=== PATIENT | female | born 1945 | race Caucasian/White ===

== ENCOUNTER → 2020-01-21 14:12 | Outpatient (CLI) | payer BC, SELFPAY ==
--- NOTE | ~2020-01-21 | MM_ITS ---
EXAMINATION: MM screening tony BI w ry HISTORY: Screening mammogram TECHNIQUE: Craniocaudal and mediolateral oblique 3-D tomosynthesis images were obtained and synthetic 2-D images were generated. CAD analysis was submitted and interpreted. COMPARISON: Comparison to multiple prior studies sequentially, with oldest reviewed study dated 07/18. BREAST PARENCHYMAL COMPOSITION: The breasts are heterogeneously dense, which may obscure small masses . FINDINGS: There is no evidence of suspicious mass, calcification, or architectural distortion to sugg est malignancy in either breast. There has been no suspicious interval change. IMPRESSION: 1. No mammographic evidence of malignancy. 2. Recommend routine screening mammography in one year. BI-RADS Category 1: Negative Reviewed, dictated and finalized at location A. TAL COMPUTER OPERATOR
== END ==
PROVIDERS: Visit Provider Nurse Practitioner
DX: Z12.31 Encounter for screening mammogram for malignant neoplasm of breast (principal)
CPT/HCPCS: 77063; 77067

== ENCOUNTER 2020-05-21 18:37 | Inpatient (IN) | payer BC, MEDICARE, SELFPAY ==
[2020-05-21] VITALS (12 sets, daily range): BP systolic 92–154; BP diastolic 20–81; PULSE 79–109; RESP 16–26; TEMP 35.9–36.8; O2SAT 97–100; BMI 32.7
--- NOTE | ~2020-05-21 | XR_ITS ---
EXAMINATION: XR chest 1V portable INDICATION: Shortness of breath and weakness TECHNIQUE: Portable AP chest at 1954 hours COMPARISON: 03/01/2009 FINDINGS: The lungs are free of acute opacities. There is no pleural effusion or pneumothorax. The ca rdiomediastinal silhouette is normal. The visualized bones and soft tissues are unremarkable. IMPRESSION: 1. No acute cardiopulmonary abnormality. Reviewed, dictated and finalized at location A.
--- NOTE | 2020-05-21 18:42 | ECG_ITS ---
Measurements Intervals [place] Rate: 85 P: 40 DE: 180 QRS: -47 QRSD: 150 T: 110 QT: 406 QTc: 485 Interpretive Statements SINUS RHYTHM RIGHT BUNDLE BRANCH BLOCK LEFT ANTERIOR FASCICULAR BLOCK LEFT VENTRICULAR HYPERTROPHY AND ST-T CHANGE CANNOT RULE OUT SEPTAL INFARCT, AGE INDETERMINATE PEAKED T WAVES- CONSIDER HYPERKALEMIA OR ISCHEMIA ST-T WAVE ABNORMALITY IN HIGH LATERAL LEADS- CONSIDER ISCHEMIA ABNORMAL ECG Electronically Signed On 05-21-2020 20:15:35 CDT by Abdi Pike D.O.
[2020-05-21 19:24] LABS: Basophils Percent Auto 0.5 % (0.2-1.2); Eosinophils Percent Auto 0.1 % (0-4.4); Hematocrit 23.1 % (37.0-47.0); Hemoglobin 7.3 g/dL (12.0-15.0); Immature Granulocyte Absolute 0.06 K/mm3 (0.00-0.031); Immature Granulocyte Percent A 0.8 % (0-0.5); Lymphocytes Absolute Auto 1.05 K/mm3 (0.9-3.2); Lymphocytes Percent Auto 13.2 % (18.3-44.2); Mean Corpuscular HGB Conc 31.6 g/dl (32-36); Mean Corpuscular Hemoglobin 30.9 pg (26-34); Mean Corpuscular Volume 97.9 fl (80-100); Mean Platelet Volume 11.4 fl (7.4-10.4); Monocytes Absolute Auto 0.5 K/mm3 (0.1-0.6); Monocytes Percent Auto 5.9 % (2.6-8.5); Neutrophils Absolute Auto 6.4 K/mm3 (1.3-6.7); Neutrophils Percent Auto 79.5 % (45.5-73.1); Platelet Count Result 247 k/mm3 (150-375); Red Blood Count 2.36 M/mm3 (4.2-5.4); Red Cell Distribution Width 13.7 % (11.5-14.5)
[2020-05-21 19:28] LABS: Add Urine Microscopic? YES; Appearance Urine Clear (Clear); Bilirubin Urine Negative (Negative); Blood Urine Negative (Negative); Color Urine Yellow (Yellow); Glucose Urine UA Negative (Negative); Ketones Urine Trace mg/dL (Negative); Leukocyte Esterase Ur Negative LEU/UL (Negative); Mucus Urine Rare /lpf; Nitrate Urine Negative (Negative); Protein Urine Negative (Negative); RBC Urine 0-2 /hpf (0-2); Specific Grav Ur 1.017 (1.001-1.035); Urobilinogen Urine Negative mg/dL (<2.0); WBC Urine 0-3 /hpf
[2020-05-21 19:32] LABS: Alveolar/Arterial O2 Gradient 26.7 mmHg; Base Excess ABG -3.6 mEq/l (+/-2.0); Carboxyhemoglobin 0.1 % THb (0-2.0); Device ROOM AIR; Fractional Inspired Oxygen 21 %; HCO3 ABG 19.6 mEq/l (22.0-26.0); Methemoglobin ABG 0.2 %THb (0-1.5); Modified Allen's Test Pass; Oxygen Content ABG 12.2 %vol (16.0-22.0); Oxygen Saturation ABG 97.3 % (95.0-100.0); Oxyhemoglobin 95.6 % THb (90.0-100.0); PCO2 ABG 28.7 mmHg (35.0-45.0); PO2 ABG 88.7 mmHg (80.0-100.0); PO2 FiO2 Ratio Arterial Blood 4.22 %; Reduced Hemoglobin 4.1 %THb (0-5.0); Site Drawn LEFT RADIAL; pH ABG 7.452 (7.350-7.450)
[2020-05-21 19:33] LABS: INR 1.1; Prothrombin Time 14.1 Seconds (11.1-14.7)
[2020-05-21 19:36] LABS: Alanine Aminotransferase 14 U/L (4-35); Albumin Level 2.8 g/dL (3.5-5.1); Alkaline Phosphatase 36 U/L (38-126); Aspartate Amino Transferase 17 U/L (14-36); Bilirubin,Total < 0.1 mg/dL (0.2-1.3); Blood Urea Nitrogen 53 mg/dL (7-17); Calcium 7.9 mg/dL (8.4-10.2); Carbon Dioxide 18 mmol/L (22-30); Chloride 111 mmol/L (98-107); Estimated CRCL calculation 67 ml/min; Estimated Glomerular Filt Rate > 60; Glucose 147 mg/dL (65-105); Potassium 4.2 mmol/L (3.4-5.0); Sodium 136 mmol/L (137-145)
[2020-05-21 19:37] LABS: Lactic Acid Reflex 3.7 mmol/L (0.7-2.1)
--- NOTE | 2020-05-21 19:38 | PC.NURSE ---
Patient placed on bed Max johns RN made aware.
[2020-05-21 19:40] LABS: Reflex Lactic Acid Yes or No Add Lactic
[2020-05-21 19:41] LABS: Amphetamine Screen Urine Negative (Negative); Barbiturate Screen Urine Negative (Negative); Benzodiazepines Screen Urine Positive (Negative); Cannabinoid Screen Urine Negative (Negative); Cocaine Screen Urine Negative (Negative); Methadone Screen Urine Negative (Negative); Opiate Screen Urine Negative (Negative); Phencyclidine Screen Urine Negative (Negative)
[2020-05-21 19:49] LABS: Troponin I 0.362 ng/mL (0.000-0.034)
--- NOTE | 2020-05-21 19:56 | ED.GENADULT ---
HPI - General Adult General Chief complaint: Weakness Stated complaint: WEAKNESS Time Seen by Provider: 05/21/20 18:41 Source: patient and EMS Mode of arrival: EMS Limitations: no limitations History of Present Illness HPI narrative: 75-year-old with a history of JAY on CPAP machine was brought in from home with complaints of sudden onset of marked weakness, was unable to get out of the bed. Patient states that she uses the CPAP machine on a daily basis however the settings were changed yesterday. She mentions they have added some medication yesterday which she is not quite sure. Upon EMS arrival. Patient was very confused, diaphoretic. She denies any chest pain, fever or chills. No history of nausea vomiting. However she complains of black-colored stool which happened 4 months ago none at this time. Onset (ago): minute(s) (30) Severity: severe Exacerbating factors: none Associated symptoms: weakness Treatments prior to arrival: none Related Data Home Medications Medication Instructions Recorded Confirmed cyclosporine 0.05 % eye drops in a 1 drop OPHTHALMIC (EYE) ONCE each 04/12/20 04/12/20 dropperette ergocalciferol (vitamin D2) 1,250 50,000 unit PO WEEKLY cap 04/12/20 04/12/20 mcg (50,000 unit) capsule turmeric root extract 500 mg 500 mg PO DAILY 04/12/20 04/12/20 capsule Allergies Allergy/AdvReac Type Severity Reaction Status Date / Time aspirin AdvReac Mild Other Verified 05/21/20 19:23 Review of Systems Review of Systems: All systems reviewed & are unremarkable except as noted in HPI and below Constitutional: Constitutional: Reports no additional constitutional complaints Eyes: Eyes: Reports no additional eye complaints ENT: Reports system reviewed and no additional complaints, except as documented Cardiovascular: Cardiovascular: Reports no additional cardiovascular complaints Respiratory: Respiratory: Reports no additional respiratory complaints Gastrointestinal: Gastrointestinal: Reports no additional gastrointestinal complaints Musculoskeletal: Musculoskeletal: Reports no additional musculoskeletal complaints Neurologic: Reports system reviewed and no additional complaints, except as documented Endocrine: Endocrine: Reports no additional endocrine complaints PMFSH Past Medical History Medical History Severe obstructive sleep apnea Social History Social History Gender identity (if verbalized by the patient): Female Exam Narrative: Exam Narrative: GENERAL:ill -appearing, well-nourished, Pale ,anxious . HEAD: Normocephalic, atraumatic. EYES: PERRLA and EOMI. ENT: Nares clear, no rhinorrhea or epistaxis. Mucous membranes moist. NECK: Supple. CHEST: Clear to auscultation. No respiratory distress. HEART: Regular rate and rhythm. No murmur heard. Normal peripheral pulses. ABDOMEN: Soft, nontender, nondistended, normal active bowel sounds. Rectal Heme positive stool EXTREMITIES: Normal range of motion. No edema. SKIN: Warm, dry, no rash. NEURO: No focal deficits. Alert and oriented x3. PSYCH: Normal mood and affect. Course Course Emergency Course: After liter of fluid patient's blood pressure has improved and is presently 116/51. Patient states that she is feeling much better. No further episodes of dizziness. Informed her about lab work. Will admit to the hospital. Discussed with Dr. Singh, informed her about the lab work. Vital Signs Vital signs: Vital Signs Temperature 35.9 C L 05/21/20 18:48 Pulse Rate 79 05/21/20 18:48 Respiratory Rate 26 H 05/21/20 18:48 Blood Pressure 92/20 L 05/21/20 18:48 Pulse Oximetry 99 05/21/20 18:48 Temperature 35.9 C L 05/21/20 18:48 Pulse Rate 95 05/21/20 19:15 Respiratory Rate 19 05/21/20 19:15 Blood Pressure 116/51 L 05/21/20 19:15 Pulse Oximetry 99 05/21/20 19:15 Medical Decision Making Vital Signs Vital Signs: Vital Signs Temperat
--- NOTE | 2020-05-21 20:00 | ECG_ITS ---
Measurements Intervals [place] Rate: 82 P: 65 AL: 198 QRS: -51 QRSD: 141 T: 108 QT: 383 QTc: 450 Interpretive Statements SINUS RHYTHM RIGHT BUNDLE BRANCH BLOCK LEFT ANTERIOR FASCICULAR BLOCK LEFT VENTRICULAR HYPERTROPHY AND ST-T CHANGE CANNOT RULE OUT SEPTAL INFARCT, AGE INDETERMINATE ST-T WAVE ABNORMALITY IN HIGH LATERAL LEADS- CONSIDER ISCHEMIA ABNORMAL ECG Electronically Signed On 05-24-2020 7:02:25 CDT by Abdi Pike D.O.
--- NOTE | 2020-05-21 20:24 | PM.IMHP ---
H&P: HPI History of Present Illness Chief complaint: Weakness, low blood pressure Narrative: Date and time of patient contact: 05/21/2020 Renetta Carrasco is a 75 year old female with a past medical history of essential hypertension and coronary artery disease who presented to the ER via EMS with weakness. The patient was found to be hypotensive in the field and received 250 mL of IV fluids in route to the hospital. The patient reportedly received an additional L of IV fluids in the ER however this has not been documented. The patient's blood pressures had improved to with systolics above 100. The patient reports that she has been chronically fatigued for years. She states that she will usually sleep an hour so with her CPAP and then get up and work for couple of hours and then go back to sleep. She had a new CPAP yesterday with an increased pressure. She thought that the increased pressure caused her the then developed dizziness, lightheadedness, and increased weakness. She reports that the dizziness and lightheadedness comes when she sits up. It is been ongoing for the last 24 hours. She denies any headache or visual changes. She has not had any nausea or vomiting. She also had noticed racing heart any time she would try to sit up. She has noticed increased heart rate with even minimal activity over the last couple of months. She has noticed some tightness across the back of her shoulders and neck as well with these episodes. She had not had any diaphoresis until today at which time she felt flushed and was diaphoretic. She denies having any actual chest pain. She had noticed some epigastric discomfort and what she thought was heartburn. She has been having this epigastric discomfort and heartburn on off for at least 4 months. She reports that she usually goes in takes an antacid and the symptoms go away 20 or 30 minutes later. The symptoms do seem to occur more after she has had food. However she does get the symptoms as well when she is up been active. She denies any lower extremity swelling. She has noticed increased weight gain for the last 6 weeks or so. She has noticed left arm pain for the last 6 weeks that is intermittent that she thought was associated with an injection that she received in her bicep. She did notice some melena about 4 months ago. However she has been unable to have a colonoscopy due to COVID-19 epidemic. She has a history of rectal polyps and hemorrhoids. She thinks her hemorrhoids may have returned. She states that she does have a small amount of red blood occasionally in her stools but none in the last couple of weeks. She reportedly had outpatient labs performed about 6 weeks ago but she is unaware of what her hemoglobin may have been. She reports that she had a distant history of anemia but does not think she has had anemia in years. She reports that her last bowel movement was while she was in the ER and was soft. She has not had any cough, congestion, or fevers. The patient was crying and tearful during multiple portions of the interview. She actually started crying because she reported that she felt so cold. The patient was not having any obvious chills or rigors. She has been taking diclofenac due to buzb-aw-sisc osteoarthritis. She reportedly lost her last prescription for diclofenac so she found an old prescription from about 5 years ago and has been taking this for her arthritis pain. She has also been using a topical ointment. She reported that she was so weak today that she could not get up and walk. She denies any history of strokes, memory difficulties, coronary artery disease, diabetes, or kidney disease. She has been on Plavix for years but states that it was given to her by an ear nose and throat doctor due to her tinnitus. She states that she had an outpatient stress test approximately 4 years ago that was reportedly negative. She had the stress test in anticipation of arthroscopic knee dick
[2020-05-21] MEDS: SODIUM CHLORIDE 0.9% IV 1,000 ML 125 ML IV CONT ×2 (20:40→21:38)
[2020-05-21 20:55] LABS: Hematocrit 25.1 % (37.0-47.0); Hemoglobin 8.2 g/dL (12.0-15.0)
--- NOTE | 2020-05-21 21:25 | ADMIMU ---
This patient, Renetta Carrasco, was admitted to IMU status, and placed in IMU Room 202-05/21/20 at 2120. Patient/family oriented to hospital policies and general routines including ID bracelet, bed and alarms, visiting hours, pain management, procedures, bathroom and other care routines, personal items, smoking policy, room service/diet, and visiting hours. Valuables list has been completed. Information on how to activate the Rapid Response Team has been discussed. Patient/Family are encouraged to report perceived risks to care and to ask questions if they do not understand what they are told or what they should do.
[2020-05-21] MEDS: PANTOPRAZOLE SODIUM IV 40 MG VIAL IV PUSH (21:40)
[2020-05-21 23:16] LABS: Transferrin 249 mg/dL (206-381)
[2020-05-21 23:49] LABS: Iron 76 ug/dL (37-170)
[2020-05-21 23:59] LABS: Percent Iron Saturation 22 % (20-50)
[2020-05-22] VITALS (22 sets, daily range): BP systolic 127–154; BP diastolic 56–69; PULSE 87–119; RESP 16–26; TEMP 36.1–37.1; O2SAT 97–100
[2020-05-22 00:15] LABS: Folic Acid 11.7 ng/mL (2.76->20)
[2020-05-22 03:14] LABS: IFOB Positive Control Positive; Immunochemical Fecal Occult Bl Positive (N)
[2020-05-22 03:26] LABS: Troponin I 0.379 ng/mL (0.000-0.034)
[2020-05-22 08:12] LABS: Basophils Percent Auto 0.3 % (0.2-1.2); Hematocrit 25.1 % (37.0-47.0); Hemoglobin 8.3 g/dL (12.0-15.0); Immature Granulocyte Absolute 0.06 K/mm3 (0.00-0.031); Immature Granulocyte Percent A 0.6 % (0-0.5); Lymphocytes Absolute Auto 1.41 K/mm3 (0.9-3.2); Mean Corpuscular HGB Conc 33.1 g/dl (32-36); Mean Corpuscular Hemoglobin 30.7 pg (26-34); Mean Platelet Volume 11.1 fl (7.4-10.4); Monocytes Absolute Auto 1.2 K/mm3 (0.1-0.6); Monocytes Percent Auto 12.9 % (2.6-8.5); Neutrophils Absolute Auto 6.7 K/mm3 (1.3-6.7); Neutrophils Percent Auto 71.2 % (45.5-73.1); Platelet Count Result 237 k/mm3 (150-375); White Blood Count 9.4 K/mm3 (4.5-10.0)
[2020-05-22 08:26] LABS: Blood Urea Nitrogen 43 mg/dL (7-17); Calcium 8.1 mg/dL (8.4-10.2); Carbon Dioxide 23 mmol/L (22-30); Chloride 110 mmol/L (98-107); Estimated CRCL calculation 58 ml/min; Estimated Glomerular Filt Rate > 60; Glucose 98 mg/dL (65-105); Potassium 3.8 mmol/L (3.4-5.0); Sodium 136 mmol/L (137-145)
[2020-05-22] MEDS: SIMVASTATIN 20 MG TABLET 40 MG PO (08:51)
[2020-05-22] MEDS: DULOXETINE 60 MG CAPSULE.DR PO (08:51)
[2020-05-22] MEDS: PANTOPRAZOLE SODIUM IV 40 MG VIAL IV PUSH ×2 (08:51→20:30)
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
--- NOTE | 2020-05-22 10:05 | ECG_ITS ---
Measurements Intervals [place] Rate: 96 P: 73 MT: 218 QRS: -50 QRSD: 149 T: 117 QT: 382 QTc: 483 Interpretive Statements SINUS RHYTHM WITH FIRST DEGREE AV BLOCK RIGHT BUNDLE BRANCH BLOCK LEFT ANTERIOR FASCICULAR BLOCK LEFT VENTRICULAR HYPERTROPHY AND ST-T CHANGE MINIMAL Q WAVES- HIGH LATERAL LEADS ST-T WAVE ABNORMALITY IN HIGH LATERAL LEADS- CONSIDER ISCHEMIA ABNORMAL ECG Electronically Signed On 05-22-2020 13:16:26 CDT by Abdi Pike D.O.
--- NOTE | 2020-05-22 10:06 | ECHO_ITS ---
Patient Info Name: Renetta Carrasco Age: 75 years : 1945 Gender: Female Ht: 62 in Wt: 179 lbs BSA: 1.92 m2 HR: 102 bpm BP: 127 / 57 mmHg Heart Rhythm: Sinus Rhythm Technical Quality: Good Exam Date: 05/22/2020 12:00 PM Exam Location: [facility] Room: 202 Patient Status: Inpatient Admit Date: 05/21/2020 Staff Ordering Physician: Joy Singh MD [employer]: Nasreen Espana RDCS Attending Provider: Bryan Ga MD Referring Physician: Francisco RICH; Exam Type: CA echo doppler color flow Study Info Indications - elevated trop weakness nstemi Complete two-dimensional, color flow and Doppler transthoracic echocardiogram is performed. Summary 1. Normal left ventricular size with mild concentric left ventricular hypertrophy. Hyperdynamic left ventricular systolic function with a visual estimate EF of greater than 70%. No focal wall motion abnormalities noted Calculated EF 68%. Grade 1diastolic dysfunction is present. 2. Left atrial chamber dimension is mildly enlarged. 3. Mild pulmonary hypertension, estimated pulmonary arterial systolic pressure is 42 mmHg. 4. Normal sinus rhythm. Left Ventricle Left ventricular chamber dimension is normal. Left ventricular systolic function is hyperdynamic, estimated at >70%. There is mildly increased left ventricular wall thickness. Left ventricular septal wall motion is normal. The left ventricular diastolic function is grade I diastolic dysfunction. Right Ventricle Right ventricular chamber dimension is normal. Right ventricular systolic function is normal. Left Atria Left atrial chamber dimension is mildly enlarged. Right Atria Right atrial chamber dimension is normal. Aortic Valve The aortic valve is trileaflet. There is mild aortic valve sclerosis. There is no aortic valve stenosis. There is no aortic valve regurgitation. Pulmonic Valve The pulmonic valve is normal. There is no pulmonic valve stenosis. There is no pulmonic regurgitation. Mitral Valve The mitral valve has normal leaflets. There is no mitral valve stenosis. There is no mitral valve regurgitation. Tricuspid Valve The tricuspid valve leaflets are normal. There is no significant tricuspid valve stenosis. There is trace tricuspid valve regurgitation. Mild pulmonary hypertension, estimated pulmonary arterial systolic pressure is 42 mmHg. Pericardium/Pleural The pericardium appears normal. There is no pericardial effusion. Inferior Vena Cava Normal inferior vena cava with >50% collapse upon inspiration consistent with Empty right atrial pressure, 10 mmHg. Aorta The aortic root size at the sinus of Valsalva is normal. The prox ascending aorta size is normal. Left Ventricular Outflow Tract Name Value Normal LVOT 2D LVOT Diameter 2.0 cm LVOT Doppler LVOT Peak Gradient 7 mmHg LVOT Mean Gradient 5 mmHg LVOT VTI 19 cm LVOT VTI/AV VTI Ratio 0.7 LVOT Stroke Volume 58 ml
--- NOTE | 2020-05-22 10:06 | WPDCN ---
Assessment and Plan Assessment and plan (1) Type 2 NV (myocardial infarction): Code(s): I21.A1 - Myocardial infarction type 2 Status: Acute Assessment and Plan: Patient has elevated troponins of 0.36, 0.43 and 0.38 with no anginal-type chest discomfort. EKG does not show any acute ST segment changes but she does have some prominent T-wave inversion in leads 1 and L, perhaps related to right ventricular hypertrophy. I think she had a type 2 NV related to physiologic stress of severe anemia and hypotension. She may have some underlying vascular disease but is asymptomatic and stable. Will obtain an echo to evaluate LV function, and repeat her EKG this morning. Continue general risk factor reduction with hypertension control, lipid management, heart healthy eating etc. (2) Acute GI bleeding: Code(s): K92.2 - Gastrointestinal hemorrhage, unspecified Status: Acute Assessment and Plan: Severe anemia causing hypotension, secondary to GI bleed. I think the patient can undergo endoscopy and colonoscopy on Sunday as planned by Dr. Quintanilla. (3) Hypotension: Code(s): I95.9 - Hypotension, unspecified Status: Acute Assessment and Plan: Initially hypotensive, resolved with IV fluids and 1 unit of pack cells. (4) Hypertension: Code(s): I10 - Essential (primary) hypertension Status: Acute Assessment and Plan: History of hypertension. Have not yet resumed her blood pressure medications. Will wait and see if her BP is stable 1st. (5) Cerebrovascular disease: Code(s): I67.9 - Cerebrovascular disease, unspecified Status: Acute Assessment and Plan: Patient gives a history of having some atherosclerotic plaque for which she takes Plavix. Very faint left carotid bruit noted. Notes that when she takes aspirin she has increased tinnitus. HPI Data of Consult Date/Time: 05/22/20 10:06 Requesting Physician: Rob Ga MD Primary Care Provider: Magdi Gonzalez Jr., MD Consult Narrative Narrative: Date of service: 05/22/2020 Renetta Carrasco is a 75 year old female whom I was asked to see at the request of for our for my advice and opinion regarding her elevated troponins and weakness, in consultation. The patient was admitted through the emergency room with hypotension, weakness, and a troponin 0.36. She was found to be severely anemic. Her primary care doctor is Dr. Gonzalez. Ms. Carrasco has been feeling weak for several months. She described some melena a few months ago and was supposed to get a colonoscopy but then the COVID-19 pandemic has delayed that. She is feeling progressively worse, with increasing fatigue, weakness, and dizziness. She was worn out. She could hardly walk from room to room in the house and her heart would race when she did that. She was very sweaty and slept all the time. She might of had some epigastric indigestion now and then. No further melena. Questionable slight hemorrhoidal bleeding (she is a very imprecise historian at times) but no recent melena or overt GI bleeding. No substernal chest pressure, pain, tightness to suggest any typical angina. She was admitted with the hemoglobin of 7 and was guaiac positive. She received a L of IV fluids in the ER for blood pressure of 92. After 1 unit of pack cells her hemoglobin is 8. She is feeling better this morning. The patient has a history of hypertension hyperlipidemia but no diabetes, smoking or family history of heart trouble. She has never had a heart disease herself or heart testing. She did see ENT physician for tinnitus and she was told she had atherosclerotic plaque in her head and started on Plavix. She has never had a stroke. Review of Systems Constitutional: Constitutiona
[2020-05-22] MEDS: SODIUM CHLORIDE 0.9% IV 1,000 ML 125 ML IV CONT (12:30)
[2020-05-22 14:35] LABS: Hematocrit 23.5 % (37.0-47.0)
--- NOTE | 2020-05-22 17:19 | PM.IMPN ---
Progress Note: A&P Assessment and Plan (1) Type 2 ID (myocardial infarction): Code(s): I21.A1 - Myocardial infarction type 2 Status: Acute Assessment and Plan: Patient denies chest pain or evidence of anginal equivalent. Trop elevated but flat at 0.43. EKG on admission showing inverted T waves in the high lateral leads concerning for ischemia. Repeat EKG today showing no change. Seen by cardiology. [place] the elevated Trop related to the HoTN. Anti-platelet treatment on hold due to GI bleed. Appreciated Cardiology input. Continue Zocor. (2) Acute GI bleeding: Code(s): K92.2 - Gastrointestinal hemorrhage, unspecified Status: Acute Assessment and Plan: Patient had heme-positive stools by exam in the emergency room. No obvious recent GI blood loss. She is on Plavix and diclofenac at home. Hemoglobin 7.3 on admission and she received 1 unit of packed cells. Hemoglobin climbed to the 8 range in his remains stable. Continue Protonix. GI consult has been obtained. Appreciate GI input. (3) Hypotension: Code(s): I95.9 - Hypotension, unspecified Status: Acute Assessment and Plan: Patient was brought in from home with complaints of sudden onset of weakness. On EMS arrival, patient was found to be confused and diaphoretic. Patient had hypotension. She was treated IV fluids with benefit. She had symptomatic improvement. Continue to monitor in the IMU on telemetry. (4) Anemia: Qualifiers: Anemia type: iron deficiency Iron deficiency anemia type: chronic blood loss Qualified Code(s): D50.0 - Iron deficiency anemia secondary to blood loss (chronic) Code(s): D64.9 - Anemia, unspecified Status: Acute Assessment and Plan: Hemoglobin 8 range and stable. Iron studies are normal. B12 and folate level was also normal. Hemoglobin may be diluted with IV fluids. As above. (5) Lactic acidosis: Code(s): E87.2 - Acidosis Status: Acute Assessment and Plan: Lactic acid 3.7 on admission and trend downward. Will repeat. Will decrease IV fluid rate. (6) Severe obstructive sleep apnea: Code(s): G47.33 - Obstructive sleep apnea (adult) (pediatric) Status: Acute Assessment and Plan: Patient with JAY on CPAP who uses this on a daily basis. However the settings were changed the day before admission. Continue CPAP as the patient tolerates. (7) Hypertension: Code(s): I10 - Essential (primary) hypertension Status: Acute Assessment and Plan: BP beginning to climb. Will decrease IV fluid rate. Resume Metoprolol soon. (8) DVT prophylaxis: Code(s): Z29.9 - Encounter for prophylactic measures, unspecified Status: Acute Assessment and Plan: SCDs Subjective Date/time seen: 05/22/20 17:19 Interval history: 75yo female with hx of HTN here for HoTN that was fluid responsive. She has a myriad of complaints that seemed to be long standing. She is feeling better today. No CP or jaw pain. Has left shoulder pain but present for many years. Eating okay today without n/v. States she is packing to move but unable to assist because of CYR. Dark stools occurred 4 months ago but nothing since. Last colo was 5 yrs ago and is trying to get in to schedule repeat colo. She is known t have hemorrhoids. Exam Narrative: Exam Narrative: AF 142/64 95 18 100% ra Gen - NARD Chest - CTA bilaterally, nml RR CV - RRR S1/S2; telemetry showing occasional sinus tachycardia Abd - Soft, NT/ND, Positive BS Ext - No pedal edema Psych -normal mood. Odd affect. Skin -mildly diaphoretic Objective Data Vital Signs Vital Signs: Vital Signs - 24 hr 05/21/20 18:48 05/21/20 18:49 05/21/20 18:51 Temperature 96.7 F L Pulse Rate 79 87 80 Respiratory Rate 26 H 16 Blood Pressure 92/20 L Pulse Oximetry 99 99 05/21/20 19:00 05/21/20 19:15 05/21/20 20:1
[2020-05-22] MEDS: SODIUM CHLORIDE 0.9% IV 1,000 ML 70 ML IV CONT (20:33)
[2020-05-22] MEDS: DIAZEPAM 5 MG TABLET PO (20:37)
[2020-05-23] VITALS (27 sets, daily range): BP systolic 123–171; BP diastolic 60–93; PULSE 70–104; RESP 12–31; TEMP 35.7–37.2; O2SAT 92–100
[2020-05-23 04:15] LABS: Basophils Percent Auto 0.3 % (0.2-1.2); Eosinophils Percent Auto 0.2 % (0-4.4); Immature Granulocyte Absolute 0.04 K/mm3 (0.00-0.031); Immature Granulocyte Percent A 0.7 % (0-0.5); Lymphocytes Absolute Auto 1.46 K/mm3 (0.9-3.2); Lymphocytes Percent Auto 23.8 % (18.3-44.2); Mean Corpuscular HGB Conc 32.8 g/dl (32-36); Mean Corpuscular Hemoglobin 31.1 pg (26-34); Mean Corpuscular Volume 94.7 fl (80-100); Mean Platelet Volume 10.4 fl (7.4-10.4); Monocytes Absolute Auto 0.7 K/mm3 (0.1-0.6); Monocytes Percent Auto 11.6 % (2.6-8.5); Neutrophils Absolute Auto 3.9 K/mm3 (1.3-6.7); Neutrophils Percent Auto 63.4 % (45.5-73.1); Platelet Count Result 198 k/mm3 (150-375); Red Blood Count 2.06 M/mm3 (4.2-5.4); Red Cell Distribution Width 14.6 % (11.5-14.5); White Blood Count 6.1 K/mm3 (4.5-10.0)
[2020-05-23 04:24] LABS: Hematocrit 19.5 % (37.0-47.0); Hemoglobin 6.4 g/dL (12.0-15.0)
[2020-05-23 04:31] LABS: Alanine Aminotransferase 15 U/L (4-35); Albumin Level 2.6 g/dL (3.5-5.1); Alkaline Phosphatase 35 U/L (38-126); Aspartate Amino Transferase 20 U/L (14-36); Bilirubin,Total 0.1 mg/dL (0.2-1.3); Blood Urea Nitrogen 15 mg/dL (7-17); Calcium 7.8 mg/dL (8.4-10.2); Carbon Dioxide 22 mmol/L (22-30); Chloride 113 mmol/L (98-107); Estimated CRCL calculation 67 ml/min; Estimated Glomerular Filt Rate > 60; Glucose 90 mg/dL (65-105); Magnesium 2.2 mg/dL (1.6-2.3); Phosphorus 1.9 mg/dL (2.5-4.5); Potassium 3.5 mmol/L (3.4-5.0); Sodium 137 mmol/L (137-145)
[2020-05-23] MEDS: SODIUM CHLORIDE 0.9% IV 1,000 ML 70 ML IV CONT ×2 (04:44→20:59)
[2020-05-23] MEDS: SODIUM CHLORIDE 0.9% IV 250 ML 30 ML IV CONT (05:25)
[2020-05-23] MEDS: ACETAMINOPHEN 325 MG TABLET 650 MG PO (05:56)
--- NOTE | 2020-05-23 07:49 | WPDGIPROGNO ---
Progress Note: A&P Additional Plan Patient alert this morning. Somewhat anxious. No additional bleeding reported. She did have decline in hemoglobin overnight and is currently receiving 2 additional units of blood. Physical exam reveals her to be alert. Vital signs are stable. She is anicteric. Lungs are clear to auscultation and percussion. Heart is without murmur or extra sounds. Abdominal exam bowel sounds are present soft nontender with no organomegaly. Labs reveal hemoglobin 6.4, hematocrit 19.5 this morning. Impression 1. GI bleeding. No active bleeding noted. But decline in hemoglobin reported. Plan is to monitor hemoglobin. Two she is to be transfused again this morning. GI endoscopy in the morning after preparation today. Differential diagnosis includes diverticular disease but also ulcers etc. 2. Non ST elevated [place]. Patient followed by cardiology service. 3. Sleep apnea. Subjective Date/time seen: 05/23/20 07:49 Objective Data Vital Signs Vital Signs: Vital Signs - 24 hr 05/22/20 08:00 05/22/20 10:00 05/22/20 11:50 Temperature 36.8 C 36.7 C Pulse Rate 102 H 100 96 Respiratory Rate 18 18 Blood Pressure 127/57 L 138/61 Pulse Oximetry 97 100 05/22/20 12:00 05/22/20 14:00 05/22/20 16:00 Temperature 37.1 C Pulse Rate 100 105 H 95 Respiratory Rate 18 Blood Pressure 142/64 H Pulse Oximetry 100 05/22/20 18:00 05/22/20 19:42 05/22/20 20:00 Temperature 36.8 C Pulse Rate 99 96 100 Respiratory Rate 18 18 Blood Pressure 136/56 L Pulse Oximetry 100 100 05/22/20 21:52 05/22/20 22:05 05/22/20 22:49 Temperature 36.4 C L Pulse Rate 88 88 87 Respiratory Rate 20 Blood Pressure 133/61 Pulse Oximetry 98 98 05/23/20 00:00 05/23/20 01:34 05/23/20 01:42 Temperature Pulse Rate 83 86 88 Respiratory Rate 20 19 Blood Pressure Pulse Oximetry 98 92 05/23/20 03:33 05/23/20 04:00 05/23/20 05:31 Temperature 35.9 C L 36.2 C L Pulse Rate 94 82 81 Respiratory Rate 20 20 16 Blood Pressure 150/61 H 143/60 H Pulse Oximetry 100 100 99 06/28/20 05:40 05/23/20 05:43 05/23/20 05:55 Temperature 36.2 C L 36.3 C L Pulse Rate 76 75 77 Respiratory Rate 16 24 H Blood Pressure 155/64 H 148/61 H Pulse Oximetry 100 99 05/23/20 06:55 Temperature 36.2 C L Pulse Rate 74 Respiratory Rate 18 Blood Pressure 147/64 H Pulse Oximetry 98 Intake/Output Intake/Output: Intake & Output 05/20/20 05/21/20 05/22/20 05/23/20 23:59 23:59 23:59 23:59 Intake Total 200 3190 1343 Output Total 500 2270 600 Balance -300 920 743 Meds/Results Medications: Active Medications Generic Name Dose Route Start Last Admin Trade Name Freq PRN Reason Stop Dose Admin Acetaminophen 650 mg 05/22/20 22:25 05/23/20 05:56 Tylenol Tablet PO 650 mg Q6H PRN Administration Mild Pain (1-3) or Fever Diazepam 5 mg 05/21/20 22:34 05/22/20 20:37 Valium Po PO 5 mg DAILY PRN Administration Anxiety Duloxetine HCl 60 mg 05/22/20 09:00 05/22/20 08:51 Cymbalta PO 60 mg DAILY IVON Administration Sodium Chloride 1,000 mls @ 70 mls/hr 05/21/20 20:25 05/23/20 05:24 Normal Saline Iv IV CONT 0 mls/hr .[id number] IVON Infusion Sodium Chloride 250 mls @ 30 mls/hr 05/23/20 04:52 05/23/20 05:25 Normal Saline Iv IV CONT 05/23/20 13:11 30 mls/hr .[id number] STA Administration Ondansetron HCl 4 mg 05/21/20 20:23 Zofran Inj IV PUSH Q4H PRN Nausea Pantoprazole Sodium 40 mg 05/21/20 21:00 05/22/20 20:30 Protonix Iv IV PUSH 40 mg Q12HR IVON Administration Simvastatin 40 mg 05/22/20 09:00 05/22/20 08:51 Zocor PO 40 mg DAILY IVON Administration Radiology Results: ITS Impressions Chest X-Ray 05/21/20 19:55 IMPRESSION: 1. No acute cardiopulmonary abnormality. Labs Labs: Laboratory Results - last 24 hr 05/21/20 05/22/20 05/22/20 20:47 07:58 08:00 WBC 9.4 RBC 2.70 L Hg
[2020-05-23] MEDS: DULOXETINE 60 MG CAPSULE.DR PO (08:25)
[2020-05-23] MEDS: SIMVASTATIN 20 MG TABLET 40 MG PO (08:25)
[2020-05-23] MEDS: PANTOPRAZOLE SODIUM IV 40 MG VIAL IV PUSH ×2 (08:25→21:00)
[2020-05-23] MEDS: DIAZEPAM 5 MG TABLET PO (08:34)
--- NOTE | 2020-05-23 10:05 | PM.PNCARD ---
Progress Note: A&P Assessment and Plan (1) Type 2 MN (myocardial infarction): Code(s): I21.A1 - Myocardial infarction type 2 Status: Acute Assessment and Plan: Patient has elevated troponins of 0.36, 0.43 and 0.38 with no anginal-type chest discomfort. EKG does not show any ischemic changes. Echo showed good left ventricular function. I think she had a type 2 MN related to physiologic stress of severe anemia and hypotension. She may have some underlying vascular disease but is asymptomatic and stable. Continue general risk factor reduction with hypertension control, lipid management with simvastatin, heart healthy eating etc. Eventual ischemia evaluation with Lexiscan as outpatient. (2) Acute GI bleeding: Code(s): K92.2 - Gastrointestinal hemorrhage, unspecified Status: Acute Assessment and Plan: Severe anemia causing hypotension, secondary to GI bleed. Getting her 2nd and 3rd units of pack cells today Clopidogrel (given for cerebrovascular disease) has been discontinued. On IV pantoprazole. I think the patient can undergo endoscopy and colonoscopy on Sunday as planned by Dr. Quintanilla. (3) Hypotension: Code(s): I95.9 - Hypotension, unspecified Status: Acute Assessment and Plan: Hypotensive on admission, resolved after IV fluids and her 1st unit of pack cells. (4) Hypertension: Code(s): I10 - Essential (primary) hypertension Status: Acute Assessment and Plan: History of hypertension. Have not yet resumed her blood pressure medications. Will wait and see if her BP is stable 1st. (5) Cerebrovascular disease: Code(s): I67.9 - Cerebrovascular disease, unspecified Status: Acute Assessment and Plan: Patient gives a history of having some atherosclerotic plaque for which she takes Plavix. Very faint left carotid bruit noted. Subjective Date/time seen: 05/23/20 10:05 FU for elevated trop. Admitted with hypotension, GI bleed, and elevated troponin up to 0.43. She was found to be severely anemic. I felt she had a type 2 MN related to physiologic stress of severe anemia and hypotension. She may have some underlying vascular disease but is asymptomatic and stable. Rec'd 1 unit PRBCs on admission. Date of service 05/23/2020: Hematocrit dropped to 19 and she will be getting 2 more units of packed cells today. She had melanotic stool. Receiving supplementation for low phosphate. Follow-up EKG on my personal review shows sinus rhythm rate 96, first-degree AV block, RBBB, LAFB, and again now RVH with T-wave inversion in 1 and L. No acute ischemic changes. Echo showed hyperdynamic LV function, EF greater than 70% with no focal wall motion abnormalities, diastolic dysfunction. Review of Systems Constitutional: Constitutional: Reports no additional constitutional complaints ENT: Denies nasal congestion Cardiovascular: Cardiovascular: Denies chest pain, Reports pedal edema, Denies lightheadedness and Denies palpitations Respiratory: Respiratory: Denies cough, Denies dyspnea and Denies dyspnea on exertion Gastrointestinal: Gastrointestinal: Denies abdominal pain, Reports melena, Denies hematochezia and Denies nausea Genitourinary: Genitourinary: Denies hematuria Musculoskeletal: Musculoskeletal: Denies back pain Neurologic: Reports system reviewed and no additional complaints, except as documented Psychiatric: Psychiatric: Reports anxiety Exam Narrative: Exam Narrative: Sitting up in a chair, anxious but not in distress. Receiving a unit of pack cells. Const: General: comfortable and no acute distress HENMT: Mouth: Yes moist mucous membranes Eyes: EOM: EOMs intact bilaterally Neck: Neck: supple and no JVD Thyroid: thyroid normal Resp: Effort & Insp
[2020-05-23] MEDS: PEG (High)/E-LYTE SOLN 4,000 ML BTL 4000 ML PO (11:38)
[2020-05-23] MEDS: POTASSIUM PHOS,M-BASIC-D-BASIC 20 MMOL in SODIUM CHLORIDE 0.9% IV 250 ML 62.5 MMOL IVPB (12:43)
[2020-05-23] MEDS: TUBING, BLOOD PLUM PUMP TUBING 1 EACH XX (12:43)
--- NOTE | 2020-05-23 13:01 | PM.IMPN ---
Progress Note: A&P Assessment and Plan (1) Type 2 WV (myocardial infarction): Code(s): I21.A1 - Myocardial infarction type 2 Status: Acute Assessment and Plan: Patient denies chest pain or evidence of anginal equivalent. Trop elevated but flat at 0.43. EKG on admission showing inverted T waves in the high lateral leads concerning for ischemia. Repeat EKG today showing no change. Seen by cardiology. [place] the elevated Trop related to the HoTN. Anti-platelet treatment on hold due to GI bleed. Appreciated Cardiology input. Continue Zocor. Add back low dose metoprolol. (2) Acute GI bleeding: Code(s): K92.2 - Gastrointestinal hemorrhage, unspecified Status: Acute Assessment and Plan: Patient had heme-positive stools by exam in the emergency room. No gross GI blood loss. She is on Plavix and diclofenac at home. Hemoglobin 7.3 on admission and she received 1 unit of packed cells. Hemoglobin climbed to the 8 range but dropped again to 6.4 requiring another transfusion. Continue Protonix. GI consulted and appreciate their input. Endoscopy planned for tomorrow. (3) Hypotension: Code(s): I95.9 - Hypotension, unspecified Status: Acute Assessment and Plan: Patient was brought in from home with complaints of sudden onset of weakness. On EMS arrival, patient was found to be confused, diaphoretic and hypotensive. She was treated with IV fluids with benefit. She had symptomatic improvement. Continue to monitor. BP better so will add back metoprolol. (4) Anemia: Qualifiers: Anemia type: iron deficiency Iron deficiency anemia type: chronic blood loss Qualified Code(s): D50.0 - Iron deficiency anemia secondary to blood loss (chronic) Code(s): D64.9 - Anemia, unspecified Status: Acute Assessment and Plan: Hemoglobin dropped to 6.4 this morning and transfusion ordered. Iron studies are normal. B12 and folate also normal. Repeat Hgb 10.1 post transfusion. (5) Lactic acidosis: Code(s): E87.2 - Acidosis Status: Acute Assessment and Plan: Lactic acid 3.7 on admission and trend downward to normal. (6) Severe obstructive sleep apnea: Code(s): G47.33 - Obstructive sleep apnea (adult) (pediatric) Status: Acute Assessment and Plan: Patient with JAY on CPAP and is compliant with treatment. CPAP settings were changed the day before admission. Continue CPAP as the patient tolerates. (7) Hypertension: Code(s): I10 - Essential (primary) hypertension Status: Acute Assessment and Plan: BP reviewed on 05/23. BP elevated at times. Resume Metoprolol. 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 THis could contribute to her weakness. Replace. Repeat in am. Subjective Date/time seen: 05/23/20 13:01 Interval history: 75yo female with hx of HTN here for HoTN that was fluid responsive. She has a myriad of complaints that seemed to be long standing. No blood in stool that she is aware. She does have GERD symptoms with burning in the chest. Slept well last night. Toelrated the mask last night. No CP or SOB. Exam Narrative: Exam Narrative: AF 144/93 70 Gen - NARD Chest - CTA bilaterally, nml RR CV - RRR S1/S2; telemetry showing sinus arrhythmia, PVCs Abd - Soft, NT/ND, Positive BS Ext - No pedal edema Psych -normal mood. Odd affect with tangential thought process Skin -warm and dry Objective Data Vital Signs Vital Signs: Vital Signs - 24 hr 05/22/20 14:00 05/22/20 16:00 05/22/20 18:00 Temperature 98.8 F Pulse Rate 105 H 95 99 Respiratory Rate 18 Blood Pressure 142/64
[2020-05-23 14:08] LABS: Hematocrit 30.8 % (37.0-47.0); Hemoglobin 10.1 g/dL (12.0-15.0)
--- NOTE | 2020-05-23 15:44 | PC.NURSE ---
This patient, Renetta Carrasco, was transferred to [facility] on 05/23/20 at 1530. Personal belongings sent with patient. Report given to Telma. Appropriate documentation sent with patient.
--- NOTE | 2020-05-23 16:12 | PCDIET ---
This patient, Renetta Carrasco, was received from IMU on 05/23/20 at 1538. Report received from BRAVO [place]. Personal belongings list checked and signed. Patient/family oriented to unit policies and routines
[2020-05-23 18:42] LABS: Hematocrit 29.7 % (37.0-47.0); Hemoglobin 9.8 g/dL (12.0-15.0)
[2020-05-23] MEDS: METOPROLOL TARTRATE 12.5 MG TABLET PO (21:00)
[2020-05-24] VITALS (16 sets, daily range): BP systolic 123–179; BP diastolic 53–71; PULSE 56–80; RESP 18–23; TEMP 36.6–36.9; O2SAT 92–100
[2020-05-24 01:09] LABS: Hematocrit 25.8 % (37.0-47.0); Hemoglobin 8.8 g/dL (12.0-15.0)
[2020-05-24 06:11] LABS: Hematocrit 27.1 % (37.0-47.0); Mean Corpuscular HGB Conc 33.2 g/dl (32-36); Mean Corpuscular Hemoglobin 30.1 pg (26-34); Mean Corpuscular Volume 90.6 fl (80-100); Mean Platelet Volume 10.7 fl (7.4-10.4); Platelet Count Result 216 k/mm3 (150-375); Red Blood Count 2.99 M/mm3 (4.2-5.4); Red Cell Distribution Width 15.4 % (11.5-14.5); White Blood Count 5.2 K/mm3 (4.5-10.0)
[2020-05-24 06:34] LABS: Blood Urea Nitrogen 8 mg/dL (7-17); Calcium 7.8 mg/dL (8.4-10.2); Carbon Dioxide 28 mmol/L (22-30); Chloride 109 mmol/L (98-107); Estimated CRCL calculation 79 ml/min; Estimated Glomerular Filt Rate > 60; Glucose 92 mg/dL (65-105); Phosphorus 2.4 mg/dL (2.5-4.5); Potassium 3.3 mmol/L (3.4-5.0); Sodium 140 mmol/L (137-145)
[2020-05-24] MEDS: DULOXETINE 60 MG CAPSULE.DR PO (08:09)
[2020-05-24] MEDS: DIAZEPAM 5 MG TABLET PO (08:09)
--- NOTE | 2020-05-24 08:38 | WPDANESEPPF ---
Anes - Initial Pre Proc Eval Procedure: Operation Date: 05/24/20 10:30 Proposed Procedures p Esophagogastroduodenoscopy & Colonoscopy - Everette Quintanilla MD Date/Time: 05/24/20 08:38 Pre Op Diagnosis: Weakness, low blood pressure Patient Data Age: 75 Gender: F Height: 1.57 m Weight: 81 kg Last Vital Signs Temp 36.9 C 05/24/20 08:09 Pulse 68 05/24/20 08:09 Resp 18 05/24/20 08:09 BP 153/58 H 05/24/20 08:09 Pulse Ox 99 05/24/20 08:09 Allergies Allergy/AdvReac Type Severity Reaction Status Date / Time lisinopril Allergy Severe Angioedema Verified 05/21/20 20:35 aspirin AdvReac Mild Other Verified 05/21/20 19:23 Home Medications Medication Instructions Recorded Confirmed Type metoprolol succinate 100 mg 100 mg PO DAILY #14 tablet 10/15/19 05/21/20 Rx tablet,extended release 24 hr clopidogrel 75 mg tablet 75 mg PO DAILY #90 tablet 12/31/19 05/21/20 Rx duloxetine 60 mg capsule,delayed 60 mg PO DAILY #90 cap 03/31/20 05/21/20 Rx release simvastatin 40 mg tablet 40 mg PO DAILY #90 tablet 03/31/20 05/21/20 Rx cyclosporine 0.05 % eye drops in a 1 drop OPHTHALMIC (EYE) ONCE each 04/12/20 05/21/20 History dropperette ergocalciferol (vitamin D2) 1,250 50,000 unit PO WEEKLY cap 04/12/20 05/21/20 History mcg (50,000 unit) capsule turmeric root extract 500 mg 500 mg PO DAILY 04/12/20 05/21/20 History capsule diazepam 5 mg PO DAILY PRN 05/21/20 05/21/20 History diclofenac sodium 75 mg PO BID PRN 05/21/20 05/21/20 History evening primrose oil 500 mg PO DAILY 05/21/20 05/21/20 History Laboratory Tests 05/21/20 05/23/20 05/23/20 20:47 13:48 18:36 WBC RBC Hgb 10.1 g/dL L D g/dL 9.8 g/dL L g/dL (12.0-15.0) (12.0-15.0) Hct 30.8 % L % 29.7 % L % (37.0-47.0) (37.0-47.0) MCV MCH MCHC RDW Plt Count MPV Sodium Potassium Chloride Carbon Dioxide BUN Creatinine Estim Creat Clear Calc Estimated GFR Glucose Calcium Phosphorus Magnesium Albumin Blood Type O Positive Antibody Screen Negative Crossmatch See Detail 05/24/20 05/24/20 05/24/20 00:51 05:45 05:45 WBC 5.2 K/mm3 K/mm3 (4.5-10.0) RBC 2.99 M/mm3 L M/mm3 (4.2-5.4) Hgb 8.8 g/dL L g/dL 9.0 g/dL L g/dL (12.0-15.0) (12.0-15.0) Hct 25.8 % L % 27.1 % L % (37.0-47.0) (37.0-47.0) MCV 90.6 fl fl (80-100) MCH 30.1 pg pg (26-34) MCHC 33.2 g/dl g/dl (32-36) RDW 15.4 % H % (11.5-14.5) Plt Count 216 k/mm3 k/mm3 (150-375) MPV 10.7 fl H fl (7.4-10.4) Sodium 140 mmol/L mmol/L (137-145) Potassium 3.3 mmol/L L mmol/L (3.4-5.0) Chloride 109 mmol/L H mmol/L (98-107) Carbon Dioxide 28 mmol/L mmol/L (22-30) BUN 8 mg/dL D mg/dL (7-17) Creatinine 0.50 mg/dL L mg/dL (0.7-1.0) Estim Creat Clear Calc 79 ml/min ml/min Estimated GFR > 60 (59 - ) Glucose 92 mg/dL mg/dL (65-105) Calcium 7.8 mg/dL L mg/dL (8.4-10.2) Phosphorus 2.4 mg/dL L mg/dL (2.5-4.5) Magnesium 2.0 mg/dL mg/dL (1.6-2.3) Albumin 3.0 g/dL L g/dL (3.5-5.1) Blood Type Antibody Screen Crossmatch Patient hx anesthesia problems: none Family hx anesthesia problems: none PMFSH Past Medical History Medical History Anxiety Cerebrovascular disease Reports she saw ENT for tinnitus who told her she had atherosclerotic plaque in her head and prescribed Plavix Generalized anxiety disorder with panic attacks Hyperlipidemia Hyperte
[2020-05-24] MEDS: METOPROLOL TARTRATE 12.5 MG TABLET PO (08:46)
[2020-05-24] MEDS: LACTATED RINGERS 1,000 ML 150 ML IV CONT (09:35)
--- NOTE | 2020-05-24 09:41 | SUR.PREOP ---
pt transported to endo pre-op room 3. very anxious but able to talk pt through her questions and fears. pt is feeling less anxious now.
[2020-05-24] MEDS: SIMVASTATIN 20 MG TABLET 40 MG PO (11:45)
[2020-05-24] MEDS: PANTOPRAZOLE SODIUM IV 40 MG VIAL IV PUSH (11:46)
--- NOTE | 2020-05-24 11:54 | PCDIET ---
Nutrition Consult for tube feeding recommendations. Patient had EGD today diet order has been advanced to a heart healthy diet. Please consult if tube feedings needed. No further nutritional interventions at this time.
[2020-05-24] MEDS: SODIUM CHLORIDE 0.9% IV 1,000 ML 70 ML IV CONT (13:03)
--- NOTE | 2020-05-24 13:21 | PM.PNCARD ---
Progress Note: A&P Assessment and Plan (1) Type 2 [place] (myocardial infarction): Code(s): I21.A1 - Myocardial infarction type 2 Status: Acute Assessment and Plan: Elevated troponins of 0.36, 0.43 and 0.38 with no anginal-type chest discomfort. EKG does not show any ischemic changes. Echo showed good left ventricular function. No wall motion abnormalities Not plaque rupture. Likely type 2 [place] related to physiologic stress of severe anemia and hypotension. May have some underlying vascular disease but she is asymptomatic and stable. Continue general risk factor reduction with hypertension control, lipid management with simvastatin, heart healthy eating etc. Will restart Metoprolol succinate at 50 mg daily. First dose now. She may proceed with any necessary surgery with low to moderate risk. This was discussed with Dr Singh by phone. (2) Acute GI bleeding: Code(s): K92.2 - Gastrointestinal hemorrhage, unspecified Status: Acute Assessment and Plan: Severe anemia causing hypotension, secondary to GI bleed. Received 3 units of packed cells. Clopidogrel (given for cerebrovascular disease) has been discontinued. On IV pantoprazole. See colonoscopy report. (3) Hypotension: Qualifiers: Hypotension type: unspecified hypotension type Qualified Code(s): I95.9 - Hypotension, unspecified Code(s): I95.9 - Hypotension, unspecified Status: Acute Assessment and Plan: Hypotensive on admission, resolved after IV fluids and her 1st unit of pack cells. Now hypertensive. Metoprolol succinate as above. (4) Hypertension: Qualifiers: Hypertension type: essential hypertension Qualified Code(s): I10 - Essential (primary) hypertension Code(s): I10 - Essential (primary) hypertension Status: Acute Assessment and Plan: History of hypertension. Blood pressure as above. (5) Cerebrovascular disease: Code(s): I67.9 - Cerebrovascular disease, unspecified Status: Acute Assessment and Plan: She gives a history of having some atherosclerotic plaque for which she takes Plavix. Very faint left carotid bruit noted. Additional Plan Plan discussed with Dr Singh [id number] 05/24/2020 Time Spent With Patient Time with patient: less than 15 minutes Subjective Date/time seen: 05/24/20 13:21 Interval history: Follow up for: Elevated troponin due to Type 2 [place] related to physiologic stress of severe anemia and hypotension, hypertension, GI bleed, history of CVA Date of service: 05/24/2020 Subjective: Denied chest pain, pressure, tightness or squeezing. No exertional shortness of breath or lightheadedness. Review of Systems Constitutional: Constitutional: Reports fatigue, Denies headache(s), Reports lethargy, Reports night sweats and Reports weakness Eyes: Eyes: Denies blurry vision ENT: Reports Normal hearing present, Denies headache(s), Denies nasal congestion and Reports tinnitus Cardiovascular: Cardiovascular: Denies chest pain, Reports pedal edema, Denies leg edema, Denies lightheadedness, Denies palpitations, Denies dyspnea and Denies dyspnea on exertion Respiratory: Respiratory: Denies chest congestion, Denies cough, Denies hemoptysis, Denies dyspnea and Denies dyspnea on exertion Gastrointestinal: Gastrointestinal: Denies abdominal pain, Reports melena, Denies hematochezia, Denies nausea and Denies hematemesis Genitourinary: Genitourinary: Denies hematuria and Denies dysuria Musculoskeletal: Musculoskeletal: Denies back pain and Reports arthralgias Integumentary/Breasts: Skin/Breast: Denies rash Neurologic: Reports Normal hearing present, Denies headache(s) and Reports weakness Psychiatric: Psychiatric: Reports anxiety Endocrine: Endocrine: Reports f
--- NOTE | 2020-05-24 14:19 | PM.IMPN ---
Progress Note: A&P Assessment and Plan (1) Type 2 [place] (myocardial infarction): Code(s): I21.A1 - Myocardial infarction type 2 Status: Acute Assessment and Plan: Patient denies chest pain or evidence of anginal equivalent. Trop elevated but flat at 0.43. EKG on admission showing inverted T waves in the high lateral leads concerning for ischemia. Repeat EKG today showing no change. [place] the elevated Trop related to the HoTN. Anti-platelet treatment on hold due to GI bleed. Appreciated Cardiology input. Continue Zocor and metoprolol. (2) Acute GI bleeding: Code(s): K92.2 - Gastrointestinal hemorrhage, unspecified Status: Acute Assessment and Plan: Patient had heme-positive stools by exam in the emergency room. No gross GI blood loss. She is on Plavix and diclofenac at home. Hemoglobin 7.3 on admission and she received 1 unit of packed cells. Hemoglobin climbed to the 8 range but dropped again to 6.4 yesterday requiring another transfusion. EGD was normal. Colonoscopy showing IH and large sessile rectal polyp without evidence of bleeding - General Surgery consulted. Continue Protonix. Appreciate GI and GenSurg input. (3) Hypotension: Qualifiers: Hypotension type: unspecified hypotension type Qualified Code(s): I95.9 - Hypotension, unspecified Code(s): I95.9 - Hypotension, unspecified Status: Acute Assessment and Plan: Patient was brought in from home with complaints of sudden onset of weakness. On EMS arrival, patient was found to be confused, diaphoretic and hypotensive. She was treated with IV fluids with benefit. She had symptomatic improvement. No recurrence. BP better and she is tolerating some of her home anti-HTN meds now. Continue to monitor. (4) Anemia: Qualifiers: Anemia type: iron deficiency Iron deficiency anemia type: chronic blood loss Qualified Code(s): D50.0 - Iron deficiency anemia secondary to blood loss (chronic) Code(s): D64.9 - Anemia, unspecified Status: Acute Assessment and Plan: Hemoglobin dropped to 6.4 yesterday morning and transfusion ordered. Iron studies are normal. B12 and folate also normal. Hgb climbed to 10.1 but has drifted back down to the 8-9 range and stable. Related to above but with chronic component as well. Continue to monitor. (5) Lactic acidosis: Code(s): E87.2 - Acidosis Status: Acute Assessment and Plan: Lactic acid 3.7 on admission and trend downward to normal. Related to above (6) Severe obstructive sleep apnea: Code(s): G47.33 - Obstructive sleep apnea (adult) (pediatric) Status: Acute Assessment and Plan: Patient with JAY on CPAP and is compliant with treatment. CPAP settings were changed the day before admission. Continue CPAP as the patient tolerates. (7) Hypertension: Qualifiers: Hypertension type: essential hypertension Qualified Code(s): I10 - Essential (primary) hypertension Code(s): I10 - Essential (primary) hypertension Status: Acute Assessment and Plan: BP reviewed on 05/24. BP elevated at times. Metoprolol resumed yesterday at lower dose and dose advanced today. Continue to advance her back to her home medication regiment as BP requires. . 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 This could contribute to her weakness. This was replaced and repat today 2.4. Will give one oral dose. Repeat in am. Subjective Date/time seen: 05/24/20 14:19 Interval history: 75yo female with hx of HTN here for HoTN that was fluid responsive and anemic. No CP or SOB. No blood with bowel prep t
--- NOTE | 2020-05-24 14:45 | PCOTNOTE ---
Ot evaluation attempted. Per RN, hold until physician is able to see patient. Will attempt OT evaluation at later time.
--- NOTE | 2020-05-24 15:28 | PM.CNGS ---
Assessment and Plan Assessment and plan (1) Rectal polyp: Code(s): K62.1 - Rectal polyp Status: Acute Assessment and Plan: Findings of a large, flat rectal polyp about 1 cm from the anal verge noted on colonoscopy today. Biopsies pending. Due to the size of this polyp, this will likely need to be surgically resected. Will plan to await biopsy results. Then we would recommend outpatient referral to a colorectal surgeon to be evaluated for possible transanal resection of the rectal polyp. I discussed this with the patient today and Dr. Gibbons will be seeing the patient this afternoon as well to discuss treatment options. Thank you for allowing me to see the patient in consultation. (2) Type 2 [place] (myocardial infarction): Code(s): I21.A1 - Myocardial infarction type 2 Status: Acute Assessment and Plan: Cardiology following and recommendations noted. [place] to be related to physiologic stress of anemia and hypotension. Echo results noted. Planning for outpatient ischemia work-up. (3) Anemia: Qualifiers: Anemia type: iron deficiency Iron deficiency anemia type: chronic blood loss Qualified Code(s): D50.0 - Iron deficiency anemia secondary to blood loss (chronic) Code(s): D64.9 - Anemia, unspecified Status: Acute Assessment and Plan: Heme-positive stool on exam in the ER. Hgb dropped to 6.4 yesterday and improved after transfusion. Stable at 9.0 today. Hemodynamically stable. GI following. No evidence of bleeding from EGD or findings on colonoscopy today. Continue to monitor H/H. No signs of active bleeding. (4) Antiplatelet or antithrombotic long-term use: Code(s): Z79.02 - alf (current) use of antithrombotics/antiplatelets Status: Acute Assessment and Plan: Plavix currently on hold. (5) Cerebrovascular disease: Code(s): I67.9 - Cerebrovascular disease, unspecified Status: Acute (6) Hypertension: Qualifiers: Hypertension type: essential hypertension Qualified Code(s): I10 - Essential (primary) hypertension Code(s): I10 - Essential (primary) hypertension Status: Acute Assessment and Plan: Initially during her hospitalization was hypotensive, which resolved with IV fluids and blood transfusion. Now more hypertensive, Cardiology following and restarted metoprolol. (7) Anxiety: Code(s): F41.9 - Anxiety disorder, unspecified Status: Acute Assessment and Plan: Continue medications to help control her anxiety, which seems to be exacerbated some by the new findings mentioned above. Management per primary service. (8) Hyperlipidemia: Code(s): E78.5 - Hyperlipidemia, unspecified Status: Acute (9) Severe obstructive sleep apnea: Code(s): G47.33 - Obstructive sleep apnea (adult) (pediatric) Status: Acute Assessment and Plan: CPAP use at night. Additional Plan Discussed the patient's case and formulated the plan of care with Dr. Gibbons. History of Present Illness Consult details Consult date: 05/24/20 Reason for consult: other (Surgical evaluation for a large, flat rectal polyp noted on colonoscopy today. Biopsies pending.) Requesting physician: Everette Quintanilla MD Narrative: This is a 75-year-old female with a history of obstructive sleep apnea, hypertension, hyperlipidemia, and anxiety. She presented to the emergency department for evaluation of generalized weakness and fatigue on 05/21/20. She reports noticing increased fatigue over the past 3-4 years with about a 25 pound weight gain over the past year. She states she is frequently sleeping during the day, taking 3-4 naps daily. She reports that along with the fatigue, she developed a significant increase in generalized weakness over about 2 days. She woke up the day she presented to the hospital feeling clammy, dizzy, and weak, therefore she presented to the ED. Work-up revealed the patient to be anemic with
[2020-05-24] MEDS: METOPROLOL SUCCINATE EXT REL 50 MG TABCR PO (15:51)
[2020-05-24] MEDS: POTASSIUM CHLORIDE 20 MEQ TABLET PO (17:46)
[2020-05-24] MEDS: POTASSIUM/PHOSPHORUS/SODIUM 1.5 GM PACKET 1 PACKET PO (17:47)
--- NOTE | 2020-05-24 19:13 | PM.DS ---
DS: Admitting Diagnosis Admitting Diagnosis Admitting Diagnosis: Non-ST elevation (NSTEMI) myocardial infarction DS: Discharge Diagnosis Discharge Diagnosis (1) Type 2 [place] (myocardial infarction): Code(s): I21.A1 - Myocardial infarction type 2 Status: Acute Assessment and Plan: Patient denies chest pain or evidence of anginal equivalent. Trop elevated but flat at 0.43. EKG on admission showing inverted T waves in the high lateral leads concerning for ischemia. Repeat EKG today showing no change. [place] the elevated Trop related to the HoTN. Anti-platelet treatment on hold due to GI bleed. Appreciated Cardiology input. Continued Zocor and ultimately metoprolol. (2) Acute GI bleeding: Code(s): K92.2 - Gastrointestinal hemorrhage, unspecified Status: Acute Assessment and Plan: Patient had heme-positive stools by exam in the emergency room. No gross GI blood loss. She is on Plavix and diclofenac at home. Protonix started. Hemoglobin 7.3 on admission and she received 1 unit of packed cells. Hemoglobin climbed to the 8 range but dropped again to 6.4 requiring another transfusion. EGD was normal. Colonoscopy showing IH and large sessile rectal polyp without evidence of bleeding - General Surgery consulted. GenSurg felt patient could have this further evaluated as outpatient. Will hold Plavix. Repeat CBC to ensure HH remains stable. (3) Hypotension: Qualifiers: Hypotension type: unspecified hypotension type Qualified Code(s): I95.9 - Hypotension, unspecified Code(s): I95.9 - Hypotension, unspecified Status: Acute Assessment and Plan: Patient was brought in from home with complaints of sudden onset of weakness. On EMS arrival, patient was found to be confused, diaphoretic and hypotensive. She was treated with IV fluids with benefit. She had symptomatic improvement. No recurrence. BP better and she is tolerating some of her home anti-HTN meds now. (4) Anemia: Qualifiers: Anemia type: iron deficiency Iron deficiency anemia type: chronic blood loss Qualified Code(s): D50.0 - Iron deficiency anemia secondary to blood loss (chronic) Code(s): D64.9 - Anemia, unspecified Status: Acute Assessment and Plan: Hemoglobin dropped to 6.4 and transfusion ordered. Iron studies are normal. B12 and folate also normal. Hgb climbed to 10.1 but has drifted back down to the 8-9 range and stable. Related to above but with chronic component as well. (5) Lactic acidosis: Code(s): E87.2 - Acidosis Status: Acute Assessment and Plan: Lactic acid 3.7 on admission and trend downward to normal. Related to above (6) Severe obstructive sleep apnea: Code(s): G47.33 - Obstructive sleep apnea (adult) (pediatric) Status: Acute Assessment and Plan: Patient with JAY on CPAP and is compliant with treatment. CPAP settings were changed the day before admission. We continued CPAP as the patient tolerates. (7) Hypertension: Qualifiers: Hypertension type: essential hypertension Qualified Code(s): I10 - Essential (primary) hypertension Code(s): I10 - Essential (primary) hypertension Status: Acute Assessment and Plan: BP monitored closely. BP elevated at times. Metoprolol resumed at lower dose and dose advanced as she tolerated. (8) DVT prophylaxis: Code(s): Z29.9 - Encounter for prophylactic measures, unspecified Status: Acute Assessment and Plan: SCDs DS: Summary Hospital Course Reason for hospitalization: 75yo female with hx of HTN here for HoTN that was fluid responsive and anemic from a GI bleed. Please see H7P for details Hospital Course: As above Time Spent with Patient Time attestation: Total time spent providing and/or coordinating discharge services:34 minutes Time spent: Greater than 30 minutes Exam Narrative: Exam Na
--- NOTE | 2020-05-24 21:25 | PC.NURSE ---
05/24/202049 d/c instructions given w/ instruction to call for f/u appointments and lab work. pt and spouse voice understanding. pt leaves w all belongings including home meds, d/c instructions via w/c and hospital staff.
== END 2020-05-24 20:50 | disposition home or self-care (01) | DRG 377 ==
LOC: ANHED 20:36 → ANHIMU 20:44 → ANH3MEDSUR 05-23 15:18
PROVIDERS: Internal Medicine Gastroenterology; Admitting Provider Internal Medicine; Emergency Provider Family Medicine; PCP Internal Medicine; Visit Provider Internal Medicine
PROC: 0DJ08ZZ Inspection of Upper Intestinal Tract, Via Natural or Artificial Opening Endoscopic (ICD-10-PCS; CPT 43235; principal; 2020-05-24 10:30)
DX: K92.2 Gastrointestinal hemorrhage, unspecified (principal); I21.A1 Myocardial infarction type 2; E87.2 Acidosis; D62 Acute posthemorrhagic anemia; I95.9 Hypotension, unspecified; K64.8 Other hemorrhoids; D12.8 Benign neoplasm of rectum; I25.10 Atherosclerotic heart disease of native coronary artery without angina pectoris; G47.33 Obstructive sleep apnea (adult) (pediatric); I10 Essential (primary) hypertension; F41.1 Generalized anxiety disorder; E78.5 Hyperlipidemia, unspecified; M19.90 Unspecified osteoarthritis, unspecified site; E55.9 Vitamin D deficiency, unspecified; E83.39 Other disorders of phosphorus metabolism; Z96.642 Presence of left artificial hip joint; E66.9 Obesity, unspecified; Z79.02 Long term (current) use of antithrombotics/antiplatelets; Z90.710 Acquired absence of both cervix and uterus; Z68.32 Body mass index [BMI] 32.0-32.9, adult
CPT/HCPCS: 36415; 36430; 36600; 51701; 71045; 80048; 80053; 80069; 80307; 81001; 82274; 82375; 82607; 82728; 82746; 82805; 83050; 83540; 83550; 83605; 83735; 84100; 84443; 84466; 84484; 85014; 85018; 85025; 85027; 85610; 86850; 86900; 86901; 86923; 87040; 88305; 93005; 93306; 99291; A9270; C9113; J2001; J2704; J7030; J7050; J7120; P9016

== ENCOUNTER 2020-12-23 15:51 | Outpatient (CLI) | payer BC, SELFPAY ==
[2020-12-23 16:12] LABS: Basophils Percent Auto 0.4 % (0.2-1.2); Hematocrit 42.1 % (37.0-47.0); Hemoglobin 14.2 g/dL (12.0-15.0); Immature Granulocyte Absolute 0.01 K/mm3 (0.00-0.031); Immature Granulocyte Percent A 0.2 % (0-0.5); Lymphocytes Absolute Auto 1.38 K/mm3 (0.9-3.2); Lymphocytes Percent Auto 25.5 % (18.3-44.2); Mean Corpuscular HGB Conc 33.7 g/dl (32-36); Mean Corpuscular Volume 94.8 fl (80-100); Mean Platelet Volume 10.1 fl (7.4-10.4); Monocytes Absolute Auto 0.6 K/mm3 (0.1-0.6); Monocytes Percent Auto 10.9 % (2.6-8.5); Neutrophils Absolute Auto 3.4 K/mm3 (1.3-6.7); Platelet Count Result 281 k/mm3 (150-375); Red Blood Count 4.44 M/mm3 (4.2-5.4); Red Cell Distribution Width 12.7 % (11.5-14.5); White Blood Count 5.4 K/mm3 (4.5-10.0)
[2020-12-23 16:23] LABS: Alanine Aminotransferase 23 U/L (4-35); Albumin Level 4.4 g/dL (3.5-5.1); Alkaline Phosphatase 55 U/L (38-126); Anion Gap 4 mmol/L (8-16); Aspartate Amino Transferase 28 U/L (14-36); Bilirubin,Total 0.4 mg/dL (0.2-1.3); Blood Urea Nitrogen 26 mg/dL (7-17); Calcium 9.7 mg/dL (8.4-10.2); Carbon Dioxide 30 mmol/L (22-30); Chloride 102 mmol/L (98-107); Estimated Glomerular Filt Rate > 60; Glucose 69 mg/dL (65-105); Potassium 4.5 mmol/L (3.4-5.0); Sodium 136 mmol/L (137-145)
== END 2020-12-23 15:52 | disposition home or self-care (01) ==
LOC: ANHLAB 15:52
PROVIDERS: Family Provider Family Medicine; PCP Internal Medicine; Visit Provider Nurse Practitioner Adult Health
DX: R63.5 Abnormal weight gain (principal); R53.83 Other fatigue; Z86.2 Personal history of diseases of the blood and blood-forming organs and certain disorders involving the immune mechanism
CPT/HCPCS: 36415; 80053; 84443; 85025

== ENCOUNTER 2021-01-25 10:57 | Outpatient (CLI) | payer BC, SELFPAY | END 2021-01-25 10:58 | disposition home or self-care (01) | LOC: ANHCOVIDVC 10:57 | PROVIDERS: PCP Internal Medicine; Visit Provider Obstetrics & Gynecology Gynecology | DX: Z23 Encounter for immunization (principal) | CPT/HCPCS: 0001A; 91300 ==

== ENCOUNTER 2021-02-15 11:02 | Outpatient (CLI) | payer BC, SELFPAY | END 2021-02-15 11:03 | disposition home or self-care (01) | LOC: ANHCOVIDVC 11:02 | PROVIDERS: PCP Internal Medicine | DX: Z23 Encounter for immunization (principal) | CPT/HCPCS: 0002A; 91300 ==

== ENCOUNTER 2021-03-16 12:22 | Outpatient (CLI) | payer BC, SELFPAY ==
--- NOTE | ~2021-03-16 | XR_ITS ---
EXAMINATION: XR chest 2V DATE: 03/16/2021 12:49 INDICATION: Cough. TECHNIQUE: Frontal and lateral views of the chest were obtained. COMPARISON: Chest single view 05/21/2020 FINDINGS: The chest demonstrates clear lungs without pneumonia, pleural effusion, or pneumothorax. Th e heart size is normal. IMPRESSION: 1. No acute cardiopulmonary disease. Reviewed, dictated and finalized at location B.
[2021-03-16 13:40] LABS: Anion Gap 7 mmol/L (8-16); Blood Urea Nitrogen 29 mg/dL (7-17); Calcium 9.9 mg/dL (8.4-10.2); Carbon Dioxide 32 mmol/L (22-30); Chloride 98 mmol/L (98-107); Estimated Glomerular Filt Rate > 60; Glucose 87 mg/dL (65-105); Potassium 4.4 mmol/L (3.4-5.0); Sodium 137 mmol/L (137-145)
== END 2021-03-16 12:23 | disposition home or self-care (01) ==
LOC: ANHLAB 12:26
PROVIDERS: PCP Family Medicine; Visit Provider Nurse Practitioner Family
DX: R06.02 Shortness of breath (principal); R05 Cough
CPT/HCPCS: 36415; 71046; 80048

== ENCOUNTER → 2021-04-07 10:32 | Outpatient (CLI) | payer BC, SELFPAY ==
--- NOTE | ~2021-04-07 | MM_ITS ---
EXAMINATION: MM screening [facility] BI w ry HISTORY: Screening mammogram TECHNIQUE: Craniocaudal and mediolateral oblique 3-D tomosynthesis images were obtained and synthetic 2-D images were generated. CAD analysis was submitted and interpreted. COMPARISON: 01/21/2020, 01/13/2019, 03/27/2017 BREAST PARENCHYMAL COMPOSITION: The breasts are heterogeneously dense, which may obscure small masses . FINDINGS: There is no evidence of suspicious mass, calcification, or architectural distortion to sugg est malignancy in either breast. There has been no suspicious interval change. IMPRESSION: 1. No mammographic evidence of malignancy. 2. Recommend routine screening mammography in one year. BI-RADS Category 1: Negative Reviewed, dictated and finalized at location A.
== END ==
PROVIDERS: Visit Provider Obstetrics & Gynecology Gynecology
DX: Z12.31 Encounter for screening mammogram for malignant neoplasm of breast (principal)
CPT/HCPCS: 77063; 77067

== ENCOUNTER 2021-06-06 00:26 | Day surgery (SDC) | payer BC, SELFPAY ==
[2021-05-16 11:57] VITALS: BMI 34.7
[2021-06-06 06:19] VITALS: BP 174/62; PULSE 61; RESP 18; TEMP 36.3; O2SAT 95; BMI 34.7
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
[2021-06-06] MEDS: LACTATED RINGERS 1,000 ML 150 ML IV CONT (06:32)
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
[2021-06-06 07:56] VITALS: BP 130/85; PULSE 56; RESP 16; O2SAT 96
[2021-06-06 08:06] VITALS: BP 153/83; PULSE 52; RESP 18; O2SAT 99
[2021-06-06 08:16] VITALS: BP 166/74; PULSE 54; RESP 20; O2SAT 99
== END 2021-06-06 08:25 | disposition home or self-care (01) ==
PROVIDERS: PCP Family Medicine; Visit Provider Internal Medicine Gastroenterology
PROC: 0DJD8ZZ Inspection of Lower Intestinal Tract, Via Natural or Artificial Opening Endoscopic (ICD-10-PCS; CPT 45378; principal; 2021-06-06 07:30)
DX: Z12.11 Encounter for screening for malignant neoplasm of colon (principal); K62.1 Rectal polyp; K64.8 Other hemorrhoids; K57.30 Diverticulosis of large intestine without perforation or abscess without bleeding; Z87.19 Personal history of other diseases of the digestive system; E78.5 Hyperlipidemia, unspecified; I10 Essential (primary) hypertension; E55.9 Vitamin D deficiency, unspecified; F41.1 Generalized anxiety disorder; E66.9 Obesity, unspecified; Z68.34 Body mass index [BMI] 34.0-34.9, adult
CPT/HCPCS: 45385; 88305; J2704; J7120

== ENCOUNTER 2021-07-05 16:11 | Outpatient (CLI) | payer BC, SELFPAY ==
[2021-07-05 16:40] LABS: Basophils Percent Auto 0.8 % (0.2-1.2); Eosinophils Percent Auto 0.2 % (0-4.4); Hematocrit 40.8 % (37.0-47.0); Hemoglobin 13.1 g/dL (12.0-15.0); Immature Granulocyte Absolute 0.01 K/mm3 (0.00-0.031); Immature Granulocyte Percent A 0.2 % (0-0.5); Lymphocytes Absolute Auto 1.16 K/mm3 (0.9-3.2); Lymphocytes Percent Auto 23.7 % (18.3-44.2); Mean Corpuscular HGB Conc 32.1 g/dl (32-36); Mean Corpuscular Hemoglobin 32.3 pg (26-34); Mean Corpuscular Volume 100.7 fl (80-100); Mean Platelet Volume 9.7 fl (7.4-10.4); Monocytes Absolute Auto 0.6 K/mm3 (0.1-0.6); Monocytes Percent Auto 11.9 % (2.6-8.5); Neutrophils Absolute Auto 3.1 K/mm3 (1.3-6.7); Neutrophils Percent Auto 63.2 % (45.5-73.1); Platelet Count Result 274 k/mm3 (150-375); Red Blood Count 4.05 M/mm3 (4.2-5.4); Red Cell Distribution Width 12.4 % (11.5-14.5); White Blood Count 4.9 K/mm3 (4.5-10.0)
[2021-07-05 17:24] LABS: Vitamin D 25 Hydroxy 71.1 ng/mL
== END 2021-07-05 16:12 | disposition home or self-care (01) ==
PROVIDERS: PCP Family Medicine; Visit Provider Nurse Practitioner Family
DX: R53.83 Other fatigue (principal)
CPT/HCPCS: 36415; 82306; 84443; 85025

== ENCOUNTER → 2022-05-08 09:20 | Outpatient (CLI) | payer BC, SELFPAY ==
[2022-05-08 11:12] LABS: SARS-CoV-2 RNA PCR Positive
== END ==
PROVIDERS: PCP Family Medicine; Visit Provider Family Medicine
DX: U07.1 COVID-19 (principal)
CPT/HCPCS: C9803; U0003; U0005

== ENCOUNTER 2022-07-28 14:34 | Emergency (ER) | payer BC, SELFPAY ==
--- NOTE | ~2022-07-28 | XR_ITS ---
EXAMINATION: XR finger 4th RT min 2V DATE: 07/28/2022 14:51 INDICATION: Injury to the proximal interphalangeal joint of the right fourth digit TECHNIQUE: Dorsal palmar, lateral and 2 oblique views of the right fourth digit were obtained COMPARISON: None FINDINGS: Severe osteoarthritis with slight palmar subluxation at the third metacarpophalangeal joint. Alignmen t is otherwise normal. Additional moderate to severe osteoarthritis at the fourth proximal interphala ngeal joint, moderate osteoarthritis at the third-fifth distal interphalangeal joints and mild osteoa rthritis at the remaining visualized metacarpophalangeal and proximal interphalangeal joints. A few t iny calcific densities palmar to the head of the fourth proximal phalanx without a definitive donor s ite to suggest fracture which remains equivocal for fracture of indeterminate origin or degenerative loose bodies related to the severe osteoarthritis. IMPRESSION: 1. A few tiny calcific densities in the soft tissues palmar to the head of the right fourth proximal phalanx without evident donor site to confirm fracture and this remains equivocal for either small fr acture fragments of indeterminate origin or more likely degenerative loose bodies related to the nataliia re osteoarthritis at the fourth proximal interphalangeal joint. Reviewed, dictated and finalized at location A. IMPRESSION: 1. A few tiny calcific densities in the soft tissues palmar to the head of the right fourth proximal phalanx without evident donor site to confirm fracture an d this remains equivocal for either small fracture fragments of indeterminate o rigin or more likely degenerative loose bodies related to the severe osteoarthr itis at the fourth proximal interphalangeal joint.
[2022-07-28 14:50] VITALS: BP 131/63; PULSE 66; RESP 16; TEMP 36.1; O2SAT 98
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
== END 2022-07-28 15:24 | disposition home or self-care (01) ==
PROVIDERS: Emergency Provider Nurse Practitioner Family; PCP Family Medicine
DX: M79.89 Other specified soft tissue disorders (principal); M79.644 Pain in right finger(s); W19.XXXA Unspecified fall, initial encounter; Z86.16 Personal history of COVID-19; E78.5 Hyperlipidemia, unspecified; I10 Essential (primary) hypertension; G47.33 Obstructive sleep apnea (adult) (pediatric); E55.9 Vitamin D deficiency, unspecified
CPT/HCPCS: 29130; 73140; 99213; G0463

== ENCOUNTER 2022-08-17 00:38 | Day surgery (SDC) | payer BC, SELFPAY ==
[2022-08-02 13:34] VITALS: BMI 33.0
[2022-08-17 06:57] VITALS: BP 168/70; PULSE 59; RESP 20; TEMP 36.2; O2SAT 100; BMI 32.5
[2022-08-17] MEDS: LACTATED RINGERS 1,000 ML 150 ML IV CONT (07:09)
--- NOTE | 2022-08-17 07:10 | SUR.PREOP ---
pt has swelling and bruising noted to right hand, 4th digit. RECONCILIATION MANAGER and RN notified to be cautious with that hand during procedure.
[2022-08-17] MEDS: AMPICILLIN 2 GM/NS 100 ML 2 GM/100 ML BAG IVPB (07:22)
--- NOTE | 2022-08-17 07:36 | WPDANESEPPF ---
Anes - Initial Pre Proc Eval Procedure: Operation Date: 08/17/22 08:00 Proposed Procedures p Screening Colonoscopy - Everette Quintanilla MD Date/Time: 08/17/22 07:36 Surgeon: Everette Quintanilla MD Pre Op Diagnosis: hx of rectal polyp Patient Data Age: 77 Gender: F Height: 1.57 m Weight: 80.8 kg Last Vital Signs Temp 97.2 F L 08/17/22 06:57 Pulse 59 L 08/17/22 06:57 Resp 20 08/17/22 06:57 BP 168/70 H 08/17/22 06:57 Pulse Ox 100 08/17/22 06:57 O2 Del Method Room Air 08/17/22 06:57 Allergies Allergy/AdvReac Type Severity Reaction Status Date / Time lisinopril Allergy Severe Angioedema Verified 08/17/22 06:54 pregabalin AdvReac dizziness, Verified 08/17/22 06:54 dry mouth Home Medications Medication Instructions Recorded Confirmed Type evening primrose oil 500 mg capsule 500 mg PO DAILY 05/21/20 08/08/22 History esterified 1 tablet PO DAILY 06/09/20 08/08/22 History estrogens-methyltestosterone 1.25 mg-2.5 mg tablet ergocalciferol (vitamin D2) 1,250 50,000 unit PO WEEKLY #13 caps 11/22/20 08/08/22 Rx mcg (50,000 unit) capsule omeprazole 20 mg capsule,delayed 20 mg PO DAILY #90 caps 03/02/22 08/08/22 Rx release duloxetine 60 mg capsule,delayed 60 mg PO QHS 90 days #90 caps 03/14/22 08/08/22 Rx release (Cymbalta) ferrous sulfate 325 mg (65 mg 325 mg PO DAILY #90 tabs 03/27/22 08/08/22 Rx iron) tablet losartan 50 mg tablet 50 mg PO DAILY #90 tabs 04/12/22 08/08/22 Rx simvastatin 40 mg tablet 40 mg PO DAILY #90 tabs 05/15/22 08/08/22 Rx modafinil 200 mg tablet 200 mg PO QAM #90 tabs 05/24/22 08/08/22 Rx metoprolol succinate 25 mg See Rx Instructions .Route 06/06/22 08/08/22 Rx tablet,extended release 24 hr .COMPLEX #90 tabs sodium,potassium,mag sulfates 17.5 See Rx Instructions PO .COMPLEX 07/06/22 08/08/22 Rx gram-3.13 gram-1.6 gram oral soln #354 mL (Suprep Bowel Prep Kit) acetaminophen 650 mg 650 mg PO Q4H PRN Pain 08/02/22 08/08/22 History tablet,extended release (Arthritis Pain Reliever) cyclosporine 0.05 % eye drops in a 1 drp ophthalmic (eye) BID 08/02/22 08/08/22 History dropperette (Restasis) alprazolam 0.25 mg tablet 0.25 mg PO BID PRN anxiety #30 tabs 08/08/22 08/17/22 Rx meclizine 25 mg tablet 25 mg PO TID PRN dizziness #30 tabs 08/08/22 08/17/22 Rx Patient hx anesthesia problems: none Family hx anesthesia problems: none Results Review: All pre-operative results and documents have been reviewed as part of the pre-operative evaluation. [facility] Past Medical History Medical History Adenomatous colon polyp Adult BMI 32.0-32.9 kg/sq m Anemia, unspecified Anxiety BMI 33.0-33.9,adult BMI 34.0-34.9,adult BMI 35.0-35.9,adult BMI greater than 30 Cerebrovascular disease Reports she saw ENT for tinnitus who told her she had atherosclerotic plaque in her head and prescribed Plavix 5 years ago. Has not followed up with that provider. Colonic mass Colonoscopy planned COVID-19 Generalized anxiety disorder with panic attacks Hx of hemorrhoids Had what sounds like hemorrhoidal banding about 5-7 years ago in [place]. Hyperlipidemia Hypertension Migraines Neuropathy Severe obstructive sleep apnea Vitamin D deficiency Surgical History Surgical History History of arthroscopy of both knees History of bladder suspension procedure History of cataract surgery The patient denies history cataract surgery but it appears patient has artificial lenses on exam History of colonoscopy with polypectomy Colonoscopy by Dr. Lozano in June 2004. Patient reports having a more recent Colonoscopy in an Ambulatory surgery center in [place] about 5-6 years ago. History of benign polypectomy. History of hysterectomy for benign disease Vaginal hysterectomy in her 30's. History of left hip replacement Around 2016 Status post LASIK surgery
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
[2022-08-17 08:19] VITALS: BP 122/60; PULSE 49; RESP 18; O2SAT 100
[2022-08-17 08:29] VITALS: BP 144/76; PULSE 53; RESP 22; O2SAT 99
[2022-08-17 08:39] VITALS: BP 160/77; PULSE 52; RESP 19; O2SAT 99
== END 2022-08-17 08:46 | disposition home or self-care (01) ==
PROVIDERS: PCP Family Medicine; Visit Provider Internal Medicine Gastroenterology
PROC: 0DJD8ZZ Inspection of Lower Intestinal Tract, Via Natural or Artificial Opening Endoscopic (ICD-10-PCS; CPT 45378; principal; 2022-08-17 08:00)
DX: Z12.11 Encounter for screening for malignant neoplasm of colon (principal); Z86.010 Personal history of colon polyps; K64.8 Other hemorrhoids; D64.9 Anemia, unspecified; F41.9 Anxiety disorder, unspecified; Z86.16 Personal history of COVID-19; I25.10 Atherosclerotic heart disease of native coronary artery without angina pectoris; F41.1 Generalized anxiety disorder; E78.5 Hyperlipidemia, unspecified; G62.9 Polyneuropathy, unspecified; G47.33 Obstructive sleep apnea (adult) (pediatric); E55.9 Vitamin D deficiency, unspecified
CPT/HCPCS: 45378; J0290; J2704; J7120

== ENCOUNTER 2022-12-01 12:29 | Outpatient (RCR) | payer BC, SELFPAY ==
--- NOTE | 2022-12-01 14:07 | PTOPEVDC ---
Assessment and note entered by Sapna Moran, PT, DPT Thank you for referring Renetta Carrasco to [facility].? An evaluation has been completed. No further treatment is needed. Evaluation Information Assessment Status Evaluation Diagnosis amelia TKA Subjective Information Pt states in the last 6 months she has had both of her knees replaced. Her R was done on 10/17/22, and her L knee 06/01/22. She states she had completed home health therapy as well as outpatient therapy. Pt states she has moved recently and this is why she is starting therapy again. Reported Pain Level Pain Score 2,2: Self Report Assessment PT Clinical Summary Renetta presents to therapy today for her evaluation following a L TKA in 05/2022, and a R TKA in 09/2022. Today she demonstrates active motion from 0-120 deg on the L and 0-115 deg of the R. She demonstrates good functional strength during a functional squat and stair ambulation, as well as good strength through manual muscle testing. She ambulates at a good gait speed with very mild gait deviations. She reports no functional limitations at this time and would not like to continue participation in skilled therapy. Therapist is agreeable to this. Her current HEP was reviewed and progressed. She will be discharged at this time. Plan of Care PT Services Indicated No Treatment Frequency and to be discharged Duration
== END 2022-12-01 15:21 | disposition home or self-care (01) ==
LOC: ANHGOSHPT 12:29
PROVIDERS: PCP Family Medicine; Visit Provider Orthopaedic Surgery Adult Reconstructive Orthopaedic Surgery
DX: Z47.1 Aftercare following joint replacement surgery (principal); M25.562 Pain in left knee; Z96.651 Presence of right artificial knee joint
CPT/HCPCS: 97161; 97530

== ENCOUNTER 2023-01-18 11:06 | Outpatient (CLI) | payer BC, SELFPAY ==
[2023-01-18 20:29] LABS: Basophils Absolute Auto 0.1 K/mm3 (0.0-0.1); Basophils Percent Auto 0.8 % (0.2-1.2); Eosinophils Absolute Auto 0.2 K/mm3 (0-0.3); Eosinophils Percent Auto 3.1 % (0-4.4); Hematocrit 40.3 % (37.0-47.0); Hemoglobin 12.9 g/dL (12.0-15.0); Immature Granulocyte Absolute 0.03 K/mm3 (0.00-0.031); Immature Granulocyte Percent A 0.5 % (0-0.5); Lymphocytes Absolute Auto 1.13 K/mm3 (0.9-3.2); Lymphocytes Percent Auto 18.6 % (18.3-44.2); Mean Corpuscular Hemoglobin 31.1 pg (26-34); Mean Corpuscular Volume 97.1 fl (80-100); Mean Platelet Volume 11.4 fl (7.4-10.4); Monocytes Absolute Auto 0.6 K/mm3 (0.1-0.6); Monocytes Percent Auto 10.5 % (2.6-8.5); Neutrophils Percent Auto 66.5 % (45.5-73.1); Platelet Count Result 288 k/mm3 (150-375); Red Blood Count 4.15 M/mm3 (4.2-5.4); Red Cell Distribution Width 14.3 % (11.5-14.5); White Blood Count 6.1 K/mm3 (4.5-10.0)
[2023-01-18 21:21] LABS: Alanine Aminotransferase 23 U/L (6-35); Albumin Level 4.4 g/dL (3.5-5.1); Alkaline Phosphatase 76 U/L (38-126); Anion Gap 5 mmol/L (8-16); Aspartate Amino Transferase 44 U/L (14-36); Bilirubin,Total 0.4 mg/dL (0.2-1.3); Blood Urea Nitrogen 23 mg/dL (7-17); Calcium 9.3 mg/dL (8.4-10.2); Carbon Dioxide 33 mmol/L (22-30); Chloride 100 mmol/L (98-107); Cholesterol 141 mg/dL (0-200); Estimated Glomerular Filt Rate > 60; Glucose 81 mg/dL (65-110); HDL Direct 29 mg/dL; Potassium 4.3 mmol/L (3.4-5.0); Sodium 138 mmol/L (137-145); Triglycerides 118 mg/dL (<150)
[2023-01-18 21:33] LABS: LDL Cholesterol Direct 73 mg/dL
[2023-01-19 03:21] LABS: Iron 62 ug/dL (37-170)
[2023-01-19 03:30] LABS: Percent Iron Saturation 18 % (20-50)
== END 2023-01-18 11:07 | disposition home or self-care (01) ==
LOC: ANHGOSHLAB 11:07
PROVIDERS: PCP Family Medicine; Visit Provider Family Medicine
DX: E55.9 Vitamin D deficiency, unspecified (principal); D50.0 Iron deficiency anemia secondary to blood loss (chronic); E78.5 Hyperlipidemia, unspecified; I10 Essential (primary) hypertension; Z13.220 Encounter for screening for lipoid disorders
CPT/HCPCS: 36415; 80048; 80061; 80076; 83540; 83550; 84443; 85025

== ENCOUNTER 2023-03-06 08:09 | Outpatient (CLI) | payer BC, SELFPAY ==
--- NOTE | 2023-04-03 20:42 | WPDSLEEPSTUD ---
Sleep Study Date of Study: 03/06/23 Ordering Provider: Lokesh Albright MD Interpreting Physician: Myah Barber DO Sleep Study Type: CPAP Titration Height: 1.55 m Weight: 80.739 kg Body Mass Index: 33.6 Neck Circumference (inches): 14 [place]: 0 Reason for Sleep Study Daytime hypersomnia despite being on CPAP Sleep History The patient is a 78-year-old female that had a Pap titration study ordered by her primary care due to persistent hypersomnia despite using CPAP regularly. The patient's machine is 12 years old. She denies awakening from sleep short of breath. She denies awakening at night with heartburn, belching or cough. She rarely snores and is never loud enough that others complain. She denies having trouble sleeping when she has a cold. She denies waking up gasping for air throughout the night. She denies having breathing problems at night observed by herself or others. She denies sweating excessively at night. She denies having heart palpitations or irregular heartbeats throughout the night. She denies unintentionally falling asleep during the day and while driving. She denies sleep paralysis, cataplexy and hypnagogic / hypnopompic hallucinations. She constantly has trouble at school or work due to sleepiness. She denies feeling afraid of going to sleep. She denies having nightmares. She rarely remembers her dreams. She rarely feels sad or depressed. She constantly has anxiety. She rarely has muscular tension. She denies noticing parts of her body jerk. She denies kicking during the night. She rarely has crawling and aching feelings in her legs but denies having leg pain during the night. She denies grinding her teeth during sleep and denies awakening with morning jaw pain. She is bothered by pain during the day but denies being awakened by pain during the night. She rarely wakes up feeling stiff in the morning. She rarely wakes up with sore or achy muscles. She rarely wakes up with pain in her neck, spine or other joints. The patient goes to bed at 10:30 p.m. on both weekdays and weekends. It takes her 10 minutes to fall asleep. She wakes up twice throughout the night to urinate and is able fall back asleep immediately. She wakes up at 9:00 a.m. on weekdays and at 9:30 a.m. a.m. on the weekends. She typically gets 9-10 hours of sleep per night. She will stay in bed for 20 minutes after waking up in the morning. She currently lives with her . She denies consuming any caffeinated beverages within 2 hours of bedtime. She denies engaging in physical exercise before bedtime. She will watch television before falling asleep. She will take naps in the afternoon or the evening but they are not refreshing. She consumes 3-4 cups of coffee per day. She denies tobacco, alcohol and recreational drug use. [facility] Past Medical History Medical History Adenomatous colon polyp Adult BMI 32.0-32.9 kg/sq m Anemia, unspecified Anxiety BMI 33.0-33.9,adult BMI 34.0-34.9,adult BMI 35.0-35.9,adult BMI greater than 30 Cerebrovascular disease Reports she saw ENT for tinnitus who told her she had atherosclerotic plaque in her head and prescribed Plavix 5 years ago. Has not followed up with that provider. Colonic mass Colonoscopy planned COVID-19 Excessive daytime sleepiness Generalized anxiety disorder with panic attacks Hx of hemorrhoids Had what sounds like hemorrhoidal banding about 5-7 years ago in [place]. Hyperlipidemia Hypertension Migraines Neuropathy JAY on CPAP Severe obstructive sleep apnea Vitamin D deficiency Surgical History Surgical History History of arthroscopy of both knees History of bladder suspension procedure History of cataract surgery The patient denies history cataract surgery but it appears patient has artificial lenses on exam History of colonoscopy with polypectomy
[2023-04-03 20:46] VITALS: BMI 33.6
== END 2023-03-07 07:31 | disposition home or self-care (01) ==
LOC: ANHCSM 08:14
PROVIDERS: PCP Family Medicine; Visit Provider Family Medicine
DX: G47.33 Obstructive sleep apnea (adult) (pediatric) (principal); G47.61 Periodic limb movement disorder
CPT/HCPCS: 95811

== ENCOUNTER → 2023-12-03 11:27 | Outpatient (CLI) | payer BC, SELFPAY ==
--- NOTE | ~2023-12-03 | MM_ITS ---
EXAMINATION: MM screening [facility] BI w ry HISTORY: Screening mammogram TECHNIQUE: Craniocaudal and mediolateral oblique 3-D tomosynthesis images were obtained and synthetic 2-D images were generated. CAD analysis was submitted and interpreted. COMPARISON: 04/07/2021, 01/21/2020, 01/14/2019 BREAST PARENCHYMAL COMPOSITION: The breasts are heterogeneously dense, which may obscure small masses . FINDINGS: No suspicious mass, calcification, or architectural distortion are identified in either oralia ast to suggest malignancy. There has been no suspicious interval change. IMPRESSION: 1. No mammographic evidence of malignancy. 2. Recommend routine screening mammography in one year. BI-RADS Category 1: Negative Reviewed, dictated and finalized at location A. DOCUMENTATION
--- NOTE | ~2023-12-03 | DEXA_ITS ---
Bone Density Report Name: RUTHANN ROLAND Age: 78 Sex: Female Ethnicity: White Date of : 1945 Indication: postmenopausal; screening for osteoporosis; height loss; hysterectomy; Referring Provider: BINU MARCOS Study: Bone densitometry was performed. Exam Date: December 03, 2023 Accession number: [id number] Bone Density: Region BMD T-score Z-score Classification AP Spine (L1, L2) 1.248 2.4 4.9 Normal Femoral Neck (Right) 0.960 1.0 3.3 Normal Total Hip (Right) 1.099 1.3 3.3 Normal World Health Organization criteria for BMD impression classify patients as: Normal (T-score at or above -1.0), Osteopenia (T-score between -1.0 and -2.5), or Osteoporosis (T-score at or below -2.5). 10-year Fracture Risk: FRAX not reported because: All T-scores for Spine Total, Hip Total, Femoral Neck at or above -1.0 Previous Exams: Region Exam Age BMD T-score BMD Change BMD Change Date g/cm2 vs Baseline vs Previous AP Spine(L1, L2) 12/03/2023 78 1.248 2.4 0.142* 0.109* 01/10/2012 66 1.139 1.5 0.033* 0.033* 04/21/2009 64 1.106 1.2 Total Hip(Right) 12/03/2023 78 1.099 1.3 -0.027* -0.033* 01/10/2012 66 1.132 1.6 0.006 0.006 04/21/2009 64 1.127 1.5 *Denotes significance at 95% confidence level, LSC for AP Spine = 0.022 g/cm2, LSC for Total Hip = 0.027 g/cm2 Clinical Information Provided by Patient: Has used the following medications: HRT (i.e. estrogen/hormone therapy), Vitamin D Has the following medical conditions: Hysterectomy, arthritis, type unknown Patient maximum height was 63 Menopause Age: 49 No regular weight bearing exercise Drinks caffeinated beverages Onset of menses at age 12 Number of children 2 Impression: The patient has normal bone mass. The BMD for the Total Hip(Right) decreased, changing by -0.033 since the last DXA exam. Discussion: LOW RISK OF FRACTURE; BONE DENSITY IS WELL ABOVE THE MINIMUM DESIRABLE LEVEL AND ABOVE AVERAGE FOR AGE AND SEX AT ALL SKELETAL SITES TESTED. This person's bone density is above expected limits for age and sex. This is rarely clinically significant, but should be pursued if there are significant musculoskeletal complaints. The patient should follow a healthful lifestyle (good nutrition with adequate calcium and vitamin D, and appropriate weight-bearing exercise). Follow-Up: Consider repeating this study in 3 to 4 years to reassess this patient's status, or sooner if there is some new cl
== END ==
PROVIDERS: PCP Advanced Practice Midwife; Visit Provider Advanced Practice Midwife
DX: Z12.31 Encounter for screening mammogram for malignant neoplasm of breast (principal); Z78.0 Asymptomatic menopausal state
CPT/HCPCS: 77063; 77067; 77080

== ENCOUNTER 2024-01-31 12:54 | Outpatient (CLI) | payer BC, SELFPAY ==
[2024-01-31 13:34] LABS: Basophils Absolute Auto 0.1 K/mm3 (0.0-0.1); Basophils Percent Auto 0.9 % (0.2-1.2); Eosinophils Percent Auto 0.2 % (0-4.4); Hematocrit 41.7 % (37.0-47.0); Hemoglobin 13.5 g/dL (12.0-15.0); Immature Granulocyte Absolute 0.01 K/mm3 (0.00-0.031); Immature Granulocyte Percent A 0.2 % (0-0.5); Lymphocytes Absolute Auto 1.26 K/mm3 (0.9-3.2); Lymphocytes Percent Auto 21.5 % (18.3-44.2); Mean Corpuscular HGB Conc 32.4 g/dl (32-36); Mean Corpuscular Hemoglobin 31.8 pg (26-34); Mean Corpuscular Volume 98.3 fl (80-100); Mean Platelet Volume 10.6 fl (7.4-10.4); Monocytes Absolute Auto 0.6 K/mm3 (0.1-0.6); Monocytes Percent Auto 9.5 % (2.6-8.5); Neutrophils Percent Auto 67.7 % (45.5-73.1); Platelet Count Result 298 k/mm3 (150-375); Red Blood Count 4.24 M/mm3 (4.2-5.4); Red Cell Distribution Width 12.4 % (11.5-14.5); White Blood Count 5.9 K/mm3 (4.5-10.0)
[2024-01-31 13:46] LABS: Anion Gap 8 mmol/L (8-16); Blood Urea Nitrogen 25 mg/dL (7-17); Calcium 9.7 mg/dL (8.4-10.2); Carbon Dioxide 27 mmol/L (22-30); Chloride 100 mmol/L (98-107); Estimated Glomerular Filt Rate > 60; Glucose 150 mg/dL (65-110); Potassium 4.2 mmol/L (3.4-5.0); Sodium 135 mmol/L (137-145)
[2024-01-31 19:01] LABS: Iron 96 ug/dL (37-170)
[2024-01-31 19:08] LABS: Percent Iron Saturation 33 % (20-50)
[2024-01-31 19:12] LABS: Vitamin D 25 Hydroxy 74.4 ng/mL
[2024-02-02 09:52] LABS: CMV DNA Quant PCR IU/mL Not Detected; Cytomegalovirus DNA Quant PCR Not Detected log IU/mL; Cytomegalovirus DNA Source Whole Blood
[2024-02-03 13:50] LABS: EBV Nuclear Ab Antibody >600.00 U/mL (<18.00); EBV Nuclear Ab Interpretation Past; EBV Virus Capsid Ag IgG Ab >750.00 U/mL (<18.00); EBV Virus Capsid Ag IgM Ab <36.00 U/mL (<36.00)
[2024-02-05 18:05] LABS: CMV IgM Antibody <30.00 AU/mL (<30.00)
== END 2024-01-31 12:55 | disposition home or self-care (01) ==
LOC: ANHLAB 12:57
PROVIDERS: PCP Family Medicine; Visit Provider Family Medicine
DX: E55.9 Vitamin D deficiency, unspecified (principal); I10 Essential (primary) hypertension; J03.90 Acute tonsillitis, unspecified; D50.0 Iron deficiency anemia secondary to blood loss (chronic)
CPT/HCPCS: 36415; 80048; 82306; 82607; 82728; 83540; 83550; 84443; 85025; 86644; 86645; 86664; 86665; 87497

== ENCOUNTER 2024-03-27 13:01 | Outpatient (CLI) | payer BC, SELFPAY ==
--- NOTE | ~2024-03-27 | XR_ITS ---
EXAMINATION: XR scanogram DATE: 03/27/2024 13:36 INDICATION: Unequal limb length (acquired), unspecified. TECHNIQUE: An anteroposterior view of the pelvis and bilateral lower limbs standing was obtained. COMPARISON: None. FINDINGS: Right talus stands 6 mm higher than the left. There are bilateral total knee arthroplasties . Right tibial tray stands 2.2 cm higher than the left. There is a total left hip arthroplasty. Right iliac crest stands 1.6 cm higher than the left. There is moderate right hip osteoarthritis. There is lumbar levoscoliosis and severe spondylosis. IMPRESSION: 1. Bilateral total knee arthroplasties in near-anatomic alignment. 2. Total left hip arthroplasty in near-anatomic alignment. 3. Right tibial tray stands 2.2 cm higher than the left. Reviewed, dictated and finalized at location E.
== END 2024-03-27 13:02 | disposition home or self-care (01) ==
PROVIDERS: PCP Family Medicine; Visit Provider Family Medicine
DX: G47.419 Narcolepsy without cataplexy (principal); M21.70 Unequal limb length (acquired), unspecified site; Z96.642 Presence of left artificial hip joint; Z96.653 Presence of artificial knee joint, bilateral
CPT/HCPCS: 77073

== ENCOUNTER 2024-08-01 11:00 | Outpatient (RCR) | payer BC, SELFPAY ==
--- NOTE | 2024-06-27 15:56 | OPREHPOC ---
Outpatient Therapy Plan of Care This is a Multidisciplinary Plan of Care that may contain components documented by all disciplines (PT, OT, and ST.) PT Problem 1 PT Problem #1 Knowledge Deficit PT Goal 1 Goal [place]atte with HEP Target Visit 4 PT Problem 2 PT Problem #2 Impaired Range of Motion PT Goal 1 Goal Demonstrate 40 degrees amelia hip abduction to improve hip disassociated motion for ambulation and ADL performance Target Visit 8 PT Problem 3 PT Problem #3 Impaired Strength PT Goal 1 Goal Patient will improve amelia hip abduction to 4/5 to improve lateral stability with Gait and transfers Target Visit 8 PT Goal 2 Goal Improve amelia hip flexion to 4+/5 to improve foot clearrnce Target Visit 8 PT Problem 4 PT Problem #4 Pain PT Goal 1 Goal Report no pain greater than 2/10 with ambulation of greater than 300 feet Target Visit 8 PT Problem 5 PT Problem #5 Impaired Functional Mobil PT Goal 1 Goal Patient will demonstrate ability to perform squat lift of 20# with proper mechanics to improve core activation and functional lifting ability. Target Visit 8
--- NOTE | 2024-06-27 15:56 | PTOPEVAL1 ---
Assessment and note entered by Chris Haley, PT Evaluation Information Assessment Status Evaluation Diagnosis M54.9 Dorsalgia ICD-10 Condition Codes (PT) M25.561,Pain in left knee M25.562 Subjective Information Reports that she has been having pain in the back and bilateral knees. She has history of L KAITY and Logan TKA. She has been packing and is in the process of selling 3 houses so she is moving things and lifting. She had custom inserts that she does not feel have helped her at all. She wants to be able to bend down and pick stuff up off the floor. She has been applying Biofreeze for pain. Assessment PT Clinical Summary Patient presents with weakness of core an bilateral hips. Demonstrates gait deviations and alterations and will benefit from skilled therapy to address objective deficits, pain relief, and overall functional improvement. Plan of Care Interventions Gait Training,Manual Therapy,Neuro Re-education, Therapeutic Activities,Therapeutic Exercise PT Services Indicated Yes Treatment Frequency and 1-2x/week for 8 visits Duration These treatments will address the objective and functional deficits as defined above. The patient will be advanced safely and appropriately in order for the patient to progress towards his/her prior level of function. Additional exercises will be introduced and as well as a comprehensive home exercise program upon discharge, if needed, ?to ensure carryover of functional gains achieved in the clinic. This treatment plan has been reviewed and agreement upon by the patient.
--- NOTE | 2024-07-14 16:01 | PCPTNOTE ---
Patient did not show up for scheduled appointment this date. LVM reminding her of next appointment.
--- NOTE | 2024-07-16 09:52 | PCPTNOTE ---
Patient was canceled 07/09/24 due to therapist out with illness.
--- NOTE | 2024-07-16 14:31 | PCPTNOTE ---
Patient called to cancel per her request.
--- NOTE | 2024-08-01 13:39 | PTOPDC ---
Assessment and note entered by Chris Haley, PT Evaluation Information Assessment Status Evaluation Diagnosis M54.9 Dorsalgia ICD-10 Condition Codes (PT) M25.561,Pain in left knee M25.562 Subjective Information Reports that overall she feels a bit better but she is still struggling with back pain off and on. She feels comfortable with her HEP but would like to review it and have a print out to continue to work on it. Reported Pain Level Pain Score 5,5,7: Self Report Assessment PT Clinical Summary Patient has made progress towards the majority of her goals. Continues to have weakness but has extensive HEP to address. She requested performance at home and discharge from therapy and she is suitable for this at this time. Plan of Care PT Services Indicated D/C to HEP
== END 2024-08-01 13:54 | disposition home or self-care (01) ==
LOC: ANHGOSHPT 11:00
PROVIDERS: PCP Family Medicine
DX: M54.9 Dorsalgia, unspecified (principal)
CPT/HCPCS: 97110; 97140; 97161; 97530

== ENCOUNTER 2024-12-10 16:13 | Emergency (ER) | payer BC, SELFPAY ==
--- NOTE | ~2024-12-10 | CT_ITS ---
CT brain wo con Ordering provider: Concetta Morrow History: 79 years Female with . headache, elevated BP . Comparison: November 29, 2018 Technique: CT of the head without contrast. Radiation reduction technique utilized.The dose-length product was 605.33 mGy-cm. FINDINGS: BRAIN PARENCHYMA AND CSF SPACES: Mild leukoaraiosis and diffuse cortical atrophy. Mild atheromatous d isease. No midline shift, mass effect or hemorrhage. The brain parenchyma and CSF spaces are otherwi se normal. VISUALIZED PARANASAL SINUSES: Well aerated. MASTOIDS: Well aerated. BONES: The bones appear intact. SOFT TISSUES: Visualized nasopharynx is normal. Superficial soft tissues are normal. IMPRESSION: No acute intracranial findings. Reviewed, dictated and finalized at location A. R DRAGLINE OPERATOR
--- NOTE | ~2024-12-10 | XR_ITS ---
EXAMINATION: XR chest 1V 12/10/2024 17:13 INDICATION: Hypertension PROCEDURE: AP view of the chest COMPARISON: 03/16/2021 FINDINGS: The lungs are clear. The cardiomediastinal silhouette is within normal limits. There are no pleural effusions. There is no pneumothorax suspected. IMPRESSION: 1: NO ACUTE CARDIOPULMONARY DISEASE. Reviewed, dictated and finalized at location A. AD CLERK
[2024-12-10 16:18] VITALS: BP 214/88; PULSE 66; RESP 16; TEMP 36.5; O2SAT 100
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
[2024-12-10 17:10] LABS: Basophils Percent Auto 0.5 % (0.2-1.2); Eosinophils Percent Auto 0.7 % (0-4.4); Hematocrit 41.7 % (37.0-47.0); Immature Granulocyte Absolute 0.01 K/mm3 (0.00-0.031); Immature Granulocyte Percent A 0.2 % (0-0.5); Lymphocytes Absolute Auto 1.24 K/mm3 (0.9-3.2); Lymphocytes Percent Auto 21.5 % (18.3-44.2); Mean Corpuscular HGB Conc 33.6 g/dl (32-36); Mean Corpuscular Hemoglobin 32.3 pg (26-34); Mean Corpuscular Volume 96.3 fl (80-100); Mean Platelet Volume 10.5 fl (7.4-10.4); Monocytes Absolute Auto 0.5 K/mm3 (0.1-0.6); Monocytes Percent Auto 9.4 % (2.6-8.5); Neutrophils Absolute Auto 3.9 K/mm3 (1.3-6.7); Neutrophils Percent Auto 67.7 % (45.5-73.1); Platelet Count Result 258 k/mm3 (150-375); Red Blood Count 4.33 M/mm3 (4.2-5.4); Red Cell Distribution Width 12.3 % (11.5-14.5); White Blood Count 5.8 K/mm3 (4.5-10.0)
[2024-12-10 17:21] LABS: Alanine Aminotransferase 25 U/L (6-35); Albumin Level 4.7 g/dL (3.5-5.1); Alkaline Phosphatase 84 U/L (38-126); Anion Gap 6 mmol/L (4-12); Aspartate Amino Transferase 29 U/L (14-36); Bilirubin,Total 0.7 mg/dL (0.2-1.3); Blood Urea Nitrogen 22 mg/dL (7-17); Calcium 9.7 mg/dL (8.4-10.2); Carbon Dioxide 30 mmol/L (22-30); Chloride 100 mmol/L (98-107); Estimated CRCL calculation 61 ml/min; Estimated Glomerular Filt Rate > 60; Glucose 87 mg/dL (65-110); Sodium 136 mmol/L (137-145)
[2024-12-10 18:24] VITALS: BP 185/66; PULSE 76; RESP 16; TEMP 36.6; O2SAT 100
[2024-12-10] MEDS: KETOROLAC 15 MG/ML VIAL (*BKC) IV PUSH (18:32)
[2024-12-10 18:33] VITALS: BP 188/75; PULSE 60; RESP 16; O2SAT 100
[2024-12-10] MEDS: LORazepam INJ (*CRX) 2 MG/ML VIAL 0.5 MG IV PUSH (18:33)
[2024-12-10 18:48] VITALS: BP 167/82; PULSE 57; RESP 16; TEMP 36.6; O2SAT 99
== END 2024-12-10 20:00 | disposition home or self-care (01) ==
PROVIDERS: Physician Assistant; Emergency Provider Family Medicine; PCP Family Medicine
DX: I10 Essential (primary) hypertension (principal); F41.1 Generalized anxiety disorder; E78.5 Hyperlipidemia, unspecified; G47.33 Obstructive sleep apnea (adult) (pediatric); G62.9 Polyneuropathy, unspecified; Z86.0101 Personal history of adenomatous and serrated colon polyps; Z86.16 Personal history of COVID-19; Z96.642 Presence of left artificial hip joint; Z90.710 Acquired absence of both cervix and uterus; Z77.22 Contact with and (suspected) exposure to environmental tobacco smoke (acute) (chronic); Z79.899 Other long term (current) drug therapy
CPT/HCPCS: 36415; 70450; 71045; 80053; 85025; 96374; 96375; 99284; J1885; J2060

== ENCOUNTER 2025-02-27 20:22 | Emergency (ER) | payer BC, SELFPAY ==
--- NOTE | ~2025-02-27 | CT_ITS ---
CTA brain carotid Ordering provider: Debora Banerjee MD History: . KRUEGER, dizziness, HTN; thumping in ear . Comparison: 12/10/2024 and dating back to 11/21/2014 Technique: CT angiogram head and neck was performed following timed intravenous injection of contrast . Thin slice axial images and reformatted coronal images were obtained. Three dimensional reformatted images of the brain were also obtained using a [employer] workstation. DLP: 1700 and mGy-cm FINDINGS: HEAD: --ANTERIOR AND MIDDLE CEREBRAL ARTERIES AND BRANCHES: Normal caliber and contour. --INTERNAL CAROTID ARTERIES: Mild atheromatous disease but no significant stenosis. No occlusion. --BASILAR ARTERY AND BRANCHES: Normal caliber and contour. No atheromatous disease. --POSTERIOR CEREBRAL ARTERIES: Normal caliber and contour --POSTERIOR COMMUNICATING ARTERIES: Not well visualized likely related to congenital absence or small size. --ANEURYSM: None visualized. --BRAIN: The ventricles are enlarged. The dilatation of the ventricles is proportional to the degree of sulcal prominence, not uncommon in the senescent brain. Decreased attenuation is identified within the periventricular white matter, likely secondary to micr ovascular ischemic disease, in a patient of this age. There is no mass, mass effect or midline shift. There is no abnormal extra-axial fluid collection or intracranial hemorrhage. Visualized paranasal sinuses are clear. The mastoid air cells are well aerated. No acute displaced fractures within the overlying cranium. NECK: --RIGHT CERVICAL CAROTID SYSTEM: Normal caliber and contour. Percent stenosis per NASCET criteria is 0% No carotid dissection. --LEFT CERVICAL CAROTID SYSTEM: Normal caliber and contour. Percent stenosis per NASCET criteria is 0% No carotid dissection. --VERTEBRAL ARTERIES: Normal caliber and contour. --VISUALIZED AORTIC ARCH AND BRANCHING VESSELS: Normal caliber and contour. No significant atheromato us disease. --SOFT TISSUES: Unremarkable --CERVICAL SPINE: Age appropriate degenerative changes. IMPRESSION: 1. Normal CTA head and neck. Percent stenosis per NASCET criteria is 0%. 2. No acute intracranial hemorrhage or suspicious mass effect. Reviewed, dictated and finalized at location A.
--- OUTSIDE RECORDS SUMMARY | 2025-02-27 20:25 | XMS_ITS | Referral Summary ---
Author Organization [facility] Address [address] [place] [address] Care Team Providers Care Fundraiser Name Role Phone Lokesh Albright MD Primary Care Provider [phone] Allergies Active Allergy Reactions Criticality Noted Date Comments Aspirin Other (See comments) Low 03/17/2013 Ringing in ears Lisinopril Other (See comments) Low 09/04/2019 Mouth swelling, mouth sores Medications simvastatin (ZOCOR) 40 mg tabletIndications :hyperlipidemia Take 1 tablet (40 mg total) by mouth nightly [address] (CYMBALTA) 60 mg capsuleIndication s:Anxiety with Depression Take 1 capsule (60 mg total) by mouth nightly 9 Active RESTASIS 0.05 % ophthalmic emulsionIndicatio ns:Keratoconjunct ivitis Sicca Administer 1 drop into both eyes every 12 (twelve) hours 9 Active ergocalciferol (VITAMIN D) 50,000 unit capsuleIndication s:Vitamin D Deficiency Take 1 capsule (50,000 Units total) by mouth once a week Sunday Active omeprazole (PriLOSEC) 20 mg capsule Take 1 capsule (20 mg total) by mouth every morning 1 Active metoprolol XL (TOPROL-XL) 50 mg extended release tabletIndications :hypertension Take 1 tablet (50 mg total) by mouth nightly 1 Active modafiniL (PROVIGIL) 100 mg tabletIndications :sleepiness Take 2 tablets (200 mg total) by mouth every morning 1 Active tolterodine LA (DETROL LA) 4 mg 24 hr capsuleIndication s:Bladder Hyperactivity Take 1 capsule (4 mg total) by mouth nightly 1 Active losartan (COZAAR) 50 mg tabletIndications :hypertension Take 1 tablet (50 mg total) by mouth every morning 2 Active solifenacin (VESIcare) 10 mg tablet as needed 2 Active estradioL (ESTRACE) 0.01 % (0.1 mg/gram) vaginal cream 42.5 g 2 Active estrogens-methylT ESTOSTERone (EEMT,COVARYX) 1.25-2.5 mg per tablet Take 1 tablet by mouth every morning PLEASE HOLD X 6 WEEKS AFTER SURGERY. 2 Active acetaminophen 500 mg capsuleIndication s:Pain Take 2 capsules (1,000 mg total) by mouth every 8 (eight) hours 90 tablet 2 Active senna-docusate (PERICOLACE) 8.6-50 mgIndications:con stipation Take 2 tablets by mouth 2 (two) times a day May increase to 4 tablets twice daily if needed. HOLD medication for diarrhea. 80 tablet 1 2 Active aspirin 81 mg enteric coated tabletIndications :Deep Vein Thrombosis Prevention Take 1 tablet (81 mg total) by mouth daily 30 tablet 2 Active traMADoL (ULTRAM) 50 mg tabletIndications :Postoperative pain Take 1 tablet (50 mg total) by mouth every 6 (six) hours as needed for pain for up to 7 days 28 tablet 2 Active hydrOXYzine (VISTARIL) 25 mg capsuleIndication s:Postoperative pain Take 1 capsule (25 mg total) by mouth 3 (three) times a day as needed for anxiety 40 capsule 2 Active HYDROmorphone (DILAUDID) 2 mg tabletIndications :Pain Take 1-2 tablets (2-4 mg total) by mouth every 4 (four) hours as needed for pain 42 tablet 2 Active cyclobenzaprine (FLEXERIL) 5 mg tablet Take 1 tablet (5 mg total) by mouth 3 (three) times a day as needed for muscle spasms 30 tablet 12/06/202 2 Active gabapentin (NEURONTIN) 300 mg capsule Take 1 capsule (300 mg total) by mouth 3 (three) times a day 90 capsule 2 Active armodafiniL (NUVIGIL) 200 mg tablet Take 1 tablet (200 mg total) by mouth daily 3 Active FeroSuL 325 mg (65 mg iron) tablet 3 Active Myrbetriq 25 mg tablet extended release 24 hr Take 1 tablet (25 mg total) by mouth daily 4 Active meclizine (ANTIVERT) 25 mg tablet TAKE 1 TABLET BY MOUTH THREE TIMES DAILY NEEDED FOR DIZZINESS 4 Active Sunosi 150 mg tablet Take 1 tablet (150 mg total) by mouth daily 4 Active meloxicam (MOBIC) 15 mg tablet Take 1 tablet by mouth once daily 30 tablet 4 Active Active Problems Problem Noted Date Diagnosed Date Primary osteoarthritis of right knee 10/17/2022 Osteoarthritis of left knee, unspecified osteoarthritis type 06/01/2022 CAD (coronary artery disease) 05/30/2022 JAY on CPAP 05/30/2022 Rectal polyp 06/08/2020 Aftercare following left hip joint replacement s urgery 03/23/2017 Osteoarthritis of knee 01/11/2016 Rheumatoid arthritis(714.0) 03/17/2013 Systemic lupus erythematosus 03/17/2013 HTN (hypertension) HTN (hypertension) Immunizations Immunization Administration Dates Next Due Influenza, Quadrivalent, Rec ombinant, Egg Free, Preservative Free, Intramuscular 09/02/2020 Influenza, Trivalent, High D ose, Split, Preservative Free, Intramuscular 11/03/2019,12/03/2018,08/17/2015 Influenza, Trivalent, Preser vative Free, Intramuscular 12/04/2017,12/30/2013,12/10/2012 Influenza, Unspecified 09/26/2022 [email or web address] SARS-CoV-2 Monovalent Vaccination (12+ Yrs) PURPLE 02/15/2022,01/25/2022 Pneumococcal Conjugate PCV 13 12/03/2018 Pneumococcal Polysaccharide PPV23 09/02/2020 ZOSTER LIVE 08/17/2015 ZOSTER Recombinant 09/02/2020 Social History Tobacco Use Types Packs/Day Years Used Date Smoking Tobacco: Never Smokeless Tobacco: Never Alcohol Use Standard Drinks/Week Comments Never 0 (1 standard drink = 0.6 oz pur e alcohol) AUDIT-C Answer Date Recorded Q1: How often do you have a drink containing alc ohol? Never 10/17/2022 Average Number of Drinks Not on file 022 Frequency of Binge Drinking Not on file 09/27 Comments No Sex and Gender Information Value Date Recorded Sex Assigned at Not on file Legal Sex Female 9:58 AM CODE AND TEST CLERK Gender Identity Not on file Sexual Orientation Not on file Last Filed Vital Signs Vital Sign Reading Time Taken Comments Blood Pressure 164/66 10/18/2022 7:45 AM CODE AND TEST CLERK Pulse 65 10/18/2022 7:45 AM CODE AND TEST CLERK Temperature 36.8 C (98.2 F) 10/18/2022 7:40 AM CODE AND TEST CLERK Respiratory Rate 18 10/18/2022 7:40 AM CODE AND TEST CLERK Oxygen Saturation 94% 10/18/2022 7:45 AM CODE AND TEST CLERK Inhaled Oxygen Concentration - - Weight 83.8 kg (184 lb 12.8 oz) 10/17/2022 8:34 AM CODE AND TEST CLERK Height 158.8 cm (5' 2.5 ) 10/17/2022 8:34 AM CODE AND TEST CLERK Body Mass Index 33.26 10/17/2022 8:34 AM CODE AND TEST CLERK Plan of Treatment Not on file Medical Devices Implanted Type Area Stacker And Sorter Operator Device Identifier Shelf Expiration Date Model / Serial / Lot Thr Left: Hip [employer] Attune Cruciate Retain Cementless Knee Left 6 Narrow Component [id number] - [id number] Implanted:Qty: 1 on 06/01/2022 by Aroldo Odom MD at [facility] [employer] [id number] 06/25/2031 [id number] / / [id number] [employer] Insert Attune Left Medial Stabilized Size 6 5mm [id number] - [id number] Implanted:Qty: 1 on 06/01/2022 by Aroldo Odom MD at [facility] Left: Knee [employer] 02/23/2023 [id number] / [id number] / [employer] Attune Fb Tib Base Sz 6 Por [id number] - [id number] Implanted:Qty: 1 on 06/01/2022 by Aroldo Odom MD at [facility] Left: Knee [employer] 01/24/2032 [id number] / / [employer] Attune Cruciate Retain Cementless Knee Right 5 Component Femoral [id number] - [id number] Implanted:Qty: 1 on 10/17/2022 by Aroldo Odom MD at [facility] Right: Knee [employer] [id number] 12/26/2031 [id number] / / [id number] [employer] Attune Fb Tib Base Sz 6 Por [id number] - [id number] Implanted:Qty: 1 on 10/17/2022 by Aroldo Odom MD at [facility] Right: Knee [employer] [id number] 06/25/2032 [id number] / / [id number] [employer] Insert Attune Right Medial Stabilized Size 5 5mm [id number] - [id number] Implanted:Qty: 1 on 10/17/2022 by Aroldo Odom MD at [facility] Right: Knee [employer] [id number] 06/25/2030 [id number] / / [id number] Insurance MEDICARE BLUE [facility] CHOICE OOS [facility] MEDICARE BLUE ACCESS OOS Advance Directives For more information, please contact: [phone] * Full Code (Latest Code Status on File) Date Activated Date Inactivated Comments 10/17/2022 12:53 PM 10/18/2022 7:37 PM * Full Code Date Activated Date Inactivated Comments 06/01/2022 9:57 AM 06/02/2022 4:46 PM * Full Code Date Activated Date Inactivated Comments 07/15/2020 11:11 AM 07/16/2020 7:20 PM Care Teams Fundraiser Relationship Specialty Start Date End Date Lokesh Albright MD PCP - General Family Medicine 10/10/21
--- OUTSIDE RECORDS SUMMARY | 2025-02-27 20:25 | XMS_ITS | Continuity of Care Document ---
Author Organization [facility] Address [address] [place] [address] [facility] [address] [place] [address] Phone Care Team Providers Care Medical Professionals Name Role Phone Clyde Kyle Unavailable Unavailable Procedures Procedure Date Office/outpatient Visit, [facility] Advance Directives Directive Yes / No Effective Date File Name No Information Encounters Encounter Description Practice Location Reason(s) For Visit Diagnoses Date Provider Providers Copied on Encounter Office/outpat ient Visit, [facility] [place], [id number] [place] [address] [address], [place], [place], [id number], tel:[phone] [facility] No Information 5[address] Sar[address] Tang. [address] [facility] [address], [place], [address], [place]. tel:[phone] Family History Family Member Type Diagnosis Age At Onset No Information Payers Payer name Insurance type Covered democrat ID Authoriza tion(s) No Information Social History [...]
--- OUTSIDE RECORDS SUMMARY | 2025-02-27 20:25 | XMS_ITS | Clinical Summary ---
Author Organization [facility] Address [address] [place] [address] Care Team Providers Care Molded Goods Operator Name Role Phone Unavailable Primary Care Provider Unavailabl e Immunizations Immunization Administration Dates Next Due Covid-19, Mrna, Lnp-s, Pf, 30 Mcg/0.3 Ml Dose (P paulinazer) 09/30/2021 Social History Tobacco Use Types Packs/Day Years Used Date Smoking Tobacco: Never Assessed Comments Unknown Sex and Gender Information Value Date Recorded Sex Assigned at Not on file Legal Sex Female 10:04 AM CDT Gender Identity Not on file Sexual Orientation Not on file Plan of Treatment Health Maintenance Due Date Last Done Comments Hepatitis C Virus (HCV) Screening 1945 TdaP Immunization 1945 Respiratory Syncytial Virus (RSV) Immunization (Adult) (1 - 1-dose 75+ series) 02/19/2019 Zoster Immunization (3 of 3) 10/28/2020 09/02/2020, 08/17/2015 Influenza Immunization (#1) 07/27/202406/2020, 11/03/2019, 12/03/2018, Additional history exists SARS-COV-2 Immunization ( season) 2024 09/30/2021 Pneumococcal Immunization (50+ years) Completed 09/02/2020, 12/03/2018 Hepatitis B Immunization Aged Out No longer eligible based on patient's age to complete this topic Meningococcal Immunization (ACWY) Aged Out No longer eligible based on patient's age to complete this topic Rotavirus Immunization Aged Out No lo nger eligible based on patient's age to complete this topic
--- OUTSIDE RECORDS SUMMARY | 2025-02-27 20:25 | XMS_ITS | Clinical Summary ---
Author Organization [facility] Address [address] [address] Care Team Providers Care Mutual Fund Manager Name Role Phone Lokesh Albright MD Primary Care Provider [phone] Allergies Active Allergy Reactions Criticality Noted Date [...] vative Free, Intramuscular 12/04/2017,12/30/2013,12/10/2012 Influenza, Unspecified 09/26/2022 [email or web address] SARS-CoV-2 Monovalent Vaccination (12+ Yrs) PURPLE 02/15/2022,01/25/2022 Pneumococcal Conjugate PCV 13 12/03/2018 Pneumococcal Polysaccharide PPV23 09/02/2020 ZOSTER LIVE 08/17/2015 ZOSTER Recombinant 09/02/2020 Surgical History Surgery Date Site/Laterality Comments HYSTERECTOMY TOTAL HIP ARTHROPLASTY Left TUMOR REMOVAL 07/15/2020 Transanal Endoscopic Resection of Rectal Tumor TOTAL KNEE ARTHROPLASTY 06/26/2022 - 07/26/2022 Left Medical History Medical History Date Comments HTN (hypertension) HLD (hyperlipidemia) Sleep apnea Family History Medical History Relation Name Comments Alcohol abuse Father Family history of alcoholism - (Added by TW Conv) Arthritis Father Family history of arthritis - (Added by TW Conv) Alcohol abuse Mother Family history of alcoholism - (Added by TW Conv) Heart disease Mother Family history of cardiac disorder - (Added by TW Conv) Anesthesia problems Neg Hx Relation Name Status Comments Father Mother Social History Tobacco Use Types Packs/Day Years [...] on file Legal Sex Female 9:58 AM PAINTER INTERIOR FINISH Gender Identity Not on file Sexual Orientation Not on file Obstetrics History Last Filed Vital Signs Vital Sign Reading Time Taken Comments Blood Pressure 164/66 10/18/2022 7:45 AM PAINTER INTERIOR FINISH Pulse 65 10/18/2022 7:45 AM PAINTER INTERIOR FINISH Temperature 36.8 C (98.2 F) 10/18/2022 7:40 AM PAINTER INTERIOR FINISH Respiratory Rate 18 10/18/2022 7:40 AM PAINTER INTERIOR FINISH Oxygen Saturation 94% 10/18/2022 7:45 AM PAINTER INTERIOR FINISH Inhaled Oxygen Concentration - - Weight 83.8 kg (184 lb 12.8 oz) 10/17/2022 8:34 AM PAINTER INTERIOR FINISH Height 158.8 cm (5' 2.5 ) 10/17/2022 8:34 AM PAINTER INTERIOR FINISH Body Mass Index 33.26 10/17/2022 8:34 AM PAINTER INTERIOR FINISH Plan of Treatment Health Maintenance Due Date Last Done Comments Depression Screening 1945 Osteoporosis Screening-Bone Density Scan 1945 DTaP/Tdap/Td Vaccine (1 - Tdap) 02/19/1955 Hepatitis B Screening 02/19/1962 Well Visit 65+ 02/19/2009 Zoster Vaccine (3 of 3) 10/28/2020 09/02/2020, 08/17 Fall Risk Assessment 10/18/2023 10/18/2022 Covid-19 Vaccine (2023-2 5 season) 2024 02/15/2022, 01/25/2022, 09/30/2021 Influenza Vaccine (#1) 2024 , 09/02/2020, 11/03/2019, Additional history exists Pneumococcal vaccine 65+ Completed 09/02/2020, 06/2019 Medical Devices Implanted Type Area Supervisor Agricultural Education Device Identifier Shelf Expiration Date Model / Serial / Lot Thr Left: Hip [employer] Attune Cruciate Retain Cementless Knee Left 6 Narrow Component [id number] - [id number] Implanted:Qty: 1 on 06/01/2022 by Aroldo Odom MD at [facility] [employer] [id number] 06/25/2031 [id number] / / [id number] [employer] Insert Attune Left Medial Stabilized Size 6 5mm [id number] - [id number] - [id number] Implanted:Qty: 1 on 06/01/2022 by Aroldo Odom MD at [facility] Left: Knee [employer] 02/23/2023 [id number] / [id number] / [employer] Attune Fb Tib Base Sz 6 Por [id number] - [id number] Implanted:Qty: 1 on 06/01/2022 by Aroldo Odom MD at [facility] Left: Knee [employer] 01/24/2032 [id number] / / [employer] Attune Cruciate Retain Cementless Knee Right 5 Component Femoral [id number] - [id number] Implanted:Qty: 1 on 10/17/2022 by Aroldo Odom MD at [facility] Right: Knee [employer] [id number] 12/26/2031 [id number] / / [id number] [employer] Attune Fb Tib Base Sz 6 Por [id number] - [id number] Implanted:Qty: 1 on 10/17/2022 by Aroldo Odom MD at [facility] Right: Knee [employer] [id number] 06/25/2032 [id number] / / [id number] [employer] Insert Attune Right Medial Stabilized Size 5 5mm [id number] - [id number] Implanted:Qty: 1 on 10/17/2022 by Aroldo Odom MD at [facility] Right: Knee [employer] [id number] 06/25/2030 [id number] / / [id number] Insurance MEDICARE [facility] CHOICE OOS [place] CHOICE [place]ICARE BLUE ACCESS O Member Subscriber Plan / Payer (Ef fective 2003-Present) Name:Renetta Carrasco Relation to Subscriber:Spouse Name:GABRIELLA CARRASCO Date of :1943 (Home) Address: [address] [place] [address] Payer ID:[id number] (NAIC) Type: ALLIANCE Address: [address] [place] [id number] Advance Directives For more information, please contact: [phone] * Full Code (Latest Code Status on File) Date Activated Date Inactivated Comments 10/17/2022 12:53 PM 10/18/2022 7:37 PM * Full Code Date Activated Date Inactivated Comments 06/01/2022 9:57 AM 06/02/2022 4:46 PM * Full Code Date Activated Date Inactivated Comments 07/15/2020 11:11 AM 07/16/2020 7:20 PM Care Teams Mutual Fund Manager Relationship Specialty Start Date End Date Lokesh Albright MD PCP - General Family Medicine 10/10/21
[2025-02-27 20:28] VITALS: BP 178/81; PULSE 54; RESP 16; TEMP 36.6; O2SAT 100
[2025-02-27 20:43] VITALS: BP 178/76; PULSE 54; RESP 13; RESP 15; O2SAT 99
--- OUTSIDE RECORDS SUMMARY | 2025-02-27 20:58 | XMS_ITS | Continuity of Care Document ---
Author Organization [facility] Address [address] [place] [address] [facility] [address] [place] [address] Phone Care Team Providers Care Book Trimmer Name Role Phone Clyde Kyle Unavailable Unavailable Procedures Procedure Date Office/outpatient Visit, [facility] Advance Directives Directive Yes / No Effective Date File Name No Information Encounters Encounter Description Practice Location Reason(s) For Visit Diagnoses Date Provider Providers Copied on Encounter Office/outpat ient Visit, [facility] [place] [address] [place] [address] [address], [place], [place], [id number], tel:[phone] [facility] No Information 5-[address] Saroj [address] [facility] [address], [place], [address], [place]. tel:[phone] Family History Family Member Type Diagnosis Age [...]
--- OUTSIDE RECORDS SUMMARY | 2025-02-27 20:58 | XMS_ITS | Referral Summary ---
Author Organization [facility] Address [address] [place] [address] Care Team Providers Care Superintendent System Operation Name Role Phone Lokesh Albright MD Primary Care Provider [phone] Allergies Active Allergy Reactions Criticality Noted Date [...] vative Free, Intramuscular 12/04/2017,12/30/2013,12/10/2012 Influenza, Unspecified 09/26/2022 [employer] SARS-CoV-2 Monovalent Vaccination (12+ Yrs) PURPLE 02/15/2022,01/25/2022 [...] on file Legal Sex Female 9:58 AM SAP FUNCTIONAL ANALYST Gender Identity Not on file Sexual Orientation Not on file Last Filed Vital Signs Vital Sign Reading Time Taken Comments Blood Pressure 164/66 10/18/2022 7:45 AM SAP FUNCTIONAL ANALYST Pulse 65 10/18/2022 7:45 AM SAP FUNCTIONAL ANALYST Temperature 36.8 C (98.2 F) 10/18/2022 7:40 AM SAP FUNCTIONAL ANALYST Respiratory Rate 18 10/18/2022 7:40 AM SAP FUNCTIONAL ANALYST Oxygen Saturation 94% 10/18/2022 7:45 AM SAP FUNCTIONAL ANALYST Inhaled Oxygen Concentration - - Weight 83.8 kg (184 lb 12.8 oz) 10/17/2022 8:34 AM SAP FUNCTIONAL ANALYST Height 158.8 cm (5' 2.5 ) 10/17/2022 8:34 AM SAP FUNCTIONAL ANALYST Body Mass Index 33.26 10/17/2022 8:34 AM SAP FUNCTIONAL ANALYST Plan of Treatment Not on file Medical Devices Implanted Type Area Chief Jailer Device Identifier Shelf Expiration Date Model / Serial / Lot Thr Left: Hip [employer] Attune Cruciate Retain Cementless Knee Left 6 Narrow Component [id number] - [id number] Implanted:Qty: 1 on 06/01/2022 by Aroldo Odom MD at [facility] [employer] [id number] 06/25/2031 [id number] / / [id number] [employer] Insert Attune Left Medial Stabilized Size 6 5mm [id number] - [id number] - [id number] Implanted:Qty: 1 on 06/01/2022 by Aroldo Odom MD at [facility] Left: Knee [employer] 02/23/2023 [id number] / [id number] / [employer] Attune Fb Tib Base Sz 6 Por [id number] - [id number] Implanted:Qty: 1 on 06/01/2022 by Aroldo Odom MD at [facility] Left: Knee [employer] 01/24/2032 [id number] / / [employer] Attune Cruciate Retain Cementless Knee Right 5 Component Femoral [id number] - [id number] Implanted:Qty: 1 on 10/17/2022 by Aroldo Odom MD at [facility] Right: Knee [employer] [id number] 12/26/2031 [id number] / / [id number] [employer] Attune Fb Tib Base Sz 6 Por [id number] - [id number] Implanted:Qty: 1 on 10/17/2022 by Aroldo Odom MD at [facility] Right: Knee [employer] [id number] 06/25/2032 [id number] / / [id number] [employer] Insert Attune Right Medial Stabilized Size 5 5mm [id number] - [id number] Implanted:Qty: 1 on 10/17/2022 by Aroldo Odom MD at [facility] Right: Knee [employer] [id number] 06/25/2030 [id number] / / [id number] Insurance MEDICARE BLUE [facility] CHOICE OOS [facility] MEDICARE BLUE ACCESS OOS Advance Directives For more information, please contact: [phone] * Full Code (Latest Code Status on File) Date Activated Date Inactivated Comments 10/17/2022 12:53 PM 10/18/2022 7:37 PM * Full Code Date Activated Date Inactivated Comments 06/01/2022 9:57 AM 06/02/2022 4:46 PM * Full Code Date Activated Date Inactivated Comments 07/15/2020 11:11 AM 07/16/2020 7:20 PM Care Teams Superintendent System Operation Relationship Specialty Start Date End Date Lokesh Albright MD PCP - General Family Medicine 10/10/21
--- OUTSIDE RECORDS SUMMARY | 2025-02-27 20:58 | XMS_ITS | Clinical Summary ---
Author Organization [facility] Address [address] [place] [address] Care Team Providers Care Outside Industrial Sales Representative Name Role Phone Lokesh Albright MD Primary Care Provider [phone] Allergies Active Allergy Reactions Criticality Noted Date [...] type 06/01/2022 CAD (coronary artery disease) 05/30/2022 AJY on CPAP 05/30/2022 Rectal polyp 06/08/2020 Aftercare [...] vative Free, Intramuscular 12/04/2017,12/30/2013,12/10/2012 Influenza, Unspecified 09/26/2022 Sypherlink SARS-CoV-2 Monovalent Vaccination (12+ Yrs) PURPLE 02/15/2022,01/25/2022 [...] on file Legal Sex Female 9:58 AM VACUUM CLEANER OPERATOR Gender Identity Not on file Sexual Orientation Not on file Obstetrics History Last Filed Vital Signs Vital Sign Reading Time Taken Comments Blood Pressure 164/66 10/18/2022 7:45 AM VACUUM CLEANER OPERATOR Pulse 65 10/18/2022 7:45 AM VACUUM CLEANER OPERATOR Temperature 36.8 C (98.2 F) 10/18/2022 7:40 AM VACUUM CLEANER OPERATOR Respiratory Rate 18 10/18/2022 7:40 AM VACUUM CLEANER OPERATOR Oxygen Saturation 94% 10/18/2022 7:45 AM VACUUM CLEANER OPERATOR Inhaled Oxygen Concentration - - Weight 83.8 kg (184 lb 12.8 oz) 10/17/2022 8:34 AM VACUUM CLEANER OPERATOR Height 158.8 cm (5' 2.5 ) 10/17/2022 8:34 AM VACUUM CLEANER OPERATOR Body Mass Index 33.26 10/17/2022 8:34 AM VACUUM CLEANER OPERATOR Plan of Treatment Health Maintenance Due Date [...] 09/02/2020, 06/2019 Medical Devices Implanted Type Area Medication Nurse Device Identifier Shelf Expiration Date Model / Serial / Lot Thr Left: Hip [employer] Attune Cruciate Retain Cementless Knee Left 6 Narrow Component [id number] - [id number] Implanted:Qty: 1 on 06/01/2022 by Aroldo Odom MD at [facility] [employer] [id number] 06/25/2031 [id number] / / [id number] [employer] Insert Attune Left Medial Stabilized Size 6 5mm [id number] - [id number] - [id number] Implanted:Qty: 1 on 06/01/2022 by Aroldo Odom MD at [facility] Left: Knee [employer] 02/23/2023 [id number] / [id number] / [employer] Attune Fb Tib Base Sz 6 Por [id number] - [id number] Implanted:Qty: 1 on 06/01/2022 by Aroldo Odom MD at [facility] Left: Knee [employer] 01/24/2032 [id number] / / [employer] Attune Cruciate Retain Cementless Knee Right 5 Component Femoral [id number] - [id number] Implanted:Qty: 1 on 10/17/2022 by Aroldo Odom MD at [facility] Right: Knee [employer] [id number] 12/26/2031 [id number] / / [id number] [employer] Attune Fb Tib Base Sz 6 Por [id number] - [id number] Implanted:Qty: 1 on 10/17/2022 by Aroldo Odom MD at [facility] Right: Knee [employer] [id number] 06/25/2032 [id number] / / [id number] [employer] Insert Attune Right Medial Stabilized Size 5 5mm [id number] - [id number] Implanted:Qty: 1 on 10/17/2022 by Aroldo Odom MD at [facility] Right: Knee [employer] [id number] 06/25/2030 [id number] / / [id number] Insurance MEDICARE [facility] CHOICE [place] CHO[place] O Member Subscriber Plan / Payer (Ef fective 2003-Present) Name:Renetta Carrasco Relation to Subscriber:Spouse Name:GABRIELLA CARRASCO Date of :1943 (Home) Address: [address] [place] [address] Payer ID:[id number] (NAIC) Type: ALLIANCE Address: [address] [place] [id number] Advance Directives For more information, please contact: [phone] * Full Code (Latest Code Status on File) Date Activated Date Inactivated Comments 10/17/2022 12:53 PM 10/18/2022 7:37 PM * Full Code Date Activated Date Inactivated Comments 06/01/2022 9:57 AM 06/02/2022 4:46 PM * Full Code Date Activated Date Inactivated Comments 07/15/2020 11:11 AM 07/16/2020 7:20 PM Care Teams Outside Industrial Sales Representative Relationship Specialty Start Date End Date Lokesh Albright MD PCP - General Family Medicine 10/10/21
--- OUTSIDE RECORDS SUMMARY | 2025-02-27 20:58 | XMS_ITS | Clinical Summary ---
Author Organization [facility] Address [address] [place] [address] Care Team Providers Care Gullet Slitter Name Role Phone Unavailable Primary Care Provider [...]
--- NOTE | 2025-02-27 21:12 | ECG_ITS ---
Test Date: 2025-02-27 22:52:18 Measurements Intervals [place] Rate: 54 P: 75 ME: 268 QRS: 97 QRSD: 145 T: -9 QT: 436 QTc: 416 Interpretive Statements SINUS BRADYCARDIA WITH FIRST DEGREE AV BLOCK POSSIBLE LEFT ATRIAL ENLARGEMENT RIGHT BUNDLE BRANCH BLOCK INFERIOR INFARCT, AGE INDETERMINATE BASELINE ARTIFACT- I, II, III, AVR, AVL, AVF ABNORMAL ECG No previous ECG available for comparison Electronically Signed On 02-28-2025 07:11:47 CDT by Abdi Pike D.O.
--- NOTE | 2025-02-27 21:13 | ED.RECABL ---
HPI - Recheck/Abnormal Lab/Rx General Chief Complaint: Recheck/Abnormal Lab/Rx Stated Complaint: High BP x 5 days, headache-no CP Time Seen by Provider: 02/27/25 20:53 Source: patient and family Mode of arrival: ambulatory Limitations: no limitations History of Present Illness HPI narrative: Patient presents with concern for high blood pressure for the past 5 days. She started to have headache and dizziness and this is when she started to check her blood pressure. She has a history hypertension advised metoprolol losartan daily which she had been taking but had not previously been checking blood pressure routinely. When she checked it it was 200s over 100s. She states that sometimes after walking for a bit she will sit down and immediately take her blood pressure and does note that this value is often higher than if she waits and rests a bit before taking it. She has been having increased urine output.. She does not know if she has been having vision changes as she states ever since she had Lasix she does note that it is hard to sees fine print. Denies any photophobia or phonophobia. No fevers. She describes her dizziness as a lightheadedness. Denies any spinning sensation. Lives with her who has not been having similar symptoms/headaches. She notes that she had an issue with dizziness and gait instability 2 years ago and during that episode she was unsteady on her feet and ended up falling and injuring her right 4th digit in her hand. Denies gait instability with this episode. She has chronic tinnitus. She states her headache is on the left side and along with the chronic tinnitus she feels a thumping in her left ear. She finds herself rubbing the left side of her head as a result. No slurred speech. No chest pain or shortness of breath. She did recently start taking Sunosi, a medication for excessive daytime sleepiness. Before this she had been quite tired and drowsy and for this reason had been relying on drinking energy drinks as well as coffee. She notes that the energy drinks or labeled as being equivalent to 3 cups of coffee. For this reason she stopped drinking additional coffee but symptoms persisted. She stopped a hormone 3 weeks ago (unknown) because she was getting hot flashes. Her PCP is Yunier and she also sees Dr Cassidy. She tried to reach out to doctors but was unable to reach them for this issue/these issues. Dr Faye is currently on vacation but she can see Marie on Sunday. Related Data Home Medications ?Medication ?Instructions ?Recorded ?Confirmed ?Last Taken ?Type evening primrose oil 500 mg capsule 500 mg PO DAILY 05/21/20 12/08/24 08/16/22 History acetaminophen 650 mg 650 mg PO Q4H PRN Pain 08/02/22 12/08/24 08/16/22 History tablet,extended release (Arthritis Pain Reliever) cyclosporine 0.05 % eye drops in a 1 drp ophthalmic (eye) BID 08/02/22 12/08/24 08/16/22 History dropperette (Restasis) Allergies Allergy/AdvReac Type Severity Reaction Status Date / Time lisinopril Allergy Severe Angioedema Verified 02/27/25 20:24 SIOBHAN Inhibitors Allergy Unknown Angioedema Verified 02/27/25 20:24 pregabalin AdvReac dizziness, Verified 02/27/25 20:24 dry mouth PMFSH Past Medical History Medical History Tinnitus chronic Sleep attack Raciel Robbins infection Leg length discrepancy Exudative tonsillitis Excessive daytime sleepiness JAY on CPAP COVID-19 BMI greater than 30 Neuropathy Colonoscopy planned Adenomatous colon polyp Anemia, unspecified Colonic mass Hx of hemorrhoids Had what sounds like hemorrhoidal banding about 5-7 years ago in [place]. Anxiety Hypertension Cerebrovascular disease Reports she saw ENT for tinnitus who told her she had atherosclerotic plaque in her head and prescribed Plavix 5 years ago. Has not followed up with that provider. Vitamin D deficiency Generalized anxiety disorder with panic attacks Hyperlipidemia Migraines Severe obstructive sleep apnea Surgical History Surgical History History of left hip replacement Around 2015 History of arthroscopy of both knees History of hysterectomy for benign disease Vaginal hysterectomy in her 30's. Status post LASIK surgery History of bladder suspension procedure History of cataract surgery The patient denies history cataract surgery but it appears patient has artificial lenses on exam History of colonoscopy with polypectomy Colonoscopy by Dr. Lozano in June 2004. Patient reports having a more recent Colonoscopy in an Ambulatory surgery center in [place] about 5-6 years ago. History of benign polypectomy. Family History Family History Mother Alcoholism Esophageal varices Stomach rupture Sibling Hypertension Psychiatric diagnosis The patient's sister tried to kill the patient at one time. Father , The patient reports her father froze to when his furnace when out when he was 88 years old. Over 80 years old Sibling TBI (traumatic brain injury) Seizures Other Family history of arthritis Family history of mental disorder Social History Social History Social History: Primary care physician: Dr. Albright Code status: Full code Patient is with adult children. She lives at home with her . She is retired and was previously worked at a pre-school. 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 Gender identity (if verbalized by the patient): Female Spiritual care concerns: No Exam Narrative: GENERAL: Well-appearing, well-nourished, and in no acute distress. HEAD: Normocephalic, atraumatic. No apprciable mastoiditis/protrusion. EYES: Non injected, non icteric. Extraocular movements intact without entrapment or limitation. Horizontal and extraocular movements without nystagmus. PERRL. No palsies. ENT: Nares clear, no rhinorrhea or epistaxis. Bilateral tympanic membranes easily visualized without bulging, effusion, erythema. Mild but No significant cerumen. Pinnae appropriate. NECK: Supple. No meningismus CHEST: Speaking in full sentences. No respiratory distress. HEART: Bradycardic rate and rhythm. . ABDOMEN: Soft, nondistended. EXTREMITIES: Normal range of motion. No lower extremity edema. SKIN: Warm, dry, no rash. NEURO: No focal deficits. Alert and oriented x3. Speaks clearly without aphasia or dysarthria. Follows commands. Moves arms and legs. No abnormal movements appreciated. Symmetric facies. PSYCH: Normal mood and affect. Course Vital Signs Vital signs: Vital Signs Temperature 97.8 F 02/27/25 20:28 Pulse Rate 54 L 02/27/25 20:28 Respiratory Rate 16 02/27/25 20:28 Blood Pressure 178/81 H 02/27/25 20:28 Pulse Oximetry 100 02/27/25 20:28 Oxygen Delivery Room Air 02/27/25 20:28 Temperature 97.8 F 02/27/25 20:28 Pulse Rate 48 L 02/28/25 02:51 Respiratory Rate 16 02/28/25 02:51 Blood Pressure 144/62 H 02/28/25 02:51 Pulse Oximetry 97 02/28/25 02:51 Oxygen Delivery Room Air 02/27/25 20:28 MDM - Recheck/Abnormal Lab/Rx MDM Narrative Medical decision making narrative: Patient presents with report of headache and dizziness as well as concern for elevated blood pressure of 5 days duration. She started checking her BP based on her symptoms and it has been elevated at home; already has a diagnosis of hypertension and on medications but In the emergency department she afebrile with vital signs notable for bradycardia and hypertension. Azotemia and mild hyponatremia have previously been identifies, no acute changes. She has a mild leukopenia although just slightly below normal and per review of the EMR, has always/traditionally been on the low side in the 5s or high 4s. Orthostatic vital signs: No change in heart rate, she remains bradycardic. Patient does remain hypertensive in fact systolic blood pressure greater than what it had initially been. After obtaining the patient's history and performing a physical exam, the headache is most likely due to benign etiology. The neurological examination is non-focal, and the patient is non-toxic appearing. The Ddx for the patient's headache is tension headache, migraine, or other headache of non-emergent etiology. Also considered hypertension contributing/exacerbating/driving headache. Considered medication and food/beverage side effect and/or withdrawal as well as patient had been drinking energy drinks to deal with daytime somnolence but then has been cutting back on this while also starting new medication for this issue, Sunosi. Simultaneously, recently discontinued a hormone due to side effect of hot flashes. Unlikely SAH: headache is non-thunderclap. Unlikely subdural/epidural hematoma: no history of trauma, no anticoagulation Unlikely meningitis: afebrile, no meningismus, no photophobia Unlikely temporal arteritis: Patient describes pain as left sided behind ear, not at nondenominational. No acute vision changes. Unlikely acute angle glaucoma: PERRL, no eye pain Unlikely carbon monoxide poisoning: no other house members with similar symptoms Given normal appearance of head CT, will now administer headache cocktail in the form of ketorolac, Compazine, and diphenhydramine. Patient reassessed and she states the headache is still present, dizziness improved. Magnesium ordered. This will be followed by one time dose of steroid. Patient had vital signs that were notable for systolic blood pressure greater than 200 during orthostatic assessment. Because of this, the plan was to administer hydralazine to reduce this slightly and see if patient had any improvement her symptoms. However, she states that on reassessment her headache and dizziness are resolved and at this point her blood pressure is now 169/70. She is resting comfortably. Discharged with strict return precautions and instructions to follow up with their PCP in the next 1-2 days. Prescribed OTC APAP and NSAID. Differential Diagnosis Differential diagnosis: Likely other (Hypertensive emergency/urgency/crisis, PRES, vertigo, Meniere's, labyrinthitis) Lab Data Attestation: I reviewed the patient's lab results. 02/27/25 21:47 02/27/25 21:47 Labs: Lab Results 02/27/25 02/27/25 Range/Units 21:47 22:17 WBC 4.4 L (4.5-10.0) K/mm3 RBC 4.50 (4.2-5.4) M/mm3 Hgb 14.2 (12.0-15.0) g/dL Hct 43.2 (37.0-47.0) % MCV 96.0 (80-100) fl MCH 31.6 (26-34) pg MCHC 32.9 (32-36) g/dl RDW 13.2 (11.5-14.5) % Plt Count 251 (150-375) k/mm3 MPV 11.0 H (7.4-10.4) fl Immature Gran % (Auto) 0.2 (0-0.5) % Neut % (Auto) 59.6 (45.5-73.1) % Lymph % (Auto) 24.2 (18.3-44.2) % Swisher % (Auto) 13.1 H (2.6-8.5) % Eos % (Auto) 2.0 (0-4.4) % Baso % (Auto) 0.9 (0.2-1.2) % Lymph # (Auto) 1.07 (0.9-3.2) K/mm3 Swisher # (Auto) 0.6 (0.1-0.6) K/mm3 Eos # (Auto) 0.1 (0-0.3) K/mm3 Baso # (Auto) 0.0 (0.0-0.1) K/mm3 Abs Immat Gran (auto) 0.01 (0.00-0.031) K/mm3 Absolute Neuts (auto) 2.6 (1.3-6.7) K/mm3 Absolute Nucleated RBC 0.000 (0.0-0.012) K/mm3 Nucleated RBC % 0.0 (0.0-0.2) % Sodium 136 L (137-145) mmol/L Potassium 3.9 (3.4-5.0) mmol/L Chloride 100 (98-107) mmol/L Carbon Dioxide 28 (22-30) mmol/L Anion Gap 8 (4-12) mmol/L BUN 32 H D (7-17) mg/dL Creatinine 0.85 (0.7-1.0) mg/dL Estim Creat Clear Calc 45 ml/min Estimated GFR > 60 (59 - ) Glucose 92 (65-110) mg/dL Calcium 9.8 (8.4-10.2) mg/dL Magnesium 2.2 (1.6-2.3) mg/dL Total Bilirubin 0.4 (0.2-1.3) mg/dL AST 28 (14-36) U/L ALT 35 (6-35) U/L Alkaline Phosphatase 69 (38-126) U/L Total Protein 8.0 (6.3-8.2) g/dL Albumin 4.5 (3.5-5.1) g/dL Urine Color Yellow (Yellow) Urine Appearance Clear (Clear) Urine pH 5.5 (5.0-9.0) Ur Specific [place] 1.011 (1.001-1.035) Urine Protein Negative (Negative) mg/dL Urine Glucose (UA) Negative (Negative) mg/dL Urine Ketones Negative (Negative) mg/dL Ur Blood (Man) Negative (Negative) Urine Nitrate Negative (Negative) Urine Bilirubin Negative (Negative) Urine Urobilinogen 0.2 (<2.0) mg/dL Leukocyte Esterase Rfl Trace H (Negative) VINNY/UL Urine RBC 0-2 (0-2) /hpf Urine WBC 0-5 (0-3) /hpf Ur Squamous Epith Cells Occasional (Few) /hpf Urine Bacteria None seen /hpf Urine Casts 0-2 Imaging Data Radiologist's impression: Impressions Head/Neck CTA 02/27/25 22:58 IMPRESSION: 1. Normal CTA head and neck. Percent stenosis per NASCET criteria is 0%. 2. No acute intracranial hemorrhage or suspicious mass effect. ECG Data EKG #1: Attestation: I personally reviewed and interpreted this ECG as follows: ECG completion date: 02/27/25 ECG completion time: 22:52 Prior ECG tracings: available for review (05/21/2020: Sinus rhythm with borderline NH interval (198ms). RBBB present. ) Interpretation: Sinus bradycardia at a rate of 54 beats per minute. NH interval is prolonged at 268 milliseconds consistent with a first-degree AV block. QRS 145 milliseconds. RBBB given QRS greater [id number]; RSR' M-shaped pattern in V1-V3; wide, slurred S wave in lateral leads (I, aVL, V5-6). Good R-wave progression across the precordial leads. T-wave inversion in lead 3 but upright in normal in contiguous inferior leads 2 and AVF. No other T-wave inversions in the precordial leads. Discharge Plan Discharge Clinical Impression: Leukopenia, First degree atrioventricular block by electrocardiogram, Right bundle branch block (RBBB) on electrocardiogram (ECG), Headache, Dizziness, Hypertension Patient Disposition: Home, Self-Care Condition: Stable Instructions: Antibiotic Form, Chronic Hypertension (DC), Dizziness (ED), General Headache (ED) Additional Instructions: Recommend following up with your primary care physician for longer-term monitoring and management of your blood pressure. Continue keeping a log daily indicating what your blood pressure is as well as if you have taken your medications yet and if you are having any symptoms. Take this log to Dr Faye to determine if changes need to be made. Return to the ED with any new/worsening symptoms. In the interim, continue taking your medications as prescribed. Acetaminophen/Tylenol (maximum 4000 mg per day) is safe to take with NSAIDs (ibuprofen/Motrin) for pain relief. Patient Language: Ghanaian Prescriptions: New ibuprofen 600 mg tablet 600 mg PO TID PRN (Reason: pain) Qty: 30 0RF acetaminophen 500 mg capsule 1,000 mg PO Q6H PRN (Reason: pain) Qty: 30 0RF No Action cholecalciferol (vitamin D3) 125 mcg (5,000 unit) capsule 125 mcg PO DAILY Qty: 90 1RF buspirone 10 mg tablet 10 mg PO BID Qty: 180 3RF meclizine 25 mg tablet 25 mg PO TID PRN (Reason: dizziness) Qty: 120 2RF losartan 50 mg tablet See Rx Instructions .ROUTE .COMPLEX Qty: 90 3RF Dose Instruction: TAKE 1 TABLET DAILY Rx Instructions: TAKE 1 TABLET DAILY evening primrose oil 500 mg Capsule 500 mg PO DAILY acetaminophen [Arthritis Pain Reliever] 650 mg Tablet Extended Release 650 mg PO Q4H PRN (Reason: Pain) cyclosporine [Restasis] 0.05 % dropperette 1 drp ophthalmic (eye) BID Rx Instructions: both eyes lorazepam [Ativan] 0.5 mg tablet 0.5 mg PO TID PRN (Reason: anxiety) Qty: 10 0RF lorazepam [Ativan] 0.5 mg tablet 0.5 mg PO TID PRN (Reason: anxiety) Qty: 10 0RF duloxetine 60 mg capsule,delayed release(DR/EC) See Rx Instructions .ROUTE .COMPLEX Qty: 90 3RF Dose Instruction: TAKE 1 CAPSULE DAILY AT BEDTIME Rx Instructions: TAKE 1 CAPSULE DAILY AT BEDTIME metoprolol succinate 25 mg tablet extended release 24 hr See Rx Instructions .ROUTE .COMPLEX Qty: 90 3RF Dose Instruction: TAKE 1 TABLET DAILY Rx Instructions: TAKE 1 TABLET DAILY ferrous sulfate 325 mg (65 mg iron) tablet 325 mg PO DAILY Qty: 90 1RF simvastatin 40 mg tablet 40 mg PO DAILY Qty: 90 1RF Sunosi 150 mg tablet 150 mg PO DAILY Qty: 30 5RF omeprazole 20 mg capsule,delayed release(DR/EC) 20 mg PO DAILY Qty: 90 2RF Follow-up/Referrals: Lokesh Albright MD [Primary Care Provider] - Time of Disposition: 01:32
[2025-02-27 21:54] LABS: Basophils Percent Auto 0.9 % (0.2-1.2); Eosinophils Absolute Auto 0.1 K/mm3 (0-0.3); Hematocrit 43.2 % (37.0-47.0); Hemoglobin 14.2 g/dL (12.0-15.0); Immature Granulocyte Absolute 0.01 K/mm3 (0.00-0.031); Immature Granulocyte Percent A 0.2 % (0-0.5); Lymphocytes Absolute Auto 1.07 K/mm3 (0.9-3.2); Lymphocytes Percent Auto 24.2 % (18.3-44.2); Mean Corpuscular HGB Conc 32.9 g/dl (32-36); Mean Corpuscular Hemoglobin 31.6 pg (26-34); Monocytes Absolute Auto 0.6 K/mm3 (0.1-0.6); Monocytes Percent Auto 13.1 % (2.6-8.5); Neutrophils Absolute Auto 2.6 K/mm3 (1.3-6.7); Neutrophils Percent Auto 59.6 % (45.5-73.1); Platelet Count Result 251 k/mm3 (150-375); Red Cell Distribution Width 13.2 % (11.5-14.5); White Blood Count 4.4 K/mm3 (4.5-10.0)
[2025-02-27 22:04] LABS: Alanine Aminotransferase 35 U/L (6-35); Albumin Level 4.5 g/dL (3.5-5.1); Alkaline Phosphatase 69 U/L (38-126); Anion Gap 8 mmol/L (4-12); Aspartate Amino Transferase 28 U/L (14-36); Bilirubin,Total 0.4 mg/dL (0.2-1.3); Blood Urea Nitrogen 32 mg/dL (7-17); Calcium 9.8 mg/dL (8.4-10.2); Carbon Dioxide 28 mmol/L (22-30); Chloride 100 mmol/L (98-107); Estimated CRCL calculation 45 ml/min; Estimated Glomerular Filt Rate > 60; Glucose 92 mg/dL (65-110); Potassium 3.9 mmol/L (3.4-5.0); Sodium 136 mmol/L (137-145)
[2025-02-27] MEDS: MECLIZINE HCL 25 MG TABLET PO (22:13)
[2025-02-27 22:29] LABS: Add Urine Microscopic? YES; Appearance Urine Clear (Clear); Bacteria Urine None Seen /hpf; Bilirubin Urine Negative (Negative); Blood Urine Negative (Negative); Color Urine Yellow (Yellow); Glucose Urine UA Negative (Negative); Ketones Urine Negative (Negative); Leukocyte Esterase Ur Trace LEU/UL (Negative); Nitrate Urine Negative (Negative); Non Pathogenic Casts 0-2; Protein Urine Negative (Negative); RBC Urine 0-2 /hpf (0-2); Specific Grav Ur 1.011 (1.001-1.035); Squamous Epithelial Cell Urine Occasional /hpf (Few); Urobilinogen Urine 0.2 mg/dL (<2.0); WBC Urine 0-5 /hpf (0-3); pH Urine 5.5 (5.0-9.0)
[2025-02-27] MEDS: ACETAMINOPHEN 500 MG TABLET 1000 MG PO (23:18)
[2025-02-27 23:36] VITALS: BP 225/87; BP 226/75; PULSE 48; PULSE 49
[2025-02-27 23:37] VITALS: BP 227/103; PULSE 48; RESP 18; O2SAT 100
[2025-02-27] MEDS: diphenhydrAMINE HCl INJ 50 MG/ML VIAL 25 MG IV PUSH (23:57)
[2025-02-28] MEDS: PROCHLORPERAZINE EDISYLATE 10 MG/2 ML VIAL IV PUSH
[2025-02-28] MEDS: KETOROLAC 15 MG/ML VIAL (*BKC) IV PUSH (00:01)
[2025-02-28 00:45] LABS: Magnesium 2.2 mg/dL (1.6-2.3)
[2025-02-28] MEDS: MAGNESIUM SULF 1 GM/D5W 100 ML 1 GM/100 ML BAG IVPB (01:19)
[2025-02-28 01:20] VITALS: BP 169/70; PULSE 48; RESP 13; O2SAT 93
[2025-02-28] MEDS: hydrALAZINE HCL 20 MG/ML VIAL 10 MG IV PUSH (01:20)
[2025-02-28] MEDS: dexAMETHasone 2 MG TABLET 10 MG PO (02:35)
[2025-02-28 02:42] VITALS: BP 144/62; PULSE 48; RESP 16; O2SAT 97
[2025-02-28 02:51] VITALS: BP 144/62; PULSE 48; RESP 16; O2SAT 97
== END 2025-02-28 02:53 | disposition home or self-care (01) ==
PROVIDERS: Emergency Provider Student in an Organized Health Care Education/Training Program; PCP Family Medicine
DX: I10 Essential (primary) hypertension (principal); R51.9 Headache, unspecified; R42 Dizziness and giddiness; I45.10 Unspecified right bundle-branch block; I44.0 Atrioventricular block, first degree; D72.819 Decreased white blood cell count, unspecified; I67.9 Cerebrovascular disease, unspecified; E55.9 Vitamin D deficiency, unspecified; E78.5 Hyperlipidemia, unspecified; G47.33 Obstructive sleep apnea (adult) (pediatric); F41.9 Anxiety disorder, unspecified; Z86.0101 Personal history of adenomatous and serrated colon polyps; Z86.16 Personal history of COVID-19; Z96.642 Presence of left artificial hip joint; Z90.710 Acquired absence of both cervix and uterus; Z77.22 Contact with and (suspected) exposure to environmental tobacco smoke (acute) (chronic); Z79.899 Other long term (current) drug therapy
CPT/HCPCS: 36415; 70496; 70498; 80053; 81001; 83735; 85025; 93005; 96365; 96375; 99284; A9270; J0360; J0780; J1200; J1885; J3475; J8540; Q9967

== ENCOUNTER 2025-05-25 12:15 | Observation (INO) | payer BC, SELFPAY ==
[2025-05-25] VITALS (17 sets, daily range): BP systolic 161–197; BP diastolic 61–93; PULSE 50–96; RESP 11–20; TEMP 36.3–36.6; O2SAT 93–100; BMI 34.2
--- NOTE | ~2025-05-25 | XR_ITS ---
CHEST RADIOGRAPH, PA AND LATERAL CLINICAL HISTORY: syncope . COMPARISON: 12/10/2024 TECHNIQUE: PA and lateral views of the chest. FINDINGS Prominence of the right hilum, likely vascular in origin and unchanged from prior. The remainder of the cardiomediastinal silhouette is otherwise unremarkable. The lungs are clear. IMPRESSION: No focal infiltrate or effusion. Reviewed, dictated and finalized at location A.
--- OUTSIDE RECORDS SUMMARY | 2025-05-25 12:18 | XMS_ITS | Referral Summary ---
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 Gender Identity Not on file Sexual Orientation Not on file Last Filed Vital Signs Vital Sign Reading Time Taken Comments Blood Pressure 164/66 10/18/2022 7:45 AM SALES ACCOUNT MANAGER Pulse 65 10/18/2022 7:45 AM SALES ACCOUNT MANAGER Temperature 36.8 C (98.2 F) 10/18/2022 7:40 AM SALES ACCOUNT MANAGER Respiratory Rate 18 10/18/2022 7:40 AM SALES ACCOUNT MANAGER Oxygen Saturation 94% 10/18/2022 7:45 AM SALES ACCOUNT MANAGER Inhaled Oxygen Concentration - - Weight 83.8 kg (184 lb 12.8 oz) 10/17/2022 8:34 AM SALES ACCOUNT MANAGER Height 158.8 cm (5' 2.5) 10/17/2022 8:34 AM SALES ACCOUNT MANAGER Body Mass Index 33.26 10/17/2022 8:34 AM SALES ACCOUNT MANAGER Plan of Treatment Not on file Medical Devices Implanted Type Area Media Production Manager Device Identifier Shelf Expiration Date Model / Serial / Lot Thr Left: Hip [employer] Attune Cruciate Retain Cementless Knee Left 6 Narrow Component [id number] - [id number] Implanted:Qty: 1 on 06/01/2022 by Aroldo Odom MD at [facility] [employer] [id number] 06/25/2031 [id number] / / [id number] [employer] Insert Attune Left Medial Stabilized Size 6 5mm [id number] - [id number] - [id number] Implanted:Qty: 1 on 06/01/2022 by Aroldo Odom MD at [facility] Left: Knee [employer] 02/23/2023 [id number] / [id number] / [employer] Attune Fb Tib Base Sz 6 Por [id number] - [id number] Implanted:Qty: 1 on 06/01/2022 by Aroldo Odom MD at [facility] Left: Knee [employer] 01/24/2032 [id number] / / [employer] Attune Cruciate Retain Cementless Knee Right 5 Component Femoral [id number] - [id number] Implanted:Qty: 1 on 10/17/2022 by Aroldo Odom MD at [facility] Right: Knee [employer] [id number] 12/26/2031 [id number] / / [id number] [employer] Attune Fb Tib Base Sz 6 Por [id number] - [id number] Implanted:Qty: 1 on 10/17/2022 by Aroldo Odom MD at [facility] Right: Knee [employer] [id number] 06/25/2032 [id number] / / [id number] [employer] Insert Attune Right Medial Stabilized Size 5 5mm [id number] - [id number] Implanted:Qty: 1 on 10/17/2022 by Aroldo Odom MD at [facility] Right: Knee [employer] [id number] 06/25/2030 [id number] / / [id number] Insurance MEDICARE [facility] CHOICE O CHOICE [place]F PPO [place] MEDICARE [place] ACCESS OOS Advance Directives For more information, please contact: [phone] * Full Code (Latest Code Status on File) Date Activated Date Inactivated Comments 10/17/2022 12:53 PM 10/18/2022 7:37 PM * Full Code Date Activated Date Inactivated Comments 06/01/2022 9:57 AM 06/02/2022 4:46 PM * Full Code Date Activated Date Inactivated Comments 07/15/2020 11:11 AM 07/16/2020 7:20 PM Care Teams Open Hearth Melter Relationship Specialty Start Date End Date Lokesh Albright MD PCP - General Family Medicine 10/10/21
--- OUTSIDE RECORDS SUMMARY | 2025-05-25 12:18 | XMS_ITS | Continuity of Care Document ---
Author Organization [facility] Address [address] [place] [address] [facility] [address] [place] [address] Phone Care Team Providers Care Mold Sprayer Name Role Phone Clyde Kyle Unavailable Unavailable Procedures Procedure Date Office/outpatient Visit, [facility] Advance Directives Directive Yes / No Effective Date File Name No Information Encounters Encounter Description Practice Location Reason(s) For Visit Diagnoses Date Provider Providers Copied on Encounter Office/outpat ient Visit, [facility] [place], [address] [place] [address] [address], [place], [place], [id number], tel:[phone] [facility] No Information 5-200 [address] Saroj Tang. [address] [facility] [address], [place], [address], [place]. tel:[phone] Family History Family Member Type Diagnosis Age [...]
--- OUTSIDE RECORDS SUMMARY | 2025-05-25 12:18 | XMS_ITS | Clinical Summary ---
Author Organization [facility] Address [address] [address] Care Team Providers Care Manager Mental Health Name Role Phone Lokesh Albright MD Primary Care Provider [phone] Allergies Active Allergy Reactions Criticality Noted Date [...] Aftercare following left hip joint replacement s urglouisa 03/23/2017 Osteoarthritis of knee 01/11/2016 Rheumatoid arthritis(714.0) [...] on file Legal Sex Female 9:58 AM CARE CENTER MANAGER Gender Identity Not on file Sexual Orientation Not on file Obstetrics History Last Filed Vital Signs Vital Sign Reading Time Taken Comments Blood Pressure 164/66 10/18/2022 7:45 AM CARE CENTER MANAGER Pulse 65 10/18/2022 7:45 AM CARE CENTER MANAGER Temperature 36.8 C (98.2 F) 10/18/2022 7:40 AM CARE CENTER MANAGER Respiratory Rate 18 10/18/2022 7:40 AM CARE CENTER MANAGER Oxygen Saturation 94% 10/18/2022 7:45 AM CARE CENTER MANAGER Inhaled Oxygen Concentration - - Weight 83.8 kg (184 lb 12.8 oz) 10/17/2022 8:34 AM CARE CENTER MANAGER Height 158.8 cm (5' 2.5) 10/17/2022 8:34 AM CARE CENTER MANAGER Body Mass Index 33.26 10/17/2022 8:34 AM CARE CENTER MANAGER Plan of Treatment Health Maintenance Due Date Last Done Comments Depression Screening 1945 Osteoporosis Screening-Bone Density Scan 1945 DTaP/Tdap/Td Vaccine (1 - Tdap) 02/19/1955 Hepatitis B Screening 02/19/1962 Well Visit 65+ 02/19/2009 Zoster Vaccine (3 of 3) 10/28/2020 09/02/2020, 08/17 Fall Risk Assessment 10/18/2023 10/18/2022 Covid-19 Vaccine (4 - 2023-2 5 season) 2024 02/15/2022, 01/25/2022, 09/30/2021 Influenza Vaccine (Season Ended) 2025 09/26/2022, 09/02/2020, 11/03/2019, Additional history exists Pneumococcal vaccine 65+ Completed 09/02/2020, 06/2019 Medical Devices Implanted Type Area Clinical Informatics Manager Device Identifier Shelf Expiration Date Model / Serial / Lot Thr Left: Hip [employer] Attune Cruciate Retain Cementless Knee Left 6 Narrow Component [id number] - [id number] Implanted:Qty: 1 on 06/01/2022 by Aroldo Odom MD at [facility] [employer] [id number] 06/25/2031 [id number] / / [id number] [employer] Insert Attune Left Medial Stabilized Size 6 5mm [id number] - [id number] - [id number] Implanted:Qty: 1 on 06/01/2022 by Aroldo Odom MD at [facility] Left: Knee [employer] 02/23/2023 [id number] / [id number] / [employer] Attune Fb Tib Base Sz 6 Por [id number] - [id number] Implanted:Qty: 1 on 06/01/2022 by Aroldo Odom MD at [facility] Left: Knee [employer] 01/24/2032 [id number] / / [employer] Attune Cruciate Retain Cementless Knee Right 5 Component Femoral [id number] - [id number] Implanted:Qty: 1 on 10/17/2022 by Aroldo Odom MD at [facility] Right: Knee [employer] [id number] 12/26/2031 [id number] / / [id number] [employer] Attune Fb Tib Base Sz 6 Por [id number] - [id number] Implanted:Qty: 1 on 10/17/2022 by Aroldo Odom MD at [facility] Right: Knee [employer] [id number] 06/25/2032 [id number] / / [id number] [employer] Insert Attune Right Medial Stabilized Size 5 5mm [id number] - [id number] Implanted:Qty: 1 on 10/17/2022 by Aroldo Odom MD at [facility] Right: Knee [employer] [id number] 06/25/2030 [id number] / / [id number] Insurance MEDICARE [facility] CHOICE [place] CHOICE [place]F PPO [place] MEDICARE Web[employer] [facility] Member Subscriber Plan / Payer ( fective 2003-Present) Name:Renetta Carrasco Relation to Subscriber:Spouse Name:GABRIELLA CARRASCO Date of :1943 (Home) Address: [address] [place] [address] Payer ID:[id number] (NAIC) Type: ALLIANCE Address: [address] [place] [id number] Advance Directives For more information, please contact: [phone] * Full Code (Latest Code Status on File) Date Activated Date Inactivated Comments 10/17/2022 12:53 PM 10/18/2022 7:37 PM * Full Code Date Activated Date Inactivated Comments 06/01/2022 9:57 AM 06/02/2022 4:46 PM * Full Code Date Activated Date Inactivated Comments 07/15/2020 11:11 AM 07/16/2020 7:20 PM Care Teams Manager Mental Health Relationship Specialty Start Date End Date Lokesh Albright MD PCP - General Family Medicine 10/10/21
--- OUTSIDE RECORDS SUMMARY | 2025-05-25 12:18 | XMS_ITS | Clinical Summary ---
Author Organization [facility] Address [address] [place] [address] Care Team Providers Care Carpenter Ship Name Role Phone Unavailable Primary Care Provider Unavailabl e Immunizations Immunization Administration Dates Next Due Covid-19, Mrna, Lnp-s, Pf, 30 Mcg/0.3 Ml Dose (P fizer) 09/30/2021 Social History Tobacco Use Types Packs/Day [...] Immunization (3 of 3) 10/28/2020 09/02/2020, 08/17/2015 SARS-COV-2 Immunization ( - season) 2024 09/30/2021 Influenza Immunization (Season Ended) 2025 09/02/2020, 11/03/2019, 12/03/2018, Additional history exists Pneumococcal Immunization (50+ years) Completed 09/02/2020, 12/03/2018 Hepatitis B Immunization Aged Out No longer eligible based on patient's age to complete this topic Human Papillomavirus (HPV) Immunization Aged Out No longer eligible based on patient's age to complete this topic Meningococcal Immunization (ACWY) Aged Out No longer eligible based on patient's age to complete this topic Rotavirus Immunization Aged Out No lo nger eligible based on patient's age to complete this topic
--- NOTE | 2025-05-25 12:20 | ECG_ITS ---
Test Date: 2025-05-25 12:44:32 Measurements Intervals [place] Rate: 48 P: 48 TN: 252 QRS: -50 QRSD: 166 T: 115 QT: 482 QTc: 434 Interpretive Statements SINUS BRADYCARDIA WITH FIRST DEGREE AV BLOCK WITH OCCASIONAL SUPRAVENTRICULAR PREMATURE COMPLEXES RIGHT BUNDLE BRANCH BLOCK LEFT ANTERIOR FASCICULAR BLOCK LEFT VENTRICULAR HYPERTROPHY WITH ST-T CHANGE BASELINE ARTIFACT- I, II, AVR, AVL, AVF ABNORMAL ECG Compared to ECG 02/27/2025 22:52:18 HEART RATE HAS DECREASED Electronically Signed On 05-25-2025 12:55:30 CDT by Abdi Pike D.O.
[2025-05-25 12:57] LABS: Hematocrit 41.5 % (37.0-47.0); Hemoglobin 13.6 g/dL (12.0-15.0); Immature Granulocyte Percent A 0.5 % (0-0.5); Lymphocytes Absolute Auto 0.76 K/mm3 (0.9-3.2); Mean Corpuscular HGB Conc 32.8 g/dl (32-36); Mean Corpuscular Hemoglobin 31.3 pg (26-34); Mean Corpuscular Volume 95.6 fl (80-100); Nucleated Red Blood Cells Absolute Auto 0.000 K/mm3 (0.0-0.012); Nucleated Red Blood Cells Perc 0.0 % (0.0-0.2); Platelet Count Result 270 k/mm3 (150-375); Red Blood Count 4.34 M/mm3 (4.2-5.4); White Blood Count 6.3 K/mm3 (4.5-10.0)
[2025-05-25 13:04] LABS: Alanine Aminotransferase 89 U/L (6-35); Albumin Level 4.7 g/dL (3.5-5.1); Alkaline Phosphatase 81 U/L (38-126); Anion Gap 10 mmol/L (4-12); Aspartate Amino Transferase 81 U/L (14-36); Bilirubin,Total 0.4 mg/dL (0.2-1.3); Blood Urea Nitrogen 26 mg/dL (7-17); Calcium 10.3 mg/dL (8.4-10.2); Carbon Dioxide 27 mmol/L (22-30); Chloride 98 mmol/L (98-107); Estimated CRCL calculation 53 ml/min; Estimated Glomerular Filt Rate > 60; Glucose 130 mg/dL (65-110); Potassium 4.9 mmol/L (3.4-5.0); Sodium 135 mmol/L (137-145); Total Protein 8.1 g/dL (6.3-8.2)
[2025-05-25 14:00] LABS: Troponin I < 0.012 ng/mL (0.000-0.034)
--- NOTE | 2025-05-25 15:04 | ED.SYNCOPE ---
HPI - Syncope General Chief Complaint: Syncope Stated Complaint: Passed out, dizzy x several days Time Seen by Provider: 05/25/25 14:56 History of Present Illness HPI narrative: Pt says she has been having intermittent dizziness with position changes for a few days. Pt states that today she bent over to wash hair and passed out. Pt found herself on ground. Pt denies injury from fall. Pt denies palpitations or CP prior to or after event. Pt says PCP has been adjusting BP meds because her BP is up. Pt denies KRUEGER or weakness. Related Data Home Medications ?Medication ?Instructions ?Recorded ?Confirmed ?Last Taken ?Type acetaminophen 650 mg 650 mg PO Q4H PRN Pain 08/02/22 04/22/25 08/16/22 History tablet,extended release (Arthritis Pain Reliever) cyclosporine 0.05 % eye drops in a 1 drp EACH EYE Q12H 03/11/25 04/22/25 Unknown History dropperette (Restasis) d-mannose 500 mg capsule (AZO mg PO DAILY 03/11/25 04/22/25 Unknown History D-Mannose) evening primrose oil 500 mg capsule 1,000 mg PO DAILY 03/11/25 04/22/25 Unknown History fluticasone propionate 93 2 spray intranasal Q12H 03/11/25 04/22/25 Unknown History mcg/actuation breath activated aerosol (Xhance) Allergies Allergy/AdvReac Type Severity Reaction Status Date / Time lisinopril Allergy Severe Angioedema Verified 04/22/25 09:59 SIOBHAN Inhibitors Allergy Unknown Angioedema Verified 04/22/25 09:59 pregabalin AdvReac dizziness, Verified 04/22/25 09:59 dry mouth Review of Systems Review of Systems: All systems reviewed & are unremarkable except as noted in HPI and below PMFSH Past Medical History Medical History Tinnitus chronic Sleep attack Raciel Robbins infection Leg length discrepancy Exudative tonsillitis Excessive daytime sleepiness JAY on CPAP COVID-19 BMI greater than 30 Neuropathy Colonoscopy planned Adenomatous colon polyp Anemia, unspecified Colonic mass Hx of hemorrhoids Had what sounds like hemorrhoidal banding about 5-7 years ago in [place]. Anxiety Hypertension Cerebrovascular disease Reports she saw ENT for tinnitus who told her she had atherosclerotic plaque in her head and prescribed Plavix 5 years ago. Has not followed up with that provider. Vitamin D deficiency Generalized anxiety disorder with panic attacks Hyperlipidemia Migraines Severe obstructive sleep apnea Surgical History Surgical History History of left hip replacement Around 2016 History of arthroscopy of both knees History of hysterectomy for benign disease Vaginal hysterectomy in her 30's. Status post LASIK surgery History of bladder suspension procedure History of cataract surgery The patient denies history cataract surgery but it appears patient has artificial lenses on exam History of colonoscopy with polypectomy Colonoscopy by Dr. Lozano in June 2004. Patient reports having a more recent Colonoscopy in an Ambulatory surgery center in [place] about 5-6 years ago. History of benign polypectomy. Family History Family History Mother Alcoholism Esophageal varices Stomach rupture Sibling Hypertension Psychiatric diagnosis The patient's sister tried to kill the patient at one time. Father , The patient reports her father froze to when his furnace when out when he was 88 years old. Over 80 years old Sibling TBI (traumatic brain injury) Seizures Other Family history of arthritis Family history of mental disorder Social History Social History Social History: Primary care physician: Dr. Albright Code status: Full code Patient is with adult children. She lives at home with her . She is retired and was previously worked at a pre-school. 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 Gender identity (if verbalized by the patient): Female Spiritual care concerns: No Exam Const: General: healthy appearing and no acute distress Nutritional Appearance: well nourished Orientation/consciousness: patient oriented x3 Limitations: no limitations HENMT: Head: normal to inspection Resp: Effort & Inspection: normal respiratory effort Auscultation: clear to auscultation bilaterally Cardio: Rate: regular rate Rhythm: regular rhythm GI: GI Palp: Yes Soft to palpation and No Tenderness to palpation present (GI) Auscultation: normal bowel sounds Skin: General skin exam: normal color Rashes: no rashes Wounds: no wounds Neuro: General: patient oriented x3, moves all extremities, no meningeal signs, no focal motor deficits and CN's II-XI intact bilaterally Cranial nerves: Yes Nystagmus not present Speech: normal speech Extrem: General: normal to inspection and no clubbing, cyanosis or edema Psych: Mental Status: mental status grossly normal Affect: normal affect Attitude: cooperative Course Vital Signs Vital signs: Vital Signs Temperature 97.4 F L 05/25/25 12:29 Pulse Rate 51 L 05/25/25 12:29 Respiratory Rate 18 05/25/25 12:29 Blood Pressure 185/74 H 05/25/25 12:29 Pulse Oximetry 100 05/25/25 12:29 Oxygen Delivery Room Air 05/25/25 12:29 Temperature 97.7 F 05/25/25 17:42 Pulse Rate 52 L 05/25/25 17:42 Respiratory Rate 16 05/25/25 17:42 Blood Pressure 170/70 H 05/25/25 17:42 Pulse Oximetry 96 05/25/25 17:42 Oxygen Delivery Room Air 05/25/25 13:40 MDM - Syncope MDM Narrative Medical decision making narrative: Pt presents after having syncopal episode. Pt denies injury or CP or palpitations. will check orthostatics and get labs and ekg and likely admit. labs and ekg look fine. discussed with Jamilah Rodarte and agrees to obs asks to get UA. Differential Diagnosis Differential diagnosis: Likely syncope due to orthostatic hypotension, vasovagal syncope, complete atrioventricular block, dehydration and other (arrythmia) Lab Data 05/25/25 12:46 05/25/25 12:46 Labs: Lab Results 05/25/25 Range/Units 12:46 WBC 6.3 (4.5-10.0) K/mm3 RBC 4.34 (4.2-5.4) M/mm3 Hgb 13.6 (12.0-15.0) g/dL Hct 41.5 (37.0-47.0) % MCV 95.6 (80-100) fl MCH 31.3 (26-34) pg MCHC 32.8 (32-36) g/dl RDW 12.5 (11.5-14.5) % Plt Count 270 (150-375) k/mm3 MPV 10.5 H (7.4-10.4) fl Immature Gran % (Auto) 0.5 (0-0.5) % Neut % (Auto) 79.1 H (45.5-73.1) % Lymph % (Auto) 12.0 L (18.3-44.2) % Sunflower % (Auto) 7.6 (2.6-8.5) % Eos % (Auto) 0.2 (0-4.4) % Baso % (Auto) 0.6 (0.2-1.2) % Lymph # (Auto) 0.76 L (0.9-3.2) K/mm3 Sunflower # (Auto) 0.5 (0.1-0.6) K/mm3 Eos # (Auto) 0.0 (0-0.3) K/mm3 Baso # (Auto) 0.0 (0.0-0.1) K/mm3 Abs Immat Gran (auto) 0.03 (0.00-0.031) K/mm3 Absolute Neuts (auto) 5.0 (1.3-6.7) K/mm3 Absolute Nucleated RBC 0.000 (0.0-0.012) K/mm3 Nucleated RBC % 0.0 (0.0-0.2) % Sodium 135 L (137-145) mmol/L Potassium 4.9 (3.4-5.0) mmol/L Chloride 98 (98-107) mmol/L Carbon Dioxide 27 (22-30) mmol/L Anion Gap 10 (4-12) mmol/L BUN 26 H (7-17) mg/dL Creatinine 0.71 (0.7-1.0) mg/dL Estim Creat Clear Calc 53 ml/min Estimated GFR > 60 (59 - ) Glucose 130 H (65-110) mg/dL Calcium 10.3 H (8.4-10.2) mg/dL Total Bilirubin 0.4 (0.2-1.3) mg/dL AST 81 H (14-36) U/L ALT 89 H (6-35) U/L Alkaline Phosphatase 81 (38-126) U/L Troponin I < 0.012 (0.000-0.034) ng/mL Total Protein 8.1 (6.3-8.2) g/dL Albumin 4.7 (3.5-5.1) g/dL Discharge Plan Discharge Clinical Impression: Syncope Patient Disposition: Still a Patient Condition: Stable
--- OUTSIDE RECORDS SUMMARY | 2025-05-25 15:24 | XMS_ITS | Continuity of Care Document ---
Author Organization [facility] Address [address] [place] [address] [facility] [address] [place] [address] Phone Care Team Providers Care Bsw Name Role Phone Clyde Kyle Unavailable Unavailable Procedures Procedure Date Office/outpatient Visit, [facility] Advance Directives Directive Yes / No Effective Date File Name No Information Encounters Encounter Description Practice Location Reason(s) For Visit Diagnoses Date Provider Providers Copied on Encounter Office/outpat ient Visit, [facility] [place], [address] [place] [address] [address], [place], [place], [address], tel:[phone] [facility] No Information 5-200 [address] Saroj Tang. [address] [facility] [address], [place], [address], [place]. tel:[phone] Family History Family Member Type Diagnosis Age At Onset No Information Payers Payer name Insurance type Covered alliance party ID Authoriza tion(s) No Information Social History [...]
--- OUTSIDE RECORDS SUMMARY | 2025-05-25 15:24 | XMS_ITS | Clinical Summary ---
Author Organization [facility] Address [address] [place] [address] Care Team Providers Care Import Export Manager Name Role Phone Unavailable Primary Care Provider [...]
--- OUTSIDE RECORDS SUMMARY | 2025-05-25 15:24 | XMS_ITS | Clinical Summary ---
Author Organization [facility] Address [address] [address] Care Team Providers Care Title Insurance Examiner Name Role Phone Lokesh Albright MD Primary Care Provider Allergies Active Allergy Reactions Criticality Noted Date [...] on file Legal Sex Female 9:[address] SCAN SPECIAL PROCEDURES TECHNOLOGIST Gender Identity Not on file Sexual Orientation Not on file Obstetrics History Last Filed Vital Signs Vital Sign Reading Time Taken Comments Blood Pressure 164/66 10/18/2022 7:[address] SCAN SPECIAL PROCEDURES TECHNOLOGIST Pulse 65 10/18/2022 7:[address] SCAN SPECIAL PROCEDURES TECHNOLOGIST Temperature 36.8 C (98.2 F) 10/18/2022 7:[address] SCAN SPECIAL PROCEDURES TECHNOLOGIST Respiratory Rate 18 10/18/2022 7:[address] SCAN SPECIAL PROCEDURES TECHNOLOGIST Oxygen Saturation 94% 10/18/2022 7:[address] SCAN SPECIAL PROCEDURES TECHNOLOGIST Inhaled Oxygen Concentration - - Weight 83.8 kg (184 lb 12.8 oz) 10/17/2022 8:[address] SCAN SPECIAL PROCEDURES TECHNOLOGIST Height 158.8 cm (5' 2.5) 10/17/2022 8:[address] SCAN SPECIAL PROCEDURES TECHNOLOGIST Body Mass Index 33.26 10/17/2022 8:[address] SCAN SPECIAL PROCEDURES TECHNOLOGIST Plan of Treatment Health Maintenance Due Date [...] 09/02/2020, 06/2019 Medical Devices Implanted Type Area Floor Molder Device Identifier Shelf Expiration Date Model / Serial / Lot Thr Left: Hip [employer] Attune Cruciate Retain Cementless Knee Left 6 Narrow Component [id number] - [id number] Implanted:Qty: 1 on 06/01/2022 by Aroldo Odom MD at [facility] [employer] [id number] 06/25/2031 [id number] / / [id number] [employer] Insert Attune Left Medial Stabilized Size 6 5mm [id number] Implanted:Qty: 1 on 06/01/2022 by Aroldo Odom MD at [facility] Left: Knee [employer] 02/23/2023 [id number] / [id number] / [employer] Attune Fb Tib Base Sz 6 Por [id number] - [id number] Implanted:Qty: 1 on 06/01/2022 by Aroldo Odom MD at [facility] Left: Knee [employer] 01/24/2032 [id number] / / [employer] Attune Cruciate Retain Cementless Knee Right 5 Component Femoral [id number] - [id number] Implanted:Qty: 1 on 10/17/2022 by Aroldo Odom MD at [facility] Right: Knee [employer] [id number] 12/26/2031 [id number] / / [id number] [employer] Attune Fb Tib Base Sz 6 Por [id number] - [id number] Implanted:Qty: 1 on 10/17/2022 by Aroldo Odom MD at [facility] Right: Knee [employer] [id number] 06/25/2032 [id number] / / [id number] [employer] Insert Attune Right Medial Stabilized Size 5 5mm [id number] - [id number] Implanted:Qty: 1 on 10/17/2022 by Aroldo Odom MD at [facility] Right: Knee [employer] [id number] 06/25/2030 [id number] / / [id number] Insurance MEDICARE [facility] CHOICE O[place] CHOICE PRF PPO [place] MEDICARE [employer] [facility] Member Subscriber Plan / Payer ( fective 2003-Present) Name:Renetta Carrasco Relation to Subscriber:Spouse Name:GABRIELLA CARRASCO Date of :1943 (Home) Address: [address] [place] [address] Payer ID:[id number] (NAIC) Type: ALLIANCE Address: [address] [place] [id number] Advance Directives For more information, please contact: [phone] * Full Code (Latest Code Status on File) Date Activated Date Inactivated Comments 10/17/2022 12:53 PM 10/18/2022 7:37 PM * Full Code Date Activated Date Inactivated Comments 06/01/2022 9:57 AM 06/02/2022 4:46 PM * Full Code Date Activated Date Inactivated Comments 07/15/2020 11:11 AM 07/16/2020 7:20 PM Care Teams Title Insurance Examiner Relationship Specialty Start Date End Date Lokesh Alrbight MD PCP - General Family Medicine 10/10/21
--- OUTSIDE RECORDS SUMMARY | 2025-05-25 15:24 | XMS_ITS | Referral Summary ---
Author Organization [facility] Address [address] [place] [id number] Care Team Providers Care Broomcorn Grader Name Role Phone Lokesh Albright MD Primary Care Provider [phone] Allergies Active Allergy Reactions Criticality Noted Date [...] on file Legal Sex Female 9:58 AM CONSTRUCTION TECH Gender Identity Not on file Sexual Orientation Not on file Last Filed Vital Signs Vital Sign Reading Time Taken Comments Blood Pressure 164/66 10/18/2022 7:45 AM CONSTRUCTION TECH Pulse 65 10/18/2022 7:45 AM CONSTRUCTION TECH Temperature 36.8 C (98.2 F) 10/18/2022 7:40 AM CONSTRUCTION TECH Respiratory Rate 18 10/18/2022 7:40 AM CONSTRUCTION TECH Oxygen Saturation 94% 10/18/2022 7:45 AM CONSTRUCTION TECH Inhaled Oxygen Concentration - - Weight 83.8 kg (184 lb 12.8 oz) 10/17/2022 8:34 AM CONSTRUCTION TECH Height 158.8 cm (5' 2.5) 10/17/2022 8:34 AM CONSTRUCTION TECH Body Mass Index 33.26 10/17/2022 8:34 AM CONSTRUCTION TECH Plan of Treatment Not on file Medical Devices Implanted Type Area Hat Finishing Materials Preparer Device Identifier Shelf Expiration Date Model / Serial / Lot Thr Left: Hip [employer] Attune Cruciate Retain Cementless Knee Left 6 Narrow Component [id number] - [id number] Implanted:Qty: 1 on 06/01/2022 by Aroldo Odom MD at [facility] [employer] [id number] 06/25/2031 [id number] / / [id number] [employer] Insert Attune Left Medial Stabilized Size 6 5mm [id number] - [id number] - [id number] Implanted:Qty: 1 on 06/01/2022 by Aroldo Odom MD at [facility] Left: Knee [employer] 02/23/2023 [id number] / [id number] / [employer] Attune Fb Tib Base Sz 6 Por [id number] - [id number] Implanted:Qty: 1 on 06/01/2022 by Aroldo Odom MD at [facility] Left: Knee [employer] 01/24/2032 [id number] / / [employer] Attune Cruciate Retain Cementless Knee Right 5 Component Femoral [id number] - [id number] Implanted:Qty: 1 on 10/17/2022 by Aroldo Odom MD at [facility] Right: Knee [employer] [id number] 12/26/2031 [id number] / / [id number] [employer] Attune Fb Tib Base Sz 6 Por [id number] - [id number] Implanted:Qty: 1 on 10/17/2022 by Aroldo Odom MD at [facility] Right: Knee [employer] [id number] 06/25/2032 [id number] / / [id number] [employer] Insert Attune Right Medial Stabilized Size 5 5mm [id number] - [id number] Implanted:Qty: 1 on 10/17/2022 by Aroldo Odom MD at [facility] Right: Knee [employer] [id number] 06/25/2030 [id number] / / [id number] Insurance MEDICARE [facility] CHOICE O CHOICE [place] PPO [place] MEDIC[place] ACCESS OOS Advance Directives For more information, please contact: [phone] * Full Code (Latest Code Status on File) Date Activated Date Inactivated Comments 10/17/2022 12:53 PM 10/18/2022 7:37 PM * Full Code Date Activated Date Inactivated Comments 06/01/2022 9:57 AM 06/02/2022 4:46 PM * Full Code Date Activated Date Inactivated Comments 07/15/2020 11:11 AM 07/16/2020 7:20 PM Care Teams Broomcorn Grader Relationship Specialty Start Date End Date Lokesh Albright MD PCP - General Family Medicine 10/10/21
[2025-05-25 17:38] LABS: Add Urine Microscopic? YES; Appearance Urine Cloudy (Clear); Glucose Urine UA Negative (Negative); Leukocyte Esterase Ur 1+ LEU/UL (Negative); Nitrate Urine Negative (Negative); Non Pathogenic Casts 0-2; Specific Grav Ur 1.015 (1.001-1.035)
--- NOTE | 2025-05-25 18:32 | ADMGEN ---
This patient, Renetta Carrasco, was admitted to [facility] S[facility] Room 312-01. Patient/family oriented to hospital policies and general routines including ID bracelet, bed and alarms, visiting hours, pain management, procedures, bathroom and other care routines, personal items, smoking policy, room service/diet, and visiting hours. Information on how to activate the Rapid Response Team has been discussed. Patient/Family are encouraged to report perceived risks to care and to ask questions if they do not understand what they are told or what they should do.
--- NOTE | 2025-05-25 18:33 | P.HP_ITS ---
H&P: HPI History of Present Illness Date/Time: 05/25/25 18:33 Chief Complaint: Syncope Narrative: 80 y/o F with PMH of anxiety, JAY, anemia, hypertension, hyperlipidemia, and migraines presents here with syncope. The patient presents from home for further evaluation of intermittent dizziness and syncope. She reports she has been experiencing intermittent dizziness for the past 3-4 days. She has been taking meclizine and it did alleviate her symptoms. She reports today she had walked to her sink to wash her hair when she had a syncopal event. She is now reporting she had not bent over at the time, but just prior she had gotten out of bed and hung a few clothes up. She had no precipitating symptoms including shortness of breath, chest pain, palpitations, diaphoresis, nausea or vomiting prior to finding herself on the ground. She denies head strike or injury post fall. She denies any associated palpitations or chest pain. She reports that her PCP has been adjusting her blood pressure medications as she has been more hypertensive as of late. Review of most recent office note on 04/22/2025 last medication change on 03/11. Her metoprolol ER was increased to 50 mg. Initial VS at presentation: 97.4? F, HR 51, R 18, 185/74, and 100% on RA. ED workup showed: No leukocytosis, no anemia, no significant electrolyte derangements, creatinine 0.71 and GFR >60, initial troponin negative, and UA suspicious for UTI however may be contaminant as there are occasional epithelial cells. CXR showed no focal infiltrate or effusion. EKG showed sinus bradycardia with first-degree AV block with occasional super ventricular premature complexes, right bundle branch block, left anterior fascicular block, LVH with ST-T change. When compared to previous, heart rate has decreased. Review of Systems Review of Systems: All systems reviewed & are unremarkable except as noted in HPI and below [facility] Past Medical History Medical History (Updated 05/25/25 @ 19:00 by Jamilah Emerson APRN) Tinnitus chronic Sleep attack Raciel Robbins infection Leg length discrepancy Exudative tonsillitis Excessive daytime sleepiness JAY on CPAP COVID-19 BMI greater than 30 Neuropathy Colonoscopy planned Adenomatous colon polyp Anemia, unspecified Colonic mass Hx of hemorrhoids Had what sounds like hemorrhoidal banding about 5-7 years ago in [place]. Anxiety Hypertension Cerebrovascular disease Reports she saw ENT for tinnitus who told her she had atherosclerotic plaque in her head and prescribed Plavix 5 years ago. Has not followed up with that provider. Vitamin D deficiency Generalized anxiety disorder with panic attacks Hyperlipidemia Migraines Severe obstructive sleep apnea Surgical History Surgical History History of left hip replacement Around 2016 History of arthroscopy of both knees History of hysterectomy for benign disease Vaginal hysterectomy in her 30's. Status post LASIK surgery History of bladder suspension procedure History of cataract surgery The patient denies history cataract surgery but it appears patient has artificial lenses on exam History of colonoscopy with polypectomy Colonoscopy by Dr. Lozano in June 2004. Patient reports having a more recent Colonoscopy in an Ambulatory surgery center in [place] about 5-6 years ago. History of benign polypectomy. Family History Family History Mother Alcoholism Esophageal varices Stomach rupture Sibling Hypertension Psychiatric diagnosis The patient's sister tried to kill the patient at one time. Father , The patient reports her father froze to when his furnace when out when he was 89 years old. Over 80 years old Sibling TBI (traumatic brain injury) Seizures Other Family history of arthritis Family history of mental disorder Social History Social History Social History: Primary care physician: Dr. Albright Code status: Full code Patient is with adult children. She lives at home with her . She is retired and was previously worked at a pre-school. 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 Gender identity (if verbalized by the patient): Female Spiritual care concerns: No Meds Home Medications and Allergies Home Medications ?Medication ?Instructions ?Recorded ?Confirmed ?Type acetaminophen 650 mg 1,000 mg PO Q8H Pain 08/02/22 05/25/25 History tablet,extended release (Arthritis Pain Reliever) cyclosporine 0.05 % eye drops in a 1 drp EACH EYE Q12H 03/11/25 05/25/25 History dropperette (Restasis) evening primrose oil 500 mg capsule 1,000 mg PO DAILY 03/11/25 05/25/25 History fluticasone propionate 93 2 spray intranasal Q12H PRN 03/11/25 05/25/25 History mcg/actuation breath activated allergy symptoms aerosol (Xhance) buspirone 10 mg tablet 10 mg PO BID #180 tabs 03/25/25 05/25/25 Rx duloxetine 60 mg capsule,delayed See Rx Instructions .Route 03/25/25 05/25/25 Rx release .COMPLEX #90 caps ferrous sulfate 325 mg (65 mg See Rx Instructions .Route 03/25/25 05/25/25 Rx iron) tablet (FeroSul) .COMPLEX #90 tabs losartan 50 mg tablet See Rx Instructions .Route 03/25/25 05/25/25 Rx .COMPLEX #90 tabs metoprolol succinate 50 mg 50 mg PO DAILY #90 tabs 03/25/25 05/25/25 Rx tablet,extended release 24 hr omeprazole 20 mg capsule,delayed 20 mg PO DAILY #90 caps 03/25/25 05/25/25 Rx release lorazepam 0.5 mg tablet (Ativan) 0.5 mg PO TID PRN anxiety #10 tabs 04/22/25 05/25/25 Rx simvastatin 40 mg tablet 40 mg PO DAILY #90 tabs 04/29/25 05/25/25 Rx meclizine 25 mg tablet 25 mg PO TID PRN dizziness #30 tabs 05/04/25 05/25/25 Rx solriamfetol 150 mg tablet (Sunosi) 150 mg PO DAILY #90 tabs 05/11/25 05/25/25 Rx cholecalciferol (vitamin D3) 125 50,000 unit PO WEEKLY 05/25/25 05/25/25 History mcg (5,000 unit) capsule estradiol 0.01% (0.1 mg/gram) 1 g vaginal .twice a week 05/25/25 05/25/25 History vaginal cream mirabegron 50 mg tablet,extended 50 mg PO Q24H 05/25/25 05/25/25 History release 24 hr Allergies Allergy/AdvReac Type Severity Reaction Status Date / Time lisinopril Allergy Severe Angioedema Verified 04/22/25 09:59 SIOBHAN Inhibitors Allergy Unknown Angioedema Verified 04/22/25 09:59 pregabalin AdvReac dizziness, Verified 04/22/25 09:59 dry mouth Vital Signs Vital Signs - 24 hr 05/25/25 12:29 05/25/25 13:35 05/25/25 13:40 Temperature 97.4 F L Pulse Rate 51 L 53 L 55 L Respiratory Rate 18 17 Blood Pressure 185/74 H 197/70 H Pulse Oximetry 100 99 Oxygen Delivery Room Air 05/25/25 13:40 05/25/25 13:47 05/25/25 15:33 Temperature Pulse Rate 55 L 53 L 57 L Respiratory Rate 20 17 16 Blood Pressure 190/64 H 190/64 H 168/63 H Pulse Oximetry 99 99 96 Oxygen Delivery Room Air 05/25/25 16:30 05/25/25 16:42 05/25/25 17:02 Temperature 97.9 F Pulse Rate 54 L 55 L 52 L Respiratory Rate 15 20 11 L Blood Pressure 187/64 H 179/65 H 161/65 H Pulse Oximetry 96 100 Oxygen Delivery 05/25/25 17:13 05/25/25 17:14 05/25/25 17:14 Temperature 97.7 F Pulse Rate 50 L 55 L 52 L Respiratory Rate 11 L Blood Pressure 164/66 H 192/74 H 164/66 H Pulse Oximetry 99 Oxygen Delivery 05/25/25 17:17 05/25/25 17:19 05/25/25 17:21 Temperature Pulse Rate 54 L 68 59 L Respiratory Rate 18 17 20 Blood Pressure 192/74 H 180/73 H 188/93 H Pulse Oximetry 93 95 95 Oxygen Delivery 05/25/25 17:22 05/25/25 17:42 Temperature 97.7 F Pulse Rate 52 L 52 L Respiratory Rate 16 Blood Pressure 188/93 H 170/70 H Pulse Oximetry 96 Oxygen Delivery Exam Const: General: comfortable and no acute distress Other: , female, nontoxic appearance HENMT: Face/Nose/Sinus: Normal nares present Mouth: Yes moist mucous membr anes Eyes: General: appearance normal, both eyes and all related structures Sclera: sclerae normal Pupils: Equal, round and reactive pupils present EOM: EOMs intact bilaterally Resp: Effort & Inspection: normal respiratory effort Auscultation: clear to auscultation bilaterally Cardio: Rate: regular rate Rhythm: regular rhythm Other: S1-S2 present without murmur, rub, ectopy GI: Other: Abdomen soft, nondistended, nontender. Normoactive bowel sounds in all quadrants. Skin: General skin exam: normal color and no rashes or lesions noted Wounds: no wounds Neuro: Speech: normal speech Motor exam (neuro): 5/5 motor strength present throughout Sensory Exam: normal sensation Other: A&O x4 Extrem: General: normal to inspection Psych: Mental Status: mental status grossly normal Affect: Anxious affect present Other: Fair insight and judgment, pleasant H&P: Results Labs Labs: Short CBC 05/25/25 Range/Units 12:46 WBC 6.3 (4.5-10.0) K/mm3 Hgb 13.6 (12.0-15.0) g/dL Hct 41.5 (37.0-47.0) % Plt Count 270 (150-375) k/mm3 BMP 05/25/25 12:46 Sodium 135 L Potassium 4.9 Chloride 98 Carbon Dioxide 27 BUN 26 H Creatinine 0.71 Glucose 130 H Calcium 10.3 H Cardiac Enzymes 05/25/25 Range/Units 12:46 Troponin I < 0.012 (0.000-0.034) ng/mL Liver Function 05/25/25 Range/Units 12:46 Total Bilirubin 0.4 (0.2-1.3) mg/dL AST 81 H (14-36) U/L ALT 89 H (6-35) U/L Alkaline Phosphatase 81 (38-126) U/L Albumin 4.7 (3.5-5.1) g/dL Urine 05/25/25 Range/Units 17:11 Urine Color Yellow (Yellow) Urine Appearance Cloudy H (Clear) Urine pH 8.0 (5.0-9.0) Ur Specific [place] 1.015 (1.001-1.035) Urine Protein Trace (Negative) mg/dL Urine Glucose (UA) Negative (Negative) mg/dL Assessment and Plan Assessment and plan (1) Syncope: Qualifiers: Syncope type: unspecified Qualified Code(s): R55 - Syncope and collapse Code(s): R55 - Syncope and collapse Status: Acute Assessment and Plan: - EKG, initial: sinus bradycardia with first-degree AV block with occasional super ventricular premature complexes, right bundle branch block, left anterior fascicular block, LVH with ST-T change. When compared to previous, heart rate has decreased. - no significant electrolyte abnormalities - CXR negative for acute finding - UA equivocal for infection versus contaminant, will start treatment - bradycardic in the 50s, upon further review has been bradycardic in the 50s to low 70s since 2020 - check BNP and TSH BNP elevated, check echo - orthostatic VS Qshift - DDx: Could be medication related, will hold metoprolol. Suspect vasovagal as it was precipitated by bending with no prodrome - initially reported she was bent over and now stating she wasn't, some difficulty with history. Cannot exclude volume depletion/UTI, started on antibiotics and IV fluids. Follow UC. Dysrhythmia, monitor telemetry. (2) UTI (urinary tract infection): Qualifiers: Hematuria presence: without hematuria Urinary tract infection type: acute cystitis Qualified Code(s): N30.00 - Acute cystitis without hematuria Code(s): N39.0 - Urinary tract infection, site not specified Status: Suspected Assessment and Plan: - UA equivocal for infection, epithelial cells seen raising concern for contaminate - started on ceftriaxone on 05/25 - previous micro reviewed, no resistances - follow urine culture (3) Hypertension: Qualifiers: Hypertension type: essential hypertension Qualified Code(s): I10 - Essential (primary) hypertension Code(s): I10 - Essential (primary) hypertension Status: Chronic Assessment and Plan: - chronic, currently 170/70 - home medications: Hold metoprolol ER. Continue losartan. - hydralazine p.r.n. - monitor (4) JAY on CPAP: Code(s): G47.33 - Obstructive sleep apnea (adult) (pediatric); Z99.89 - Dependence on other enabling machines and devices Status: Chronic Assessment and Plan: - continue home CPAP Plan Diet: Heart healthy GI Prophylaxis: Not currently indicated DVT Prophylaxis: SCDs IV fluids: LR at 100 mL/hour x1L Lines/Tubes: Peripheral IV Code Status: Full code Quality VTE Prophylaxis VTE prophylaxis: mechanical ordered Hospitalist MIPS Advance Care Plan I have confirmed that the patient's Advanced Care Plan is present, code status is documented, or surrogate decision maker is listed in patient medical record.: Yes Medication Reconciliation I have utilized all available resources to obtain, update and review the patients current medications (includes all prescriptions, OTC, herbals, cannabis, and nutritional supplements).: Yes
[2025-05-25] MEDS: ACETAMINOPHEN 325 MG TABLET 650 MG PO (19:13)
[2025-05-25] MEDS: LACTATED RINGERS 1,000 ML 100 ML IV CONT (20:16)
[2025-05-25 20:58] LABS: NT Pro B Type Natriuretic Pept 1090 pg/mL (19.9-100); Troponin I 0.025 ng/mL (0.000-0.034)
[2025-05-25] MEDS: [UNRECOGNIZED DRUG - REMARK] XX (21:34)
[2025-05-25] MEDS: cycloSPORINE 0.4 ML OPHTH SOLUTION 1 DROP EACH EYE (22:05)
[2025-05-25 23:03] LABS: Troponin I 0.031 ng/mL (0.000-0.034)
[2025-05-26] VITALS (12 sets, daily range): BP systolic 103–195; BP diastolic 53–89; PULSE 35–70; RESP 16–20; TEMP 36.3–36.4; O2SAT 98–100
--- NOTE | 2025-05-26 | ECHO_ITS ---
Patient Info Name: Renetta Carrasco Age: 80 years : 1945 Gender: Female Ht: 62 in Wt: 187 lbs BSA: 1.96 m2 HR: 60 bpm BP: 195 / 65 mmHg Technical Quality: Good Exam Date: 05/26/2025 10:32 AM Patient Status: O Admit Date: 05/25/2025 Exam Type: CA echo doppler color flow Complete two-dimensional, color flow and Doppler transthoracic echocardiogram is performed. Staff Referring Physician: Ashley Mai III Tire Tester: Michelle Kay Attending Provider: Tomasz Nichols MD Summary 1. Complete two-dimensional, color flow and Doppler transthoracic echocardiogram is performed. 2. Left ventricular systolic function is normal, estimated at 55-60. 3. The left ventricular diastolic function is grade I diastolic dysfunction. 4. Right ventricular chamber dimension is normal. 5. Right ventricular systolic function is normal. 6. There is a 0.6 x 0.5 echogenic density on the LCC leaflet. It is most likely a calcified nodule. Differentials include vegetation, atheroma, thrombus etc. Clinical correlation is advised. 7. There is no aortic valve stenosis. 8. PASP cannot be calculated as there is insufficient TR jet. Left Ventricle Left ventricular chamber dimension is normal. Left ventricular systolic function is normal, estimated at 55-60. There is no increased left ventricular wall thickness. Left ventricular septal wall motion is normal. The left ventricular diastolic function is grade I diastolic dysfunction. Right Ventricle Right ventricular chamber dimension is normal. Right ventricular systolic function is normal. Left Atria Left atrial chamber dimension is normal. Right Atria Right atrial chamber dimension is normal. Aortic Valve The aortic valve is trileaflet. There is a 0.6 x 0.5 echogenic density on the LCC leaflet. It is most likely a calcified nodule. Differentials include vegetation, atheroma, thrombus etc. Clinical correlation is advised. There is no aortic valve stenosis. There is no aortic valve regurgitation. Pulmonic Valve The pulmonic valve is normal. There is no pulmonic valve stenosis. There is no pulmonic regurgitation. Mitral Valve The mitral valve has normal leaflets. There is no mitral valve stenosis. There is no mitral valve regurgitation. Tricuspid Valve The tricuspid valve leaflets are normal. There is no significant tricuspid valve stenosis. There is no tricuspid valve regurgitation. PASP cannot be calculated as there is insufficient TR jet. Pericardium/Pleural The pericardium appears normal. There is no pericardial effusion. Inferior Vena Cava Normal inferior vena cava with >50% collapse upon inspiration consistent with normal right atrial pressure, 3 mmHg. Aorta The aortic root size at the sinus of Valsalva is normal. The prox ascending aorta size is normal. Left Ventricular Outflow Tract Name Value Normal LVOT 2D LVOT Diameter 2.0 cm LVOT Doppler LVOT Peak Velocity 145 cm/s LVOT Peak Gradient 8 mmHg LVOT Mean Gradient 5 mmHg LVOT VTI 34 cm LVOT VTI/AV VTI Ratio 0.8 LVOT Stroke Volume 112 ml LVOT CO 6.3 l/min LVOT CI 3.2 l/min/m2 Pulmonic Valve Name Value Normal RVOT Doppler RVOT Peak Velocity 111 cm/s RVOT Peak Gradient 5 mmHg PV Doppler PV Peak Velocity 143 cm/s PV Peak Gradient 8 mmHg Mitral Valve Name Value Normal MV Diastolic Function MV E Peak Velocity 70 cm/s MV A Peak Velocity 80 cm/s MV E/A 0.9 MV Decel Time (PW) 288 ms MV Annular TDI MV E/e' (Septal) 11.0 MV E/e' (Lateral) 7.2 MV E/e' (Average) 9.1 Tricuspid Valve Name Value Normal Estimated PAP/RSVP RA Pressure 3 mmHg <=5 Aortic Valve Name Value Normal AV Doppler AV Peak Velocity 204 cm/s AV Peak Gradient 15 mmHg AV Mean Gradient 7 mmHg AV VTI 44 cm AV Area (Cont Eq VTI) 2.5 cm2 >=3.0 AV Area (Cont Eq Khoi) 2.3 cm2 AV DI (Khoi) 0.71 AV Regurgitation 2D LVOT Area 3.3 cm2 Ventricles Name Value Normal LV Dimensions 2D/MM IVS Diastolic Thickness (2D) 0.9 cm 0.6-1.0 LVID Diastole (2D) 5.1 cm 3.8-5.2 LVIW Diastolic Thickness (2D) 1.2 cm 0.6-0.9 LVID Systole (2D) 3.2 cm 2.2-3.5 LVOT Diameter 2.0 cm LV Mass (2D Cubed) 207.28 g 67.00-162.00 LV Mass Index (2D Cubed) 106 g/m2 43-95 Relative Wall Thickness (2D) 0.48 <=0.42 LV Fractional Shortening/Ejection Fraction 2D/MM LV Fractional Shortening (2D) 38 % 27-45 LV EF (2D Teichholz) 68 % LV Diastolic Volume (4C MOD) 138 ml LV EF (4C MOD) 59 % LV Diastolic Volume (2C MOD) 145 ml LV EF (2C MOD) 57 % LV Diastolic Volume (BP MOD) 140 ml 46-106 LV Diastolic Volume Index (BP MOD) 71 ml/m2 29-61 LV Systolic Volume (BP MOD) 60 ml 14-42 LV Systolic Volume Index (BP MOD) 31 ml/m2 8-24 LV EF (BP MOD) 57 % 54-74 LV Diastolic Length (4C) 9.1 cm LV Systolic Length (4C) 7.4 cm LV Stroke Volume (4C MOD) 81 ml Atria Name Value Normal LA Dimensions LA Volume (4C A-L) 64 ml LA Volume (BP A-L) 68 ml RA Dimensions RA Systolic Major Tamms Length (4C) 6.1 cm 2.2-2.8 RA Area (4C) 19.2 cm2 <=18.0 Report Signatures
--- NOTE | 2025-05-26 05:52 | ECG_ITS ---
Test Date: 2025-05-26 06:10:18 Measurements Intervals [place] Rate: 35 P: 0 MO: 0 QRS: -63 QRSD: 161 T: 95 QT: 545 QTc: 419 Interpretive Statements SINUS BRADYCARDIA WITH 2ND DEGREE AV BLOCK, 2:1 OR MOBITZ TYPE II RIGHT BUNDLE BRANCH BLOCK [120+ ms QRS DURATION, UPRIGHT V1, 40+ ms S IN I/aVL/V4/V5/V6] LEFT ANTERIOR FASCICULAR BLOCK [QRS AXIS <= -45, QR IN I, RS IN II] LEFT VENTRICULAR HYPERTROPHY AND ST-T CHANGE [VOLTAGE CRITERIA PLUS ST/T ABNORMALITY] POSSIBLE SEPTAL MYOCARDIAL INFARCTION , PROBABLY OLD [30 ms Q WAVE IN V1/V2] Electronically Signed On 05-26-2025 18:00:07 CDT by Lennox Wise
[2025-05-26 06:20] LABS: Hematocrit 42.1 % (37.0-47.0); Hemoglobin 13.5 g/dL (12.0-15.0); Immature Granulocyte Percent A 0.2 % (0-0.5); Lymphocytes Absolute Auto 1.31 K/mm3 (0.9-3.2); Mean Corpuscular HGB Conc 32.1 g/dl (32-36); Mean Corpuscular Hemoglobin 31.5 pg (26-34); Mean Corpuscular Volume 98.4 fl (80-100); Nucleated Red Blood Cells Absolute Auto 0.000 K/mm3 (0.0-0.012); Nucleated Red Blood Cells Perc 0.0 % (0.0-0.2); Platelet Count Result 274 k/mm3 (150-375); Red Blood Count 4.28 M/mm3 (4.2-5.4); White Blood Count 5.5 K/mm3 (4.5-10.0)
[2025-05-26 06:37] LABS: Alanine Aminotransferase 64 U/L (6-35); Albumin Level 4.2 g/dL (3.5-5.1); Alkaline Phosphatase 70 U/L (38-126); Anion Gap 9 mmol/L (4-12); Aspartate Amino Transferase 55 U/L (14-36); Bilirubin,Total 0.5 mg/dL (0.2-1.3); Blood Urea Nitrogen 29 mg/dL (7-17); Calcium 9.8 mg/dL (8.4-10.2); Carbon Dioxide 26 mmol/L (22-30); Chloride 104 mmol/L (98-107); Estimated CRCL calculation 56 ml/min; Estimated Glomerular Filt Rate > 60; Glucose 98 mg/dL (65-110); Magnesium 2.3 mg/dL (1.6-2.3); Potassium 4.3 mmol/L (3.4-5.0); Sodium 139 mmol/L (137-145); Total Protein 7.3 g/dL (6.3-8.2)
[2025-05-26 07:28] LABS: Thyroid Stimulating Hormone Reflex 2.370 uIU/mL (0.465-4.68)
--- NOTE | 2025-05-26 07:37 | P.CONCA_ITS ---
Assessment and Plan Assessment and plan (1) Syncope and collapse: Code(s): R55 - Syncope and collapse Status: Acute Plan This is an 80-year-old lady with syncope and history of hypertension. As an outpatient her beta-genaro dosage was recently advanced. On telemetry it has been noted that she has episodes of significant bradycardia with conduction system disease. So far we have seen second-degree heart block with 2-1 conduction as well as evidence of bifascicular block. It is unlikely that her beta-genaro slowly to blame for this since we are seeing AV node dysfunction and conduction system disease but her metoprolol should be allowed to wash out for at least 48 hours before there is a decision made to implanted pacemaker device. We will continue to watch her telemetry with you and determine if/when pacemaker device implantation is to be performed. Thank you for this consultation Turner Sepulveda MD [facility] History of Present Illness History of Present Illness Consult date/time: 05/26/25 07:37 Reason For Visit: syncope Narrative: This is a very pleasant 80-year-old lady I am seeing at the request of the hospitalist because of high-grade AV block noted on telemetry. She was admitted to the hospital yesterday after experiencing a syncopal episode at home. She is not known to me prior to this consultation. She has a history of hypertension and follows with Dr. Albright. She says that yesterday while she was at home she noticed several episodes of significant lightheadedness and darkening of her vision. These were relatively transient and did not cause her much concern. She went into her kitchen sink to wash her hair and 0 while she was washing her hair she felt well but the then and she ended up on the floor obviously had lost consciousness had no recollection of the event and no idea how she got to the floor. There was no significant injury but after this she was brought to the emergency room for evaluation. 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 She was admitted to telemetry and we have been consulted to see her for that reason. For her hypertension she takes a combination of losartan and metoprolol. Her metoprolol dosage was recently increased from 25-50 mg during a appointment with the PCP. She feels well at this time and does not have any complaints. Review of Systems 2 Constitutional: Constitutional: Reports no additional constitutional complaints Eyes: Eyes: Reports no additional eye complaints ENT: Reports system reviewed and no additional complaints, except as documented Cardiovascular: Cardiovascular: Reports as per HPI Respiratory: Respiratory: Reports no additional respiratory complaints Gastrointestinal: Gastrointestinal: Reports no additional gastrointestinal complaints Musculoskeletal: Musculoskeletal: Reports no additional musculoskeletal complaints Integumentary/Breasts: Skin/Breast: Reports system reviewed and no additional complaints, except as docu Neurologic: Reports as per HPI Endocrine: Endocrine: Reports no additional endocrine complaints Hematologic/Lymphatic: Hematologic/Lymphatic: Reports no additional hematologic/lymphatic complaints Allergic/Immunologic: Allergic/Immunologic: Reports no additional allergic/immunologic complaints [facility] Past Medical History Medical History (Updated 05/26/25 @ 07:43 by Turner Sepulveda MD) Tinnitus chronic Sleep attack Raciel Robbins infection Leg length discrepancy Exudative tonsillitis Excessive daytime sleepiness JAY on CPAP COVID-19 BMI greater than 30 Neuropathy Colonoscopy planned Adenomatous colon polyp Anemia, unspecified Colonic mass Hx of hemorrhoids Had what sounds like hemorrhoidal banding about 5-7 years ago in [place]. Anxiety Hypertension Cerebrovascular disease Reports she saw ENT for tinnitus who told her she had atherosclerotic plaque in her head and prescribed Plavix 5 years ago. Has not followed up with that provider. Vitamin D deficiency Generalized anxiety disorder with panic attacks Hyperlipidemia Migraines Severe obstructive sleep apnea Surgical History Surgical History History of left hip replacement Around 2015 History of arthroscopy of both knees History of hysterectomy for benign disease Vaginal hysterectomy in her 30's. Status post LASIK surgery History of bladder suspension procedure History of cataract surgery The patient denies history cataract surgery but it appears patient has artificial lenses on exam History of colonoscopy with polypectomy Colonoscopy by Dr. Lozano in June 2004. Patient reports having a more recent Colonoscopy in an Ambulatory surgery center in [place] about 5-6 years ago. History of benign polypectomy. Family History Family History Mother Alcoholism Esophageal varices Stomach rupture Sibling Hypertension Psychiatric diagnosis The patient's sister tried to kill the patient at one time. Father , The patient reports her father froze to when his furnace when out when he was 89 years old. Over 80 years old Sibling TBI (traumatic brain injury) Seizures Other Family history of arthritis Family history of mental disorder Social History Social History Social History: Primary care physician: Dr. Albright Code status: Full code Patient is with adult children. She lives at home with her . She is retired and was previously worked at a pre-school. 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 Gender identity (if verbalized by the patient): Female Spiritual care concerns: No Meds Home Medications and Allergies Home Medications ?Medication ?Instructions ?Recorded ?Confirmed ?Type acetaminophen 650 mg 1,000 mg PO Q8H Pain 08/02/22 05/25/25 History tablet,extended release (Arthritis Pain Reliever) cyclosporine 0.05 % eye drops in a 1 drp EACH EYE Q12H 03/11/25 05/25/25 History dropperette (Restasis) evening primrose oil 500 mg capsule 1,000 mg PO DAILY 03/11/25 05/25/25 History fluticasone propionate 93 2 spray intranasal Q12H PRN 03/11/25 05/25/25 History mcg/actuation breath activated allergy symptoms aerosol (Xhance) buspirone 10 mg tablet 10 mg PO BID #180 tabs 03/25/25 05/25/25 Rx duloxetine 60 mg capsule,delayed See Rx Instructions .Route 03/25/25 05/25/25 Rx release .COMPLEX #90 caps ferrous sulfate 325 mg (65 mg See Rx Instructions .Route 03/25/25 05/25/25 Rx iron) tablet (FeroSul) .COMPLEX #90 tabs losartan 50 mg tablet See Rx Instructions .Route 03/25/25 05/25/25 Rx .COMPLEX #90 tabs metoprolol succinate 50 mg 50 mg PO DAILY #90 tabs 03/25/25 05/25/25 Rx tablet,extended release 24 hr omeprazole 20 mg capsule,delayed 20 mg PO DAILY #90 caps 03/25/25 05/25/25 Rx release lorazepam 0.5 mg tablet (Ativan) 0.5 mg PO TID PRN anxiety #10 tabs 04/22/25 05/25/25 Rx simvastatin 40 mg tablet 40 mg PO DAILY #90 tabs 04/29/25 05/25/25 Rx meclizine 25 mg tablet 25 mg PO TID PRN dizziness #30 tabs 05/04/25 05/25/25 Rx solriamfetol 150 mg tablet (Sunosi) 150 mg PO DAILY #90 tabs 05/11/25 05/25/25 Rx cholecalciferol (vitamin D3) 125 50,000 unit PO WEEKLY 05/25/25 05/25/25 History mcg (5,000 unit) capsule estradiol 0.01% (0.1 mg/gram) 1 g vaginal .twice a week 05/25/25 05/25/25 History vaginal cream mirabegron 50 mg tablet,extended 50 mg PO Q24H 05/25/25 05/25/25 History release 24 hr Allergies Allergy/AdvReac Type Severity Reaction Status Date / Time lisinopril Allergy Severe Angioedema Verified 04/22/25 09:59 SIOBHAN Inhibitors Allergy Unknown Angioedema Verified 04/22/25 09:59 pregabalin AdvReac dizziness, Verified 04/22/25 09:59 dry mouth Vital Signs Vital Signs - 24 hr 05/25/25 12:29 05/25/25 13:35 05/25/25 13:40 Temperature 36.3 C L Pulse Rate 51 L 53 L 55 L Respiratory Rate 18 17 Blood Pressure 185/74 H 197/70 H Pulse Oximetry 100 99 Oxygen Delivery Room Air 05/25/25 13:40 05/25/25 13:47 05/25/25 15:33 Temperature Pulse Rate 55 L 53 L 57 L Respiratory Rate 20 17 16 Blood Pressure 190/64 H 190/64 H 168/63 H Pulse Oximetry 99 99 96 Oxygen Delivery Room Air 05/25/25 16:30 05/25/25 16:42 05/25/25 17:02 Temperature 36.6 C Pulse Rate 54 L 55 L 52 L Respiratory Rate 15 20 11 L Blood Pressure 187/64 H 179/65 H 161/65 H Pulse Oximetry 96 100 Oxygen Delivery 05/25/25 17:13 05/25/25 17:14 05/25/25 17:14 Temperature 36.5 C Pulse Rate 50 L 55 L 52 L Respiratory Rate 11 L Blood Pressure 164/66 H 192/74 H 164/66 H Pulse Oximetry 99 Oxygen Delivery 05/25/25 17:17 05/25/25 17:19 05/25/25 17:21 Temperature Pulse Rate 54 L 68 59 L Respiratory Rate 18 17 20 Blood Pressure 192/74 H 180/73 H 188/93 H Pulse Oximetry 93 95 95 Oxygen Delivery 05/25/25 17:22 05/25/25 17:42 05/25/25 19:31 Temperature 36.5 C Pulse Rate 52 L 52 L Respiratory Rate 16 Blood Pressure 188/93 H 170/70 H Pulse Oximetry 96 Oxygen Delivery Room Air 05/25/25 20:00 05/25/25 20:21 05/26/25 00:00 Temperature 36.6 C Pulse Rate 58 L 96 62 Respiratory Rate 16 Blood Pressure 195/61 H Pulse Oximetry 98 Oxygen Delivery 05/26/25 04:00 05/26/25 05:27 Temperature 36.3 C L Pulse Rate 35 L 52 L Respiratory Rate 16 Blood Pressure 195/65 H Pulse Oximetry 99 Oxygen Delivery Exam 2 Const: General: comfortable and no acute distress Other: Pleasant elderly lady no distress HENMT: Mouth: Yes moist mucous membranes Eyes: Sclera: sclerae normal Neck: Neck: supple and no JVD Resp: Effort & Inspection: normal respiratory effort Auscultation: clear to auscultation bilaterally Cardio: Rate: regular rate Rhythm: regular rhythm Other: Heart rate currently 64, soft systolic murmur does not radiate from the left sternal border GI: GI Palp: Yes Soft to palpation Auscultation: normal bowel sounds Skin: General skin exam: normal color Neuro: Other: Alert and oriented x3 Extrem: General: normal to inspection Results Labs and Meds 05/26/25 05:55 05/26/25 05:55 Lab results: Cardiac Enzymes 05/25/25 05/25/25 05/25/25 Range/Units 12:46 19:47 22:21 AST 81 H (14-36) U/L Troponin I < 0.012 0.025 D 0.031 D (0.000-0.034) ng/mL 05/26/25 Range/Units 05:55 AST 55 H (14-36) U/L Troponin I (0.000-0.034) ng/mL CBC 05/25/25 05/26/25 Range/Units 12:46 05:55 WBC 6.3 5.5 (4.5-10.0) K/mm3 RBC 4.34 4.28 (4.2-5.4) M/mm3 Hgb 13.6 13.5 (12.0-15.0) g/dL Hct 41.5 42.1 (37.0-47.0) % Plt Count 270 274 (150-375) k/mm3 Lymph # (Auto) 0.76 L 1.31 (0.9-3.2) K/mm3 [place] # (Auto) 0.5 0.8 H (0.1-0.6) K/mm3 Eos # (Auto) 0.0 0.0 (0-0.3) K/mm3 Baso # (Auto) 0.0 0.0 (0.0-0.1) K/mm3 Comprehensive Metabolic Panel 05/25/25 05/26/25 Range/Units 12:46 05:55 Sodium 135 L 139 (137-145) mmol/L Potassium 4.9 4.3 (3.4-5.0) mmol/L Chloride 98 104 (98-107) mmol/L Carbon Dioxide 27 26 (22-30) mmol/L BUN 26 H 29 H (7-17) mg/dL Creatinine 0.71 0.69 L (0.7-1.0) mg/dL Glucose 130 H 98 (65-110) mg/dL Calcium 10.3 H 9.8 (8.4-10.2) mg/dL AST 81 H 55 H (14-36) U/L ALT 89 H 64 H (6-35) U/L Alkaline Phosphatase 81 70 (38-126) U/L Total Protein 8.1 7.3 (6.3-8.2) g/dL Albumin 4.7 4.2 (3.5-5.1) g/dL Intake and Output 05/25/25 05/25/25 05/26/25 15:59 23:59 07:59 Other: # Unmeasured Voids 2
--- NOTE | 2025-05-26 07:51 | P.PNIM_ITS ---
Progress Note: A&P Assessment and Plan (1) Syncope: Qualifiers: Syncope type: unspecified Qualified Code(s): R55 - Syncope and collapse Code(s): R55 - Syncope and collapse Status: Acute Assessment and Plan: * EKG, initial: sinus bradycardia with first-degree AV block with occasional super ventricular premature complexes, right bundle branch block, left anterior fascicular block, LVH with ST-T change. When compared to previous, heart rate has decreased. * no significant electrolyte abnormalities * CXR negative for acute finding * UA equivocal for infection versus contaminant, will start treatment * bradycardic in the 50s, upon further review has been bradycardic in the 50s to low 70s since 2020 * check BNP and TSH * BNP elevated, check echo * orthostatic VS Qshift * DDx: Could be medication related, will hold metoprolol. Suspect vasovagal as it was precipitated by bending with no prodrome - initially reported she was bent over and now stating she wasn't, some difficulty with history. Cannot exclude volume depletion/UTI, started on antibiotics and IV fluids. Follow UC. Dysrhythmia, monitor telemetry. * Cardiology consult * Hold metoprolol for 48hrs (starting 05/26) * Determine if pacemaker is next step once Metoprolol is washed out (2) UTI (urinary tract infection): Qualifiers: Hematuria presence: without hematuria Urinary tract infection type: acute cystitis Qualified Code(s): N30.00 - Acute cystitis without hematuria Code(s): N39.0 - Urinary tract infection, site not specified Status: Suspected Assessment and Plan: * UA equivocal for infection, epithelial cells seen raising concern for contaminate * started on ceftriaxone on 05/25 * previous micro reviewed, no resistances * follow urine culture - pending (3) Hypertension: Qualifiers: Hypertension type: essential hypertension Qualified Code(s): I10 - Essential (primary) hypertension Code(s): I10 - Essential (primary) hypertension Status: Chronic Assessment and Plan: * chronic, currently 170/70 * home medications: Hold metoprolol ER. Continue losartan. * hydralazine p.r.n. * monitor (4) JAY on CPAP: Code(s): G47.33 - Obstructive sleep apnea (adult) (pediatric); Z99.89 - Dependence on other enabling machines and devices Status: Chronic Assessment and Plan: * continue home CPAP Plan Diet: Heart healthy GI Prophylaxis: Not currently indicated DVT Prophylaxis: SCDs IV fluids: LR at 100 mL/hour x1L Lines/Tubes: Peripheral IV Code Status: Full code Subjective Date/time seen: 05/26/25 07:51 Interval history: 80 y/o F with PMH of anxiety, JAY, anemia, hypertension, hyperlipidemia, and migraines presents here with syncope. 05/26/2025 Patient sitting comfortably in bed at time examination. At this time denies any chest pain, shortness of breath, dizziness/headaches, nausea/vomiting or abdominal pain. Seen by Cardiology regarding syncope/collapse, recommend holding metoprolol for 48 hours with the option of implanting a pacemaker device at that time if still symptomatic. Plan for echocardiogram today. Otherwise patient has no complaints or concerns. Review of Systems Review of Systems: All systems reviewed & are unremarkable except as noted in HPI and below Exam Const: General: comfortable and no acute distress Other: , female, nontoxic appearance HENMT: Face/Nose/Sinus: Normal nares present Mouth: Yes moist mucous membranes Eyes: General: appearance normal, both eyes and all related structures Sclera: sclerae normal Pupils: Equal, round and reactive pupils present EOM: EOMs intact bilaterally Resp: Effort & Inspection: normal respiratory effort Auscultation: clear to auscultation bilaterally Cardio: Rate: regular rate Rhythm: regular rhythm Other: S1-S2 present without murmur, rub, ectopy GI: Other: Abdomen soft, nondistended, nontender. Normoactive bowel sounds in all quadrants. Skin: General skin exam: normal color and no rashes or lesions noted Wounds: no wounds Neuro: Cranial nerves: Yes Equal, round and reactive pupils present Speech: normal speech Motor exam (neuro): 5/5 motor strength present throughout Sensory Exam: normal sensation Other: A&O x4 Extrem: General: normal to inspection Psych: Mental Status: mental status grossly normal Affect: Anxious affect present Other: Fair insight and judgment, pleasant Objective Data Vital Signs Vital Signs: Vital Signs - 24 hr 05/25/25 12:29 05/25/25 13:35 05/25/25 13:40 Temperature 97.4 F L Pulse Rate 51 L 53 L 55 L Respiratory Rate 18 17 Blood Pressure 185/74 H 197/70 H Pulse Oximetry 100 99 Oxygen Delivery Room Air 05/25/25 13:40 05/25/25 13:47 05/25/25 15:33 Temperature Pulse Rate 55 L 53 L 57 L Respiratory Rate 20 17 16 Blood Pressure 190/64 H 190/64 H 168/63 H Pulse Oximetry 99 99 96 Oxygen Delivery Room Air 05/25/25 16:30 05/25/25 16:42 05/25/25 17:02 Temperature 97.9 F Pulse Rate 54 L 55 L 52 L Respiratory Rate 15 20 11 L Blood Pressure 187/64 H 179/65 H 161/65 H Pulse Oximetry 96 100 Oxygen Delivery 05/25/25 17:13 05/25/25 17:14 05/25/25 17:14 Temperature 97.7 F Pulse Rate 50 L 55 L 52 L Respiratory Rate 11 L Blood Pressure 164/66 H 192/74 H 164/66 H Pulse Oximetry 99 Oxygen Delivery 05/25/25 17:17 05/25/25 17:19 05/25/25 17:21 Temperature Pulse Rate 54 L 68 59 L Respiratory Rate 18 17 20 Blood Pressure 192/74 H 180/73 H 188/93 H Pulse Oximetry 93 95 95 Oxygen Delivery 05/25/25 17:22 05/25/25 17:42 05/25/25 19:31 Temperature 97.7 F Pulse Rate 52 L 52 L Respiratory Rate 16 Blood Pressure 188/93 H 170/70 H Pulse Oximetry 96 Oxygen Delivery Room Air 05/25/25 20:00 05/25/25 20:21 05/26/25 00:00 Temperature 97.9 F Pulse Rate 58 L 96 62 Respiratory Rate 16 Blood Pressure 195/61 H Pulse Oximetry 98 Oxygen Delivery 05/26/25 04:00 05/26/25 05:27 Temperature 97.4 F L Pulse Rate 35 L 52 L Respiratory Rate 16 Blood Pressure 195/65 H Pulse Oximetry 99 Oxygen Delivery Meds/Results Medications: Active Medications Generic Name Dose Route Start Last Admin Trade Name Freq PRN Reason Stop Dose Admin Acetaminophen 650 mg 05/25/25 18:50 05/25/25 19:13 Acetaminophen 325 Mg Tablet PO 650 mg Q4H PRN Administration Mild Pain (1-3) or Fever Buspirone HCl 10 mg 05/26/25 09:00 Buspirone Hcl 10 Mg Tablet PO BID IVON Cyclosporine 1 drop 05/25/25 21:00 05/25/25 22:05 Cyclosporine 0.4 Ml Ophth Solution EACH EYE 1 drop Q12HR IVON Administration Duloxetine HCl 60 mg 05/26/25 09:00 Duloxetine Hcl 60 Mg Capsule.Dr PO DAILY ON LICENSE OF [facility] Estradiol 1 applic 05/26/25 09:00 Estradiol Vaginal Cream 42.5 Gm VAGINAL TuFr ON LICENSE OF [facility] Ferrous Sulfate 325 mg 05/26/25 09:00 Ferrous Sulfate [address] BY MOUTH DAILY ON LICENSE OF [facility] Fluticasone Propionate 2 spray 05/25/25 21:12 Fluticasone Propionate 0.05% Na Spr 16 Gm Btl (*Bkc) NASAL Q12H PRN allergy symptoms Hydralazine HCl 5 mg 05/25/25 20:36 05/25/25 22:05 Hydralazine Hcl 20 Mg/Ml Vial IV PUSH 5 mg Q8H PRN Administration Blood Pressure - SYSTOLIC >180 Ceftriaxone Sodium 1 gm in 50 mls @ 100 mls/hr 05/25/25 19:00 05/25/25 19:13 Rocephin 1 Gm/Ns 50 Ml IVPB 100 mls/hr Q24H ON LICENSE OF [facility] Administration Lorazepam 0.5 mg 05/25/25 20:37 Lorazepam (*Crx) 0.5 Mg Tablet PO TID PRN anxiety Losartan Potassium 50 mg 05/26/25 09:00 Losartan Potassium 50 Mg Tablet PO DAILY ON LICENSE OF [facility] Meclizine HCl 25 mg 05/25/25 20:37 Meclizine Hcl 25 Mg Tablet PO TID PRN dizziness Mirabegron 50 mg 05/26/25 09:00 Mirabegron 50 Mg Er Tablet PO Q24H ON LICENSE OF [facility] Miscellaneous Information 0 each 05/25/25 00:01 Solriamfetol Nonform Can Pt Bring From Home? XX 06/24/25 00:00 CLARIFY ON LICENSE OF [facility] Non-Formulary Medication 150 mg 05/26/25 09:00 Solriamfetol [Sunosi] PO 06/25/25 08:59 DAILY ON LICENSE OF [facility] Ondansetron HCl 4 mg 05/25/25 18:50 Ondansetron Inj 4 Mg/2 Ml Vial IV PUSH Q4H PRN Nausea And Vomiting Pantoprazole Sodium 40 mg 05/26/25 09:00 Pantoprazole 40 Mg Tablet PO QAM ON LICENSE OF [facility] Perflutren Lipid Microsphere 0 ml 05/25/25 21:10 Perflutren Lipid Microspheres 1.5 Ml Vial Diluted To 10 Ml Total Volume IV PUSH 05/28/25 21:11 ONCE PRN adequate visualization Protocol Simvastatin 40 mg 05/26/25 09:00 Simvastatin 20 Mg Tablet PO DAILY ON LICENSE OF [facility] Vitamin D 125 mcg 05/26/25 09:00 Cholecalciferol (Vitamin D3) 125 Mcg (5,000 Units) Tablet PO WEEKLY ON LICENSE OF [facility] Radiology Results: ITS Impressions Chest X-Ray 05/25/25 14:09 IMPRESSION: No focal infiltrate or effusion. Labs Labs: Laboratory Results - last 24 hr 05/25/25 05/25/25 05/25/25 12:46 17:11 19:47 WBC 6.3 RBC 4.34 Hgb 13.6 Hct 41.5 MCV 95.6 MCH 31.3 MCHC 32.8 RDW 12.5 Plt Count 270 MPV 10.5 H Immature Gran % (Auto) 0.5 Neut % (Auto) 79.1 H Lymph % (Auto) 12.0 L [place] % (Auto) 7.6 Eos % (Auto) 0.2 Baso % (Auto) 0.6 Lymph # (Auto) 0.76 L [place] # (Auto) 0.5 Eos # (Auto) 0.0 Baso # (Auto) 0.0 Abs Immat Gran (auto) 0.03 Absolute Neuts (auto) 5.0 Absolute Nucleated RBC 0.000 Nucleated RBC % 0.0 Sodium 135 L Potassium 4.9 Chloride 98 Carbon Dioxide 27 Anion Gap 10 BUN 26 H Creatinine 0.71 Estim Creat Clear Calc 53 Estimated GFR > 60 Glucose 130 H Calcium 10.3 H Magnesium Total Bilirubin 0.4 AST 81 H ALT 89 H Alkaline Phosphatase 81 Troponin I < 0.012 0.025 D NT-Pro-B Natriuret Pep 1090 H Total Protein 8.1 Albumin 4.7 TSH (Reflex) Urine Color Yellow Urine Appearance Cloudy H Urine pH 8.0 Ur Specific [place] 1.015 Urine Protein Trace Urine Glucose (UA) Negative Urine Ketones Negative Ur Blood (Man) Negative Urine Nitrate Negative Urine Bilirubin Negative Urine Urobilinogen 1.0 Leukocyte Esterase Rfl 1+ H Urine RBC 0-2 Urine WBC 6-10 H Ur Squamous Epith Cells Occasional Urine Bacteria 4+ H Urine Casts 0-2 05/25/25 05/26/25 05/26/25 22:21 05:54 05:55 WBC 5.5 RBC 4.28 Hgb 13.5 Hct 42.1 MCV 98.4 MCH 31.5 MCHC 32.1 RDW 12.7 Plt Count 274 MPV 10.4 Immature Gran % (Auto) 0.2 Neut % (Auto) 61.0 Lymph % (Auto) 23.9 [place] % (Auto) 14.2 H Eos % (Auto) 0.2 Baso % (Auto) 0.5 Lymph # (Auto) 1.31 [place] # (Auto) 0.8 H Eos # (Auto) 0.0 Baso # (Auto) 0.0 Abs Immat Gran (auto) 0.01 Absolute Neuts (auto) 3.3 Absolute Nucleated RBC 0.000 Nucleated RBC % 0.0 Sodium 139 Potassium 4.3 Chloride 104 Carbon Dioxide 26 Anion Gap 9 BUN 29 H Creatinine 0.69 L Estim Creat Clear Calc 56 Estimated GFR > 60 Glucose 98 Calcium 9.8 Magnesium 2.3 Total Bilirubin 0.5 AST 55 H ALT 64 H Alkaline Phosphatase 70 Troponin I 0.031 D NT-Pro-B Natriuret Pep Total Protein 7.3 Albumin 4.2 TSH (Reflex) 2.370 Urine Color Urine Appearance Urine pH Ur Specific [place] Urine Protein Urine Glucose (UA) Urine Ketones Ur Blood (Man) Urine Nitrate Urine Bilirubin Urine Urobilinogen Leukocyte Esterase Rfl Urine RBC Urine WBC Ur Squamous Epith Cells Urine Bacteria Urine Casts Quality VTE Prophylaxis VTE prophylaxis: mechanical ordered
[2025-05-26] MEDS: ACETAMINOPHEN 325 MG TABLET 650 MG PO (09:04)
[2025-05-26] MEDS: CHOLECALCIFEROL (VITAMIN D3) 125 MCG (5,000 UNITS) TABLET PO (10:22)
[2025-05-26] MEDS: MIRABEGRON 50 MG ER TABLET PO (10:22)
[2025-05-26] MEDS: SIMVASTATIN 20 MG TABLET 40 MG PO (10:22)
[2025-05-26] MEDS: PANTOPRAZOLE 40 MG TABLET PO (10:23)
[2025-05-26] MEDS: DULoxetine HCL 60 MG CAPSULE.DR PO (10:24)
[2025-05-26] MEDS: FERROUS SULFATE 325 MG TABLET DR BY MOUTH (10:24)
[2025-05-26] MEDS: cycloSPORINE 0.4 ML OPHTH SOLUTION 1 DROP EACH EYE ×2 (10:24→21:35)
[2025-05-26] MEDS: LOSARTAN POTASSIUM 50 MG TABLET PO (10:28)
[2025-05-27 03:55] VITALS: PULSE 54
[2025-05-27 05:08] VITALS: BP 170/69; PULSE 70; RESP 18; TEMP 36.2; O2SAT 99
--- NOTE | 2025-05-27 06:00 | ECG_ITS ---
Test Date: 2025-05-27 11:34:04 Measurements Intervals [place] Rate: 58 P: -11 FL: 232 QRS: -53 QRSD: 170 T: 120 QT: 460 QTc: 452 Interpretive Statements SINUS BRADYCARDIA WITH FIRST DEGREE AV BLOCK RIGHT BUNDLE BRANCH BLOCK LEFT ANTERIOR SUPERIOR HEMIBLOCK LEFT VENTRICULAR HYPERTROPHY ABNORMAL ECG Compared to ECG 05/26/2025 06:10:18 AV CONDUCTION HAS IMPROVED THERE IS NOW 1-1 CONDUCTION Electronically Signed On 05-27-2025 12:55:31 CDT by Turner Sepulveda M.D.
--- NOTE | 2025-05-27 07:27 | PM.PNCARD ---
Progress Note: A&P Assessment and Plan (1) Second degree atrioventricular block: Code(s): I44.1 - Atrioventricular block, second degree Status: Acute Plan 80-year-old lady with hypertension and AV node dysfunction. She presents with syncopal event and evidence of second-degree AV block. This for the moment seems to have resolved after discontinuance of her beta-genaro. As mentioned in my consultation is T still does have evidence of conduction system disease with first-degree AV block and bifascicular block. It is possible that she will require pacemaker device implantation at some point but at this moment I would not proceed with that today. I will arrange for follow-up of this in my office and from my perspective the patient can be discharged. Obviously she did not receive any medications that would affect SA or AV node function Turner Sepulveda MD [facility] Subjective Date/time seen: Date of service: 05/27/25 07:27 Interval history: Follow-up visit in this 80-year-old lady with: Syncope with AV node dysfunction and hypertension. She feels well this morning and has no complaints. Reviewing her telemetry strips in speaking with the nurse there have been no examples of second-degree heart block seen since yesterday morning. Her rhythm is now sinus with first-degree AV block with ventricular rate in the 50s. Exam Const: General: comfortable and no acute distress Other: Very pleasant elderly lady sleeping upon entering the room upon awakening she is in good spirits and has no complaints HENMT: Mouth: Yes moist mucous membranes Eyes: Sclera: sclerae normal Neck: Neck: supple and no JVD Resp: Effort & Inspection: normal respiratory effort Auscultation: clear to auscultation bilaterally Cardio: Rate: bradycardic Rhythm: regular rhythm GI: GI Palp: Yes Soft to palpation Auscultation: normal bowel sounds Skin: General skin exam: normal color Neuro: Other: Alert and oriented x3 Extrem: General: normal to inspection Objective Data Vital Signs Vital Signs: Vital Signs - 24 hr 05/26/25 08:00 05/26/25 08:00 05/26/25 08:00 Temperature Pulse Rate 63 56 L Respiratory Rate 20 Blood Pressure 156/63 H Pulse Oximetry 99 98 Oxygen Delivery Room Air 05/26/25 12:00 05/26/25 13:16 05/26/25 13:16 Temperature Pulse Rate 57 L 66 70 Respiratory Rate 20 20 Blood Pressure 169/74 H 171/89 H Pulse Oximetry 100 100 Oxygen Delivery 05/26/25 14:00 05/26/25 16:00 05/26/25 20:00 Temperature 36.4 C 36.4 C L Pulse Rate 67 61 60 Respiratory Rate 20 16 Blood Pressure 103/71 152/53 H Pulse Oximetry 98 98 Oxygen Delivery 05/26/25 20:00 05/26/25 20:00 05/26/25 20:09 Temperature 36.4 C L Pulse Rate 60 60 60 Respiratory Rate 16 16 Blood Pressure 152/53 H Pulse Oximetry 98 98 Oxygen Delivery Autopap 05/26/25 20:10 05/26/25 20:10 05/26/25 21:57 Temperature 36.4 C L 36.4 C L Pulse Rate 60 63 Respiratory Rate 16 18 Blood Pressure 152/53 H 161/82 H Pulse Oximetry 98 100 Oxygen Delivery Autopap 05/26/25 23:33 05/27/25 02:10 05/27/25 03:55 Temperature Pulse Rate 47 L 54 L Respiratory Rate Blood Pressure Pulse Oximetry Oxygen Delivery Autopap 05/27/25 05:08 Temperature 36.2 C L Pulse Rate 70 Respiratory Rate 18 Blood Pressure 170/69 H Pulse Oximetry 99 Oxygen Delivery Intake/Output Intake/Output: Intake & Output 05/24/25 05/25/25 05/26/25 05/27/25 23:59 23:59 23:59 23:59 Intake Total 50 1270 Balance 50 1270 Meds/Results Medications: Active Medications Generic Name Dose Route Start Last Admin Trade Name Windy PRN Reason Stop Dose Admin Acetaminophen 650 mg 05/25/25 18:50 05/26/25 09:04 Acetaminophen 325 Mg Tablet PO 650 mg Q4H PRN Administration Mild Pain (1-3) or Fever Buspirone HCl 10 mg 05/26/25 09:00 05/26/25 17:18 Buspirone Hcl 10 Mg Tablet PO 10 mg BID IVON Administration Cyclosporine 1 drop 05/25/25 21:00 05/26/25 21:35 Cyclosporine 0.4 Ml Ophth Solution EACH EYE 1 drop Q12HR IVON Administration Duloxetine HCl 60 mg 05/26/25 09:00 05/26/25 10:24 Duloxetine Hcl 60 Mg Capsule.Dr PO 60 mg DAILY IVON Administration Estradiol 1 applic 05/26/25 09:00 05/26/25 17:17 Estradiol Vaginal Cream 42.5 Gm VAGINAL 1 applic TuFr IVON Administration Ferrous Sulfate 325 mg 05/26/25 09:00 05/26/25 10:24 Ferrous Sulfate [address] BY MOUTH 325 mg DAILY IVON Administration Fluticasone Propionate 2 spray 05/25/25 21:12 Fluticasone Propionate 0.05% Na Spr 16 Gm Btl (*Bkc) NASAL Q12H PRN allergy symptoms Hydralazine HCl 5 mg 05/25/25 20:36 05/25/25 22:05 Hydralazine Hcl 20 Mg/Ml Vial IV PUSH 5 mg Q8H PRN Administration Blood Pressure - SYSTOLIC >180 Ceftriaxone Sodium 1 gm in 50 mls @ 100 mls/hr 05/25/25 19:00 05/26/25 21:30 Rocephin 1 Gm/Ns 50 Ml IVPB 100 mls/hr Q24H IVON Administration Lorazepam 0.5 mg 05/25/25 20:37 Lorazepam (*Crx) 0.5 Mg Tablet PO TID PRN anxiety Losartan Potassium 50 mg 05/26/25 09:00 05/26/25 10:28 Losartan Potassium 50 Mg Tablet PO 50 mg DAILY IVON Administration Meclizine HCl 25 mg 05/25/25 20:37 Meclizine Hcl 25 Mg Tablet PO TID PRN dizziness Mirabegron 50 mg 05/26/25 09:00 05/26/25 10:22 Mirabegron 50 Mg Er Tablet PO 50 mg Q24H IVON Administration Miscellaneous Information 0 each 05/25/25 00:01 Solriamfetol Nonform Can Pt Bring From Home? XX 06/24/25 00:00 CLARIFY IVON Non-Formulary Medication 150 mg 05/26/25 09:00 Solriamfetol [Sunosi] PO 06/25/25 08:59 DAILY [facility] Ondansetron HCl 4 mg 05/25/25 18:50 Ondansetron Inj 4 Mg/2 Ml Vial IV PUSH Q4H PRN Nausea And Vomiting Pantoprazole Sodium 40 mg 05/26/25 09:00 05/26/25 10:23 Pantoprazole 40 Mg Tablet PO 40 mg QAM IVON Administration Perflutren Lipid Microsphere 0 ml 05/25/25 21:10 Perflutren Lipid Microspheres 1.5 Ml Vial Diluted To 10 Ml Total Volume IV PUSH 05/28/25 21:11 ONCE PRN adequate visualization Protocol Simvastatin 40 mg 05/26/25 09:00 05/26/25 10:22 Simvastatin 20 Mg Tablet PO 40 mg DAILY IVON Administration Vitamin D 125 mcg 05/26/25 09:00 05/26/25 10:22 Cholecalciferol (Vitamin D3) 125 Mcg (5,000 Units) Tablet PO 125 mcg WEEKLY IVON Administration Radiology Results: ITS Impressions Chest X-Ray 05/25/25 14:09 IMPRESSION: No focal infiltrate or effusion. Labs Labs: Laboratory Results - last 24 hr 05/26/25 05:54 TSH (Reflex) 2.370
[2025-05-27 08:00] VITALS: PULSE 69; O2SAT 99
[2025-05-27 08:34] LABS: Hematocrit 43.3 % (37.0-47.0); Hemoglobin 13.7 g/dL (12.0-15.0); Immature Granulocyte Percent A 0.2 % (0-0.5); Lymphocytes Absolute Auto 1.23 K/mm3 (0.9-3.2); Mean Corpuscular HGB Conc 31.6 g/dl (32-36); Mean Corpuscular Hemoglobin 31.0 pg (26-34); Mean Corpuscular Volume 98.0 fl (80-100); Nucleated Red Blood Cells Absolute Auto 0.000 K/mm3 (0.0-0.012); Nucleated Red Blood Cells Perc 0.0 % (0.0-0.2); Platelet Count Result 291 k/mm3 (150-375); Red Blood Count 4.42 M/mm3 (4.2-5.4); White Blood Count 4.7 K/mm3 (4.5-10.0)
[2025-05-27 08:56] LABS: Alanine Aminotransferase 58 U/L (6-35); Albumin Level 4.4 g/dL (3.5-5.1); Alkaline Phosphatase 70 U/L (38-126); Anion Gap 9 mmol/L (4-12); Aspartate Amino Transferase 40 U/L (14-36); Bilirubin,Total 0.6 mg/dL (0.2-1.3); Blood Urea Nitrogen 21 mg/dL (7-17); Calcium 10.1 mg/dL (8.4-10.2); Carbon Dioxide 27 mmol/L (22-30); Chloride 103 mmol/L (98-107); Estimated CRCL calculation 57 ml/min; Estimated Glomerular Filt Rate > 60; Glucose 97 mg/dL (65-110); Potassium 4.4 mmol/L (3.4-5.0); Sodium 139 mmol/L (137-145); Total Protein 7.8 g/dL (6.3-8.2)
[2025-05-27] MEDS: FERROUS SULFATE 325 MG TABLET DR BY MOUTH (08:59)
[2025-05-27] MEDS: DULoxetine HCL 60 MG CAPSULE.DR PO (08:59)
[2025-05-27] MEDS: MIRABEGRON 50 MG ER TABLET PO (08:59)
[2025-05-27] MEDS: SULFAMETHOXAZOLE/TRIMETHOPRIM 800/160 MG DS TABLET 1 TAB PO (08:59)
[2025-05-27] MEDS: LOSARTAN POTASSIUM 50 MG TABLET PO (08:59)
[2025-05-27] MEDS: PANTOPRAZOLE 40 MG TABLET PO (09:00)
[2025-05-27] MEDS: SIMVASTATIN 20 MG TABLET 40 MG PO (09:00)
[2025-05-27] MEDS: cycloSPORINE 0.4 ML OPHTH SOLUTION 1 DROP EACH EYE (09:00)
[2025-05-27] MEDS: MECLIZINE HCL 25 MG TABLET PO (09:06)
[2025-05-27] MEDS: ACETAMINOPHEN 325 MG TABLET 650 MG PO (09:06)
--- NOTE | 2025-05-27 11:13 | PM.DS ---
DS: Admitting Diagnosis Discharge Date 05/27/2025 Admitting Diagnosis Second degree atrioventricular block DS: Discharge Diagnosis Discharge Diagnosis (1) Syncope: Qualifiers: Syncope type: unspecified Qualified Code(s): R55 - Syncope and collapse Code(s): R55 - Syncope and collapse Status: Acute (2) UTI (urinary tract infection): Qualifiers: Hematuria presence: without hematuria Urinary tract infection type: acute cystitis Qualified Code(s): N30.00 - Acute cystitis without hematuria Code(s): N39.0 - Urinary tract infection, site not specified Status: Suspected (3) Hypertension: Qualifiers: Hypertension type: essential hypertension Qualified Code(s): I10 - Essential (primary) hypertension Code(s): I10 - Essential (primary) hypertension Status: Chronic (4) JAY on CPAP: Code(s): G47.33 - Obstructive sleep apnea (adult) (pediatric); Z99.89 - Dependence on other enabling machines and devices Status: Chronic DS: Summary Hospital Course Reason for hospitalization: Syncope Hospital Course: The patient presents from home for further evaluation of intermittent dizziness and syncope. She reports she has been experiencing intermittent dizziness for the past 3-4 days. She has been taking meclizine and it did alleviate her symptoms. She reports today she had walked to her sink to wash her hair when she had a syncopal event. She is now reporting she had not bent over at the time, but just prior she had gotten out of bed and hung a few clothes up. She had no precipitating symptoms including shortness of breath, chest pain, palpitations, diaphoresis, nausea or vomiting prior to finding herself on the ground. She denies head strike or injury post fall. She denies any associated palpitations or chest pain. She reports that her PCP has been adjusting her blood pressure medications as she has been more hypertensive as of late. Review of most recent office note on 04/22/2025 last medication change on 03/11. Her metoprolol ER was increased to 50 mg. Initial VS at presentation: 97.4? F, HR 51, R 18, 185/74, and 100% on RA. ED workup showed: No leukocytosis, no anemia, no significant electrolyte derangements, creatinine 0.71 and GFR >60, initial troponin negative, and UA suspicious for UTI however may be contaminant as there are occasional epithelial cells. CXR showed no focal infiltrate or effusion. EKG showed sinus bradycardia with first-degree AV block with occasional super ventricular premature complexes, right bundle branch block, left anterior fascicular block, LVH with ST-T change. When compared to previous, heart rate has decreased. Cardiology consulted regarding syncope and collapse likely due to cardiac etiology. So far the patient has been visualized to be in second-degree heart block with 2-1 conduction as well as evidence of bifascicular block. The that beta genaro likely not to plan for this as AV node dysfunction is also visualized, but Cardiology discontinue metoprolol to assess need for implanted pacemaker device. Metoprolol was held for 24 hours and patient did not have any further symptoms or evidence of bradycardia. For the moment seems as though the symptoms have resolved due to did discontinuation the beta-genaro, it is possible that she may still require pacemaker device at some point but this could be arranged in the outpatient setting per Cardiology. At this time cardiology has signed off and discussed with her regarding outpatient management. Urine culture was positive for coagulase negative Staphylococcus, not saprophyticus. Discussed with ID pharmacist possible antibiotic coverage, agreed with additional coverage using Bactrim. Will discharge patient on an additional doses Bactrim. Patient is amenable for discharge at this time, she is hemodynamically stable, not had any episodes of syncope/collapse, or any chest pain, shortness a breath, or other concerning symptoms. Blood work is otherwise unremarkable. Plan for discharge home at this time with follow-up outpatient setting with Cardiology. Status at Discharge Functional status at discharge: independent ambulation Overall status at discharge: patient is back to baseline Time Spent with Patient Time attestation: Total time spent providing and/or coordinating discharge services: 41 Exam Const: General: comfortable and no acute distress Other: , female, nontoxic appearance HENMT: Face/Nose/Sinus: Normal nares present Mouth: Yes moist mucous membranes Eyes: General: appearance normal, both eyes and all related structures Sclera: sclerae normal Pupils: Equal, round and reactive pupils present EOM: EOMs intact bilaterally Resp: Effort & Inspection: normal respiratory effort Auscultation: clear to auscultation bilaterally Cardio: Rate: regular rate Rhythm: regular rhythm Other: S1-S2 present without murmur, rub, ectopy GI: Other: Abdomen soft, nondistended, nontender. Normoactive bowel sounds in all quadrants. Skin: General skin exam: normal color and no rashes or lesions noted Wounds: no wounds Neuro: Cranial nerves: Yes Equal, round and reactive pupils present Speech: normal speech Motor exam (neuro): 5/5 motor strength present throughout Sensory Exam: normal sensation Other: A&O x4 Extrem: General: normal to inspection Psych: Mental Status: mental status grossly normal Affect: Anxious affect present Other: Fair insight and judgment, pleasant DS: Data Data Completed and Pending Labs on day of discharge: Labs from last 24 hours 05/27/25 08:10 WBC 4.7 RBC 4.42 Hgb 13.7 Hct 43.3 MCV 98.0 MCH 31.0 MCHC 31.6 L RDW 12.8 Plt Count 291 MPV 10.3 Immature Gran % (Auto) 0.2 Neut % (Auto) 60.4 Lymph % (Auto) 26.3 Mcmullen % (Auto) 10.3 H Eos % (Auto) 1.9 Baso % (Auto) 0.9 Lymph # (Auto) 1.23 Mcmullen # (Auto) 0.5 Eos # (Auto) 0.1 Baso # (Auto) 0.0 Abs Immat Gran (auto) 0.01 Absolute Neuts (auto) 2.8 Absolute Nucleated RBC 0.000 Nucleated RBC % 0.0 Sodium 139 Potassium 4.4 Chloride 103 Carbon Dioxide 27 Anion Gap 9 BUN 21 H Creatinine 0.67 L Estim Creat Clear Calc 57 Estimated GFR > 60 Glucose 97 Calcium 10.1 Total Bilirubin 0.6 AST 40 H ALT 58 H Alkaline Phosphatase 70 Total Protein 7.8 Albumin 4.4 Preliminary micro results at discharge 05/25/25 17:11 Urine Culture Reflexed - Preliminary Urine Clean Catch Coag neg Staph, not saprophyti Discharge Plan Discharge Attending physician on discharge: Tomasz Nichols Consulting providers: Victoriano Clements; Turner Sepulveda Discharging Clinician: Victoriano Clements Anticipated Discharge Date/Time: 05/27/25 11:09 Patient Disposition: Home Activity: as tolerated Diet: as tolerated Discharge Instructions: Discharge disposition: Stable Take medications as prescribed. You will be prescribed 5 days worth of Bactrim, to be taken twice daily, 9 total doses. Discontinue your Metoprolol at this time. Monitor blood pressures Take caution while standing, rising, or moving Change positions slowly taking a break between each position change If you standing feel dizzy sit back down and take a break Encouraged to continue with yearly vaccinations Return to the emergency department if he developed sudden shortness of breath, chest pain, nausea, vomiting, upset stomach or intractable diarrhea Return to the emergency department if you develop fever greater than 101.5 Follow-up with the primary care physician within 1-[address] up [address] Sepulveda of Cardiology in 1 week. Thank you for choosing [facility] for your healthcare needs Patient Instructions: Antibiotic Form Patient Language: Argentine Stand Alone Forms: General Discharge Information Follow-up/Referrals: Turner Sepulveda MD [Physician] - Lokesh Albright MD [Primary Care Provider] - Discharge Medications: New sulfamethoxazole-trimethoprim [Bactrim DS] 800-160 mg tablet 1 tablet PO Q12H Qty: 9 0RF Continued lorazepam [Ativan] 0.5 mg tablet 0.5 mg PO TID PRN (Reason: anxiety) Qty: 10 0RF evening primrose oil 500 mg capsule 1,000 mg PO DAILY Rx Instructions: give with meal/snack Xhance 93 mcg/actuation aerosol breath activated 2 spray intranasal Q12H PRN (Reason: allergy symptoms) Rx Instructions: into each nostril cyclosporine [Restasis] 0.05 % dropperette 1 drp EACH EYE Q12H buspirone 10 mg tablet 10 mg PO BID Qty: 180 3RF duloxetine 60 mg capsule,delayed release(DR/EC) See Rx Instructions .ROUTE .COMPLEX Qty: 90 3RF Dose Instruction: TAKE 1 CAPSULE DAILY AT BEDTIME Rx Instructions: TAKE 1 CAPSULE DAILY AT BEDTIME ferrous sulfate [FeroSul] 325 mg (65 mg iron) tablet See Rx Instructions .ROUTE .COMPLEX Qty: 90 3RF Dose Instruction: TAKE 1 TABLET DAILY Rx Instructions: TAKE 1 TABLET DAILY losartan 50 mg tablet See Rx Instructions .ROUTE .COMPLEX Qty: 90 3RF Dose Instruction: TAKE 1 TABLET DAILY Rx Instructions: TAKE 1 TABLET DAILY omeprazole 20 mg capsule,delayed release(DR/EC) 20 mg PO DAILY Qty: 90 2RF acetaminophen [Arthritis Pain Reliever] 650 mg Tablet Extended Release 1,000 mg PO Q8H estradiol 0.01 % (0.1 mg/gram) cream 1 g VAGINAL .twice a week Rx Instructions: taken on and mirabegron 50 mg tablet extended release 24 hr 50 mg PO Q24H cholecalciferol (vitamin D3) 125 mcg (5,000 unit) capsule 50,000 unit PO WEEKLY Rx Instructions: on Tuesdays simvastatin 40 mg tablet 40 mg PO DAILY Qty: 90 1RF meclizine 25 mg tablet 25 mg PO TID PRN (Reason: dizziness) Qty: 30 0RF Sunosi 150 mg tablet 150 mg PO DAILY Qty: 90 3RF Discontinued metoprolol succinate 50 mg tablet extended release 24 hr 50 mg PO DAILY Qty: 90 2RF Date of admission: 05/25/25 16:53 Primary Care Provider: Lokesh Albright Admitting Provider: Tomasz Nichols Attending physician on admission: Tomasz Nichols Condition: Stable Quality VTE Prophylaxis VTE prophylaxis: mechanical ordered
== END 2025-05-27 11:53 | disposition home or self-care (01) ==
LOC: ANHED 16:51 → ANH3MEDSUR 17:59
PROVIDERS: Physician Assistant; Student in an Organized Health Care Education/Training Program; Admitting Provider Family Medicine; Emergency Provider Emergency Medicine; PCP Family Medicine; Visit Provider Family Medicine
DX: I44.1 Atrioventricular block, second degree (principal); N30.00 Acute cystitis without hematuria; B95.7 Other staphylococcus as the cause of diseases classified elsewhere; I10 Essential (primary) hypertension; G47.33 Obstructive sleep apnea (adult) (pediatric); Z99.89 Dependence on other enabling machines and devices; E78.5 Hyperlipidemia, unspecified; G43.909 Migraine, unspecified, not intractable, without status migrainosus; F41.1 Generalized anxiety disorder; F41.0 Panic disorder [episodic paroxysmal anxiety]; Z86.16 Personal history of COVID-19; Z79.899 Other long term (current) drug therapy
CPT/HCPCS: 36415; 71046; 80053; 81001; 83735; 83880; 84443; 84484; 85025; 87086; 87181; 93005; 93306; 96365; 96374; 96376; 97161; 99285; A9270; G0378; J0360; J0696; J7120

== ENCOUNTER 2025-05-30 12:49 | Inpatient (IN) | payer BC, MEDICARE, SELFPAY ==
[2025-05-30] VITALS (13 sets, daily range): BP systolic 127–188; BP diastolic 40–135; PULSE 35–92; RESP 15–22; TEMP 36.7–37; O2SAT 93–99; BMI 36.2
--- NOTE | ~2025-05-30 | XR_ITS ---
CHEST RADIOGRAPH CLINICAL HISTORY: pacemaker placement . COMPARISON: 06/02/2025 at 11:32 AM and dating back to 05/31/2025 TECHNIQUE: Single portable view of the chest. FINDINGS The left lateral anterior chest wall is partially obscured due to pacemaker generator. Wires project over the right atrium and right ventricle. Specifically, the right atrial lead courses caudally and then heads cranially, superimposed on the ca udal descending wire. This is an interval change from previous examination performed at 11:35 AM which demonstrated the rig ht atrial lead coursing towards the midline, projecting toward the cardiac apex. Ventricular lead is unchanged. The remainder of the cardiomediastinal silhouette is otherwise unremarkable. The lungs are clear. Interval distention of the stomach with retained gastric contents. IMPRESSION: No focal infiltrate or effusion. Interval change in the right atrial lead placement, which does not cross the midline on the current e xamination. Reviewed, dictated and finalized at location A. IMPRESSION: No focal infiltrate or effusion. Interval change in the right atrial lead placement, which does not cross the mi dline on the current examination.
--- NOTE | ~2025-05-30 | XR_ITS ---
CHEST RADIOGRAPH CLINICAL HISTORY: bradycardia syncope . COMPARISON: 05/25/2025 TECHNIQUE: Single portable view of the chest. FINDINGS The cardiomediastinal silhouette is enlarged, unchanged. The lungs are clear. IMPRESSION: No focal infiltrate or effusion. Reviewed, dictated and finalized at location A.
--- NOTE | ~2025-05-30 | XR_ITS ---
EXAMINATION: XR chest 1V portable Exam Date/Time: 05/31/2025 14:10 CDT HISTORY: check temp pacer Comparison: Same date at 5:22 AM. RESULT: Lines, tubes, and devices: Right IJ transvenous pacemaker wire overlying the right ventricle. Lungs and pleura: Clear. Cardiomediastinal silhouette: Stable. Other: No acute osseous or upper abdominal finding. IMPRESSION: No acute cardiopulmonary process. Reviewed, dictated and finalized at location K.
--- NOTE | ~2025-05-30 | XR_ITS ---
EXAM/PROCEDURE: XR chest 1V portable - 06/02/2025 11:35 CDT HISTORY: 80 years old Female with dislodge of atrial lead TECHNIQUE: Two view(s) of the chest. COMPARISON: None available. FINDINGS: LUNGS/ PLEURA: No focal consolidation. No appreciable pneumothorax or large pleural effusion. HEART/ MEDIASTINUM: Heart appears normal in size. BONES: No acute osseous abnormality. OTHER: Visualized upper abdomen is unremarkable. Dual lead AICD with intact wires. IMPRESSION: No acute process. Intact leads. Reviewed, dictated and finalized at location A.
--- NOTE | ~2025-05-30 | XR_ITS ---
EXAM/PROCEDURE: XR chest 1V portable - 06/02/2025 8:55 CDT HISTORY: 80 years old Female with pacemaker insertion TECHNIQUE: Two view(s) of the chest. COMPARISON: None available. FINDINGS: LUNGS/ PLEURA: No focal consolidation. No appreciable pneumothorax or large pleural effusion. HEART/ MEDIASTINUM: Heart appears normal in size. BONES: Degenerative changes. OTHER: Visualized upper abdomen is unremarkable. Dual lead pacemaker with intact wires. IMPRESSION: No acute process. Reviewed, dictated and finalized at location A. IMPRESSION: No acute process.
--- NOTE | ~2025-05-30 | XR_ITS ---
EXAMINATION: XR chest 1V portable Exam Date/Time: 05/30/2025 18:43 CDT HISTORY: pacemaker insertion Comparison: 05/30/2020 5:23 PM. RESULT: Lines, tubes, and devices: Right IJ transvenous pacemaker, tip overlying the right ventricle. Lungs and pleura: Clear. Cardiomediastinal silhouette: Stable. Other: No acute osseous or upper abdominal finding. IMPRESSION: Right IJ temporary pacemaker, tip overlying the right ventricle. No acute cardiopulmonary process. Reviewed, dictated and finalized at location K. IMPRESSION: Right IJ temporary pacemaker, tip overlying the right ventricle. No acute cardi opulmonary process.
--- NOTE | ~2025-05-30 | XR_ITS ---
EXAM/PROCEDURE: XR chest 2V - 06/03/2025 10:05 CDT HISTORY: 80 years old Female with 24 hours post pacemaker insertion TECHNIQUE: Two view(s) of the chest. COMPARISON: None available. FINDINGS: LUNGS/ PLEURA: No focal consolidation. No appreciable pneumothorax or large pleural effusion. HEART/ MEDIASTINUM: Heart appears normal in size. BONES: No acute osseous abnormality. OTHER: Visualized upper abdomen is unremarkable. Pacemaker with intact leads. IMPRESSION: No acute process. Reviewed, dictated and finalized at location A. IMPRESSION: No acute process.
--- NOTE | ~2025-05-30 | XR_ITS ---
CHEST RADIOGRAPH CLINICAL HISTORY: Transvenous pacemaker . COMPARISON: 05/30/2025 at 6:54 PM TECHNIQUE: Single portable view of the chest. FINDINGS Transvenous pacemaker wire projecting over the right ventricle. The remainder of the cardiomediastinal silhouette is enlarged, unchanged and otherwise unremarkable. Blunting of the left costophrenic sulcus suggesting a small left-sided pleural effusion. The remainder of the lungs are clear. IMPRESSION: Small left-sided pleural effusion. Supportive line in good position. Reviewed, dictated and finalized at location A.
[2025-05-30] MEDS: GLUCAGON FOR INJ 1 MG VIAL 2 MG (13:08)
--- OUTSIDE RECORDS SUMMARY | 2025-05-30 13:14 | XMS_ITS | Clinical Summary ---
Author Organization [facility] Address [address] [place] [address] Care Team Providers Care Stitch Bonding Machine Tender Helper Name Role Phone Lokesh Albright MD Primary Care Provider [phone] Allergies Active Allergy Reactions Criticality Noted Date [...] lupus erythematosus 03/17/2013 HTN (hypertension) HTN (hypertension) Encounters Date Type Department Care Team Description 05/27/2025 Telephone [facility] Medical [facility] Cardiology [address] [place] [address] Turner Sepulveda MD from Last 3 Months Immunizations Immunization Administration Dates Next Due Influenza, [...] on file Legal Sex Female 9:58 AM COMPUTER INSTALLATION ENGINEER Gender Identity Not on file Sexual Orientation Not on file Obstetrics History Last Filed Vital Signs Vital Sign Reading Time Taken Comments Blood Pressure 164/66 10/18/2022 7:45 AM COMPUTER INSTALLATION ENGINEER Pulse 65 10/18/2022 7:45 AM COMPUTER INSTALLATION ENGINEER Temperature 36.8 C (98.2 F) 10/18/2022 7:40 AM COMPUTER INSTALLATION ENGINEER Respiratory Rate 18 10/18/2022 7:40 AM COMPUTER INSTALLATION ENGINEER Oxygen Saturation 94% 10/18/2022 7:45 AM COMPUTER INSTALLATION ENGINEER Inhaled Oxygen Concentration - - Weight 83.8 kg (184 lb 12.8 oz) 10/17/2022 8:34 AM COMPUTER INSTALLATION ENGINEER Height 158.8 cm (5' 2.5) 10/17/2022 8:34 AM COMPUTER INSTALLATION ENGINEER Body Mass Index 33.26 10/17/2022 8:34 AM COMPUTER INSTALLATION ENGINEER Plan of Treatment Health Maintenance Due Date Last Done Comments Depression Screening 1945 Osteoporosis Screening-Bone Density Scan 1945 DTaP/Tdap/Td Vaccine (1 - Tdap) 02/19/1955 Hepatitis B Screening 02/19/1962 Well Visit 65+ 02/19/2009 Zoster Vaccine (3 of 3) 10/28/2020 09/02/2020, 08/17 Fall Risk Assessment 10/18/2023 10/18/2022 Covid-19 Vaccine (4 - 2023-2 5 season) 2024 02/15/2022, 01/25/2022, 09/30/2021 Influenza Vaccine (#1) 2025 , 09/02/2020, 11/03/2019, Additional history exists Pneumococcal vaccine 65+ Completed 09/02/2020, 06/2019 Medical Devices Implanted Type Area Roll Mechanic Device Identifier Shelf Expiration Date Model / Serial / Lot Thr Left: Hip [employer] Attune Cruciate Retain Cementless Knee Left 6 Narrow Component [id number] - [id number] Implanted:Qty: 1 on 06/01/2022 by Aroldo Odom MD at [facility] [employer] [id number] 06/25/2031 [id number] / / [id number] [employer] Insert Attune Left Medial Stabilized Size 6 5mm [id number] - [id number] - [id number] Implanted:Qty: 1 on 06/01/2022 by Aroldo Odom MD at [facility] Left: Knee [employer] 02/23/2023 [id number] / [id number] / [employer] Attune Fb Tib Base Sz 6 Por [id number] - [id number] Implanted:Qty: 1 on 06/01/2022 by Aroldo Odom MD at [facility] Left: Knee [employer] 01/24/2032 [id number] / / [employer] Attune Cruciate Retain Cementless Knee Right 5 Component Femoral [id number] - [id number] Implanted:Qty: 1 on 10/17/2022 by Aroldo Odom MD at [facility] Right: Knee [employer] [id number] 12/26/2031 [id number] / / [id number] [employer] Attune Fb Tib Base Sz 6 Por [id number] - [id number] Implanted:Qty: 1 on 10/17/2022 by Aroldo Odom MD at [facility] Right: Knee [employer] [id number] 06/25/2032 [id number] / / [id number] [employer] Insert Attune Right Medial Stabilized Size 5 5mm [id number] - [id number] Implanted:Qty: 1 on 10/17/2022 by Aroldo Odom MD at [facility] Right: Knee [employer] [id number] 06/25/2030 [id number] / / [id number] Insurance MEDICARE [facility] CHOICE [place] PPO [place] MEDICARE [facility] Advance Directives For more information, please contact: [phone] * Full Code (Latest Code Status on File) Date Activated Date Inactivated Comments 10/17/2022 12:53 PM 10/18/2022 7:37 PM * Full Code Date Activated Date Inactivated Comments 06/01/2022 9:57 AM 06/02/2022 4:46 PM * Full Code Date Activated Date Inactivated Comments 07/15/2020 11:11 AM 07/16/2020 7:20 PM Care Teams Stitch Bonding Machine Tender Helper Relationship Specialty Start Date End Date Lokesh Albright MD PCP - General Family Medicine 10/10/21
--- OUTSIDE RECORDS SUMMARY | 2025-05-30 13:14 | XMS_ITS | Referral Summary ---
Author Organization [facility] Address [address] [place] [address] Care Team Providers Care Carburizing Furnace Operator Name Role Phone Lokesh Albright MD Primary Care Provider [phone] Encounters Date Type Department Care Team Description 05/27/2025 Telephone [facility] Medical [facility] Cardiology [address] [place] [address] Turner Sepulveda MD from Last 3 Months Allergies Active Allergy Reactions Criticality Noted Date [...] vative Free, Intramuscular 12/04/2017,12/30/2013,12/10/2012 Influenza, Unspecified 09/26/2022 [facility] SARS-CoV-2 Monovalent Vaccination (12+ Yrs) PURPLE 02/15/2022,01/25/2022 [...] on file Legal Sex Female 9:58 AM COOK SAUCE Gender Identity Not on file Sexual Orientation Not on file Last Filed Vital Signs Vital Sign Reading Time Taken Comments Blood Pressure 164/66 10/18/2022 7:45 AM COOK SAUCE Pulse 65 10/18/2022 7:45 AM COOK SAUCE Temperature 36.8 C (98.2 F) 10/18/2022 7:40 AM COOK SAUCE Respiratory Rate 18 10/18/2022 7:40 AM COOK SAUCE Oxygen Saturation 94% 10/18/2022 7:45 AM COOK SAUCE Inhaled Oxygen Concentration - - Weight 83.8 kg (184 lb 12.8 oz) 10/17/2022 8:34 AM COOK SAUCE Height 158.8 cm (5' 2.5) 10/17/2022 8:34 AM COOK SAUCE Body Mass Index 33.26 10/17/2022 8:34 AM COOK SAUCE Plan of Treatment Not on file Medical Devices Implanted Type Area Fabric Worker Device Identifier Shelf Expiration Date Model / Serial / Lot Thr Left: Hip [employer] Attune Cruciate Retain Cementless Knee Left 6 Narrow Component [id number] - [id number] Implanted:Qty: 1 on 06/01/2022 by Aroldo Odom MD at [facility] [employer] [id number] 06/25/2031 [id number] / / [id number] [employer] Insert Attune Left Medial Stabilized Size 6 5mm [id number] - [id number] - [id number] Implanted:Qty: 1 on 06/01/2022 by Aroldo Odom MD at [facility] Left: Knee [employer] 02/23/2023 [id number] / [id number] / [employer] Attune Fb Tib Base Sz 6 Por [id number] - [id number] Implanted:Qty: 1 on 06/01/2022 by Aroldo Odom MD at [facility] Left: Knee [employer] 01/24/2032 [id number] / / [employer] Attune Cruciate Retain Cementless Knee Right 5 Component Femoral [id number] - [id number] Implanted:Qty: 1 on 10/17/2022 by Aroldo Odom MD at [facility] Right: Knee [employer] [id number] 12/26/2031 [id number] / / [id number] [employer] Attune Fb Tib Base Sz 6 Por [id number] - [id number] Implanted:Qty: 1 on 10/17/2022 by Aroldo Odom MD at [facility] Right: Knee [employer] [id number] 06/25/2032 [id number] / / [id number] [employer] Insert Attune Right Medial Stabilized Size 5 5mm [id number] - [id number] Implanted:Qty: 1 on 10/17/2022 by Aroldo Odom MD at [facility] Right: Knee [employer] [id number] 06/25/2030 [id number] / / [id number] Insurance MEDICARE [facility] CHOICE [facility] PRF PPO [place] MEDICARE BLUE ACCESS [facility] Advance Directives For more information, please contact: [phone] * Full Code (Latest Code Status on File) Date Activated Date Inactivated Comments 10/17/2022 12:53 PM 10/18/2022 7:37 PM * Full Code Date Activated Date Inactivated Comments 06/01/2022 9:57 AM 06/02/2022 4:46 PM * Full Code Date Activated Date Inactivated Comments 07/15/2020 11:11 AM 07/16/2020 7:20 PM Care Teams Carburizing Furnace Operator Relationship Specialty Start Date End Date Lokesh Albright MD PCP - General Family Medicine 10/10/21
--- OUTSIDE RECORDS SUMMARY | 2025-05-30 13:14 | XMS_ITS | Continuity of Care Document ---
Author Organization [facility] Address [address] [place] [address] [facility] [[email or web address]] [address] [place] [address] Phone Care Team Providers Care Cafeteria Supervisor Name Role Phone Clyde Kyle Unavailable Unavailable Procedures Procedure Date Office/outpatient Visit, [facility] Advance Directives Directive Yes / No Effective Date File Name No Information Encounters Encounter Description Practice Location Reason(s) For Visit Diagnoses Date Provider Providers Copied on Encounter Office/outpat ient Visit, [facility], [id number] [place] [address] [address], [place], [place], [id number], tel:[phone] [facility] No Information 5-200 9 Saroj Tang. [address] [facility] [address], [place], [address], [place]. tel:[phone] Family History Family Member Type Diagnosis Age At Onset No Information Payers Payer name Insurance type Covered constitution party ID Authoriza tion(s) No Information Social [...]
--- OUTSIDE RECORDS SUMMARY | 2025-05-30 13:14 | XMS_ITS | Clinical Summary ---
Author Organization [facility] Address [address] [place] [address] Care Team Providers Care Java Swing Developer Name Role Phone Unavailable Primary Care Provider [...] ( - season) 2024 09/30/2021 Influenza Immunization (#1) 07/27/202506/2020, 11/03/2019, 12/03/2018, Additional history exists Pneumococcal Immunization [...]
--- NOTE | 2025-05-30 13:26 | ECG_ITS ---
Test Date: 2025-05-30 13:24:55 Measurements Intervals [place] Rate: 93 P: 202 MS: 184 QRS: -51 QRSD: 153 T: 123 QT: 393 QTc: 490 Interpretive Statements Junctional tachycardia RIGHT BUNDLE BRANCH BLOCK LEFT ANTERIOR FASCICULAR BLOCK [QRS AXIS <= -45, QR IN I, RS IN II] ST DEVIATION AND MARKED T-WAVE ABNORMALITY, CONSIDER LATERAL ISCHEMIA Compared to ECG 05/30/2025 13:01:15 Junctional tachycardia has replaced complete heart block Electronically Signed On 05-30-2025 14:13:55 CDT by Silas Rodriguez M.D.
--- NOTE | 2025-05-30 13:26 | ECG_ITS ---
Test Date: 2025-05-30 13:01:15 Measurements Intervals [place] Rate: 32 P: 0 DC: 0 QRS: -8 QRSD: 138 T: 258 QT: 534 QTc: 394 Interpretive Statements complete heart block with junctional scan Compared to ECG 05/27/2025 11:34:04 complete heart block is new Electronically Signed On 05-30-2025 14:11:36 CDT by Silas Rodriguez M.D.
[2025-05-30] MEDS: SODIUM CHLORIDE 0.9% IV 1,000 ML 999 ML IV CONT (13:27)
--- NOTE | 2025-05-30 13:27 | ED_ITS ---
HPI - General Adult General Chief complaint: Syncope Stated complaint: syncope Time Seen by Provider: 05/30/25 13:00 History of Present Illness HPI narrative: Patient 80-year-old female who presents emergency department with chief complaint of syncope patient reports she had 4 episodes of syncope this morning and was found have a heart rate in the 30s patient was given atropine by EMS that did improve her heart rate briefly the patient states that she feels weak and run down patient was in the hospital recently for syncope and bradycardia Related Data Home Medications ?Medication ?Instructions ?Recorded ?Confirmed ?Last Taken ?Type acetaminophen 650 mg 1,000 mg PO Q8H Pain 08/02/22 05/30/25 08/16/22 History tablet,extended release (Arthritis Pain Reliever) cyclosporine 0.05 % eye drops in a 1 drp EACH EYE Q12H 03/11/25 05/30/25 Unknown History dropperette (Restasis) evening primrose oil 500 mg capsule 1,000 mg PO DAILY 03/11/25 05/30/25 Unknown History fluticasone propionate 93 2 spray intranasal Q12H PRN 03/11/25 05/30/25 Unknown History mcg/actuation breath activated allergy symptoms aerosol (Xhance) cholecalciferol (vitamin D3) 125 50,000 unit PO WEEKLY 05/25/25 05/30/25 Unknown History mcg (5,000 unit) capsule estradiol 0.01% (0.1 mg/gram) 1 g vaginal .twice a week 05/25/25 05/30/25 Unknown History vaginal cream mirabegron 50 mg tablet,extended 50 mg PO Q24H 05/25/25 05/30/25 Unknown History release 24 hr metoprolol succinate 50 mg 50 mg PO QHS 05/30/25 05/30/25 Unknown History tablet,extended release 24 hr Allergies Allergy/AdvReac Type Severity Reaction Status Date / Time lisinopril Allergy Severe Angioedema Verified 04/22/25 09:59 SIOBHAN Inhibitors Allergy Unknown Angioedema Verified 04/22/25 09:59 pregabalin AdvReac dizziness, Verified 04/22/25 09:59 dry mouth Review of Systems 2 Review of Systems: A 10 system review of systems was completed on the patient and is negative except for what is stated in the HPI. Nursing and ancillary documentation was reviewed. [facility] Past Medical History Medical History Tinnitus chronic Sleep attack Raciel Robbins infection Leg length discrepancy Exudative tonsillitis Excessive daytime sleepiness JAY on CPAP COVID-19 BMI greater than 30 Neuropathy Colonoscopy planned Adenomatous colon polyp Anemia, unspecified Colonic mass Hx of hemorrhoids Had what sounds like hemorrhoidal banding about 5-7 years ago in [place]. Anxiety Hypertension Cerebrovascular disease Reports she saw ENT for tinnitus who told her she had atherosclerotic plaque in her head and prescribed Plavix 5 years ago. Has not followed up with that provider. Vitamin D deficiency Generalized anxiety disorder with panic attacks Hyperlipidemia Migraines Severe obstructive sleep apnea Surgical History Surgical History History of left hip replacement Around 2015 History of arthroscopy of both knees History of hysterectomy for benign disease Vaginal hysterectomy in her 30's. Status post LASIK surgery History of bladder suspension procedure History of cataract surgery The patient denies history cataract surgery but it appears patient has artificial lenses on exam History of colonoscopy with polypectomy Colonoscopy by Dr. Lozano in June 2004. Patient reports having a more recent Colonoscopy in an Ambulatory surgery center in [place] about 5-6 years ago. History of benign polypectomy. Family History Family History Mother Alcoholism Esophageal varices Stomach rupture Sibling Hypertension Psychiatric diagnosis The patient's sister tried to kill the patient at one time. Father , The patient reports her father froze to when his furnace when out when he was 89 years old. Over 80 years old Sibling TBI (traumatic brain injury) Seizures Other Family history of arthritis Family history of mental disorder Social History Social History Social History: Primary care physician: Dr. Albright Code status: Full code Patient is with adult children. She lives at home with her . She is retired and was previously worked at a pre-school. 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 Gender identity (if verbalized by the patient): Female Spiritual care concerns: No Exam 2 Narrative: GENERAL: Well-appearing, well-nourished, and in no acute distress. HEAD: Normocephalic, atraumatic. EYES: PERRLA and EOMI. ENT: Nares clear, no rhinorrhea or epistaxis. Mucous membranes moist. NECK: Supple. CHEST: Clear to auscultation. No respiratory distress. HEART: Bradycardic rate and rhythm. No murmur heard. Normal peripheral pulses. ABDOMEN: Soft, nontender, nondistended, normal active bowel sounds. EXTREMITIES: Normal range of motion. No edema. SKIN: Warm, dry, no rash. NEURO: No focal deficits. Alert and oriented x3. PSYCH: Normal mood and affect. Course Vital Signs Vital signs: Vital Signs Temperature 36.7 C 05/30/25 12:52 Pulse Rate 38 L 05/30/25 12:52 Respiratory Rate 15 05/30/25 12:52 Pulse Oximetry 97 05/30/25 12:52 Oxygen Delivery Room Air 05/30/25 12:52 Temperature 36.7 C 05/30/25 12:52 Pulse Rate 92 05/30/25 13:21 Respiratory Rate 19 05/30/25 13:21 Blood Pressure 135/70 05/30/25 13:21 Pulse Oximetry 93 05/30/25 13:21 Oxygen Delivery Room Air 05/30/25 13:03 Medical Decision Making [facility] Narrative Medical decision making narrative: Differential diagnosis includes dysrhythmia, medication side effect Patient reported history of beta-genaro use but reports she has not taken it since she was discharged from the hospital 2 days ago The patient was given 2 mg of glucagon in the emergency department her heart rate did go up from 32 to 83 Initial EKG showed a third-degree heart block Patient is currently mentating well The case was discussed with the interventionalist on-call who will plan to take patient to the construction craft laborer for a temporary transvenous pacemaker Vital Signs Vital Signs: Vital Signs Temperature 36.7 C 05/30/25 12:52 Pulse Rate 38 L 05/30/25 12:52 Respiratory Rate 15 05/30/25 12:52 Pulse Oximetry 97 05/30/25 12:52 Oxygen Delivery Room Air 05/30/25 12:52 Temperature 36.7 C 05/30/25 12:52 Pulse Rate 92 05/30/25 13:21 Respiratory Rate 19 05/30/25 13:21 Blood Pressure 135/70 05/30/25 13:21 Pulse Oximetry 93 05/30/25 13:21 Oxygen Delivery Room Air 05/30/25 13:03 Lab Data 05/30/25 13:19 05/30/25 13:19 Labs: Lab Results 05/30/25 Range/Units 13:19 WBC 9.5 (4.5-10.0) K/mm3 RBC 4.39 (4.2-5.4) M/mm3 Hgb 13.8 (12.0-15.0) g/dL Hct 42.0 (37.0-47.0) % MCV 95.7 (80-100) fl MCH 31.4 (26-34) pg MCHC 32.9 (32-36) g/dl RDW 12.7 (11.5-14.5) % Plt Count 299 (150-375) k/mm3 MPV 10.6 H (7.4-10.4) fl Immature Gran % (Auto) 0.5 (0-0.5) % Neut % (Auto) 81.0 H (45.5-73.1) % Lymph % (Auto) 9.6 L (18.3-44.2) % [place] % (Auto) 8.4 (2.6-8.5) % Eos % (Auto) 0.1 (0-4.4) % Baso % (Auto) 0.4 (0.2-1.2) % Lymph # (Auto) 0.91 (0.9-3.2) K/mm3 [place] # (Auto) 0.8 H (0.1-0.6) K/mm3 Eos # (Auto) 0.0 (0-0.3) K/mm3 Baso # (Auto) 0.0 (0.0-0.1) K/mm3 Abs Immat Gran (auto) 0.05 H (0.00-0.031) K/mm3 Absolute Neuts (auto) 7.7 H (1.3-6.7) K/mm3 Absolute Nucleated RBC 0.000 (0.0-0.012) K/mm3 Nucleated RBC % 0.0 (0.0-0.2) % PT Pending INR Pending APTT Pending Sodium Pending Potassium Pending Chloride Pending Carbon Dioxide Pending Anion Gap Pending BUN Pending Creatinine Pending Estim Creat Clear Calc Pending Estimated GFR Pending Glucose Pending Calcium Pending Magnesium Pending Total Bilirubin Pending AST Pending ALT Pending Alkaline Phosphatase Pending Troponin I Pending Total Protein Pending Albumin Pending Critical Care Time Critical Care Time Critical Care Time: Yes Total Critical Care Time: 75 Discharge Plan Discharge Clinical Impression: Third degree heart block, Syncope, Bradycardia Patient Disposition: Still a Patient Condition: Stable Patient Language: Faroese Prescriptions: No Action lorazepam [Ativan] 0.5 mg tablet 0.5 mg PO TID PRN (Reason: anxiety) Qty: 10 0RF evening primrose oil 500 mg capsule 1,000 mg PO DAILY Rx Instructions: give with meal/snack Xhance 93 mcg/actuation aerosol breath activated 2 spray intranasal Q12H PRN (Reason: allergy symptoms) Rx Instructions: into each nostril cyclosporine [Restasis] 0.05 % dropperette 1 drp EACH EYE Q12H buspirone 10 mg tablet 10 mg PO BID Qty: 180 3RF duloxetine 60 mg capsule,delayed release(DR/EC) See Rx Instructions .ROUTE .COMPLEX Qty: 90 3RF Dose Instruction: TAKE 1 CAPSULE DAILY AT BEDTIME Rx Instructions: TAKE 1 CAPSULE DAILY AT BEDTIME ferrous sulfate [FeroSul] 325 mg (65 mg iron) tablet See Rx Instructions .ROUTE .COMPLEX Qty: 90 3RF Dose Instruction: TAKE 1 TABLET DAILY Rx Instructions: TAKE 1 TABLET DAILY losartan 50 mg tablet See Rx Instructions .ROUTE .COMPLEX Qty: 90 3RF Dose Instruction: TAKE 1 TABLET DAILY Rx Instructions: TAKE 1 TABLET DAILY omeprazole 20 mg capsule,delayed release(DR/EC) 20 mg PO DAILY Qty: 90 2RF metoprolol succinate 50 mg tablet extended release 24 hr 50 mg PO QHS acetaminophen [Arthritis Pain Reliever] 650 mg Tablet Extended Release 1,000 mg PO Q8H estradiol 0.01 % (0.1 mg/gram) cream 1 g VAGINAL .twice a week Rx Instructions: taken on and mirabegron 50 mg tablet extended release 24 hr 50 mg PO Q24H cholecalciferol (vitamin D3) 125 mcg (5,000 unit) capsule 50,000 unit PO WEEKLY Rx Instructions: on Tuesdays sulfamethoxazole-trimethoprim [Bactrim DS] 800-160 mg tablet 1 tablet PO Q12H Qty: 9 0RF simvastatin 40 mg tablet 40 mg PO DAILY Qty: 90 1RF meclizine 25 mg tablet 25 mg PO TID PRN (Reason: dizziness) Qty: 30 0RF [place] 150 mg tablet 150 mg PO DAILY Qty: 90 3RF Follow-up/Referrals: Lokesh Albright MD [Primary Care Provider] - Time of Disposition: 13:34
[2025-05-30 13:30] LABS: Hematocrit 42.0 % (37.0-47.0); Hemoglobin 13.8 g/dL (12.0-15.0); Immature Granulocyte Percent A 0.5 % (0-0.5); Lymphocytes Absolute Auto 0.91 K/mm3 (0.9-3.2); Mean Corpuscular HGB Conc 32.9 g/dl (32-36); Mean Corpuscular Hemoglobin 31.4 pg (26-34); Mean Corpuscular Volume 95.7 fl (80-100); Nucleated Red Blood Cells Absolute Auto 0.000 K/mm3 (0.0-0.012); Nucleated Red Blood Cells Perc 0.0 % (0.0-0.2); Platelet Count Result 299 k/mm3 (150-375); Red Blood Count 4.39 M/mm3 (4.2-5.4); White Blood Count 9.5 K/mm3 (4.5-10.0)
[2025-05-30 13:39] LABS: Alanine Aminotransferase 52 U/L (6-35); Albumin Level 4.8 g/dL (3.5-5.1); Alkaline Phosphatase 80 U/L (38-126); Anion Gap 10 mmol/L (4-12); Aspartate Amino Transferase 50 U/L (14-36); Bilirubin,Total 0.7 mg/dL (0.2-1.3); Blood Urea Nitrogen 26 mg/dL (7-17); Calcium 10.3 mg/dL (8.4-10.2); Carbon Dioxide 25 mmol/L (22-30); Chloride 98 mmol/L (98-107); Estimated CRCL calculation 44 ml/min; Estimated Glomerular Filt Rate > 60; Glucose 108 mg/dL (65-110); Magnesium 2.1 mg/dL (1.6-2.3); Potassium 4.7 mmol/L (3.4-5.0); Sodium 133 mmol/L (137-145); Total Protein 8.4 g/dL (6.3-8.2)
[2025-05-30 13:42] LABS: INR 1.0; Prothrombin Time 13.2 Seconds (11.1-14.7)
[2025-05-30 13:43] LABS: Partial Thromboplastin Time 27.9 Seconds (22.3-36.8)
[2025-05-30 13:53] LABS: Troponin I 0.037 ng/mL (0.000-0.034)
--- NOTE | 2025-05-30 13:58 | PM.IMHP ---
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 The patient Presents here from home via EMS on 05/30 for further evaluation of recurrent syncope. The patient was recently admitted from 05/25/2025 to 05/27/2025. Her evaluation then revealed a second-degree AV block and AV node dysfunction. The patient was on metoprolol which was discontinued which had at appeared at the time to resolve her or symptoms. She had follow-up arranged with Cardiology to discuss and a ventral pacemaker, but at the time of admission a pacemaker was not indicated. She is returning today as she had recurrent syncope starting this morning. she reports her for syncopal episode occurred shortly after she woke up just a little after 10:00 a.m. her was able to catcher for the 1st 3 episodes and she denies any injury. Fourth syncopal episode occurred while she was sitting in bed and she fell backwards in the bed in did not sustain any injuries. per EMS report, the patient was bradycardic in the 30s and was given atropine while in route to the hospital. They report this briefly improved her heart rate. Upon arrival to the emergency department, the patient's heart rate was 38. Her initially EKG showed idioventricular rhythm with a rate of 32. She was given glucagon which improved her heart rate into the 80s/90s. She will be admitted for a temporary pacemaker as a bridge to a permanent pacemaker. Upon my assessment, the patient was reporting fatigue otherwise feeling okay. Denied any current shortness of breath, chest pain, palpitations, dizziness, diaphoresis or nausea. Initial VS at presentation: 98? F, HR 38, R 15, 188/40, and 97% on RA. ED workup showed: No leukocytosis, no anemia, coags normal, sodium 133, calcium 10.3, creatinine 0.86 and GFR >60, mild transaminitis, initial troponin 0.037. Initial EKG showed idioventricular rhythm, rate 32. Repeat EKG post glucagon showed ectopic atrial rhythm, right bundle branch block, rate 93, left anterior fascicular block, ST deviation and marked T-wave abnormality. CXR showed no focal infiltrate or effusion. Review of Systems Review of Systems: All systems reviewed & are unremarkable except as noted in HPI and below PMFSH Past Medical History Medical History Tinnitus chronic Sleep attack Raciel Robbins infection Leg length discrepancy Exudative tonsillitis Excessive daytime sleepiness JAY on CPAP COVID-19 BMI greater than 30 Neuropathy Colonoscopy planned Adenomatous colon polyp Anemia, unspecified Colonic mass Hx of hemorrhoids Had what sounds like hemorrhoidal banding about 5-7 years ago in [place]. Anxiety Hypertension Cerebrovascular disease Reports she saw ENT for tinnitus who told her she had atherosclerotic plaque in her head and prescribed Plavix 5 years ago. Has not followed up with that provider. Vitamin D deficiency Generalized anxiety disorder with panic attacks Hyperlipidemia Migraines Severe obstructive sleep apnea Surgical History Surgical History History of left hip replacement Around 2015 History of arthroscopy of both knees History of hysterectomy for benign disease Vaginal hysterectomy in her 30's. Status post LASIK surgery History of bladder suspension procedure History of cataract surgery The patient denies history cataract surgery but it appears patient has artificial lenses on exam History of colonoscopy with polypectomy Colonoscopy by Dr. Lozano in June 2004. Patient reports having a more recent Colonoscopy in an Ambulatory surgery center in [place] about 5-6 years ago. History of benign polypectomy. Family History Family History Mother Alcoholism Esophageal varices Stomach rupture Sibling Hypertension Psychiatric diagnosis The patient's sister tried to kill the patient at one time. Father , The patient reports her father froze to when his furnace when out when he was 89 years old. Over 80 years old Sibling TBI (traumatic brain injury) Seizures Other Family history of arthritis Family history of mental disorder Social History Social History Social History: Primary care physician: Dr. Albright Code status: Full code Patient is with adult children. She lives at home with her . She is retired and was previously worked at a pre-school. 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 Gender identity (if verbalized by the patient): Female Spiritual care concerns: No Meds Home Medications and Allergies Home Medications ?Medication ?Instructions ?Recorded ?Confirmed ?Type acetaminophen 650 mg 1,000 mg PO Q8H Pain 08/02/22 05/30/25 History tablet,extended release (Arthritis Pain Reliever) cyclosporine 0.05 % eye drops in a 1 drp EACH EYE Q12H 03/11/25 05/30/25 History dropperette (Restasis) evening primrose oil 500 mg capsule 1,000 mg PO DAILY 03/11/25 05/30/25 History fluticasone propionate 93 2 spray intranasal Q12H PRN 03/11/25 05/30/25 History mcg/actuation breath activated allergy symptoms aerosol (Xhance) buspirone 10 mg tablet 10 mg PO BID #180 tabs 03/25/25 05/30/25 Rx duloxetine 60 mg capsule,delayed See Rx Instructions .Route 03/25/25 05/30/25 Rx release .COMPLEX #90 caps ferrous sulfate 325 mg (65 mg See Rx Instructions .Route 03/25/25 05/30/25 Rx iron) tablet (FeroSul) .COMPLEX #90 tabs losartan 50 mg tablet See Rx Instructions .Route 03/25/25 05/30/25 Rx .COMPLEX #90 tabs omeprazole 20 mg capsule,delayed 20 mg PO DAILY #90 caps 03/25/25 05/30/25 Rx release lorazepam 0.5 mg tablet (Ativan) 0.5 mg PO TID PRN anxiety #10 tabs 04/22/25 05/30/25 Rx simvastatin 40 mg tablet 40 mg PO DAILY #90 tabs 04/29/25 05/30/25 Rx meclizine 25 mg tablet 25 mg PO TID PRN dizziness #30 tabs 05/04/25 05/30/25 Rx solriamfetol 150 mg tablet (Sunosi) 150 mg PO DAILY #90 tabs 05/11/25 05/30/25 Rx cholecalciferol (vitamin D3) 125 50,000 unit PO WEEKLY 05/25/25 05/30/25 History mcg (5,000 unit) capsule estradiol 0.01% (0.1 mg/gram) 1 g vaginal .twice a week 05/25/25 05/30/25 History vaginal cream mirabegron 50 mg tablet,extended 50 mg PO Q24H 05/25/25 05/30/25 History release 24 hr sulfamethoxazole 800 1 tablet PO Q12H #9 tabs 05/27/25 05/30/25 Rx mg-trimethoprim 160 mg tablet (Bactrim DS) metoprolol succinate 50 mg 50 mg PO QHS 05/30/25 05/30/25 History tablet,extended release 24 hr Allergies Allergy/AdvReac Type Severity Reaction Status Date / Time lisinopril Allergy Severe Angioedema Verified 04/22/25 09:59 SIOBHAN Inhibitors Allergy Unknown Angioedema Verified 04/22/25 09:59 pregabalin AdvReac dizziness, Verified 04/22/25 09:59 dry mouth Vital Signs Vital Signs - 24 hr 05/30/25 12:52 05/30/25 13:03 05/30/25 13:03 Temperature 98.0 F Pulse Rate 38 L 35 L Respiratory Rate 15 Blood Pressure Pulse Oximetry 97 97 Oxygen Delivery Room Air Room Air 05/30/25 13:11 05/30/25 13:18 05/30/25 13:21 Temperature Pulse Rate 91 92 Respiratory Rate 15 19 Blood Pressure 188/40 H 186/135 H 135/70 Pulse Oximetry 94 93 Oxygen Delivery Exam Const: General: comfortable and no acute distress Other: , female, elderly, nontoxic appearance HENMT: Face/Nose/Sinus: Normal nares present Mouth: Yes dry mucous membranes Eyes: General: appearance normal, both eyes and all related structures Sclera: sclerae normal Pupils: Equal, round and reactive pupils present EOM: EOMs intact bilaterally Resp: Effort & Inspection: normal respiratory effort Auscultation: clear to auscultation bilaterally Cardio: Rate: regular rate Rhythm: regular rhythm Other: +/- murmur, no ectopy or rub GI: Other: Abdomen soft, nondistended, nontender. Normoactive bowel sounds in all quadrants. Skin: General skin exam: normal color and no rashes or lesions noted Wounds: no wounds Neuro: Speech: normal speech Motor exam (neuro): 5/5 motor strength present throughout Sensory Exam: normal sensation Other: A&O x4 Extrem: General: normal to inspection Psych: Mental Status: mental status grossly normal Affect: normal affect Other: good insight and judgment, very pleasant H&P: Results Labs Labs: Short CBC 05/30/25 Range/Units 13:19 WBC 9.5 (4.5-10.0) K/mm3 Hgb 13.8 (12.0-15.0) g/dL Hct 42.0 (37.0-47.0) % Plt Count 299 (150-375) k/mm3 BMP 05/30/25 13:19 Sodium 133 L Potassium 4.7 Chloride 98 Carbon Dioxide 25 BUN 26 H Creatinine 0.86 Glucose 108 Calcium 10.3 H Cardiac Enzymes 05/30/25 Range/Units 13:19 Troponin I 0.037 H* (0.000-0.034) ng/mL Liver Function 05/30/25 Range/Units 13:19 Total Bilirubin 0.7 (0.2-1.3) mg/dL AST 50 H (14-36) U/L ALT 52 H (6-35) U/L Alkaline Phosphatase 80 (38-126) U/L Albumin 4.8 (3.5-5.1) g/dL Assessment and Plan Assessment and plan (1) Syncope: Qualifiers: Syncope type: unspecified Qualified Code(s): R55 - Syncope and collapse Code(s): R55 - Syncope and collapse Status: Acute Assessment and Plan: - secondary to AV node dysfunction/complete heart block. plan for temporary transvenous pacemaker this afternoon on 05/30, postprocedure will admit to ICU. Repeat CXR in in a.m. on 05/31. - EKG, initial: idioventricular rhythm, rate 32. - EKG, repeat post glucagon (1): ectopic atrial rhythm, right bundle branch block, rate 93, left anterior fascicular block, ST deviation and marked T-wave abnormality - cardiology consulted, ED spoke with interventional Cardiology. - director of restaurant consulted - Troponin 0.037, TSH 2.37 on 05/26, K 4.7 - telemetry monitoring (2) Third degree heart block: Code(s): I44.2 - Atrioventricular block, complete Status: Acute Assessment and Plan: - see above (3) Hypertension: Qualifiers: Hypertension type: essential hypertension Qualified Code(s): I10 - Essential (primary) hypertension Code(s): I10 - Essential (primary) hypertension Status: Chronic Assessment and Plan: - chronic, currently 139/82 - continue home medications: losartan - monitor (4) JAY on CPAP: Code(s): G47.33 - Obstructive sleep apnea (adult) (pediatric); Z99.89 - Dependence on other enabling machines and devices Status: Chronic Assessment and Plan: - continue home CPAP Plan Diet: NPO until postprocedure GI Prophylaxis: home p.o. PPI DVT Prophylaxis: SCDs IV fluids: 1L bolus in ED Lines/Tubes: peripheral IV Code Status: full code Quality VTE Prophylaxis VTE prophylaxis: mechanical ordered Critical Care Time: I personally spent 35 minutes of direct patient care including (but not limited to) the physical examination, decision-making, bedside evaluation, review of medical records, review of labs and imaging, discussion with nursing staff and other providers for collaborative, critical care management of this patient. Hospitalist [facility] Advance Care Plan I have confirmed that the patient's Advanced Care Plan is present, code status is documented, or surrogate decision maker is listed in patient medical record.: Yes Medication Reconciliation I have utilized all available resources to obtain, update and review the patients current medications (includes all prescriptions, OTC, herbals, cannabis, and nutritional supplements).: Yes
[2025-05-30 14:20] LABS: Add Urine Microscopic? NO; Appearance Urine Clear (Clear); Glucose Urine UA Negative (Negative); Leukocyte Esterase Ur Negative LEU/UL (Negative); Nitrate Urine Negative (Negative); Specific Grav Ur 1.008 (1.001-1.035)
--- NOTE | 2025-05-30 14:20 | P.CONCA_ITS ---
Assessment and Plan Assessment and plan (1) Bradycardia: Code(s): R00.1 - Bradycardia, unspecified Status: Acute Plan Recurrent syncope secondary to complete heart block Complete heart block with junctional escape rhythm Bifascicular block Hypertension Plan Emergency temporary transvenous pacer Avoid AV oleg blocking agent Permanent pacemaker on Sunday Transthoracic echocardiogram Blood pressure control using hydralazine or SIOBHAN-inhibitor History of Present Illness History of Present Illness Consult date/time: 05/30/25 14:20 Reason For Visit: syncope Narrative: 80-year-old female patient presented to the hospital with recurrent episode of syncope. Patient was recently visited the hospital 3 days ago with episodes of syncope and found to have second-degree AV block. This was attributed secondary to beta-blockers were discontinued with improvement in her conduction to first- degree AV block with bifascicular block. At this time the decision was to proceed with conservative therapy and observation. Since patient went home this morning she had recurrent episodes of syncope. Patient was sitting and in systole lost her consciousness without prior warning or symptoms. She wake up and found herself in a different place. She has no injuries. On arrival to the ED she was found to have complete heart block. She was given glucagon but she developed a junctional tachycardia. Review of Systems 2 Review of Systems: All systems reviewed & are unremarkable except as noted in HPI and below PMFSH Past Medical History Medical History Tinnitus chronic Sleep attack Raciel Robbins infection Leg length discrepancy Exudative tonsillitis Excessive daytime sleepiness JAY on CPAP COVID-19 BMI greater than 30 Neuropathy Colonoscopy planned Adenomatous colon polyp Anemia, unspecified Colonic mass Hx of hemorrhoids Had what sounds like hemorrhoidal banding about 5-7 years ago in [place]. Anxiety Hypertension Cerebrovascular disease Reports she saw ENT for tinnitus who told her she had atherosclerotic plaque in her head and prescribed Plavix 5 years ago. Has not followed up with that provider. Vitamin D deficiency Generalized anxiety disorder with panic attacks Hyperlipidemia Migraines Severe obstructive sleep apnea Surgical History Surgical History History of left hip replacement Around 2015 History of arthroscopy of both knees History of hysterectomy for benign disease Vaginal hysterectomy in her 30's. Status post LASIK surgery History of bladder suspension procedure History of cataract surgery The patient denies history cataract surgery but it appears patient has artificial lenses on exam History of colonoscopy with polypectomy Colonoscopy by Dr. Lozano in June 2004. Patient reports having a more recent Colonoscopy in an Ambulatory surgery center in [place] about 5-6 years ago. History of benign polypectomy. Family History Family History Mother Alcoholism Esophageal varices Stomach rupture Sibling Hypertension Psychiatric diagnosis The patient's sister tried to kill the patient at one time. Father , The patient reports her father froze to when his furnace when out when he was 89 years old. Over 80 years old Sibling TBI (traumatic brain injury) Seizures Other Family history of arthritis Family history of mental disorder Social History Social History Social History: Primary care physician: Dr. Albright Code status: Full code Patient is with adult children. She lives at home with her . She is retired and was previously worked at a pre-school. 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 Gender identity (if verbalized by the patient): Female Spiritual care concerns: No Meds Home Medications and Allergies Home Medications ?Medication ?Instructions ?Recorded ?Confirmed ?Type acetaminophen 650 mg 1,000 mg PO Q8H Pain 08/02/22 05/30/25 History tablet,extended release (Arthritis Pain Reliever) cyclosporine 0.05 % eye drops in a 1 drp EACH EYE Q12H 03/11/25 05/30/25 History dropperette (Restasis) evening primrose oil 500 mg capsule 1,000 mg PO DAILY 03/11/25 05/30/25 History fluticasone propionate 93 2 spray intranasal Q12H PRN 03/11/25 05/30/25 History mcg/actuation breath activated allergy symptoms aerosol (Xhance) buspirone 10 mg tablet 10 mg PO BID #180 tabs 03/25/25 05/30/25 Rx duloxetine 60 mg capsule,delayed See Rx Instructions .Route 03/25/25 05/30/25 Rx release .COMPLEX #90 caps ferrous sulfate 325 mg (65 mg See Rx Instructions .Route 03/25/25 05/30/25 Rx iron) tablet (FeroSul) .COMPLEX #90 tabs losartan 50 mg tablet See Rx Instructions .Route 03/25/25 05/30/25 Rx .COMPLEX #90 tabs omeprazole 20 mg capsule,delayed 20 mg PO DAILY #90 caps 03/25/25 05/30/25 Rx release lorazepam 0.5 mg tablet (Ativan) 0.5 mg PO TID PRN anxiety #10 tabs 04/22/25 05/30/25 Rx simvastatin 40 mg tablet 40 mg PO DAILY #90 tabs 04/29/25 05/30/25 Rx meclizine 25 mg tablet 25 mg PO TID PRN dizziness #30 tabs 05/04/25 05/30/25 Rx solriamfetol 150 mg tablet (Sunosi) 150 mg PO DAILY #90 tabs 05/11/25 05/30/25 Rx cholecalciferol (vitamin D3) 125 50,000 unit PO WEEKLY 05/25/25 05/30/25 History mcg (5,000 unit) capsule estradiol 0.01% (0.1 mg/gram) 1 g vaginal .twice a week 05/25/25 05/30/25 History vaginal cream mirabegron 50 mg tablet,extended 50 mg PO Q24H 05/25/25 05/30/25 History release 24 hr sulfamethoxazole 800 1 tablet PO Q12H #9 tabs 05/27/25 05/30/25 Rx mg-trimethoprim 160 mg tablet (Bactrim DS) metoprolol succinate 50 mg 50 mg PO QHS 05/30/25 05/30/25 History tablet,extended release 24 hr Allergies Allergy/AdvReac Type Severity Reaction Status Date / Time lisinopril Allergy Severe Angioedema Verified 04/22/25 09:59 SIOBHAN Inhibitors Allergy Unknown Angioedema Verified 04/22/25 09:59 pregabalin AdvReac dizziness, Verified 04/22/25 09:59 dry mouth Vital Signs Vital Signs - 24 hr 05/30/25 12:52 05/30/25 13:03 05/30/25 13:03 Temperature 36.7 C Pulse Rate 38 L 35 L Respiratory Rate 15 Blood Pressure Pulse Oximetry 97 97 Oxygen Delivery Room Air Room Air 05/30/25 13:11 05/30/25 13:18 05/30/25 13:21 Temperature Pulse Rate 91 92 Respiratory Rate 15 19 Blood Pressure 188/40 H 186/135 H 135/70 Pulse Oximetry 94 93 Oxygen Delivery 05/30/25 14:10 Temperature Pulse Rate 83 Respiratory Rate 18 Blood Pressure 139/82 Pulse Oximetry 99 Oxygen Delivery Exam 2 Const: General: comfortable and no acute distress Other: Able to lie flat HENMT: Face/Nose/Sinus: Normal nares present and no epistaxis Mouth: Yes moist mucous membranes Eyes: Sclera: sclerae normal Pupils: Equal, round and reactive pupils present Neck: Neck: supple and no JVD Carotids: no bruits Resp: Auscultation: clear to auscultation bilaterally and lung sounds not diminished Other: No chest wall tenderness Cardio: Rate: regular rate Rhythm: regular rhythm Heart sounds: no gallops, no murmurs and no rubs GI: GI Palp: Yes Soft to palpation and No Tenderness to palpation present (GI) Auscultation: normal bowel sounds Skin: General skin exam: normal color, rashes and/or lesions noted and no erythema Other: Warm Neuro: Cranial nerves: Yes Equal, round and reactive pupils present Speech: normal speech Other: No obvious focal deficit or facial asymmetry Extrem: General: no edema Other: Normal capillary refills Intact distal pulses. Results Labs and Meds 05/30/25 13:19 05/30/25 13:19 Lab results: Cardiac Enzymes 05/30/25 Range/Units 13:19 AST 50 H (14-36) U/L Troponin I 0.037 H* (0.000-0.034) ng/mL Coagulation 05/30/25 Range/Units 13:19 PT 13.2 (11.1-14.7) Seconds APTT 27.9 (22.3-36.8) Seconds CBC 05/30/25 Range/Units 13:19 WBC 9.5 (4.5-10.0) K/mm3 RBC 4.39 (4.2-5.4) M/mm3 Hgb 13.8 (12.0-15.0) g/dL Hct 42.0 (37.0-47.0) % Plt Count 299 (150-375) k/mm3 Lymph # (Auto) 0.91 (0.9-3.2) K/mm3 [place] # (Auto) 0.8 H (0.1-0.6) K/mm3 Eos # (Auto) 0.0 (0-0.3) K/mm3 Baso # (Auto) 0.0 (0.0-0.1) K/mm3 Comprehensive Metabolic Panel 05/30/25 Range/Units 13:19 Sodium 133 L (137-145) mmol/L Potassium 4.7 (3.4-5.0) mmol/L Chloride 98 (98-107) mmol/L Carbon Dioxide 25 (22-30) mmol/L BUN 26 H (7-17) mg/dL Creatinine 0.86 (0.7-1.0) mg/dL Glucose 108 (65-110) mg/dL Calcium 10.3 H (8.4-10.2) mg/dL AST 50 H (14-36) U/L ALT 52 H (6-35) U/L Alkaline Phosphatase 80 (38-126) U/L Total Protein 8.4 H (6.3-8.2) g/dL Albumin 4.8 (3.5-5.1) g/dL Intake and Output 05/29/25 05/30/25 05/30/25 23:59 07:59 15:59 Intake Total 1000 Balance 1000 Intake: IV 1000 Sodium Chloride 0.9% IV 1,000 1000 ml @ 999 mls/hr IV CONT .Q1H1M STA Rx#:[id number] Patient Weight 05/30/25 23:59 Weight 81.2 kg
--- NOTE | 2025-05-30 14:24 | WPDMODSED ---
Moderate Sedation Note-Pt Data Patient Data Diagnosis: CHB Present Complaint: syncope Procedure to be performed/Plan: Temp TV pacer Allergies Allergy/AdvReac Type Severity Reaction Status Date / Time lisinopril Allergy Severe Angioedema Verified 04/22/25 09:59 SIOBHAN Inhibitors Allergy Unknown Angioedema Verified 04/22/25 09:59 pregabalin AdvReac dizziness, Verified 04/22/25 09:59 dry mouth Home Medications ?Medication ?Instructions ?Recorded ?Confirmed ?Type acetaminophen 650 mg 1,000 mg PO Q8H Pain 08/02/22 05/30/25 History tablet,extended release (Arthritis Pain Reliever) cyclosporine 0.05 % eye drops in a 1 drp EACH EYE Q12H 03/11/25 05/30/25 History dropperette (Restasis) evening primrose oil 500 mg capsule 1,000 mg PO DAILY 03/11/25 05/30/25 History fluticasone propionate 93 2 spray intranasal Q12H PRN 03/11/25 05/30/25 History mcg/actuation breath activated allergy symptoms aerosol (Xhance) buspirone 10 mg tablet 10 mg PO BID #180 tabs 03/25/25 05/30/25 Rx duloxetine 60 mg capsule,delayed See Rx Instructions .Route 03/25/25 05/30/25 Rx release .COMPLEX #90 caps ferrous sulfate 325 mg (65 mg See Rx Instructions .Route 03/25/25 05/30/25 Rx iron) tablet (FeroSul) .COMPLEX #90 tabs losartan 50 mg tablet See Rx Instructions .Route 03/25/25 05/30/25 Rx .COMPLEX #90 tabs omeprazole 20 mg capsule,delayed 20 mg PO DAILY #90 caps 03/25/25 05/30/25 Rx release lorazepam 0.5 mg tablet (Ativan) 0.5 mg PO TID PRN anxiety #10 tabs 04/22/25 05/30/25 Rx simvastatin 40 mg tablet 40 mg PO DAILY #90 tabs 04/29/25 05/30/25 Rx meclizine 25 mg tablet 25 mg PO TID PRN dizziness #30 tabs 05/04/25 05/30/25 Rx solriamfetol 150 mg tablet (Sunosi) 150 mg PO DAILY #90 tabs 05/11/25 05/30/25 Rx cholecalciferol (vitamin D3) 125 50,000 unit PO WEEKLY 05/25/25 05/30/25 History mcg (5,000 unit) capsule estradiol 0.01% (0.1 mg/gram) 1 g vaginal .twice a week 05/25/25 05/30/25 History vaginal cream mirabegron 50 mg tablet,extended 50 mg PO Q24H 05/25/25 05/30/25 History release 24 hr sulfamethoxazole 800 1 tablet PO Q12H #9 tabs 05/27/25 05/30/25 Rx mg-trimethoprim 160 mg tablet (Bactrim DS) metoprolol succinate 50 mg 50 mg PO QHS 05/30/25 05/30/25 History tablet,extended release 24 hr Sedation/Anesthesia: No previous sedation/anesthesia problems (including family history). [facility] Past Medical History Medical History Tinnitus chronic Sleep attack Raciel Robbins infection Leg length discrepancy Exudative tonsillitis Excessive daytime sleepiness JAY on CPAP COVID-19 BMI greater than 30 Neuropathy Colonoscopy planned Adenomatous colon polyp Anemia, unspecified Colonic mass Hx of hemorrhoids Had what sounds like hemorrhoidal banding about 5-7 years ago in [place]. Anxiety Hypertension Cerebrovascular disease Reports she saw ENT for tinnitus who told her she had atherosclerotic plaque in her head and prescribed Plavix 5 years ago. Has not followed up with that provider. Vitamin D deficiency Generalized anxiety disorder with panic attacks Hyperlipidemia Migraines Severe obstructive sleep apnea Surgical History Surgical History History of left hip replacement Around 2015 History of arthroscopy of both knees History of hysterectomy for benign disease Vaginal hysterectomy in her 30's. Status post LASIK surgery History of bladder suspension procedure History of cataract surgery The patient denies history cataract surgery but it appears patient has artificial lenses on exam History of colonoscopy with polypectomy Colonoscopy by Dr. Lozano in June 2004. Patient reports having a more recent Colonoscopy in an Ambulatory surgery center in [place] about 5-6 years ago. History of benign polypectomy. Family History Family History Mother Alcoholism Esophageal varices Stomach rupture Sibling Hypertension Psychiatric diagnosis The patient's sister tried to kill the patient at one time. Father , The patient reports her father froze to when his furnace when out when he was 88 years old. Over 80 years old Sibling TBI (traumatic brain injury) Seizures Other Family history of arthritis Family history of mental disorder Social History Social History Social History: Primary care physician: Dr. Albright Code status: Full code Patient is with adult children. She lives at home with her . She is retired and was previously worked at a pre-school. 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 Gender identity (if verbalized by the patient): Female Spiritual care concerns: No Mod Sed Physical Exam Physical Exam Pre Procedural Exam: Normal: Appearance, Neck, Throat, Airway, Lungs, Heart Size and Neuro Exam Hours since solid foods: 4 Hours since liquid intake: 4 Mallampati Classification: class III Internal Medicine - PN: Obj Da Vital Signs Vital Signs: Vital Signs - 24 hr 05/30/25 12:52 05/30/25 13:03 05/30/25 13:03 Temperature 36.7 C Pulse Rate 38 L 35 L Respiratory Rate 15 Blood Pressure Pulse Oximetry 97 97 Oxygen Delivery Room Air Room Air 05/30/25 13:11 05/30/25 13:18 05/30/25 13:21 Temperature Pulse Rate 91 92 Respiratory Rate 15 19 Blood Pressure 188/40 H 186/135 H 135/70 Pulse Oximetry 94 93 Oxygen Delivery 05/30/25 14:10 Temperature Pulse Rate 83 Respiratory Rate 18 Blood Pressure 139/82 Pulse Oximetry 99 Oxygen Delivery Intake/Output Intake/Output: Intake & Output 05/27/25 05/28/25 05/29/25 05/30/25 23:59 23:59 23:59 23:59 Intake Total 1000 Balance 1000 Meds/Results Radiology Results: ITS Impressions Chest X-Ray 05/30/25 13:54 IMPRESSION: No focal infiltrate or effusion. Labs 05/30/25 13:19 05/30/25 13:19 Labs: Laboratory Results - last 24 hr 05/30/25 13:19 WBC 9.5 RBC 4.39 Hgb 13.8 Hct 42.0 MCV 95.7 MCH 31.4 MCHC 32.9 RDW 12.7 Plt Count 299 MPV 10.6 H Immature Gran % (Auto) 0.5 Neut % (Auto) 81.0 H Lymph % (Auto) 9.6 L Shannon % (Auto) 8.4 Eos % (Auto) 0.1 Baso % (Auto) 0.4 Lymph # (Auto) 0.91 Shannon # (Auto) 0.8 H Eos # (Auto) 0.0 Baso # (Auto) 0.0 Abs Immat Gran (auto) 0.05 H Absolute Neuts (auto) 7.7 H Absolute Nucleated RBC 0.000 Nucleated RBC % 0.0 PT 13.2 INR 1.0 APTT 27.9 Sodium 133 L Potassium 4.7 Chloride 98 Carbon Dioxide 25 Anion Gap 10 BUN 26 H Creatinine 0.86 Estim Creat Clear Calc 44 Estimated GFR > 60 Glucose 108 Calcium 10.3 H Magnesium 2.1 Total Bilirubin 0.7 AST 50 H ALT 52 H Alkaline Phosphatase 80 Troponin I 0.037 H* Total Protein 8.4 H Albumin 4.8 Pulse Oximetry SpO2 results: 96% ASA Classification/Sedation ASA Classification/Sedation ASA Class: III Emergent: Yes Risks: Risks, benefits and alternatives explained and patient/family accepted plan for sedation. Patient re-evaluated immediately prior to sedation.
--- NOTE | 2025-05-30 14:26 | P.PCNCC_ITS ---
Cardiac Cath Procedure Note Date of procedure:: 05/30/25 Performing physician:: Silas Rodriguez MD Indication:: CHB Brief clinical history:: Presented with recurrent syncope Procedure Procedure performed:: Temporary TV pacer Sedation/Medication given:: 1 mg versed and 50 mcg fentanyl was given under my supervision with presence of RN and monitoring of vital signs O2 sat and hemodynamics Access site:: Rt IJ Estimated blood loss:: < 10 ml Procedure note:: Right IJ was accessed using ultrasound-guided access with modified Seldinger technique. Six Sinhala sheath was inserted right IJ and sutured in place. Temporary transvenous pacer was advanced into the RV. Test for capture showed a threshold of 0.5 mV with adequate sensing. Patient was with to a backup pacing rate of 50 beats per minute at 5 mV. Conclusion:: Successful transvenous temporary pacemaker Assessment and Plan Assessment and plan (1) Bradycardia: Code(s): R00.1 - Bradycardia, unspecified Status: Acute Plan Chest x-ray in a.m.
--- NOTE | 2025-05-30 14:44 | WPDCNINT ---
Assessment and Plan Assessment and plan (1) Syncope: Qualifiers: Syncope type: unspecified Qualified Code(s): R55 - Syncope and collapse Code(s): R55 - Syncope and collapse Status: Acute Assessment and Plan: Syncope secondary to complete heart block and bradycardia. Patient now and is status post transvenous pacemaker placement. She is in sinus rhythm with intermittent pacing. Electrolytes were in acceptable range Admit to ICU customer solutions supervisor Plan for permanent pacemaker as per Cardiology Repeat portable chest x-ray in the morning (2) Third degree heart block: Code(s): I44.2 - Atrioventricular block, complete Status: Acute Assessment and Plan: See above (3) Hypertension: Qualifiers: Hypertension type: essential hypertension Qualified Code(s): I10 - Essential (primary) hypertension Code(s): I10 - Essential (primary) hypertension Status: Chronic Assessment and Plan: Continue losartan (4) Severe obstructive sleep apnea: Code(s): G47.33 - Obstructive sleep apnea (adult) (pediatric) Status: Acute Assessment and Plan: Home CPAP ordered Plan DVT prophylaxis -SCD Stress ulcer prophylaxis -continue home PPI Nutrition -heart healthy diet Code Status - Full Code Total Critical Care Time - 30 minutes Due to a high probability of clinically significant, life threatening deterioration, the patient required my highest level of preparedness to intervene emergently and I personally spent this critical care time directly and personally managing the patient. This critical care time included obtaining a history; examining the patient; pulse oximetry; ordering and review of studies; arranging urgent treatment with development of a management plan; evaluation of patient's response to treatment; frequent reassessment; and discussions with other providers. It was exclusive of separately billable procedures and treating other patients and teaching time. Please see Assessment and Plan section and the rest of the note for further information on patient assessment and treatment [employer] [facility] Consult Note Consult date: 05/30/25 Reason for consult: Bradycardia, complete heart block HPI: Renetta Carrasco is a 80 year old female 8with PMH of anxiety, JAY, anemia, hypertension, hyperlipidemia, and migraines presented to ER with syncope. Patient was seen for the same complaint on 05/25 in the ER and was admitted. At that time patient was found to be having sinus bradycardia with first-degree AV block. Patient was evaluated by Cardiology and was recommended discontinue beta-genaro that she was on and symptoms appear to have resolved while she was in patient. Patient was discharged on 05/27. Patient today presented with multiple episodes of syncope and was given atropine by EMS and when she was found to be having heart rate in 30. In the ER patient was given glucagon which led to improvement in the heart rate but she soon developed bradycardia again with third-degree AV block. Cardiology was consulted and patient was taken to wood and wood products labourer for a temporary transvenous pacemaker placement.. It temporary transvenous pacemaker was placed patient is now being admitted to ICU for further evaluation management. Workup in the ER showed normal WBC at 9.5 platelet 299, potassium 4.7, troponin 0.037, magnesium 2.1, UA negative for UTI, chest x-ray negative for acute cardio pulmonary process Patient now arrived to ICU and denies any complaints. She states she her mouth is dry but she denies any dizziness lightheadedness chest pain shortness a breath. She admits that she passed out at home briefly while sitting in a chair. She does not remember anything and cannot provide any other additional history about those events. She denies any dysuria hematuria hematochezia melena. No abdominal pain nausea vomiting constipation or diarrhea. All other systems were reviewed and were negative Review of Systems Review of Systems: All systems reviewed & are unremarkable except as noted in HPI and below (HPI) [facility] Past Medical History Medical History Tinnitus chronic Sleep attack Raciel Robbins infection Leg length discrepancy Exudative tonsillitis Excessive daytime sleepiness JAY on CPAP COVID-19 BMI greater than 30 Neuropathy Colonoscopy planned Adenomatous colon polyp Anemia, unspecified Colonic mass Hx of hemorrhoids Had what sounds like hemorrhoidal banding about 5-7 years ago in [place]. Anxiety Hypertension Cerebrovascular disease Reports she saw ENT for tinnitus who told her she had atherosclerotic plaque in her head and prescribed Plavix 5 years ago. Has not followed up with that provider. Vitamin D deficiency Generalized anxiety disorder with panic attacks Hyperlipidemia Migraines Severe obstructive sleep apnea Surgical History Surgical History History of left hip replacement Around 2015 History of arthroscopy of both knees History of hysterectomy for benign disease Vaginal hysterectomy in her 30's. Status post LASIK surgery History of bladder suspension procedure History of cataract surgery The patient denies history cataract surgery but it appears patient has artificial lenses on exam History of colonoscopy with polypectomy Colonoscopy by Dr. Lozano in June 2004. Patient reports having a more recent Colonoscopy in an Ambulatory surgery center in [place] about 5-6 years ago. History of benign polypectomy. Family History Family History Mother Alcoholism Esophageal varices Stomach rupture Sibling Hypertension Psychiatric diagnosis The patient's sister tried to kill the patient at one time. Father , The patient reports her father froze to when his furnace when out when he was 89 years old. Over 80 years old Sibling TBI (traumatic brain injury) Seizures Other Family history of arthritis Family history of mental disorder Social History Social History Social History: Primary care physician: Dr. Albright Code status: Full code Patient is with adult children. She lives at home with her . She is retired and was previously worked at a pre-school. 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 Gender identity (if verbalized by the patient): Female Spiritual care concerns: No Meds Home Medications and Allergies Home Medications ?Medication ?Instructions ?Recorded ?Confirmed ?Type acetaminophen 650 mg 1,000 mg PO Q8H Pain 08/02/22 05/30/25 History tablet,extended release (Arthritis Pain Reliever) cyclosporine 0.05 % eye drops in a 1 drp EACH EYE Q12H 03/11/25 05/30/25 History dropperette (Restasis) evening primrose oil 500 mg capsule 1,000 mg PO DAILY 03/11/25 05/30/25 History fluticasone propionate 93 2 spray intranasal Q12H PRN 03/11/25 05/30/25 History mcg/actuation breath activated allergy symptoms aerosol (Xhance) buspirone 10 mg tablet 10 mg PO BID #180 tabs 03/25/25 05/30/25 Rx duloxetine 60 mg capsule,delayed See Rx Instructions .Route 03/25/25 05/30/25 Rx release .COMPLEX #90 caps ferrous sulfate 325 mg (65 mg See Rx Instructions .Route 03/25/25 05/30/25 Rx iron) tablet (FeroSul) .COMPLEX #90 tabs losartan 50 mg tablet See Rx Instructions .Route 03/25/25 05/30/25 Rx .COMPLEX #90 tabs omeprazole 20 mg capsule,delayed 20 mg PO DAILY #90 caps 03/25/25 05/30/25 Rx release lorazepam 0.5 mg tablet (Ativan) 0.5 mg PO TID PRN anxiety #10 tabs 04/22/25 05/30/25 Rx simvastatin 40 mg tablet 40 mg PO DAILY #90 tabs 04/29/25 05/30/25 Rx meclizine 25 mg tablet 25 mg PO TID PRN dizziness #30 tabs 05/04/25 05/30/25 Rx solriamfetol 150 mg tablet (Sunosi) 150 mg PO DAILY #90 tabs 05/11/25 05/30/25 Rx cholecalciferol (vitamin D3) 125 50,000 unit PO WEEKLY 05/25/25 05/30/25 History mcg (5,000 unit) capsule estradiol 0.01% (0.1 mg/gram) 1 g vaginal .twice a week 05/25/25 05/30/25 History vaginal cream mirabegron 50 mg tablet,extended 50 mg PO Q24H 05/25/25 05/30/25 History release 24 hr sulfamethoxazole 800 1 tablet PO Q12H #9 tabs 05/27/25 05/30/25 Rx mg-trimethoprim 160 mg tablet (Bactrim DS) metoprolol succinate 50 mg 50 mg PO QHS 05/30/25 05/30/25 History tablet,extended release 24 hr Allergies Allergy/AdvReac Type Severity Reaction Status Date / Time lisinopril Allergy Severe Angioedema Verified 04/22/25 09:59 SIOBHAN Inhibitors Allergy Unknown Angioedema Verified 04/22/25 09:59 pregabalin AdvReac dizziness, Verified 04/22/25 09:59 dry mouth Vital Signs Vital Signs - 24 hr 05/30/25 12:52 05/30/25 13:03 05/30/25 13:03 Temperature 36.7 C Pulse Rate 38 L 35 L Respiratory Rate 15 Blood Pressure Pulse Oximetry 97 97 Oxygen Delivery Room Air Room Air 05/30/25 13:11 05/30/25 13:18 05/30/25 13:21 Temperature Pulse Rate 91 92 Respiratory Rate 15 19 Blood Pressure 188/40 H 186/135 H 135/70 Pulse Oximetry 94 93 Oxygen Delivery 05/30/25 14:10 Temperature Pulse Rate 83 Respiratory Rate 18 Blood Pressure 139/82 Pulse Oximetry 99 Oxygen Delivery Exam Narrative: General: Pleasant female who is alert awake and in NAD Lungs/Chest: Trachea central Clear BS B/L, No crackles or wheezing. Cardiac: RRR. Normal S1 S2. No murmurs, transvenous pacemaker in right IJ dressing Circulation: Both feet are warm Abdomen: Normal bowel sounds. Obese. Soft. NT. ND. Extremities: No clubbing, cyanosis or edema. : Ham in place Neurologic: Follows commands. Moves all 4 extremities PERRL AO x3 Skin: No Rash Results Labs 05/30/25 13:19 05/30/25 13:19 Labs: Impressions Chest X-Ray 05/30/25 13:54 IMPRESSION: No focal infiltrate or effusion. Short CBC 05/30/25 Range/Units 13:19 WBC 9.5 (4.5-10.0) K/mm3 Hgb 13.8 (12.0-15.0) g/dL Hct 42.0 (37.0-47.0) % Plt Count 299 (150-375) k/mm3 BMP 05/30/25 13:19 Sodium 133 L Potassium 4.7 Chloride 98 Carbon Dioxide 25 BUN 26 H Creatinine 0.86 Glucose 108 Calcium 10.3 H Cardiac Enzymes 05/30/25 Range/Units 13:19 Troponin I 0.037 H* (0.000-0.034) ng/mL Liver Function 05/30/25 Range/Units 13:19 Total Bilirubin 0.7 (0.2-1.3) mg/dL AST 50 H (14-36) U/L ALT 52 H (6-35) U/L Alkaline Phosphatase 80 (38-126) U/L Albumin 4.8 (3.5-5.1) g/dL Urine 05/30/25 Range/Units 14:04 Urine Color Yellow (Yellow) Urine Appearance Clear (Clear) Urine pH 7.5 (5.0-9.0) Ur Specific Dana 1.008 (1.001-1.035) Urine Protein Negative (Negative) mg/dL Urine Glucose (UA) Negative (Negative) mg/dL ECG Interpretation: Complete heart block with junctional Quality VTE Prophylaxis VTE prophylaxis: mechanical ordered Hospitalist MIPS Advance Care Plan I have confirmed that the patient's Advanced Care Plan is present, code status is documented, or surrogate decision maker is listed in patient medical record.: Yes Medication Reconciliation I have utilized all available resources to obtain, update and review the patients current medications (includes all prescriptions, OTC, herbals, cannabis, and nutritional supplements).: Yes
--- NOTE | 2025-05-30 16:10 | PC.NURSE ---
This patient, Renetta Carrasco, was admitted to Intensive Care Unit-9 @ 1525. Patient/family oriented to hospital policies and general routines including ID bracelet, bed and alarms, visiting hours, pain management, procedures, bathroom and other care routines, personal items, smoking policy, room service/diet, and visiting hours. Information on how to activate the Rapid Response Team has been discussed. Patient/Family are encouraged to report perceived risks to care and to ask questions if they do not understand what they are told or what they should do.
[2025-05-30 16:41] LABS: MRSA (PCR) NOT DETECTED (NOT DETECTE)
[2025-05-30 16:49] LABS: Troponin I 0.063 ng/mL (0.000-0.034)
[2025-05-30] MEDS: SULFAMETHOXAZOLE/TRIMETHOPRIM 800/160 MG DS TABLET 1 TAB PO (21:38)
[2025-05-30] MEDS: cycloSPORINE 0.4 ML OPHTH SOLUTION 1 DROP EACH EYE (21:38)
[2025-05-31] VITALS (13 sets, daily range): BP systolic 109–156; BP diastolic 52–85; PULSE 50–77; RESP 15–25; TEMP 36.4–37.9; O2SAT 92–100
[2025-05-31 04:11] LABS: Hematocrit 40.1 % (37.0-47.0); Hemoglobin 13.1 g/dL (12.0-15.0); Mean Corpuscular HGB Conc 32.7 g/dl (32-36); Mean Corpuscular Hemoglobin 32.0 pg (26-34); Mean Corpuscular Volume 98.0 fl (80-100); Platelet Count Result 261 k/mm3 (150-375); Red Blood Count 4.09 M/mm3 (4.2-5.4); White Blood Count 6.4 K/mm3 (4.5-10.0)
[2025-05-31 04:29] LABS: Alanine Aminotransferase 43 U/L (6-35); Albumin Level 3.9 g/dL (3.5-5.1); Alkaline Phosphatase 66 U/L (38-126); Anion Gap 7 mmol/L (4-12); Aspartate Amino Transferase 47 U/L (14-36); Bilirubin,Total 0.5 mg/dL (0.2-1.3); Blood Urea Nitrogen 23 mg/dL (7-17); Calcium 9.8 mg/dL (8.4-10.2); Carbon Dioxide 25 mmol/L (22-30); Chloride 102 mmol/L (98-107); Estimated CRCL calculation 44 ml/min; Estimated Glomerular Filt Rate 59; Glucose 93 mg/dL (65-110); Magnesium 2.2 mg/dL (1.6-2.3); Potassium 4.7 mmol/L (3.4-5.0); Sodium 134 mmol/L (137-145); Total Protein 6.9 g/dL (6.3-8.2)
[2025-05-31] MEDS: LOSARTAN POTASSIUM 50 MG TABLET PO (08:44)
[2025-05-31] MEDS: SIMVASTATIN 20 MG TABLET 40 MG PO (08:45)
[2025-05-31] MEDS: SULFAMETHOXAZOLE/TRIMETHOPRIM 800/160 MG DS TABLET 1 TAB PO ×2 (08:45→21:00)
[2025-05-31] MEDS: PANTOPRAZOLE 40 MG TABLET PO (08:45)
[2025-05-31] MEDS: cycloSPORINE 0.4 ML OPHTH SOLUTION 1 DROP EACH EYE ×2 (08:46→21:00)
--- NOTE | 2025-05-31 08:49 | WPDINTPN ---
Progress Note: A&P Assessment and Plan (1) Syncope: Qualifiers: Syncope type: unspecified Qualified Code(s): R55 - Syncope and collapse Code(s): R55 - Syncope and collapse Status: Acute Assessment and Plan: Syncope secondary to complete heart block and bradycardia. Patient now and is status post transvenous pacemaker placement. She is in sinus rhythm this more Electrolytes were in acceptable range NT ICU electronic device monitor Plan for permanent pacemaker as per Cardiology Repeat portable chest x-ray in the morning was done and reviewed (2) Third degree heart block: Code(s): I44.2 - Atrioventricular block, complete Status: Acute Assessment and Plan: See above (3) Hypertension: Qualifiers: Hypertension type: essential hypertension Qualified Code(s): I10 - Essential (primary) hypertension Code(s): I10 - Essential (primary) hypertension Status: Chronic Assessment and Plan: Continue losartan Add Norvasc (4) Severe obstructive sleep apnea: Code(s): G47.33 - Obstructive sleep apnea (adult) (pediatric) Status: Acute Assessment and Plan: Home CPAP ordered Plan DVT prophylaxis -SCD, Lovenox Stress ulcer prophylaxis -continue home PPI Nutrition -heart healthy diet Code Status - Full Code Total Critical Care Time - 30 minutes Due to a high probability of clinically significant, life threatening deterioration, the patient required my highest level of preparedness to intervene emergently and I personally spent this critical care time directly and personally managing the patient. This critical care time included obtaining a history; examining the patient; pulse oximetry; ordering and review of studies; arranging urgent treatment with development of a management plan; evaluation of patient's response to treatment; frequent reassessment; and discussions with other providers. It was exclusive of separately billable procedures and treating other patients and teaching time. Please see Assessment and Plan section and the rest of the note for further information on patient assessment and treatment Subjective Date/time seen: 05/31/25 Overnight events reviewed. Afebrile Patient is in sinus rhythm. With pacemaker as backup Elevated blood pressure overnight She denies any complaints. Patient denies fever, chest pain, shortness of breath, cough, nausea vomiting, abdominal pain,, diarrhea, headache or constipation. All other systems were reviewed and were negative Other Vitals acceptable Review of Systems Review of Systems: All systems reviewed & are unremarkable except as noted in HPI and below (HPI) Exam Narrative: General: Pleasant female who is alert awake and in NAD Lungs/Chest: Trachea central Clear BS B/L, No crackles or wheezing. Cardiac: RRR. Normal S1 S2. No murmurs, transvenous pacemaker in right IJ dressing Circulation: Both feet are warm Abdomen: Normal bowel sounds. Obese. Soft. NT. ND. Extremities: No clubbing, cyanosis or edema. : Ham in place Neurologic: Follows commands. Moves all 4 extremities PERRL AO x3 Skin: No Rash Objective Data Vital Signs Vital Signs: Vital Signs - 24 hr 05/30/25 12:52 05/30/25 13:03 05/30/25 13:03 Temperature 36.7 C Pulse Rate 38 L 35 L Respiratory Rate 15 Blood Pressure Pulse Oximetry 97 97 Oxygen Delivery Room Air Room Air 05/30/25 13:11 05/30/25 13:18 05/30/25 13:21 Temperature Pulse Rate 91 92 Respiratory Rate 15 19 Blood Pressure 188/40 H 186/135 H 135/70 Pulse Oximetry 94 93 Oxygen Delivery 05/30/25 14:10 05/30/25 15:15 05/30/25 16:00 Temperature Pulse Rate 83 86 Respiratory Rate 18 16 Blood Pressure 139/82 173/88 H Pulse Oximetry 99 95 Oxygen Delivery Room Air 05/30/25 16:15 05/30/25 17:27 05/30/25 18:00 Temperature 37.0 C 37.0 C Pulse Rate 77 59 L Respiratory Rate 21 H 20 Blood Pressure 165/78 H 171/62 H Pulse Oximetry 96 95 Oxygen Delivery 05/30/25 20:00 05/30/25 20:00 05/30/25 20:00 Temperature 36.7 C Pulse Rate 57 L 56 L Respiratory Rate 22 H Blood Pressure 127/77 Pulse Oximetry 95 Oxygen Delivery Room Air 05/30/25 21:55 05/30/25 22:00 05/30/25 22:00 Temperature Pulse Rate 68 65 67 Respiratory Rate 18 Blood Pressure 158/74 H Pulse Oximetry 95 93 Oxygen Delivery Room Air 05/31/25 00:00 05/31/25 00:00 05/31/25 00:00 Temperature 36.6 C Pulse Rate 65 65 Respiratory Rate 16 Blood Pressure 150/60 H Pulse Oximetry 93 Oxygen Delivery Room Air 05/31/25 02:00 05/31/25 02:00 05/31/25 04:00 Temperature Pulse Rate 61 60 Respiratory Rate 17 Blood Pressure 156/77 H Pulse Oximetry 96 Oxygen Delivery Room Air 05/31/25 04:00 05/31/25 04:00 05/31/25 06:00 Temperature 36.8 C Pulse Rate 63 63 60 Respiratory Rate 16 Blood Pressure 152/66 H Pulse Oximetry 92 Oxygen Delivery 05/31/25 06:00 05/31/25 08:00 Temperature 36.4 C Pulse Rate 60 66 Respiratory Rate 17 15 Blood Pressure 142/65 H 119/77 Pulse Oximetry 96 95 Oxygen Delivery Intake/Output Intake/Output: Intake & Output 05/28/25 05/29/25 05/30/25 05/31/25 23:59 23:59 23:59 23:59 Intake Total 1600 300 Output Total 500 850 Balance 1100 -550 Meds/Results Medications: Active Medications Generic Name Dose Route Start Last Admin Trade Name Freq PRN Reason Stop Dose Admin Amlodipine Besylate 5 mg 05/31/25 09:00 05/31/25 08:45 Amlodipine Besylate 5 Mg Tablet PO 5 mg DAILY IVON Administration Cyclosporine 1 drop 05/30/25 21:00 05/31/25 08:46 Cyclosporine 0.4 Ml Ophth Solution EACH EYE 1 drop Q12H IVON Administration Estradiol 0 applic 06/02/25 21:00 Estradiol Vaginal Cream 42.5 Gm VAGINAL [email or web address] IVON Hydralazine HCl 20 mg 05/30/25 18:29 Hydralazine Hcl 20 Mg/Ml Vial IV PUSH Q4H PRN Blood Pressure - High Losartan Potassium 50 mg 05/31/25 09:00 05/31/25 08:44 Losartan Potassium 50 Mg Tablet PO 50 mg DAILY IVON Administration Pantoprazole Sodium 40 mg 05/31/25 09:00 05/31/25 08:45 Pantoprazole 40 Mg Tablet PO 40 mg QAM IVON Administration Simvastatin 40 mg 05/31/25 09:00 05/31/25 08:45 Simvastatin 20 Mg Tablet PO 40 mg DAILY IVON Administration Trimethoprim/Sulfamethoxazole 1 tab 05/30/25 21:00 05/31/25 08:45 Sulfamethoxazole/Trimethoprim 800/160 Mg Ds Tablet PO 1 tab Q12H IVON Administration Radiology Results: ITS Impressions Chest X-Ray 05/31/25 07:15 IMPRESSION: Small left-sided pleural effusion. Supportive line in good position. Labs Labs: Laboratory Results - last 24 hr 05/30/25 05/30/25 05/30/25 13:19 14:04 15:25 WBC 9.5 RBC 4.39 Hgb 13.8 Hct 42.0 MCV 95.7 MCH 31.4 MCHC 32.9 RDW 12.7 Plt Count 299 MPV 10.6 H Immature Gran % (Auto) 0.5 Neut % (Auto) 81.0 H Lymph % (Auto) 9.6 L [place] % (Auto) 8.4 Eos % (Auto) 0.1 Baso % (Auto) 0.4 Lymph # (Auto) 0.91 [place] # (Auto) 0.8 H Eos # (Auto) 0.0 Baso # (Auto) 0.0 Abs Immat Gran (auto) 0.05 H Absolute Neuts (auto) 7.7 H Absolute Nucleated RBC 0.000 Nucleated RBC % 0.0 PT 13.2 INR 1.0 APTT 27.9 Sodium 133 L Potassium 4.7 Chloride 98 Carbon Dioxide 25 Anion Gap 10 BUN 26 H Creatinine 0.86 Estim Creat Clear Calc 44 Estimated GFR > 60 Glucose 108 Calcium 10.3 H Phosphorus Magnesium 2.1 Total Bilirubin 0.7 AST 50 H ALT 52 H Alkaline Phosphatase 80 Troponin I 0.037 H* Total Protein 8.4 H Albumin 4.8 Urine Color Yellow Urine Appearance Clear Urine pH 7.5 Ur Specific [place] 1.008 Urine Protein Negative Urine Glucose (UA) Negative Urine Ketones Negative Ur Blood (Man) Negative Urine Nitrate Negative Urine Bilirubin Negative Urine Urobilinogen 1.0 Leukocyte Esterase Rfl Negative Nasal MRSA (PCR) Not detected 05/30/25 05/31/25 16:11 03:51 WBC 6.4 RBC 4.09 L Hgb 13.1 Hct 40.1 MCV 98.0 MCH 32.0 MCHC 32.7 RDW 13.0 Plt Count 261 MPV 10.5 H Immature Gran % (Auto) Neut % (Auto) Lymph % (Auto) [place] % (Auto) Eos % (Auto) Baso % (Auto) Lymph # (Auto) [place] # (Auto) Eos # (Auto) Baso # (Auto) Abs Immat Gran (auto) Absolute Neuts (auto) Absolute Nucleated RBC Nucleated RBC % PT INR APTT Sodium 134 L Potassium 4.7 Chloride 102 Carbon Dioxide 25 Anion Gap 7 BUN 23 H Creatinine 0.91 Estim Creat Clear Calc 44 Estimated GFR 59 Glucose 93 Calcium 9.8 Phosphorus 3.7 Magnesium 2.2 Total Bilirubin 0.5 AST 47 H ALT 43 H Alkaline Phosphatase 66 Troponin I 0.063 H* D Total Protein 6.9 Albumin 3.9 Urine Color Urine Appearance Urine pH Ur Specific [place] Urine Protein Urine Glucose (UA) Urine Ketones Ur Blood (Man) Urine Nitrate Urine Bilirubin Urine Urobilinogen Leukocyte Esterase Rfl Nasal MRSA (PCR) Quality VTE Prophylaxis VTE prophylaxis: mechanical ordered
[2025-05-31] MEDS: ENOXAPARIN 40 MG/0.4 ML SYRINGE SUB-Q (09:45)
--- NOTE | 2025-05-31 13:03 | PM.PNCARD ---
Progress Note: A&P Assessment and Plan (1) Third degree heart block: Code(s): I44.2 - Atrioventricular block, complete Status: Acute Plan High-grade AV block with recurrent syncope status post tumor transvenous pacemaker Hypertension controlled Plan NPO for permanent pacemaker tomorrow Transthoracic echocardiogram Subjective Date/time seen: 05/31/25 13:03 Interval history: No acute events Telemetry intermittent high-grade AV block with demand pacing Review of Systems Review of Systems: All systems reviewed & are unremarkable except as noted in HPI and below Exam Const: General: comfortable and no acute distress Other: Able to lie flat HENMT: Face/Nose/Sinus: Normal nares present and no epistaxis Mouth: Yes moist mucous membranes Eyes: Sclera: sclerae normal Pupils: Equal, round and reactive pupils present Neck: Neck: supple and no JVD Carotids: no bruits Resp: Auscultation: clear to auscultation bilaterally and lung sounds not diminished Other: No chest wall tenderness Cardio: Rate: regular rate Rhythm: regular rhythm Heart sounds: no gallops, no murmurs and no rubs GI: GI Palp: Yes Soft to palpation and No Tenderness to palpation present (GI) Auscultation: normal bowel sounds Skin: General skin exam: normal color, rashes and/or lesions noted and no erythema Other: Warm Neuro: Cranial nerves: Yes Equal, round and reactive pupils present Speech: normal speech Other: No obvious focal deficit or facial asymmetry Extrem: General: no edema Other: Normal capillary refills Intact distal pulses. Objective Data Vital Signs Vital Signs: Vital Signs - 24 hr 05/30/25 13:11 05/30/25 13:18 05/30/25 13:21 Temperature Pulse Rate 91 92 Respiratory Rate 15 19 Blood Pressure 188/40 H 186/135 H 135/70 Pulse Oximetry 94 93 Oxygen Delivery 05/30/25 14:10 05/30/25 15:15 05/30/25 16:00 Temperature Pulse Rate 83 86 Respiratory Rate 18 16 Blood Pressure 139/82 173/88 H Pulse Oximetry 99 95 Oxygen Delivery Room Air 05/30/25 16:15 05/30/25 17:27 05/30/25 18:00 Temperature 37.0 C 37.0 C Pulse Rate 77 59 L Respiratory Rate 21 H 20 Blood Pressure 165/78 H 171/62 H Pulse Oximetry 96 95 Oxygen Delivery 05/30/25 20:00 05/30/25 20:00 05/30/25 20:00 Temperature 36.7 C Pulse Rate 57 L 56 L Respiratory Rate 22 H Blood Pressure 127/77 Pulse Oximetry 95 Oxygen Delivery Room Air 05/30/25 21:55 05/30/25 22:00 05/30/25 22:00 Temperature Pulse Rate 68 65 67 Respiratory Rate 18 Blood Pressure 158/74 H Pulse Oximetry 95 93 Oxygen Delivery Room Air 05/31/25 00:00 05/31/25 00:00 05/31/25 00:00 Temperature 36.6 C Pulse Rate 65 65 Respiratory Rate 16 Blood Pressure 150/60 H Pulse Oximetry 93 Oxygen Delivery Room Air 05/31/25 02:00 05/31/25 02:00 05/31/25 04:00 Temperature Pulse Rate 61 60 Respiratory Rate 17 Blood Pressure 156/77 H Pulse Oximetry 96 Oxygen Delivery Room Air 05/31/25 04:00 05/31/25 04:00 05/31/25 06:00 Temperature 36.8 C Pulse Rate 63 63 60 Respiratory Rate 16 Blood Pressure 152/66 H Pulse Oximetry 92 Oxygen Delivery 05/31/25 06:00 05/31/25 08:00 05/31/25 08:00 Temperature 36.4 C Pulse Rate 60 66 63 Respiratory Rate 17 15 Blood Pressure 142/65 H 119/77 Pulse Oximetry 96 95 Oxygen Delivery 05/31/25 10:00 05/31/25 10:00 05/31/25 12:00 Temperature Pulse Rate 75 77 67 Respiratory Rate 21 H Blood Pressure 148/60 H Pulse Oximetry 96 Oxygen Delivery 05/31/25 12:00 Temperature 36.9 C Pulse Rate 74 Respiratory Rate 16 Blood Pressure 141/57 H Pulse Oximetry 98 Oxygen Delivery Intake/Output Intake/Output: Intake & Output 05/28/25 05/29/25 05/30/25 05/31/25 23:59 23:59 23:59 23:59 Intake Total 1600 900 Output Total 500 850 Balance 1100 50 Meds/Results Medications: Active Medications Generic Name Dose Route Start Last Admin Trade Name Freq PRN Reason Stop Dose Admin Amlodipine Besylate 5 mg 05/31/25 09:00 05/31/25 08:45 Amlodipine Besylate 5 Mg Tablet PO 5 mg DAILY IVON Administration Cyclosporine 1 drop 05/30/25 21:00 05/31/25 08:46 Cyclosporine 0.4 Ml Ophth Solution EACH EYE 1 drop Q12H IVON Administration Enoxaparin Sodium 40 mg 05/31/25 09:00 05/31/25 09:45 Enoxaparin 40 Mg/0.4 Ml Syringe SUB-Q 05/31/25 23:59 40 mg DAILY IVON Administration Estradiol 0 applic 06/02/25 21:00 Estradiol Vaginal Cream 42.5 Gm VAGINAL [email or web address] Hydralazine HCl 20 mg 05/30/25 18:29 Hydralazine Hcl 20 Mg/Ml Vial IV PUSH Q4H PRN Blood Pressure - High Losartan Potassium 50 mg 05/31/25 09:00 05/31/25 08:44 Losartan Potassium 50 Mg Tablet PO 50 mg DAILY IVON Administration Pantoprazole Sodium 40 mg 05/31/25 09:00 05/31/25 08:45 Pantoprazole 40 Mg Tablet PO 40 mg QAM IVON Administration Simvastatin 40 mg 05/31/25 09:00 05/31/25 08:45 Simvastatin 20 Mg Tablet PO 40 mg DAILY IVON Administration Trimethoprim/Sulfamethoxazole 1 tab 05/30/25 21:00 05/31/25 08:45 Sulfamethoxazole/Trimethoprim 800/160 Mg Ds Tablet PO 1 tab Q12H IVON Administration Labs Labs: Laboratory Results - last 24 hr 05/30/25 05/30/25 05/30/25 13:19 14:04 15:25 WBC 9.5 RBC 4.39 Hgb 13.8 Hct 42.0 MCV 95.7 MCH 31.4 MCHC 32.9 RDW 12.7 Plt Count 299 MPV 10.6 H Immature Gran % (Auto) 0.5 Neut % (Auto) 81.0 H Lymph % (Auto) 9.6 L [place] % (Auto) 8.4 Eos % (Auto) 0.1 Baso % (Auto) 0.4 Lymph # (Auto) 0.91 [place] # (Auto) 0.8 H Eos # (Auto) 0.0 Baso # (Auto) 0.0 Abs Immat Gran (auto) 0.05 H Absolute Neuts (auto) 7.7 H Absolute Nucleated RBC 0.000 Nucleated RBC % 0.0 PT 13.2 INR 1.0 APTT 27.9 Sodium 133 L Potassium 4.7 Chloride 98 Carbon Dioxide 25 Anion Gap 10 BUN 26 H Creatinine 0.86 Estim Creat Clear Calc 44 Estimated GFR > 60 Glucose 108 Calcium 10.3 H Phosphorus Magnesium 2.1 Total Bilirubin 0.7 AST 50 H ALT 52 H Alkaline Phosphatase 80 Troponin I 0.037 H* Total Protein 8.4 H Albumin 4.8 Urine Color Yellow Urine Appearance Clear Urine pH 7.5 Ur Specific [place] 1.008 Urine Protein Negative Urine Glucose (UA) Negative Urine Ketones Negative Ur Blood (Man) Negative Urine Nitrate Negative Urine Bilirubin Negative Urine Urobilinogen 1.0 Leukocyte Esterase Rfl Negative Nasal MRSA (PCR) Not detected 05/30/25 05/31/25 16:11 03:51 WBC 6.4 RBC 4.09 L Hgb 13.1 Hct 40.1 MCV 98.0 MCH 32.0 MCHC 32.7 RDW 13.0 Plt Count 261 MPV 10.5 H Immature Gran % (Auto) Neut % (Auto) Lymph % (Auto) [place] % (Auto) Eos % (Auto) Baso % (Auto) Lymph # (Auto) [place] # (Auto) Eos # (Auto) Baso # (Auto) Abs Immat Gran (auto) Absolute Neuts (auto) Absolute Nucleated RBC Nucleated RBC % PT INR APTT Sodium 134 L Potassium 4.7 Chloride 102 Carbon Dioxide 25 Anion Gap 7 BUN 23 H Creatinine 0.91 Estim Creat Clear Calc 44 Estimated GFR 59 Glucose 93 Calcium 9.8 Phosphorus 3.7 Magnesium 2.2 Total Bilirubin 0.5 AST 47 H ALT 43 H Alkaline Phosphatase 66 Troponin I 0.063 H* D Total Protein 6.9 Albumin 3.9 Urine Color Urine Appearance Urine pH Ur Specific [place] Urine Protein Urine Glucose (UA) Urine Ketones Ur Blood (Man) Urine Nitrate Urine Bilirubin Urine Urobilinogen Leukocyte Esterase Rfl Nasal MRSA (PCR)
--- NOTE | 2025-05-31 14:19 | ECG_ITS ---
Test Date: 2025-05-31 14:38:34 Measurements Intervals [place] Rate: 57 P: 71 GA: 256 QRS: -52 QRSD: 149 T: 124 QT: 453 QTc: 445 Interpretive Statements sinus rhythm ELECTRONIC VENTRICULAR PACEMAKER -- CONTOUR ANALYSIS BASED ON INTRINSIC RHYTHM RIGHT BUNDLE BRANCH BLOCK [120+ ms QRS DURATION, UPRIGHT V1, 40+ ms S IN I/aVL/V4/V5/V6] LEFT ANTERIOR FASCICULAR BLOCK [QRS AXIS <= -45, QR IN I, RS IN II] LEFT VENTRICULAR HYPERTROPHY AND ST-T CHANGE [VOLTAGE CRITERIA PLUS ST/T ABNORMALITY] Electronically Signed On 06-01-2025 22:38:46 CDT by Guzman Jones M.D.
--- NOTE | 2025-05-31 14:37 | PC.NURSE ---
When checking on patient noted that the pacemaker wire looked like it was in a slightly different spot then prior. Checked patient, still awake and showing pacer spikes on monitor. Stat chest xray ordered. Dr. Villaseñor in ICU unit asked to see pt, physician looked at xray at bedside. Order placed for EKG per Dr. Wise. Stated that the pacer was still in the correct position. Dr. Fam also notified.
[2025-05-31] MEDS: ACETAMINOPHEN 325 MG TABLET 650 MG PO ×2 (16:07→21:47)
--- NOTE | 2025-05-31 16:50 | PM.IMPN ---
Progress Note: A&P Assessment and Plan (1) Syncope: Qualifiers: Syncope type: unspecified Qualified Code(s): R55 - Syncope and collapse Code(s): R55 - Syncope and collapse Status: Acute Assessment and Plan: Syncope secondary to complete heart block and bradycardia. Patient now and is status post transvenous pacemaker placement. She is in and out of sinus rhythm Electrolytes are in acceptable range Cardiology consulted with plans for permanent PM placement. Low grade temp noted. CXR clear. UA negative for UTI. Plan for permanent pacemaker as per Cardiology ICU telemetry monitoring. Monitor temp curve (2) Third degree heart block: Code(s): I44.2 - Atrioventricular block, complete Status: Acute Assessment and Plan: See above (3) Hypertension: Qualifiers: Hypertension type: essential hypertension Qualified Code(s): I10 - Essential (primary) hypertension Code(s): I10 - Essential (primary) hypertension Status: Chronic Assessment and Plan: Patient's blood pressure was reviewed on 05/31 Blood pressure remains reasonably well controlled. Will continue to monitor (4) Severe obstructive sleep apnea: Code(s): G47.33 - Obstructive sleep apnea (adult) (pediatric) Status: Acute Assessment and Plan: Home CPAP ordered (5) UTI (urinary tract infection): Qualifiers: Urinary tract infection type: acute cystitis Hematuria presence: without hematuria Qualified Code(s): N30.00 - Acute cystitis without hematuria Code(s): N39.0 - Urinary tract infection, site not specified Status: Suspected Assessment and Plan: Last admission, patient with UA suspicious for UTI however may be contaminant as there are occasional epithelial cells. UCx positive for coagulase negative Staphylococcus, not saprophyticus. Discussed with ID pharmacist possible antibiotic coverage, agreed with additional coverage using Bactrim. Patient was discharged on 05/27 with Bactrim Q12h for 9 more doses. Last dose should be the evening of 05/31/25. Plan DVT prophylaxis -SCD, Lovenox Stress ulcer prophylaxis -continue home PPI Nutrition -heart healthy diet Code Status - Full Code Subjective Date/time seen: 05/31/25 16:50 Interval history: 80yo female with 2nd degree AV block/AV node dysfunction, anxiety, JAY, anemia, HTN, HLD and migraines presents here with recurrent syncope. No problems overnight. She feels much better. No CP or SOB. Exam Narrative: Tm 100.3 151/54 50 21 95% ra Gen - NARD Chest - CTA bilaterally, nml RR CV - regular, bradycardic. Tele showing intermittent paced and sinus bradycardia Abd - Soft, NT/ND, Positive BS Ext - No pedal edema Psych - Nml mood and affect Skin - Warm and dry Objective Data Vital Signs Vital Signs: Vital Signs - 24 hr 05/30/25 17:27 05/30/25 18:00 05/30/25 20:00 Temperature 98.6 F 98.6 F 98.0 F Pulse Rate 59 L 57 L Respiratory Rate 20 22 H Blood Pressure 171/62 H 127/77 Pulse Oximetry 95 95 Oxygen Delivery 05/30/25 20:00 05/30/25 20:00 05/30/25 21:55 Temperature Pulse Rate 56 L 68 Respiratory Rate Blood Pressure Pulse Oximetry 95 Oxygen Delivery Room Air Room Air 05/30/25 22:00 05/30/25 22:00 05/31/25 00:00 Temperature 97.8 F Pulse Rate 65 67 65 Respiratory Rate 18 16 Blood Pressure 158/74 H 150/60 H Pulse Oximetry 93 93 Oxygen Delivery 05/31/25 00:00 05/31/25 00:00 05/31/25 02:00 Temperature Pulse Rate 65 61 Respiratory Rate 17 Blood Pressure 156/77 H Pulse Oximetry 96 Oxygen Delivery Room Air 05/31/25 02:00 05/31/25 04:00 05/31/25 04:00 Temperature Pulse Rate 60 63 Respiratory Rate Blood Pressure Pulse Oximetry Oxygen Delivery Room Air 05/31/25 04:00 05/31/25 06:00 05/31/25 06:00 Temperature 98.2 F Pulse Rate 63 60 60 Respiratory Rate 16 17 Blood Pressure 152/66 H 142/65 H Pulse Oximetry 92 96 Oxygen Delivery 05/31/25 08:00 05/31/25 08:00 05/31/25 10:00 Temperature 97.6 F Pulse Rate 66 63 75 Respiratory Rate 15 Blood Pressure 119/77 Pulse Oximetry 95 Oxygen Delivery 05/31/25 10:00 05/31/25 12:00 05/31/25 12:00 Temperature 98.4 F Pulse Rate 77 67 74 Respiratory Rate 21 H 16 Blood Pressure 148/60 H 141/57 H Pulse Oximetry 96 98 Oxygen Delivery 05/31/25 14:00 05/31/25 14:00 05/31/25 16:00 Temperature 100.3 F H Pulse Rate 71 71 50 L Respiratory Rate 21 H 21 H Blood Pressure 129/52 L 151/54 H Pulse Oximetry 95 95 Oxygen Delivery 05/31/25 16:00 Temperature Pulse Rate 50 L Respiratory Rate Blood Pressure Pulse Oximetry Oxygen Delivery Intake/Output Intake/Output: Intake & Output 05/28/25 05/29/25 05/30/25 05/31/25 23:59 23:59 23:59 23:59 Intake Total 1600 900 Output Total 500 850 Balance 1100 50 Meds/Results Medications: Active Medications Generic Name Dose Route Start Last Admin Trade Name Freq PRN Reason Stop Dose Admin Acetaminophen 650 mg 05/31/25 16:00 05/31/25 16:07 Acetaminophen 325 Mg Tablet PO 650 mg Q4H PRN Administration Mild Pain (1-3) or Fever Amlodipine Besylate 5 mg 05/31/25 09:00 05/31/25 08:45 Amlodipine Besylate 5 Mg Tablet PO 5 mg DAILY IVON Administration Cyclosporine 1 drop 05/30/25 21:00 05/31/25 08:46 Cyclosporine 0.4 Ml Ophth Solution EACH EYE 1 drop Q12H IVON Administration Enoxaparin Sodium 40 mg 05/31/25 09:00 05/31/25 09:45 Enoxaparin 40 Mg/0.4 Ml Syringe SUB-Q 05/31/25 23:59 40 mg DAILY IVON Administration Estradiol 0 applic 06/02/25 21:00 Estradiol Vaginal Cream 42.5 Gm VAGINAL [email or web address] IVON Hydralazine HCl 20 mg 05/30/25 18:29 Hydralazine Hcl 20 Mg/Ml Vial IV PUSH Q4H PRN Blood Pressure - High Losartan Potassium 50 mg 05/31/25 09:00 05/31/25 08:44 Losartan Potassium 50 Mg Tablet PO 50 mg DAILY IVON Administration Pantoprazole Sodium 40 mg 05/31/25 09:00 05/31/25 08:45 Pantoprazole 40 Mg Tablet PO 40 mg QAM IVON Administration Simvastatin 40 mg 05/31/25 09:00 05/31/25 08:45 Simvastatin 20 Mg Tablet PO 40 mg DAILY IVON Administration Trimethoprim/Sulfamethoxazole 1 tab 05/30/25 21:00 05/31/25 08:45 Sulfamethoxazole/Trimethoprim 800/160 Mg Ds Tablet PO 1 tab Q12H IVON Administration Radiology Results: ITS Impressions Chest X-Ray 05/31/25 14:42 IMPRESSION: No acute cardiopulmonary process. Labs Labs: Laboratory Results - last 24 hr 05/31/25 03:51 WBC 6.4 RBC 4.09 L Hgb 13.1 Hct 40.1 MCV 98.0 MCH 32.0 MCHC 32.7 RDW 13.0 Plt Count 261 MPV 10.5 H Sodium 134 L Potassium 4.7 Chloride 102 Carbon Dioxide 25 Anion Gap 7 BUN 23 H Creatinine 0.91 Estim Creat Clear Calc 44 Estimated GFR 59 Glucose 93 Calcium 9.8 Phosphorus 3.7 Magnesium 2.2 Total Bilirubin 0.5 AST 47 H ALT 43 H Alkaline Phosphatase 66 Total Protein 6.9 Albumin 3.9
[2025-06-01] VITALS (15 sets, daily range): BP systolic 127–179; BP diastolic 41–88; PULSE 50–88; RESP 16–26; TEMP 36.4–37.1; O2SAT 91–98
--- NOTE | 2025-06-01 | ECHO_ITS ---
Patient Info Name: Renetta Carrasco Age: 80 years : 1945 Gender: Female Ht: 62 in Wt: 195 lbs BSA: 2.01 m2 HR: 67 bpm BP: 87 / 54 mmHg Technical Quality: Good Exam Date: 06/01/2025 1:17 PM Patient Status: I Admit Date: 05/30/2025 Exam Type: CA echo limited w contrast Limited two-dimensional transthoracic echocardiogram is performed with contrast. Staff Referring Physician: Poncho Fam MD Brake Assembler: Amy De La Torre Attending Provider: Bryan Ga MD Contrast/Agitated Saline Contrast/Ag. Saline: Definity Amount: 2.00 ml Administered By: Amy De La Torre Existing IV Access: Yes IV Access Condition: patent with no signs of infiltration Summary 1. There is mildly increased left ventricular wall thickness. 2. EF 65-70%. Left Ventricle There is mildly increased left ventricular wall thickness. Right Ventricle Right ventricular chamber dimension is normal. Right ventricular systolic function is normal. Left Atria Left atrial chamber dimension is normal. Right Atria Right atrial chamber dimension is normal. Aortic Valve The aortic valve is not well visualized. Pulmonic Valve The pulmonic valve is not well visualized. Mitral Valve The mitral valve has normal leaflets. Tricuspid Valve The tricuspid valve leaflets are normal. Pericardium/Pleural The pericardium appears normal. Aorta The aortic root size at the sinus of Valsalva is normal. Ventricles Name Value Normal LV Fractional Shortening/Ejection Fraction 2D/MM LV Diastolic Volume (4C MOD) 126 ml LV EF (4C MOD) 65 % LV Diastolic Volume (2C MOD) 122 ml LV EF (2C MOD) 63 % LV Diastolic Volume (BP MOD) 125 ml 46-106 LV Diastolic Volume Index (BP MOD) 62 ml/m2 29-61 LV Systolic Volume (BP MOD) 46 ml 14-42 LV Systolic Volume Index (BP MOD) 23 ml/m2 8-24 LV EF (BP MOD) 63 % 54-74 LV Diastolic Length (4C) 8.9 cm LV Systolic Length (4C) 7.7 cm LV Stroke Volume (4C MOD) 82 ml Report Signatures
[2025-06-01 03:35] LABS: Hematocrit 39.9 % (37.0-47.0); Hemoglobin 13.0 g/dL (12.0-15.0); Mean Corpuscular HGB Conc 32.6 g/dl (32-36); Mean Corpuscular Hemoglobin 31.4 pg (26-34); Mean Corpuscular Volume 96.4 fl (80-100); Platelet Count Result 214 k/mm3 (150-375); Red Blood Count 4.14 M/mm3 (4.2-5.4); White Blood Count 3.8 K/mm3 (4.5-10.0)
[2025-06-01 03:46] LABS: Alanine Aminotransferase 41 U/L (6-35); Albumin Level 3.8 g/dL (3.5-5.1); Alkaline Phosphatase 75 U/L (38-126); Anion Gap 6 mmol/L (4-12); Aspartate Amino Transferase 40 U/L (14-36); Bilirubin,Total 0.3 mg/dL (0.2-1.3); Blood Urea Nitrogen 20 mg/dL (7-17); Calcium 9.7 mg/dL (8.4-10.2); Carbon Dioxide 25 mmol/L (22-30); Chloride 103 mmol/L (98-107); Estimated CRCL calculation 40 ml/min; Estimated Glomerular Filt Rate 53; Glucose 94 mg/dL (65-110); Magnesium 2.1 mg/dL (1.6-2.3); Potassium 4.4 mmol/L (3.4-5.0); Sodium 134 mmol/L (137-145); Total Protein 6.8 g/dL (6.3-8.2)
[2025-06-01] MEDS: LOSARTAN POTASSIUM 50 MG TABLET PO (07:55)
[2025-06-01] MEDS: PANTOPRAZOLE 40 MG TABLET PO (07:55)
[2025-06-01] MEDS: SIMVASTATIN 20 MG TABLET 40 MG PO (07:55)
[2025-06-01] MEDS: cycloSPORINE 0.4 ML OPHTH SOLUTION 1 DROP EACH EYE ×2 (07:55→21:02)
--- NOTE | 2025-06-01 07:55 | P.PNINT_ITS ---
Progress Note: A&P Assessment and Plan (1) Syncope: Qualifiers: Syncope type: unspecified Qualified Code(s): R55 - Syncope and collapse Code(s): R55 - Syncope and collapse Status: Acute Assessment and Plan: Syncope secondary to complete heart block and bradycardia. Patient now and is status post transvenous pacemaker placement. She is in sinus rhythm this more Electrolytes were in acceptable range Continue ICU phototypesetting equipment monitor Plan for permanent pacemaker as per Cardiology Repeat portable chest x-ray in the morning was done and reviewed (2) Third degree heart block: Code(s): I44.2 - Atrioventricular block, complete Status: Acute Assessment and Plan: See above (3) Hypertension: Qualifiers: Hypertension type: essential hypertension Qualified Code(s): I10 - Essential (primary) hypertension Code(s): I10 - Essential (primary) hypertension Status: Chronic Assessment and Plan: Continue losartan Increase Norvasc to 10 mg (4) Severe obstructive sleep apnea: Code(s): G47.33 - Obstructive sleep apnea (adult) (pediatric) Status: Acute Assessment and Plan: Home CPAP ordered Plan DVT prophylaxis -SCD, Lovenox Stress ulcer prophylaxis -continue home PPI Nutrition -heart healthy diet Code Status - Full Code Total Critical Care Time - 30 minutes Due to a high probability of clinically significant, life threatening deterioration, the patient required my highest level of preparedness to intervene emergently and I personally spent this critical care time directly and personally managing the patient. This critical care time included obtaining a history; examining the patient; pulse oximetry; ordering and review of studies; arranging urgent treatment with development of a management plan; evaluation of patient's response to treatment; frequent reassessment; and discussions with other providers. It was exclusive of separately billable procedures and treating other patients and teaching time. Please see Assessment and Plan section and the rest of the note for further information on patient assessment and treatment Subjective Date/time seen: 06/01/25 Overnight events reviewed. No major change. Patient is in sinus rhythm. Transvenous pacemaker is at backup with intermittent pacing Vital signs stable. Patient denies any new complaints. Patient denies fever, chest pain, shortness of breath, cough, nausea vomiting, abdominal pain,, diarrhea, headache or constipation. All the systems were reviewed and were negative Interval history: 80yo female with 2nd degree AV block/AV node dysfunction, anxiety, JAY, anemia, HTN, HLD and migraines presents here with recurrent syncope. Now status post transvenous pacemaker placement Awaits permanent pacemaker Review of Systems Review of Systems: All systems reviewed & are unremarkable except as noted in HPI and below (HPI) Exam Narrative: General: Pleasant female who is alert awake and in NAD Lungs/Chest: Trachea central Clear BS B/L, No crackles or wheezing. Cardiac: RRR. Normal S1 S2. No murmurs, transvenous pacemaker in right IJ dressing Circulation: Both feet are warm Abdomen: Normal bowel sounds. Obese. Soft. NT. ND. Extremities: No clubbing, cyanosis or edema. : Ham in place Neurologic: Follows commands. Moves all 4 extremities PERRL AO x3 Skin: No Rash Objective Data Vital Signs Vital Signs: Vital Signs - 24 hr 05/31/25 08:00 05/31/25 08:00 05/31/25 10:00 Temperature 36.4 C Pulse Rate 66 63 75 Respiratory Rate 15 Blood Pressure 119/77 Pulse Oximetry 95 Oxygen Delivery 05/31/25 10:00 05/31/25 12:00 05/31/25 12:00 Temperature 36.9 C Pulse Rate 77 67 74 Respiratory Rate 21 H 16 Blood Pressure 148/60 H 141/57 H Pulse Oximetry 96 98 Oxygen Delivery 05/31/25 14:00 05/31/25 14:00 05/31/25 16:00 Temperature 37.9 C H Pulse Rate 71 71 50 L Respiratory Rate 21 H 21 H Blood Pressure 129/52 L 151/54 H Pulse Oximetry 95 95 Oxygen Delivery 05/31/25 16:00 05/31/25 18:00 05/31/25 18:00 Temperature Pulse Rate 50 L 50 L 50 L Respiratory Rate 20 Blood Pressure 133/55 L Pulse Oximetry 98 Oxygen Delivery 05/31/25 20:00 05/31/25 20:00 05/31/25 20:00 Temperature 36.5 C Pulse Rate 56 L 58 L Respiratory Rate 25 H Blood Pressure 109/85 Pulse Oximetry 93 Oxygen Delivery Room Air 05/31/25 22:00 05/31/25 22:00 05/31/25 22:30 Temperature Pulse Rate 62 72 69 Respiratory Rate 20 Blood Pressure 146/61 H Pulse Oximetry 100 97 Oxygen Delivery CPAP 06/01/25 00:00 06/01/25 00:00 06/01/25 00:00 Temperature 36.4 C Pulse Rate 81 74 Respiratory Rate 16 Blood Pressure 142/67 H Pulse Oximetry 98 Oxygen Delivery Room Air 06/01/25 02:00 06/01/25 02:00 06/01/25 02:14 Temperature Pulse Rate 80 88 69 Respiratory Rate 18 Blood Pressure 175/88 H Pulse Oximetry 97 97 Oxygen Delivery CPAP 06/01/25 04:00 06/01/25 04:00 06/01/25 04:00 Temperature 36.9 C Pulse Rate 69 70 Respiratory Rate 17 Blood Pressure 163/73 H Pulse Oximetry 96 Oxygen Delivery Room Air 06/01/25 06:00 06/01/25 06:00 Temperature Pulse Rate 67 74 Respiratory Rate 21 H Blood Pressure 160/87 H Pulse Oximetry 96 Oxygen Delivery Intake/Output Intake/Output: Intake & Output 05/29/25 05/30/25 05/31/25 06/01/25 23:59 23:59 23:59 23:59 Intake Total 1600 1260 200 Output Total 500 1250 1200 Balance 1100 10 -1000 Meds/Results Medications: Active Medications Generic Name Dose Route Start Last Admin Trade Name Freq PRN Reason Stop Dose Admin Acetaminophen 650 mg 05/31/25 16:00 05/31/25 21:47 Acetaminophen 325 Mg Tablet PO 650 mg Q4H PRN Administration Mild Pain (1-3) or Fever Amlodipine Besylate 10 mg 06/01/25 09:00 Amlodipine Besylate 10 Mg Tablet PO DAILY IVON Cyclosporine 1 drop 05/30/25 21:00 05/31/25 21:00 Cyclosporine 0.4 Ml Ophth Solution EACH EYE 1 drop Q12H IVON Administration Estradiol 0 applic 06/02/25 21:00 Estradiol Vaginal Cream 42.5 Gm VAGINAL [email or web address]@[facility] Hydralazine HCl 20 mg 05/30/25 18:29 Hydralazine Hcl 20 Mg/Ml Vial IV PUSH Q4H PRN Blood Pressure - High Losartan Potassium 50 mg 05/31/25 09:00 05/31/25 08:44 Losartan Potassium 50 Mg Tablet PO 50 mg DAILY IVON Administration Pantoprazole Sodium 40 mg 05/31/25 09:00 05/31/25 08:45 Pantoprazole 40 Mg Tablet PO 40 mg QAM IVON Administration Simvastatin 40 mg 05/31/25 09:00 05/31/25 08:45 Simvastatin 20 Mg Tablet PO 40 mg DAILY IVON Administration Radiology Results: ITS Impressions Chest X-Ray 05/31/25 14:42 IMPRESSION: No acute cardiopulmonary process. Labs Labs: Laboratory Results - last 24 hr 06/01/25 03:26 WBC 3.8 L RBC 4.14 L Hgb 13.0 Hct 39.9 MCV 96.4 MCH 31.4 MCHC 32.6 RDW 12.9 Plt Count 214 MPV 10.1 Sodium 134 L Potassium 4.4 Chloride 103 Carbon Dioxide 25 Anion Gap 6 BUN 20 H Creatinine 1.01 H Estim Creat Clear Calc 40 Estimated GFR 53 L Glucose 94 Calcium 9.7 Phosphorus 3.6 Magnesium 2.1 Total Bilirubin 0.3 AST 40 H ALT 41 H Alkaline Phosphatase 75 Total Protein 6.8 Albumin 3.8
--- NOTE | 2025-06-01 11:54 | PM.PNCARD ---
Progress Note: A&P Assessment and Plan (1) Third degree heart block: Code(s): I44.2 - Atrioventricular block, complete Status: Acute (2) Elevated troponin: Code(s): R79.89 - Other specified abnormal findings of blood chemistry Status: Acute Plan High-grade AV block with recurrent syncope s/p transvenous temporary pacemaker; TSH on 05/26 within normal limits Elevated troponin without chest pain-most likely demand ischemia secondary to above Hypertension-controlled Plan She had recurrent episodes of syncope and noted to have high-grade AV block requiring temporary pacemaker. She is currently bradycardic with heart rates in the low 50s with temporary pacemaker set at 50 beats per minute EP consult for Permanent pacemaker placement. Keep NPO TTE Trend troponin to peak Recommend ischemia evaluation with an outpatient stress test once she recovers from her acute illness Check and replace electrolytes to keep potassium greater than 4 and magnesium greater than 2 Continue amlodipine and losartan for blood pressure control Continue statin Avoid AV oleg blocking agents Cardiology will continue to follow Subjective Date/time seen: 06/01/25 11:54 Interval history: Reason for encounter: Multiple episodes of syncope, complete heart block status post temporary transvenous pacemaker placement Interval history: No chest pain, shortness of breath, dizziness, fever, chills. Telemetry now showing sinus rhythm with rates in the 50s. Pacemaker backup rate is set at 50. Review of Systems Cardiovascular: Comments: As per HPI Respiratory: Comments: As per HPI Exam Narrative: General: Alert oriented x3, no acute distress Neck: Supple, no JVD Chest: Bilaterally clear to auscultation, no rales or rhonchi Cardiac: S1, S2 +, regular rate, regular rhythm, no murmurs or rubs Extremities: No pedal edema, no skin rash Neurologic: Alert and oriented x3, no focal neurological deficits Objective Data Vital Signs Vital Signs: Vital Signs - 24 hr 05/31/25 12:00 05/31/25 12:00 05/31/25 14:00 Temperature 36.9 C Pulse Rate 67 74 71 Respiratory Rate 16 Blood Pressure 141/57 H Pulse Oximetry 98 Oxygen Delivery 05/31/25 14:00 05/31/25 16:00 05/31/25 16:00 Temperature 37.9 C H Pulse Rate 71 50 L 50 L Respiratory Rate 21 H 21 H Blood Pressure 129/52 L 151/54 H Pulse Oximetry 95 95 Oxygen Delivery 05/31/25 18:00 05/31/25 18:00 05/31/25 20:00 Temperature 36.5 C Pulse Rate 50 L 50 L 56 L Respiratory Rate 20 25 H Blood Pressure 133/55 L 109/85 Pulse Oximetry 98 93 Oxygen Delivery 05/31/25 20:00 05/31/25 20:00 05/31/25 22:00 Temperature Pulse Rate 58 L 62 Respiratory Rate 20 Blood Pressure 146/61 H Pulse Oximetry 100 Oxygen Delivery Room Air 05/31/25 22:00 05/31/25 22:30 06/01/25 00:00 Temperature 36.4 C Pulse Rate 72 69 81 Respiratory Rate 16 Blood Pressure 142/67 H Pulse Oximetry 97 98 Oxygen Delivery CPAP 06/01/25 00:00 06/01/25 00:00 06/01/25 02:00 Temperature Pulse Rate 74 80 Respiratory Rate Blood Pressure Pulse Oximetry Oxygen Delivery Room Air 06/01/25 02:00 06/01/25 02:14 06/01/25 04:00 Temperature Pulse Rate 88 69 69 Respiratory Rate 18 Blood Pressure 175/88 H Pulse Oximetry 97 97 Oxygen Delivery CPAP 06/01/25 04:00 06/01/25 04:00 06/01/25 06:00 Temperature 36.9 C Pulse Rate 70 67 Respiratory Rate 17 Blood Pressure 163/73 H Pulse Oximetry 96 Oxygen Delivery Room Air 06/01/25 06:00 06/01/25 08:00 06/01/25 08:00 Temperature Pulse Rate 74 56 L 80 Respiratory Rate 21 H 22 H Blood Pressure 160/87 H Pulse Oximetry 96 97 Oxygen Delivery Room Air 06/01/25 08:00 06/01/25 10:00 06/01/25 10:00 Temperature 36.7 C Pulse Rate 67 52 L 52 L Respiratory Rate 20 21 H Blood Pressure 179/71 H 136/56 L Pulse Oximetry 98 98 Oxygen Delivery Intake/Output Intake/Output: Intake & Output 05/29/25 05/30/25 05/31/25 06/01/25 23:59 23:59 23:59 23:59 Intake Total 1600 1260 200 Output Total 500 1250 1200 Balance 1100 10 -1000 Meds/Results Medications: Active Medications Generic Name Dose Route Start Last Admin Trade Name Freq PRN Reason Stop Dose Admin Acetaminophen 650 mg 05/31/25 16:00 05/31/25 21:47 Acetaminophen 325 Mg Tablet PO 650 mg Q4H PRN Administration Mild Pain (1-3) or Fever Amlodipine Besylate 10 mg 06/01/25 09:00 06/01/25 07:55 Amlodipine Besylate 10 Mg Tablet PO 10 mg DAILY IVON Administration Cyclosporine 1 drop 05/30/25 21:00 06/01/25 07:55 Cyclosporine 0.4 Ml Ophth Solution EACH EYE 1 drop Q12H IVON Administration Estradiol 0 applic 06/02/25 21:00 Estradiol Vaginal Cream 42.5 Gm VAGINAL [email or web address] Hydralazine HCl 20 mg 05/30/25 18:29 06/01/25 08:05 Hydralazine Hcl 20 Mg/Ml Vial IV PUSH 20 mg Q4H PRN Administration Blood Pressure - High Losartan Potassium 50 mg 05/31/25 09:00 06/01/25 07:55 Losartan Potassium 50 Mg Tablet PO 50 mg DAILY IVON Administration Pantoprazole Sodium 40 mg 05/31/25 09:00 06/01/25 07:55 Pantoprazole 40 Mg Tablet PO 40 mg QAM IVON Administration Perflutren Lipid Microsphere 0 ml 06/01/25 09:09 Perflutren Lipid Microspheres 1.5 Ml Vial Diluted To 10 Ml Total Volume IV PUSH 06/04/25 09:12 ONCE PRN adequate visualization Protocol Simvastatin 40 mg 05/31/25 09:00 06/01/25 07:55 Simvastatin 20 Mg Tablet PO 40 mg DAILY IVON Administration Radiology Results: ITS Impressions Chest X-Ray 05/31/25 14:42 IMPRESSION: No acute cardiopulmonary process. Labs Labs: Laboratory Results - last 24 hr 06/01/25 03:26 WBC 3.8 L RBC 4.14 L Hgb 13.0 Hct 39.9 MCV 96.4 MCH 31.4 MCHC 32.6 RDW 12.9 Plt Count 214 MPV 10.1 Sodium 134 L Potassium 4.4 Chloride 103 Carbon Dioxide 25 Anion Gap 6 BUN 20 H Creatinine 1.01 H Estim Creat Clear Calc 40 Estimated GFR 53 L Glucose 94 Calcium 9.7 Phosphorus 3.6 Magnesium 2.1 Total Bilirubin 0.3 AST 40 H ALT 41 H Alkaline Phosphatase 75 Total Protein 6.8 Albumin 3.8
[2025-06-01] MEDS: PERFLUTREN LIPID MICROSPHERES 1.5 ML VIAL DILUTED TO 10 ML TOTAL VOLUME IV PUSH (13:30)
--- NOTE | 2025-06-01 18:11 | PM.IMPN ---
Progress Note: A&P Assessment and Plan (1) Syncope: Qualifiers: Syncope type: unspecified Qualified Code(s): R55 - Syncope and collapse Code(s): R55 - Syncope and collapse Status: Acute Assessment and Plan: Syncope secondary to complete heart block and bradycardia. Patient now and is status post transvenous pacemaker placement. She is in and out of sinus rhythm Electrolytes are in acceptable range Cardiology consulted with plans for permanent PM placement. Low grade temp noted. CXR clear. UA negative for UTI. Plan for permanent pacemaker as per Cardiology ICU telemetry monitoring. Monitor temp curve (2) Third degree heart block: Code(s): I44.2 - Atrioventricular block, complete Status: Acute Assessment and Plan: See above (3) Hypertension: Qualifiers: Hypertension type: essential hypertension Qualified Code(s): I10 - Essential (primary) hypertension Code(s): I10 - Essential (primary) hypertension Status: Chronic Assessment and Plan: Patient's blood pressure was reviewed on 06/01 Blood pressure better controlled. Will continue to monitor (4) Severe obstructive sleep apnea: Code(s): G47.33 - Obstructive sleep apnea (adult) (pediatric) Status: Acute Assessment and Plan: Home CPAP ordered (5) UTI (urinary tract infection): Qualifiers: Urinary tract infection type: acute cystitis Hematuria presence: without hematuria Qualified Code(s): N30.00 - Acute cystitis without hematuria Code(s): N39.0 - Urinary tract infection, site not specified Status: Suspected Assessment and Plan: Last admission, patient with UA suspicious for UTI however may be contaminant as there are occasional epithelial cells. UCx positive for coagulase negative Staphylococcus, not saprophyticus. Discussed with ID pharmacist possible antibiotic coverage, agreed with additional coverage using Bactrim. Patient was discharged on 05/27 with Bactrim Q12h for 9 more doses. Last dose should be the evening of 05/31/25. Plan DVT prophylaxis -SCD, Lovenox Stress ulcer prophylaxis -continue home PPI Nutrition -heart healthy diet Code Status - Full Code Subjective Date/time seen: 06/01/25 18:11 Interval history: 80yo female with 2nd degree AV block/AV node dysfunction, anxiety, JAY, anemia, HTN, HLD and migraines presents here with recurrent syncope. BP elevated so norvasc advanced. No issues overnight. she is anxious about the upcoming procedure. No CP or SOB. Wore her CPAP last noc Exam Narrative: AF 98.6 146/47 50 21 98% ra Gen - NARD Chest - CTA bilaterally, nml RR CV - irregular, bradycardic. Tele showing intermittent paced and sinus bradycardia Abd - Soft, NT/ND, Positive BS Ext - No pedal edema Psych - Nml mood and affect Skin - Warm and dry Objective Data Vital Signs Vital Signs: Vital Signs - 24 hr 05/31/25 20:00 05/31/25 20:00 05/31/25 20:00 Temperature 97.7 F Pulse Rate 56 L 58 L Respiratory Rate 25 H Blood Pressure 109/85 Pulse Oximetry 93 Oxygen Delivery Room Air 05/31/25 22:00 05/31/25 22:00 05/31/25 22:30 Temperature Pulse Rate 62 72 69 Respiratory Rate 20 Blood Pressure 146/61 H Pulse Oximetry 100 97 Oxygen Delivery CPAP 06/01/25 00:00 06/01/25 00:00 06/01/25 00:00 Temperature 97.6 F Pulse Rate 81 74 Respiratory Rate 16 Blood Pressure 142/67 H Pulse Oximetry 98 Oxygen Delivery Room Air 06/01/25 02:00 06/01/25 02:00 06/01/25 02:14 Temperature Pulse Rate 80 88 69 Respiratory Rate 18 Blood Pressure 175/88 H Pulse Oximetry 97 97 Oxygen Delivery CPAP 06/01/25 04:00 06/01/25 04:00 06/01/25 04:00 Temperature 98.4 F Pulse Rate 69 70 Respiratory Rate 17 Blood Pressure 163/73 H Pulse Oximetry 96 Oxygen Delivery Room Air 06/01/25 06:00 06/01/25 06:00 06/01/25 08:00 Temperature Pulse Rate 67 74 56 L Respiratory Rate 21 H 22 H Blood Pressure 160/87 H Pulse Oximetry 96 97 Oxygen Delivery Room Air 06/01/25 08:00 06/01/25 08:00 06/01/25 10:00 Temperature 98.0 F Pulse Rate 80 67 52 L Respiratory Rate 20 Blood Pressure 179/71 H Pulse Oximetry 98 Oxygen Delivery 06/01/25 10:00 06/01/25 12:00 06/01/25 12:00 Temperature Pulse Rate 52 L 52 L 53 L Respiratory Rate 21 H 21 H Blood Pressure 136/56 L Pulse Oximetry 98 98 Oxygen Delivery Room Air 06/01/25 12:00 06/01/25 14:00 06/01/25 14:01 Temperature 98.3 F Pulse Rate 53 L 51 L 51 L Respiratory Rate 24 H 23 H Blood Pressure 139/41 L 140/47 L Pulse Oximetry 97 91 Oxygen Delivery 06/01/25 16:00 06/01/25 16:00 06/01/25 16:01 Temperature 98.6 F Pulse Rate 53 L 50 L 50 L Respiratory Rate 24 H 21 H Blood Pressure 146/47 H Pulse Oximetry 97 98 Oxygen Delivery Room Air Intake/Output Intake/Output: Intake & Output 05/29/25 05/30/25 05/31/25 06/01/25 23:59 23:59 23:59 23:59 Intake Total 1600 1260 1320 Output Total 500 1250 1950 Balance 1100 10 -630 Meds/Results Medications: Active Medications Generic Name Dose Route Start Last Admin Trade Name Freq PRN Reason Stop Dose Admin Acetaminophen 650 mg 05/31/25 16:00 05/31/25 21:47 Acetaminophen 325 Mg Tablet PO 650 mg Q4H PRN Administration Mild Pain (1-3) or Fever Amlodipine Besylate 10 mg 06/01/25 09:00 06/01/25 07:55 Amlodipine Besylate 10 Mg Tablet PO 10 mg DAILY IVON Administration Cyclosporine 1 drop 05/30/25 21:00 06/01/25 07:55 Cyclosporine 0.4 Ml Ophth Solution EACH EYE 1 drop Q12H IVON Administration Estradiol 0 applic 06/02/25 21:00 Estradiol Vaginal Cream 42.5 Gm VAGINAL TuFr@[facility] Hydralazine HCl 20 mg 05/30/25 18:29 06/01/25 08:05 Hydralazine Hcl 20 Mg/Ml Vial IV PUSH 20 mg Q4H PRN Administration Blood Pressure - High Losartan Potassium 50 mg 05/31/25 09:00 06/01/25 07:55 Losartan Potassium 50 Mg Tablet PO 50 mg DAILY IVON Administration Pantoprazole Sodium 40 mg 05/31/25 09:00 06/01/25 07:55 Pantoprazole 40 Mg Tablet PO 40 mg QAM IVON Administration Perflutren Lipid Microsphere 0 ml 06/01/25 09:09 Perflutren Lipid Microspheres 1.5 Ml Vial Diluted To 10 Ml Total Volume IV PUSH 06/04/25 09:12 ONCE PRN adequate visualization Protocol Simvastatin 40 mg 05/31/25 09:00 06/01/25 07:55 Simvastatin 20 Mg Tablet PO 40 mg DAILY IVON Administration Radiology Results: ITS Impressions Chest X-Ray 05/31/25 14:42 IMPRESSION: No acute cardiopulmonary process. Labs Labs: Laboratory Results - last 24 hr 06/01/25 03:26 WBC 3.8 L RBC 4.14 L Hgb 13.0 Hct 39.9 MCV 96.4 MCH 31.4 MCHC 32.6 RDW 12.9 Plt Count 214 MPV 10.1 Sodium 134 L Potassium 4.4 Chloride 103 Carbon Dioxide 25 Anion Gap 6 BUN 20 H Creatinine 1.01 H Estim Creat Clear Calc 40 Estimated GFR 53 L Glucose 94 Calcium 9.7 Phosphorus 3.6 Magnesium 2.1 Total Bilirubin 0.3 AST 40 H ALT 41 H Alkaline Phosphatase 75 Total Protein 6.8 Albumin 3.8
[2025-06-02] VITALS (33 sets, daily range): BP systolic 110–150; BP diastolic 51–96; PULSE 57–78; RESP 14–93; TEMP 36.4–37.1; O2SAT 16–100
[2025-06-02 04:48] LABS: Hematocrit 43.4 % (37.0-47.0); Hemoglobin 14.0 g/dL (12.0-15.0); Mean Corpuscular HGB Conc 32.3 g/dl (32-36); Mean Corpuscular Hemoglobin 31.5 pg (26-34); Mean Corpuscular Volume 97.5 fl (80-100); Platelet Count Result 209 k/mm3 (150-375); Red Blood Count 4.45 M/mm3 (4.2-5.4); White Blood Count 3.5 K/mm3 (4.5-10.0)
[2025-06-02 05:02] LABS: Alanine Aminotransferase 39 U/L (6-35); Albumin Level 4.1 g/dL (3.5-5.1); Alkaline Phosphatase 79 U/L (38-126); Anion Gap 8 mmol/L (4-12); Aspartate Amino Transferase 39 U/L (14-36); Bilirubin,Total 0.3 mg/dL (0.2-1.3); Blood Urea Nitrogen 24 mg/dL (7-17); Calcium 10.0 mg/dL (8.4-10.2); Carbon Dioxide 25 mmol/L (22-30); Chloride 102 mmol/L (98-107); Estimated CRCL calculation 39 ml/min; Estimated Glomerular Filt Rate 50; Glucose 105 mg/dL (65-110); Magnesium 2.2 mg/dL (1.6-2.3); Potassium 4.4 mmol/L (3.4-5.0); Sodium 135 mmol/L (137-145); Total Protein 7.2 g/dL (6.3-8.2)
--- NOTE | 2025-06-02 06:47 | PM.PNCARD ---
Progress Note: A&P Assessment and Plan (1) Third degree heart block: Code(s): I44.2 - Atrioventricular block, complete Status: Acute (2) Elevated troponin: Code(s): R79.89 - Other specified abnormal findings of blood chemistry Status: Acute Plan -High-grade AV block with recurrent syncope s/p transvenous temporary pacemaker; TSH on 05/26 within normal limits -Echogenic density on the LCC leaflet 0.6 x 0.5 cm- most likely a calcified nodule. Differentials include vegetation, atheroma, thrombus -Elevated troponin (0.037, 0.063) without chest pain -Hypertension-controlled Plan -The density on her left coronary cusp is most likely a calcified nodule based on appearance. Vegetation is unlikely based on patient's presentation -Permanent pacemaker placement today -Recommend ischemia evaluation with an outpatient stress test once she recovers from her acute illness -Check and replace electrolytes to keep potassium greater than 4 and magnesium greater than 2 -Continue amlodipine and losartan for blood pressure control -Continue statin -Outpatient stress test after she recovers from her acute illness Subjective Date/time seen: 06/02/25 06:47 Interval history: Reason for encounter: Multiple episodes of syncope, complete heart block status post temporary transvenous pacemaker placement Interval history: No chest pain, shortness of breath, palpitations, fever, chills, nausea, abdominal pain. Permanent pacemaker placement scheduled for today. Review of Systems Cardiovascular: Comments: As per HPI Respiratory: Comments: As per HPI Exam Narrative: General: Alert oriented x3, no acute distress Neck: Supple, no JVD Chest: Bilaterally clear to auscultation, no rales or rhonchi Cardiac: S1, S2 +, regular rate, regular rhythm, no murmurs or rubs Extremities: No pedal edema, no skin rash Neurologic: Alert and oriented x3, no focal neurological deficits Objective Data Vital Signs Vital Signs: Vital Signs - 24 hr 06/01/25 08:00 06/01/25 08:00 06/01/25 08:00 Temperature 36.7 C Pulse Rate 56 L 80 67 Respiratory Rate 22 H 20 Blood Pressure 179/71 H Pulse Oximetry 97 98 Oxygen Delivery Room Air 06/01/25 10:00 06/01/25 10:00 06/01/25 12:00 Temperature Pulse Rate 52 L 52 L 52 L Respiratory Rate 21 H 21 H Blood Pressure 136/56 L Pulse Oximetry 98 98 Oxygen Delivery Room Air 06/01/25 12:00 06/01/25 12:00 06/01/25 14:00 Temperature 36.8 C Pulse Rate 53 L 53 L 51 L Respiratory Rate 24 H Blood Pressure 139/41 L Pulse Oximetry 97 Oxygen Delivery 06/01/25 14:01 06/01/25 16:00 06/01/25 16:00 Temperature Pulse Rate 51 L 53 L 50 L Respiratory Rate 23 H 24 H Blood Pressure 140/47 L Pulse Oximetry 91 97 Oxygen Delivery Room Air 06/01/25 16:01 06/01/25 18:00 06/01/25 18:00 Temperature 37.0 C Pulse Rate 50 L 50 L 50 L Respiratory Rate 21 H 26 H Blood Pressure 146/47 H 127/50 L Pulse Oximetry 98 96 Oxygen Delivery 06/01/25 20:00 06/01/25 20:00 06/01/25 20:00 Temperature 37.1 C Pulse Rate 50 L 50 L 52 L Respiratory Rate 22 H 25 H Blood Pressure 137/51 L Pulse Oximetry 91 93 Oxygen Delivery Room Air 06/01/25 22:00 06/01/25 22:00 06/02/25 00:00 Temperature Pulse Rate 57 L 52 L 62 Respiratory Rate 25 H Blood Pressure 133/49 L Pulse Oximetry 93 Oxygen Delivery 06/02/25 00:00 06/02/25 00:00 06/02/25 02:00 Temperature 37.1 C Pulse Rate 68 57 L 57 L Respiratory Rate 21 H 22 H Blood Pressure 117/53 L Pulse Oximetry 92 93 Oxygen Delivery Room Air 06/02/25 02:00 06/02/25 04:00 06/02/25 04:00 Temperature 36.5 C Pulse Rate 62 67 66 Respiratory Rate 93 H 93 H Blood Pressure 125/56 L 122/58 L Pulse Oximetry 22 L 16 L Oxygen Delivery 06/02/25 04:00 06/02/25 06:00 06/02/25 06:00 Temperature Pulse Rate 64 73 73 Respiratory Rate 20 14 Blood Pressure 127/57 L Pulse Oximetry 93 96 Oxygen Delivery Room Air Intake/Output Intake/Output: Intake & Output 05/30/25 05/31/25 06/01/25 06/02/25 23:59 23:59 23:59 23:59 Intake Total 1600 1260 2110 300 Output Total 500 1250 1950 500 Balance 1100 10 160 -200 Meds/Results Medications: Active Medications Generic Name Dose Route Start Last Admin Trade Name Windy PRN Reason Stop Dose Admin Acetaminophen 650 mg 05/31/25 16:00 05/31/25 21:47 Acetaminophen 325 Mg Tablet PO 650 mg Q4H PRN Administration Mild Pain (1-3) or Fever Amlodipine Besylate 10 mg 06/01/25 09:00 06/01/25 07:55 Amlodipine Besylate 10 Mg Tablet PO 10 mg DAILY IVON Administration Cyclosporine 1 drop 05/30/25 21:00 06/01/25 21:02 Cyclosporine 0.4 Ml Ophth Solution EACH EYE 1 drop Q12H IVON Administration Estradiol 0 applic 06/02/25 21:00 Estradiol Vaginal Cream 42.5 Gm VAGINAL TuFr@[facility] Hydralazine HCl 20 mg 05/30/25 18:29 06/01/25 08:05 Hydralazine Hcl 20 Mg/Ml Vial IV PUSH 20 mg Q4H PRN Administration Blood Pressure - High Losartan Potassium 50 mg 05/31/25 09:00 06/01/25 07:55 Losartan Potassium 50 Mg Tablet PO 50 mg DAILY IVON Administration Pantoprazole Sodium 40 mg 05/31/25 09:00 06/01/25 07:55 Pantoprazole 40 Mg Tablet PO 40 mg QAM IVON Administration Perflutren Lipid Microsphere 0 ml 06/01/25 09:09 Perflutren Lipid Microspheres 1.5 Ml Vial Diluted To 10 Ml Total Volume IV PUSH 06/04/25 09:12 ONCE PRN adequate visualization Protocol Simvastatin 40 mg 05/31/25 09:00 06/01/25 07:55 Simvastatin 20 Mg Tablet PO 40 mg DAILY IVON Administration Radiology Results: ITS Impressions Chest X-Ray 05/31/25 14:42 IMPRESSION: No acute cardiopulmonary process. Labs Labs: Laboratory Results - last 24 hr 06/02/25 04:24 WBC 3.5 L RBC 4.45 Hgb 14.0 Hct 43.4 MCV 97.5 MCH 31.5 MCHC 32.3 RDW 13.2 Plt Count 209 MPV 10.8 H Sodium 135 L Potassium 4.4 Chloride 102 Carbon Dioxide 25 Anion Gap 8 BUN 24 H Creatinine 1.05 H Estim Creat Clear Calc 39 Estimated GFR 50 L Glucose 105 Calcium 10.0 Phosphorus 4.4 Magnesium 2.2 Total Bilirubin 0.3 AST 39 H ALT 39 H Alkaline Phosphatase 79 Total Protein 7.2 Albumin 4.1
--- NOTE | 2025-06-02 07:05 | PC.NURSE ---
Pt to cathode maker via bed for permanent pacemaker placement, and removal of temporary pacemaker
--- NOTE | 2025-06-02 07:12 | P.SEDATION_ITS ---
Moderate Sedation Note-Pt Data Patient Data Diagnosis: Acquired complete heart block with syncope Present Complaint: Syncope Procedure to be performed/Plan: Pacemaker implantation Allergies Allergy/AdvReac Type Severity Reaction Status Date / Time lisinopril Allergy Severe Angioedema Verified 05/30/25 15:52 SIOBHAN Inhibitors Allergy Unknown Angioedema Verified 05/30/25 15:52 aspirin AdvReac Mild Irritable Verified 05/30/25 15:52 pregabalin AdvReac dizziness, Verified 05/30/25 15:52 dry mouth Home Medications ?Medication ?Instructions ?Recorded ?Confirmed ?Type acetaminophen 650 mg 1,000 mg PO Q8H Pain 08/02/22 05/30/25 History tablet,extended release (Arthritis Pain Reliever) cyclosporine 0.05 % eye drops in a 1 drp EACH EYE Q12H 03/11/25 05/30/25 History dropperette (Restasis) evening primrose oil 500 mg capsule 1,000 mg PO DAILY 03/11/25 05/30/25 History fluticasone propionate 93 2 spray intranasal Q12H PRN 03/11/25 05/30/25 History mcg/actuation breath activated allergy symptoms aerosol (Xhance) buspirone 10 mg tablet 10 mg PO BID #180 tabs 03/25/25 05/30/25 Rx duloxetine 60 mg capsule,delayed See Rx Instructions .Route 03/25/25 05/30/25 Rx release .COMPLEX #90 caps ferrous sulfate 325 mg (65 mg See Rx Instructions .Route 03/25/25 05/30/25 Rx iron) tablet (FeroSul) .COMPLEX #90 tabs losartan 50 mg tablet See Rx Instructions .Route 03/25/25 05/30/25 Rx .COMPLEX #90 tabs omeprazole 20 mg capsule,delayed 20 mg PO DAILY #90 caps 03/25/25 05/30/25 Rx release lorazepam 0.5 mg tablet (Ativan) 0.5 mg PO TID PRN anxiety #10 tabs 04/22/25 05/30/25 Rx simvastatin 40 mg tablet 40 mg PO DAILY #90 tabs 04/29/25 05/30/25 Rx meclizine 25 mg tablet 25 mg PO TID PRN dizziness #30 tabs 05/04/25 05/30/25 Rx solriamfetol 150 mg tablet (Sunosi) 150 mg PO DAILY #90 tabs 05/11/25 05/30/25 Rx cholecalciferol (vitamin D3) 125 50,000 unit PO WEEKLY 05/25/25 05/30/25 History mcg (5,000 unit) capsule estradiol 0.01% (0.1 mg/gram) 1 g vaginal .twice a week 05/25/25 05/30/25 History vaginal cream mirabegron 50 mg tablet,extended 50 mg PO Q24H 05/25/25 05/30/25 History release 24 hr sulfamethoxazole 800 1 tablet PO Q12H #9 tabs 05/27/25 05/30/25 Rx mg-trimethoprim 160 mg tablet (Bactrim DS) Current Medications: Active Medications Acetaminophen (Acetaminophen 325 Mg Tablet) 650 mg PO Q4H PRN PRN Reason: Mild Pain (1-3) or Fever Last Admin: 05/31/25 21:47 Dose: 650 mg Amlodipine Besylate (Amlodipine Besylate 10 Mg Tablet) 10 mg PO DAILY [facility] Last Admin: 06/01/25 07:55 Dose: 10 mg Cyclosporine (Cyclosporine 0.4 Ml Ophth Solution) 1 drop EACH EYE Q12H [facility] Last Admin: 06/01/25 21:02 Dose: 1 drop Estradiol (Estradiol Vaginal Cream 42.5 Gm) 0 applic VAGINAL TuFr@[facility] Hydralazine HCl (Hydralazine Hcl 20 Mg/Ml Vial) 20 mg IV PUSH Q4H PRN PRN Reason: Blood Pressure - High Last Admin: 06/01/25 08:05 Dose: 20 mg Losartan Potassium (Losartan Potassium 50 Mg Tablet) 50 mg PO DAILY [facility] Last Admin: 06/01/25 07:55 Dose: 50 mg Pantoprazole Sodium (Pantoprazole 40 Mg Tablet) 40 mg PO QAM [facility] Last Admin: 06/01/25 07:55 Dose: 40 mg Perflutren Lipid Microsphere (Perflutren Lipid Microspheres 1.5 Ml Vial Diluted To 10 Ml Total Volume) 0 ml IV PUSH ONCE PRN; Protocol PRN Reason: adequate visualization Stop: 06/04/25 09:12 Simvastatin (Simvastatin 20 Mg Tablet) 40 mg PO DAILY [facility] Last Admin: 06/01/25 07:55 Dose: 40 mg Sedation/Anesthesia: No previous sedation/anesthesia problems (including family history). [facility] Past Medical History Medical History Tinnitus chronic Sleep attack Raciel Robbins infection Leg length discrepancy Exudative tonsillitis Excessive daytime sleepiness JAY on CPAP COVID-19 BMI greater than 30 Neuropathy Colonoscopy planned Adenomatous colon polyp Anemia, unspecified Colonic mass Hx of hemorrhoids Had what sounds like hemorrhoidal banding about 5-7 years ago in [place]. Anxiety Hypertension Cerebrovascular disease Reports she saw ENT for tinnitus who told her she had atherosclerotic plaque in her head and prescribed Plavix 5 years ago. Has not followed up with that provider. Vitamin D deficiency Generalized anxiety disorder with panic attacks Hyperlipidemia Migraines Severe obstructive sleep apnea Surgical History Surgical History History of left hip replacement Around 2015 History of arthroscopy of both knees History of hysterectomy for benign disease Vaginal hysterectomy in her 30's. Status post LASIK surgery History of bladder suspension procedure History of cataract surgery The patient denies history cataract surgery but it appears patient has artificial lenses on exam History of colonoscopy with polypectomy Colonoscopy by Dr. Lozano in June 2004. Patient reports having a more recent Colonoscopy in an Ambulatory surgery center in [place] about 5-6 years ago. History of benign polypectomy. Family History Family History Mother Alcoholism Esophageal varices Stomach rupture Sibling Hypertension Psychiatric diagnosis The patient's sister tried to kill the patient at one time. Father , The patient reports her father froze to when his furnace when out when he was 89 years old. Over 80 years old Sibling TBI (traumatic brain injury) Seizures Other Family history of arthritis Family history of mental disorder Social History Social History Social History: Primary care physician: Dr. Albright Code status: Full code Patient is with adult children. She lives at home with her . She is retired and was previously worked at a pre-school. 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 Gender identity (if verbalized by the patient): Female Spiritual care concerns: No Mod Sed Physical Exam Physical Exam Pre Procedural Exam: Normal: Appearance (Pleasant healthy-looking elderly lady), Airway, Lungs, Heart Size, Heart Rate, Heart Rhythm (Electronically paced rhythm), Neuro Exam and Extremities Hours since solid foods: 12 Hours since liquid intake: 12 Mallampati Classification: class II Internal Medicine - PN: Obj Da Vital Signs Vital Signs: Vital Signs - 24 hr 06/01/25 08:00 06/01/25 08:00 06/01/25 08:00 Temperature 36.7 C Pulse Rate 56 L 80 67 Respiratory Rate 22 H 20 Blood Pressure 179/71 H Pulse Oximetry 97 98 Oxygen Delivery Room Air 06/01/25 10:00 06/01/25 10:00 06/01/25 12:00 Temperature Pulse Rate 52 L 52 L 52 L Respiratory Rate 21 H 21 H Blood Pressure 136/56 L Pulse Oximetry 98 98 Oxygen Delivery Room Air 06/01/25 12:00 06/01/25 12:00 06/01/25 14:00 Temperature 36.8 C Pulse Rate 53 L 53 L 51 L Respiratory Rate 24 H Blood Pressure 139/41 L Pulse Oximetry 97 Oxygen Delivery 06/01/25 14:01 06/01/25 16:00 06/01/25 16:00 Temperature Pulse Rate 51 L 53 L 50 L Respiratory Rate 23 H 24 H Blood Pressure 140/47 L Pulse Oximetry 91 97 Oxygen Delivery Room Air 06/01/25 16:01 06/01/25 18:00 06/01/25 18:00 Temperature 37.0 C Pulse Rate 50 L 50 L 50 L Respiratory Rate 21 H 26 H Blood Pressure 146/47 H 127/50 L Pulse Oximetry 98 96 Oxygen Delivery 06/01/25 20:00 06/01/25 20:00 06/01/25 20:00 Temperature 37.1 C Pulse Rate 50 L 50 L 52 L Respiratory Rate 22 H 25 H Blood Pressure 137/51 L Pulse Oximetry 91 93 Oxygen Delivery Room Air 06/01/25 22:00 06/01/25 22:00 06/02/25 00:00 Temperature Pulse Rate 57 L 52 L 62 Respiratory Rate 25 H Blood Pressure 133/49 L Pulse Oximetry 93 Oxygen Delivery 06/02/25 00:00 06/02/25 00:00 06/02/25 02:00 Temperature 37.1 C Pulse Rate 68 57 L 57 L Respiratory Rate 21 H 22 H Blood Pressure 117/53 L Pulse Oximetry 92 93 Oxygen Delivery Room Air 06/02/25 02:00 06/02/25 04:00 06/02/25 04:00 Temperature 36.5 C Pulse Rate 62 67 66 Respiratory Rate 93 H 93 H Blood Pressure 125/56 L 122/58 L Pulse Oximetry 22 L 16 L Oxygen Delivery 06/02/25 04:00 06/02/25 06:00 06/02/25 06:00 Temperature Pulse Rate 64 73 73 Respiratory Rate 20 14 Blood Pressure 127/57 L Pulse Oximetry 93 96 Oxygen Delivery Room Air Intake/Output Intake/Output: Intake & Output 05/30/25 05/31/25 06/01/25 06/02/25 23:59 23:59 23:59 23:59 Intake Total 1600 1260 2110 300 Output Total 500 1250 1950 500 Balance 1100 10 160 -200 Meds/Results Medications: Active Medications Generic Name Dose Route Start Last Admin Trade Name Freq PRN Reason Stop Dose Admin Acetaminophen 650 mg 05/31/25 16:00 05/31/25 21:47 Acetaminophen 325 Mg Tablet PO 650 mg Q4H PRN Administration Mild Pain (1-3) or Fever Amlodipine Besylate 10 mg 06/01/25 09:00 06/01/25 07:55 Amlodipine Besylate 10 Mg Tablet PO 10 mg DAILY IVON Administration Cyclosporine 1 drop 05/30/25 21:00 06/01/25 21:02 Cyclosporine 0.4 Ml Ophth Solution EACH EYE 1 drop Q12H IVON Administration Estradiol 0 applic 06/02/25 21:00 Estradiol Vaginal Cream 42.5 Gm VAGINAL TuFr@[facility] Hydralazine HCl 20 mg 05/30/25 18:29 06/01/25 08:05 Hydralazine Hcl 20 Mg/Ml Vial IV PUSH 20 mg Q4H PRN Administration Blood Pressure - High Losartan Potassium 50 mg 05/31/25 09:00 06/01/25 07:55 Losartan Potassium 50 Mg Tablet PO 50 mg DAILY IVON Administration Pantoprazole Sodium 40 mg 05/31/25 09:00 06/01/25 07:55 Pantoprazole 40 Mg Tablet PO 40 mg QAM IVON Administration Perflutren Lipid Microsphere 0 ml 06/01/25 09:09 Perflutren Lipid Microspheres 1.5 Ml Vial Diluted To 10 Ml Total Volume IV PUSH 06/04/25 09:12 ONCE PRN adequate visualization Protocol Simvastatin 40 mg 05/31/25 09:00 06/01/25 07:55 Simvastatin 20 Mg Tablet PO 40 mg DAILY IVON Administration Radiology Results: ITS Impressions Chest X-Ray 05/31/25 14:42 IMPRESSION: No acute cardiopulmonary process. Labs 06/02/25 04:24 06/02/25 04:24 Labs: Laboratory Results - last 24 hr 06/02/25 04:24 WBC 3.5 L RBC 4.45 Hgb 14.0 Hct 43.4 MCV 97.5 MCH 31.5 MCHC 32.3 RDW 13.2 Plt Count 209 MPV 10.8 H Sodium 135 L Potassium 4.4 Chloride 102 Carbon Dioxide 25 Anion Gap 8 BUN 24 H Creatinine 1.05 H Estim Creat Clear Calc 39 Estimated GFR 50 L Glucose 105 Calcium 10.0 Phosphorus 4.4 Magnesium 2.2 Total Bilirubin 0.3 AST 39 H ALT 39 H Alkaline Phosphatase 79 Total Protein 7.2 Albumin 4.1 ASA Classification/Sedation ASA Classification/Sedation ASA Class: III Emergent: No Risks: Risks, benefits and alternatives explained and patient/family accepted plan for sedation. Patient re-evaluated immediately prior to sedation.
--- NOTE | 2025-06-02 08:18 | ECG_ITS ---
Test Date: 2025-06-02 09:01:24 Measurements Intervals [place] Rate: 66 P: 72 MS: 228 QRS: 104 QRSD: 138 T: -67 QT: 411 QTc: 431 Interpretive Statements SINUS RHYTHM WITH FIRST-DEGREE AV BLOCK RIGHT BUNDLE BRANCH BLOCK LEFT POSTERIOR FASCICULAR BLOCK ABNORMAL ECG Compared to ECG 05/31/2025 14:38:34 PATIENT IS NOW CONDUCTING ONE-TO-ONE WITH FIRST-DEGREE AV BLOCK LEFT POSTERIOR FASCICULAR BLOCK IS SEEN, EVIDENCE OF TRIFASCICULAR DISEASE Electronically Signed On 06-03-2025 07:28:30 CDT by Turner Sepulvdea M.D.
--- NOTE | 2025-06-02 08:22 | P.PCNCC_ITS ---
Cardiac Cath Procedure Note Date of procedure:: 06/02/25 Performing physician:: Turner Sepulveda MD Indication:: Acquired complete heart block with syncope Brief clinical history:: This is an 80-year-old lady who has recent onset of syncopal symptoms. She has intermittent complete heart block also with bifascicular block. This has continued despite withdrawal of beta-genaro last week. Implantation of pa cemaker has therefore been recommended Procedure Procedure performed:: Implant permanent dual-chamber pacemaker Sedation/Medication given:: Fentanyl 50 mg Versed 2 mg Case start time 7:35 a.m. Case end time 8:15 a.m. Sedation provided by Davida García RN, trained observer Access site:: Left subclavian vein Estimated blood loss:: Minimal Procedure note:: Patient was brought to the cardiac catheterization lab in the postabsorptive state she had temporary pacemaker in the right IJ position. The left anterior chest wall was prepped and draped in the sterile fashion. 20 cc of lidocaine was infiltrated inferior to the clavicle for local anesthesia. Following this an incision was made from mid midclavicular line to the deltopectoral groove about 1 in below the clavicle. Sharp and blunt dissection used to separate the subcutaneous tissue exposing the prepectoral fascia. Blunt dissection was used to create a pacemaker pocket inferior to the incision along the fascial plane. The electrocautery was used to provide cutaneous hemostasis. Pocket was packed with an antibiotic soaked 4 x 4. Attention was then turned venous access. Using 2 safe sheaths the subclavian vein was punctured twice with a modified Seldinger technique and the pacemaker leads detailed below were advanced in the venous circulation to the level of the right atrium. Attention was then turned to positioning the ventricular lead. The stylet was withdrawn and a 3 cc syringe was used to for my J-tip stylet allowing me to steer the lead through the right ventricle out to the PA position. The straight stylet was placed back into the lead and it was then withdrawn and placed into the right ventricular apex. The fixation screw was deployed appropriate pacing and sensing performance was demonstrated. A 10 volts stimulation showed no evidence of extracardiac stimulation. Following this attention was turned to positioning the atrial lead. The stylet was withdrawn and a preformed atrial J stylet was placed advanced into the lead positioning and into the right atrial appendage. Following this the fixation screw was deployed and upon withdrawal of the screw the stylet the lead tip was fixed into position. Once again appropriate pacing and sensing performance was demonstrated and a 10 volts stimulus also showed no sign of extracardiac stimulation. After this the leads were secured to the base of the pocket using the suture sleeves and 2-0 silk ties. The retained sponge was pocket was irrigated with antibiotic infused saline. Pacemaker generator was connected to the leads using the torque wrench and the entire assembly was placed into the newly created pocket. Pocket was then closed in layers using 3- 0 Vicryl in an interrupted fashion for the subcutaneous tissue 4-0 Vicryl in a running subcuticular fashion for the skin. An Aquacel dressing was placed patient was at the left arm placed in an immobilizer was taken back to the ICU for post implant recovery. The after the implant under fluoroscopic visualization the temporary right IJ pacemaker was removed. The procedure was well tolerated and there were no apparent complications Findings:: Patient received a Biotronik dual-chamber pacemaker model Amvia Edge [id number]. Serial number [id number]. Device is programmed in the DDD mode with a lower rate limit 60 upper rate limit 130. The atrial lead is a Biotronik screw-in bipolar lead model Solia [id number]. Serial number [id number]. The P-waves are sensed at 6 point mV threshold 0 6 volts at 0 point milliseconds impedance 527 Ohms. Ventricular lead is a Biotronik screw-in lead model Solia S [id number]. Serial number [id number]. The R-waves are sensed at 10.9 mV threshold 0.7 at 0.4 milliseconds impedance 840 Ohms. Conclusion:: 1. Successful uncomplicated implantation of permanent Biotronik dual-chamber pacing system for treatment of syncope with acquired complete heart block in this 80-year-old lady who also has bifascicular block 2. Removal of temporary right IJ pacemaker following implantation of the permanent device Turner Sepulveda MD [facility]
--- NOTE | 2025-06-02 08:50 | PC.NURSE ---
Pt returned from lab support technician via bed after pacemaker placement. No issues noted
[2025-06-02] MEDS: PANTOPRAZOLE 40 MG TABLET PO (09:11)
[2025-06-02] MEDS: SIMVASTATIN 20 MG TABLET 40 MG PO (09:11)
[2025-06-02] MEDS: LOSARTAN POTASSIUM 50 MG TABLET PO (09:11)
[2025-06-02] MEDS: cycloSPORINE 0.4 ML OPHTH SOLUTION 1 DROP EACH EYE ×2 (09:11→20:53)
[2025-06-02] MEDS: SODIUM CHLORIDE 0.9% IV 1,000 ML 50 ML IV CONT (09:16)
[2025-06-02] MEDS: ACETAMINOPHEN 325 MG TABLET 650 MG PO ×2 (09:27→20:52)
--- NOTE | 2025-06-02 12:11 | PC.NURSE ---
1115: Dr. Sepulveda called facility to inform this RN that [employer] workforce services representative had received a notification that the atrial lead had become dislodged. New order for stat chest xray. 1146: Chest xray obtained. 1207: This RN called Dr. Sepulveda with the chest xray results, that stated leads intact. No new orders at this time
--- NOTE | 2025-06-02 13:03 | P.PNINT_ITS ---
Progress Note: A&P Assessment and Plan (1) Syncope: Qualifiers: Syncope type: unspecified Qualified Code(s): R55 - Syncope and collapse Code(s): R55 - Syncope and collapse Status: Acute Assessment and Plan: Syncope secondary to complete heart block and bradycardia. 06/02: Status post permanent pacemaker placed early this morning. With a [employer] person was here to program the pacemaker, felt that atrial leads were dislodged. Repeat chest x-ray confirmed the same. [employer] is aware and will be taking her back to poultry farm laborer this afternoon. Electrolytes were in acceptable range Continue tele monitoring (2) Third degree heart block: Code(s): I44.2 - Atrioventricular block, complete Status: Acute Assessment and Plan: See above (3) Hypertension: Qualifiers: Hypertension type: essential hypertension Qualified Code(s): I10 - Essential (primary) hypertension Code(s): I10 - Essential (primary) hypertension Status: Chronic Assessment and Plan: Continue losartan Continue Norvasc (4) Severe obstructive sleep apnea: Code(s): G47.33 - Obstructive sleep apnea (adult) (pediatric) Status: Acute Assessment and Plan: Home CPAP ordered Plan DVT prophylaxis -SCD, Lovenox held for the procedure despite Stress ulcer prophylaxis -continue home PPI Nutrition - NPO Code Status - Full Code Total Critical Care Time - 31 minutes Due to a high probability of clinically significant, life threatening deterioration, the patient required my highest level of preparedness to i ntervene emergently and I personally spent this critical care time directly and personally managing the patient. This critical care time included obtaining a history; examining the patient; pulse oximetry; ordering and review of studies; arranging urgent treatment with development of a management plan; evaluation of patient's response to treatment; frequent reassessment; and discussions with other providers. It was exclusive of separately billable procedures and treating other patients and teaching time. Please see Assessment and Plan section and the rest of the note for further information on patient assessment and treatment This dictation may have been done utilizing a voice recognition system. Attempts have been made to correct errors. However, there may be uncorrected grammatical, spelling, and recognitions errors present. Subjective Date/time seen: 06/02/25 13:03 Interval history: Reason for consult: Multiple episodes of syncope, complete heart block status post temporary transvenous pacemaker placement 06/02/2025: Patient seen and examined the ICU, is awake, alert, oriented. Status post ppm early this morning. Atrial lead may have moved as seen on repeat chest x-ray, apartment community assistant manager aware, will taken to poultry farm laborer this afternoon. Patient denies any chest pain, shortness of breath, palpitations, fever, chills, nausea, abdominal pain. Review of Systems Review of Systems: All systems reviewed & are unremarkable except as noted in HPI and below (HPI) Exam Narrative: General: Pleasant female who is alert awake and in NAD Lungs/Chest: Trachea central Clear BS B/L, No crackles or wheezing. Cardiac: RRR. Normal S1 S2. No murmurs, permanent pacemaker in place, patient has intrinsic rhythm with intermittent paced rhythm. Abdomen: Normal bowel sounds. Obese. Soft. NT. ND. Extremities: No clubbing, cyanosis or edema. Palpable pedal pulses bilaterally : Purewik and place Neurologic: Follows commands. Moves all 4 extremities PERRL AO x3 Skin: No Rash Objective Data Vital Signs Vital Signs: Vital Signs - 24 hr 06/01/25 14:00 06/01/25 14:01 06/01/25 16:00 Temperature Pulse Rate 51 L 51 L 53 L Respiratory Rate 23 H 24 H Blood Pressure 140/47 L Pulse Oximetry 91 97 Oxygen Delivery Room Air 06/01/25 16:00 06/01/25 16:01 06/01/25 18:00 Temperature 98.6 F Pulse Rate 50 L 50 L 50 L Respiratory Rate 21 H 26 H Blood Pressure 146/47 H 127/50 L Pulse Oximetry 98 96 Oxygen Delivery 06/01/25 18:00 06/01/25 20:00 06/01/25 20:00 Temperature 98.8 F Pulse Rate 50 L 50 L 50 L Respiratory Rate 22 H Blood Pressure 137/51 L Pulse Oximetry 91 Oxygen Delivery 06/01/25 20:00 06/01/25 22:00 06/01/25 22:00 Temperature Pulse Rate 52 L 57 L 52 L Respiratory Rate 25 H 25 H Blood Pressure 133/49 L Pulse Oximetry 93 93 Oxygen Delivery Room Air 06/02/25 00:00 06/02/25 00:00 06/02/25 00:00 Temperature 98.7 F Pulse Rate 62 68 57 L Respiratory Rate 21 H 22 H Blood Pressure 117/53 L Pulse Oximetry 92 93 Oxygen Delivery Room Air 06/02/25 02:00 06/02/25 02:00 06/02/25 04:00 Temperature Pulse Rate 57 L 62 67 Respiratory Rate 93 H Blood Pressure 125/56 L Pulse Oximetry 22 L Oxygen Delivery 06/02/25 04:00 06/02/25 04:00 06/02/25 06:00 Temperature 97.7 F Pulse Rate 66 64 73 Respiratory Rate 93 H 20 Blood Pressure 122/58 L Pulse Oximetry 16 L 93 Oxygen Delivery Room Air 06/02/25 06:00 06/02/25 09:00 06/02/25 09:00 Temperature Pulse Rate 73 77 71 Respiratory Rate 14 20 Blood Pressure 127/57 L Pulse Oximetry 96 96 Oxygen Delivery Room Air 06/02/25 09:03 06/02/25 09:15 06/02/25 09:30 Temperature 97.8 F 97.8 F 97.6 F Pulse Rate 71 69 63 Respiratory Rate 19 26 H 20 Blood Pressure 147/88 H 138/69 150/58 H Pulse Oximetry 97 99 96 Oxygen Delivery 06/02/25 09:44 06/02/25 09:59 06/02/25 10:00 Temperature 98.2 F 97.5 F L Pulse Rate 64 74 73 Respiratory Rate 22 H 19 Blood Pressure 150/58 H 146/69 H Pulse Oximetry 96 97 Oxygen Delivery 06/02/25 10:30 06/02/25 11:01 Temperature 97.5 F L 98.2 F Pulse Rate 77 78 Respiratory Rate 20 24 H Blood Pressure 134/65 142/64 H Pulse Oximetry 96 96 Oxygen Delivery Intake/Output Intake/Output: Intake & Output 05/30/25 05/31/25 06/01/25 06/02/25 23:59 23:59 23:59 23:59 Intake Total 1600 1260 2110 300 Output Total 500 1250 1950 500 Balance 1100 10 160 -200 Meds/Results Medications: Active Medications Generic Name Dose Route Start Last Admin Trade Name Freq PRN Reason Stop Dose Admin Acetaminophen 650 mg 05/31/25 16:00 06/02/25 09:27 Acetaminophen 325 Mg Tablet PO 650 mg Q4H PRN Administration Mild Pain (1-3) or Fever Amlodipine Besylate 10 mg 06/01/25 09:00 06/02/25 09:11 Amlodipine Besylate 10 Mg Tablet PO 10 mg DAILY IVON Administration Cyclosporine 1 drop 07/05/25 21:00 06/02/25 09:11 Cyclosporine 0.4 Ml Ophth Solution EACH EYE 1 drop Q12H IVON Administration Estradiol 0 applic 06/02/25 21:00 Estradiol Vaginal Cream 42.5 Gm VAGINAL [email or web address] IVON Hydralazine HCl 20 mg 05/30/25 18:29 06/01/25 08:05 Hydralazine Hcl 20 Mg/Ml Vial IV PUSH 20 mg Q4H PRN Administration Blood Pressure - High Sodium Chloride 1,000 mls @ 50 mls/hr 06/02/25 08:20 06/02/25 09:16 Normal Saline Iv IV CONT 06/02/25 16:19 50 mls/hr .Q20H IVON Administration Cefazolin Sodium 1 gm/ Sodium 50 mls @ 100 mls/hr 06/02/25 15:00 Chloride IVPB 06/02/25 23:29 Q8H IVON Losartan Potassium 50 mg 05/31/25 09:00 06/02/25 09:11 Losartan Potassium 50 Mg Tablet PO 50 mg DAILY IVON Administration Pantoprazole Sodium 40 mg 05/31/25 09:00 06/02/25 09:11 Pantoprazole 40 Mg Tablet PO 40 mg QAM IVON Administration Perflutren Lipid Microsphere 0 ml 06/01/25 09:09 Perflutren Lipid Microspheres 1.5 Ml Vial Diluted To 10 Ml Total Volume IV PUSH 06/04/25 09:12 ONCE PRN adequate visualization Protocol Simvastatin 40 mg 05/31/25 09:00 06/02/25 09:11 Simvastatin 20 Mg Tablet PO 40 mg DAILY IVON Administration Radiology Results: ITS Impressions Chest X-Ray 06/02/25 11:46 IMPRESSION: No acute process. Intact leads. Labs Labs: Laboratory Results - last 24 hr 06/02/25 04:24 WBC 3.5 L RBC 4.45 Hgb 14.0 Hct 43.4 MCV 97.5 MCH 31.5 MCHC 32.3 RDW 13.2 Plt Count 209 MPV 10.8 H Sodium 135 L Potassium 4.4 Chloride 102 Carbon Dioxide 25 Anion Gap 8 BUN 24 H Creatinine 1.05 H Estim Creat Clear Calc 39 Estimated GFR 50 L Glucose 105 Calcium 10.0 Phosphorus 4.4 Magnesium 2.2 Total Bilirubin 0.3 AST 39 H ALT 39 H Alkaline Phosphatase 79 Total Protein 7.2 Albumin 4.1 Quality VTE Prophylaxis VTE prophylaxis: mechanical ordered
--- NOTE | 2025-06-02 14:01 | IVDEFINITY ---
Prior to administration of IV Definity the patient was educated on the risks and benefits of the imaging enhancing agent including potential adverse side effects. The patient verbalized understanding. Allergies were verified. No exclusion criteria were identified and at least one of the following inclusion criteria were met: 1) physician request, 2) patient technically difficult to image (per the [place] Society of Echocardiography guidelines of two or more segments not discernable within the apical view), or 3) questionable left ventricular function. ?
--- NOTE | 2025-06-02 15:09 | PM.IMPN ---
Progress Note: A&P Assessment and Plan (1) Syncope: Qualifiers: Syncope type: unspecified Qualified Code(s): R55 - Syncope and collapse Code(s): R55 - Syncope and collapse Status: Acute Assessment and Plan: Syncope secondary to complete heart block and bradycardia. Patient had a transvenous pacemaker placed Electrolytes were in acceptable range Cardiology consulted with plans for permanent PM placement. Low grade temp noted. CXR clear. UA negative for UTI. Permanent pacemaker placed earlier today. Routine post-PM care. (2) Third degree heart block: Code(s): I44.2 - Atrioventricular block, complete Status: Acute Assessment and Plan: See above (3) Hypertension: Qualifiers: Hypertension type: essential hypertension Qualified Code(s): I10 - Essential (primary) hypertension Code(s): I10 - Essential (primary) hypertension Status: Chronic Assessment and Plan: Patient's blood pressure was reviewed on 06/02 Blood pressure better controlled. Will continue to monitor (4) Severe obstructive sleep apnea: Code(s): G47.33 - Obstructive sleep apnea (adult) (pediatric) Status: Acute Assessment and Plan: Home CPAP ordered (5) UTI (urinary tract infection): Qualifiers: Urinary tract infection type: acute cystitis Hematuria presence: without hematuria Qualified Code(s): N30.00 - Acute cystitis without hematuria Code(s): N39.0 - Urinary tract infection, site not specified Status: Suspected Assessment and Plan: Last admission, patient with UA suspicious for UTI however may be contaminant as there are occasional epithelial cells. UCx positive for coagulase negative Staphylococcus, not saprophyticus. Discussed with ID pharmacist possible antibiotic coverage, agreed with additional coverage using Bactrim. Patient was discharged on 05/27 with Bactrim Q12h for 9 more doses. Last dose was the evening of 05/31/25. Plan DVT prophylaxis -SCD Stress ulcer prophylaxis -continue home PPI Nutrition -heart healthy diet Code Status - Full Code Subjective Date/time seen: 06/02/25 15:09 Interval history: 80yo female with 2nd degree AV block/AV node dysfunction, anxiety, JAY, anemia, HTN, HLD and migraines presents here with recurrent syncope. Feels well. Pacemaker placed earlier today. Pain controlled. Exam Narrative: AF 97.8 110/96 61 23 95% ra Gen - NARD Chest - clear anteriorly. nml RR. right lateral neck dressing clean and dry. Left upper chest dresing clean and dry CV - RRR S1/S2. Tele showing paced rhythm Abd - Soft, NT/ND, Positive BS Ext - No pedal edema. LUE in sling Psych - Nml mood and affect Skin - Warm and dry Objective Data Vital Signs Vital Signs: Vital Signs - 24 hr 06/01/25 16:00 06/01/25 16:00 06/01/25 16:01 Temperature 98.6 F Pulse Rate 53 L 50 L 50 L Respiratory Rate 24 H 21 H Blood Pressure 146/47 H Pulse Oximetry 97 98 Oxygen Delivery Room Air 06/01/25 18:00 06/01/25 18:00 06/01/25 20:00 Temperature Pulse Rate 50 L 50 L 50 L Respiratory Rate 26 H Blood Pressure 127/50 L Pulse Oximetry 96 Oxygen Delivery 06/01/25 20:00 06/01/25 20:00 06/01/25 22:00 Temperature 98.8 F Pulse Rate 50 L 52 L 57 L Respiratory Rate 22 H 25 H Blood Pressure 137/51 L Pulse Oximetry 91 93 Oxygen Delivery Room Air 06/01/25 22:00 06/02/25 00:00 06/02/25 00:00 Temperature 98.7 F Pulse Rate 52 L 62 68 Respiratory Rate 25 H 21 H Blood Pressure 133/49 L 117/53 L Pulse Oximetry 93 92 Oxygen Delivery 06/02/25 00:00 06/02/25 02:00 06/02/25 02:00 Temperature Pulse Rate 57 L 57 L 62 Respiratory Rate 22 H 93 H Blood Pressure 125/56 L Pulse Oximetry 93 22 L Oxygen Delivery Room Air 06/02/25 04:00 06/02/25 04:00 06/02/25 04:00 Temperature 97.7 F Pulse Rate 67 66 64 Respiratory Rate 93 H 20 Blood Pressure 122/58 L Pulse Oximetry 16 L 93 Oxygen Delivery Room Air 06/02/25 06:00 06/02/25 06:00 06/02/25 09:00 Temperature Pulse Rate 73 73 77 Respiratory Rate 14 20 Blood Pressure 127/57 L Pulse Oximetry 96 96 Oxygen Delivery Room Air 06/02/25 09:00 06/02/25 09:03 06/02/25 09:15 Temperature 97.8 F 97.8 F Pulse Rate 71 71 69 Respiratory Rate 19 26 H Blood Pressure 147/88 H 138/69 Pulse Oximetry 97 99 Oxygen Delivery 06/02/25 09:30 06/02/25 09:44 06/02/25 09:59 Temperature 97.6 F 98.2 F 97.5 F L Pulse Rate 63 64 74 Respiratory Rate 20 22 H 19 Blood Pressure 150/58 H 150/58 H 146/69 H Pulse Oximetry 96 96 97 Oxygen Delivery 06/02/25 10:00 06/02/25 10:30 06/02/25 11:01 Temperature 97.5 F L 98.2 F Pulse Rate 73 77 78 Respiratory Rate 20 24 H Blood Pressure 134/65 142/64 H Pulse Oximetry 96 96 Oxygen Delivery 06/02/25 12:00 06/02/25 12:00 06/02/25 12:00 Temperature 98.3 F Pulse Rate 78 73 78 Respiratory Rate 24 H 18 Blood Pressure 128/67 Pulse Oximetry 96 98 Oxygen Delivery Room Air 06/02/25 13:00 06/02/25 14:00 06/02/25 14:01 Temperature 97.9 F 97.8 F Pulse Rate 62 60 61 Respiratory Rate 18 23 H Blood Pressure 139/63 110/96 H Pulse Oximetry 95 95 Oxygen Delivery Intake/Output Intake/Output: Intake & Output 05/30/25 05/31/25 06/01/25 06/02/25 23:59 23:59 23:59 23:59 Intake Total 1600 1260 2110 740 Output Total 500 1250 1950 500 Balance 1100 10 160 240 Meds/Results Medications: Active Medications Generic Name Dose Route Start Last Admin Trade Name Freq PRN Reason Stop Dose Admin Acetaminophen 650 mg 05/31/25 16:00 06/02/25 09:27 Acetaminophen 325 Mg Tablet PO 650 mg Q4H PRN Administration Mild Pain (1-3) or Fever Amlodipine Besylate 10 mg 06/01/25 09:00 06/02/25 09:11 Amlodipine Besylate 10 Mg Tablet PO 10 mg DAILY IVON Administration Cyclosporine 1 drop 05/30/25 21:00 06/02/25 09:11 Cyclosporine 0.4 Ml Ophth Solution EACH EYE 1 drop Q12H IVON Administration Estradiol 0 applic 06/02/25 21:00 Estradiol Vaginal Cream 42.5 Gm VAGINAL [email or web address] Hydralazine HCl 20 mg 05/30/25 18:29 06/01/25 08:05 Hydralazine Hcl 20 Mg/Ml Vial IV PUSH 20 mg Q4H PRN Administration Blood Pressure - High Sodium Chloride 1,000 mls @ 50 mls/hr 06/02/25 08:20 06/02/25 09:16 Normal Saline Iv IV CONT 06/02/25 16:19 50 mls/hr .Q20H IVON Administration Cefazolin Sodium 1 gm/ Sodium 50 mls @ 100 mls/hr 06/02/25 15:00 Chloride IVPB 06/02/25 23:29 Q8H IVON Losartan Potassium 50 mg 05/31/25 09:00 06/02/25 09:11 Losartan Potassium 50 Mg Tablet PO 50 mg DAILY IVON Administration Pantoprazole Sodium 40 mg 05/31/25 09:00 06/02/25 09:11 Pantoprazole 40 Mg Tablet PO 40 mg QAM IVON Administration Perflutren Lipid Microsphere 0 ml 06/02/25 13:56 Perflutren Lipid Microspheres 1.5 Ml Vial Diluted To 10 Ml Total Volume IV PUSH ONCE PRN adequate visualization Protocol Simvastatin 40 mg 05/31/25 09:00 06/02/25 09:11 Simvastatin 20 Mg Tablet PO 40 mg DAILY IVON Administration Radiology Results: ITS Impressions Chest X-Ray 06/02/25 11:46 IMPRESSION: No acute process. Intact leads. Labs Labs: Laboratory Results - last 24 hr 06/02/25 04:24 WBC 3.5 L RBC 4.45 Hgb 14.0 Hct 43.4 MCV 97.5 MCH 31.5 MCHC 32.3 RDW 13.2 Plt Count 209 MPV 10.8 H Sodium 135 L Potassium 4.4 Chloride 102 Carbon Dioxide 25 Anion Gap 8 BUN 24 H Creatinine 1.05 H Estim Creat Clear Calc 39 Estimated GFR 50 L Glucose 105 Calcium 10.0 Phosphorus 4.4 Magnesium 2.2 Total Bilirubin 0.3 AST 39 H ALT 39 H Alkaline Phosphatase 79 Total Protein 7.2 Albumin 4.1
--- NOTE | 2025-06-02 16:18 | PC.NURSE ---
Pt to laboratory supervisor via bed for readjustment of atrial pacemaker wire.
[2025-06-02] MEDS: ceFAZolin 1 GM in SODIUM CHLORIDE 0.9% IV 50 ML 100 ML IVPB ×2 (16:39→16:40)
--- NOTE | 2025-06-02 17:43 | WPDCARDPROC ---
Cardiac Cath Procedure Note Date of procedure:: 06/02/25 Performing physician:: Turner Sepulveda MD Indication:: Repositioning of atrial lead Brief clinical history:: This is an 80-year-old lady who received a dual-chamber pacemaker implant earlier today. While she was at bed rest it was noted that her atrial lead had dropped out of position and is no longer functional. She is brought back to the optical laboratory mechanic for repositioning of her atrial lead Procedure Procedure performed:: Repositioning of atrial lead Sedation/Medication given:: Fentanyl 50 mg Versed 2 mg Estimated blood loss:: Minimal Procedure note:: Patient was brought back to the cardiac catheterization lab where the Aquacel dressing was removed and the pacemaker incision from earlier today was prepped and draped in a sterile fashion. 1% lidocaine was infiltrated around the incision for local anesthesia. The scalpel was used to reopen the incision and removed the stitches. Following this the pacemaker device and attached leads were removed from the pocket and visually unremarkable in its appearance. The atrial lead was disconnected from the generator using the torque wrench. The retention stitches were cut from the atrial lead using an iris scissors. Following this a space site was placed into the lead and it was clearly free floating in the atrium, not adherent to the atrial wall. Three the fixation screw was then withdrawn and the lead lead was repositioned in a higher position into the right atrial appendage. The fixation screw was deployed and excellent pacing and sensing performance was demonstrated. A larger redundancy loop was placed into the atrium following this. The lead was then resecured to the base the pocket using the suture sleeve and new new 2-0 silk ties. The pocket was irrigated with antibiotic infused saline. The atrial lead was then reconnected to the generator using the torque wrench. Into assembly was placed back into the pocket which was then reclosed in layers as was this morning's procedure using 3-0 Vicryl in interrupted fashion for the subcutaneous tissue and 4-0 Vicryl in a running subcuticular fashion for the skin. The incision surface was was slightly which was well controlled with direct pressure so an Aquacel dressing and a pressure dressing was then placed over this. The left arm was placed back in an immobilizer and she was taken back to her bed for recovery. Findings:: Dislodged atrial lead Conclusion:: Successful repositioning and revision of this morning's atrial lead that was placed as detailed in the separately dictated implant note. The lead had dropped and being dislodged several hours after the original implant and was repositioned as detailed above. More postop antibiotics were ordered as well as continued bedrest for the balance of 24 hours. Turner Sepulveda MD [facility]
--- NOTE | 2025-06-02 18:00 | PC.NURSE ---
Pt returned from manufacturing laborer
--- NOTE | 2025-06-02 19:08 | ECG_ITS ---
Test Date: 2025-06-02 19:14:41 Measurements Intervals [place] Rate: 64 P: 53 AK: 222 QRS: 97 QRSD: 134 T: -74 QT: 398 QTc: 413 Interpretive Statements SINUS RHYTHM WITH FIRST DEGREE AV BLOCK RIGHT BUNDLE BRANCH BLOCK [120+ ms QRS DURATION, UPRIGHT V1, 40+ ms S IN I/aVL/V4/V5/V6] LEFT POSTERIOR FASCICULAR BLOCK ABNORMAL ECG Compared to ECG 06/02/2025 09:01:24 NO SIGNIFICANT DIFFERENCE Electronically Signed On 06-03-2025 07:44:01 CDT by Turner Sepulveda M.D.
[2025-06-03] VITALS (10 sets, daily range): BP systolic 137–151; BP diastolic 62–65; PULSE 60–85; RESP 16–20; TEMP 36.4–36.7; O2SAT 93–99
[2025-06-03] MEDS: ceFAZolin 1 GM in SODIUM CHLORIDE 0.9% IV 50 ML 100 ML IVPB ×2 (02:04→11:39)
[2025-06-03 04:45] LABS: Hematocrit 40.2 % (37.0-47.0); Hemoglobin 12.7 g/dL (12.0-15.0); Mean Corpuscular HGB Conc 31.6 g/dl (32-36); Mean Corpuscular Hemoglobin 31.2 pg (26-34); Mean Corpuscular Volume 98.8 fl (80-100); Platelet Count Result 193 k/mm3 (150-375); Red Blood Count 4.07 M/mm3 (4.2-5.4); White Blood Count 4.2 K/mm3 (4.5-10.0)
[2025-06-03] MEDS: ACETAMINOPHEN 325 MG TABLET 650 MG PO (05:04)
[2025-06-03 05:07] LABS: Alanine Aminotransferase 41 U/L (6-35); Albumin Level 3.7 g/dL (3.5-5.1); Alkaline Phosphatase 76 U/L (38-126); Anion Gap 7 mmol/L (4-12); Aspartate Amino Transferase 43 U/L (14-36); Bilirubin,Total 0.2 mg/dL (0.2-1.3); Blood Urea Nitrogen 27 mg/dL (7-17); Calcium 9.8 mg/dL (8.4-10.2); Carbon Dioxide 26 mmol/L (22-30); Chloride 102 mmol/L (98-107); Estimated CRCL calculation 50 ml/min; Estimated Glomerular Filt Rate > 60; Glucose 97 mg/dL (65-110); Magnesium 2.0 mg/dL (1.6-2.3); Potassium 4.9 mmol/L (3.4-5.0); Sodium 135 mmol/L (137-145); Total Protein 6.6 g/dL (6.3-8.2)
[2025-06-03] MEDS: LOSARTAN POTASSIUM 50 MG TABLET PO (08:24)
[2025-06-03] MEDS: cycloSPORINE 0.4 ML OPHTH SOLUTION 1 DROP EACH EYE (08:24)
[2025-06-03] MEDS: SIMVASTATIN 20 MG TABLET 40 MG PO (08:24)
[2025-06-03] MEDS: PANTOPRAZOLE 40 MG TABLET PO (08:24)
--- NOTE | 2025-06-03 11:06 | PM.IMPN ---
Progress Note: A&P Assessment and Plan (1) Syncope: Qualifiers: Syncope type: unspecified Qualified Code(s): R55 - Syncope and collapse Code(s): R55 - Syncope and collapse Status: Acute Assessment and Plan: Syncope secondary to complete heart block and bradycardia. 06/02: Status post permanent pacemaker placed early this morning. With a [employer] person was here to program the pacemaker, felt that atrial leads were dislodged. Repeat chest x-ray confirmed the same. Weight Guesser took the patient to the recyclable materials distributor again later in the evening on 06/02/2025 for repositioning of the atrial lead. -chest x-ray this morning showed atrial lead in appropriate position Electrolytes were in acceptable range Continue tele monitoring (2) Third degree heart block: Code(s): I44.2 - Atrioventricular block, complete Status: Acute Assessment and Plan: See above (3) Hypertension: Qualifiers: Hypertension type: essential hypertension Qualified Code(s): I10 - Essential (primary) hypertension Code(s): I10 - Essential (primary) hypertension Status: Chronic Assessment and Plan: Continue losartan and amlodipine (4) Severe obstructive sleep apnea: Code(s): G47.33 - Obstructive sleep apnea (adult) (pediatric) Status: Acute Assessment and Plan: Home CPAP ordered Plan DVT prophylaxis -SCD, Lovenox held for the procedure despite Stress ulcer prophylaxis -continue home PPI Nutrition -heart healthy diet Code Status - Full Code Due to a high probability of clinically significant, life threatening deterioration, the patient required my highest level of preparedness to intervene emergently and I personally spent this critical care time directly and personally managing the patient. This critical care time included obtaining a history; examining the patient; pulse oximetry; ordering and review of studies; arranging urgent treatment with development of a management plan; evaluation of patient's response to treatment; frequent reassessment; and discussions with other providers. It was exclusive of separately billable procedures and treating other patients and teaching time. Please see Assessment and Plan section and the rest of the note for further information on patient assessment and treatment This dictation may have been done utilizing a voice recognition system. Attempts have been made to correct errors. However, there may be uncorrected grammatical, spelling, and recognitions errors present. Subjective Date/time seen: 06/03/25 11:06 Interval history: Reason for consult: Multiple episodes of syncope, complete heart block status post temporary transvenous pacemaker placement Patient being seen for hospitalist group 06/03/2025: Patient did receive her permanent pacemaker yesterday on 06/02/2025, atrial lead was dislodged so the pathology secretary took her to the recyclable materials distributor again and repositioned her atrial lead. Patient denies any chest pain, shortness on a abdominal pain, nausea vomiting. Intermittently being paced. Hemodynamically stable, afebrile, adequate urine output Review of Systems Review of Systems: All systems reviewed & are unremarkable except as noted in HPI and below (HPI) Exam Narrative: General: Pleasant female who is alert awake and in NAD Lungs/Chest: Trachea central Clear BS B/L, No crackles or wheezing. Cardiac: RRR. Normal S1 S2. No murmurs, permanent pacemaker in place, patient has intrinsic rhythm with intermittent paced rhythm. Abdomen: Normal bowel sounds. Obese. Soft. NT. ND. Extremities: No clubbing, cyanosis or edema. Palpable pedal pulses bilaterally : Purewik and place Neurologic: Follows commands. Moves all 4 extremities PERRL AO x3 Skin: No Rash Objective Data Vital Signs Vital Signs: Vital Signs - 24 hr 06/02/25 12:00 06/02/25 12:00 06/02/25 12:00 Temperature 98.3 F Pulse Rate 78 73 78 Respiratory Rate 24 H 18 Blood Pressure 128/67 Pulse Oximetry 96 98 Oxygen Delivery Room Air Fraction of Inspired Oxygen 06/02/25 13:00 06/02/25 14:00 06/02/25 14:01 Temperature 97.9 F 97.8 F Pulse Rate 62 60 61 Respiratory Rate 18 23 H Blood Pressure 139/63 110/96 H Pulse Oximetry 95 95 Oxygen Delivery Fraction of Inspired Oxygen 06/02/25 15:00 06/02/25 16:00 06/02/25 16:00 Temperature 98 F Pulse Rate 65 64 64 Respiratory Rate 24 H 22 H 22 H Blood Pressure 132/51 L 148/69 H Pulse Oximetry 94 96 96 Oxygen Delivery Room Air Fraction of Inspired Oxygen 06/02/25 16:00 06/02/25 17:00 06/02/25 18:00 Temperature 98.2 F Pulse Rate 65 64 61 Respiratory Rate 18 16 Blood Pressure 148/69 H 147/65 H Pulse Oximetry 95 98 Oxygen Delivery Fraction of Inspired Oxygen 06/02/25 18:00 06/02/25 18:15 06/02/25 18:30 Temperature 97.9 F 97.5 F L Pulse Rate 63 70 72 Respiratory Rate 14 16 Blood Pressure 143/54 H 126/68 Pulse Oximetry 98 98 Oxygen Delivery Fraction of Inspired Oxygen 06/02/25 18:45 06/02/25 19:00 06/02/25 19:30 Temperature 97.6 F 97.8 F 98.0 F Pulse Rate 67 67 65 Respiratory Rate 17 16 21 H Blood Pressure 125/68 137/86 134/69 Pulse Oximetry 99 100 96 Oxygen Delivery Fraction of Inspired Oxygen 06/02/25 19:50 06/02/25 19:52 06/02/25 20:00 Temperature Pulse Rate 66 66 Respiratory Rate 20 Blood Pressure Pulse Oximetry 96 98 96 Oxygen Delivery Room Air CPAP Room Air Fraction of Inspired Oxygen 21 06/02/25 20:00 06/02/25 20:00 06/02/25 21:00 Temperature 97.8 F 97.7 F Pulse Rate 65 67 63 Respiratory Rate 17 21 H Blood Pressure 143/75 H 136/61 Pulse Oximetry 96 98 Oxygen Delivery Fraction of Inspired Oxygen 06/02/25 22:00 06/02/25 22:00 06/02/25 22:25 Temperature 97.8 F Pulse Rate 65 65 67 Respiratory Rate 20 Blood Pressure 133/69 Pulse Oximetry 96 100 Oxygen Delivery CPAP Fraction of Inspired Oxygen 06/02/25 23:00 06/03/25 00:00 06/03/25 00:00 Temperature 98.1 F 98.1 F Pulse Rate 63 62 Respiratory Rate 16 18 Blood Pressure 146/66 H 151/64 H Pulse Oximetry 97 93 95 Oxygen Delivery CPAP Fraction of Inspired Oxygen 06/03/25 00:00 06/03/25 01:43 06/03/25 02:00 Temperature Pulse Rate 60 65 60 Respiratory Rate Blood Pressure Pulse Oximetry 95 Oxygen Delivery CPAP Fraction of Inspired Oxygen 06/03/25 04:00 06/03/25 04:00 06/03/25 04:00 Temperature 98.0 F Pulse Rate 60 60 Respiratory Rate 20 Blood Pressure 139/63 Pulse Oximetry 96 95 Oxygen Delivery CPAP Fraction of Inspired Oxygen 06/03/25 04:07 06/03/25 06:00 06/03/25 07:50 Temperature 97.5 F L Pulse Rate 60 60 67 Respiratory Rate 16 Blood Pressure 137/62 Pulse Oximetry 95 97 Oxygen Delivery CPAP Fraction of Inspired Oxygen 06/03/25 08:00 06/03/25 08:00 06/03/25 10:00 Temperature Pulse Rate 63 85 85 Respiratory Rate 16 Blood Pressure Pulse Oximetry 97 Oxygen Delivery Room Air Fraction of Inspired Oxygen Intake/Output Intake/Output: Intake & Output 05/31/25 06/01/25 06/02/25 06/03/25 23:59 23:59 23:59 23:59 Intake Total 1260 2110 790 550 Output Total 1250 1950 1200 800 Balance 10 325 -410 250 Meds/Results Medications: Active Medications Generic Name Dose Route Start Last Admin Trade Name Freq PRN Reason Stop Dose Admin Acetaminophen 650 mg 05/31/25 16:00 06/03/25 05:04 Acetaminophen 325 Mg Tablet PO 650 mg Q4H PRN Administration Mild Pain (1-3) or Fever Amlodipine Besylate 10 mg 06/01/25 09:00 06/03/25 08:24 Amlodipine Besylate 10 Mg Tablet PO 10 mg DAILY IVON Administration Cyclosporine 1 drop 05/30/25 21:00 06/03/25 08:24 Cyclosporine 0.4 Ml Ophth Solution EACH EYE 1 drop Q12H IVON Administration Estradiol 0 applic 06/02/25 21:00 06/02/25 20:53 Estradiol Vaginal Cream 42.5 Gm VAGINAL Not Given [email or web address] Hydralazine HCl 20 mg 05/30/25 18:29 06/01/25 08:05 Hydralazine Hcl 20 Mg/Ml Vial IV PUSH 20 mg Q4H PRN Administration Blood Pressure - High Losartan Potassium 50 mg 05/31/25 09:00 06/03/25 08:24 Losartan Potassium 50 Mg Tablet PO 50 mg DAILY IVON Administration Pantoprazole Sodium 40 mg 05/31/25 09:00 06/03/25 08:24 Pantoprazole 40 Mg Tablet PO 40 mg QAM IVON Administration Perflutren Lipid Microsphere 0 ml 06/02/25 13:56 Perflutren Lipid Microspheres 1.5 Ml Vial Diluted To 10 Ml Total Volume IV PUSH ONCE PRN adequate visualization Protocol Simvastatin 40 mg 05/31/25 09:00 06/03/25 08:24 Simvastatin 20 Mg Tablet PO 40 mg DAILY IVON Administration Radiology Results: ITS Impressions Chest X-Ray 06/03/25 10:31 IMPRESSION: No acute process. Labs Labs: Laboratory Results - last 24 hr 06/03/25 04:37 WBC 4.2 L RBC 4.07 L Hgb 12.7 Hct 40.2 MCV 98.8 MCH 31.2 MCHC 31.6 L RDW 13.2 Plt Count 193 MPV 10.6 H Sodium 135 L Potassium 4.9 Chloride 102 Carbon Dioxide 26 Anion Gap 7 BUN 27 H Creatinine 0.79 Estim Creat Clear Calc 50 Estimated GFR > 60 Glucose 97 Calcium 9.8 Phosphorus 4.0 Magnesium 2.0 Total Bilirubin 0.2 AST 43 H ALT 41 H Alkaline Phosphatase 76 Total Protein 6.6 Albumin 3.7 Quality VTE Prophylaxis VTE prophylaxis: mechanical ordered
--- NOTE | 2025-06-03 11:28 | PM.PNCARD ---
Progress Note: A&P Assessment and Plan (1) Third degree heart block: Code(s): I44.2 - Atrioventricular block, complete Status: Acute (2) Elevated troponin: Code(s): R79.89 - Other specified abnormal findings of blood chemistry Status: Acute Plan -High-grade AV block with recurrent syncope s/p permanent pacemaker placement on 06/02/2025 -Echogenic density on the LCC leaflet 0.6 x 0.5 cm- most likely a calcified nodule. Differentials include vegetation, atheroma, thrombus -Elevated troponin (0.037, 0.063) without chest pain -Hypertension-controlled Plan: -Patient had permanent pacemaker done yesterday with Dr. Sepulveda (please see op note for full details of procedure) -Chest x-ray today -Device check shows appropriate functioning pacemaker -The density on her left coronary cusp is most likely a calcified nodule based on appearance. Vegetation is unlikely based on patient's presentation -Recommend ischemia evaluation with an outpatient stress test once she recovers from her acute illness -Check and replace electrolytes to keep potassium greater than 4 and magnesium greater than 2 -Continue amlodipine and losartan for blood pressure control -Continue statin Subjective Date/time seen: 06/03/25 11:28 Interval history: Reason for encounter: Multiple episodes of syncope, complete heart block status post temporary transvenous pacemaker placement Interval history: Patient had permanent pacemaker placement yesterday. No chest pain, shortness of breath, palpitations, fever, chills, nausea, abdominal pain. Review of Systems Cardiovascular: Comments: As per HPI Respiratory: Comments: As per HPI Exam Narrative: General: Alert oriented x3, no acute distress Neck: Supple, no JVD Chest: Bilaterally clear to auscultation, no rales or rhonchi Cardiac: S1, S2 +, regular rate, regular rhythm, no murmurs or rubs Extremities: No pedal edema, no skin rash Neurologic: Alert and oriented x3, no focal neurological deficits Objective Data Vital Signs Vital Signs: Vital Signs - 24 hr 06/02/25 12:00 06/02/25 12:00 06/02/25 12:00 Temperature 36.8 C Pulse Rate 78 73 78 Respiratory Rate 24 H 18 Blood Pressure 128/67 Pulse Oximetry 96 98 Oxygen Delivery Room Air Fraction of Inspired Oxygen 06/02/25 13:00 06/02/25 14:00 06/02/25 14:01 Temperature 36.6 C 36.6 C Pulse Rate 62 60 61 Respiratory Rate 18 23 H Blood Pressure 139/63 110/96 H Pulse Oximetry 95 95 Oxygen Delivery Fraction of Inspired Oxygen 06/02/25 15:00 06/02/25 16:00 06/02/25 16:00 Temperature 36.6 C Pulse Rate 65 64 64 Respiratory Rate 24 H 22 H 22 H Blood Pressure 132/51 L 148/69 H Pulse Oximetry 94 96 96 Oxygen Delivery Room Air Fraction of Inspired Oxygen 06/02/25 16:00 06/02/25 17:00 06/02/25 18:00 Temperature 36.8 C Pulse Rate 65 64 61 Respiratory Rate 18 16 Blood Pressure 148/69 H 147/65 H Pulse Oximetry 95 98 Oxygen Delivery Fraction of Inspired Oxygen 06/02/25 18:00 06/02/25 18:15 06/02/25 18:30 Temperature 36.6 C 36.4 C L Pulse Rate 63 70 72 Respiratory Rate 14 16 Blood Pressure 143/54 H 126/68 Pulse Oximetry 98 98 Oxygen Delivery Fraction of Inspired Oxygen 06/02/25 18:45 06/02/25 19:00 06/02/25 19:30 Temperature 36.4 C 36.6 C 36.7 C Pulse Rate 67 67 65 Respiratory Rate 17 16 21 H Blood Pressure 125/68 137/86 134/69 Pulse Oximetry 99 100 96 Oxygen Delivery Fraction of Inspired Oxygen 06/02/25 19:50 06/02/25 19:52 06/02/25 20:00 Temperature Pulse Rate 66 66 Respiratory Rate 20 Blood Pressure Pulse Oximetry 96 98 96 Oxygen Delivery Room Air CPAP Room Air Fraction of Inspired Oxygen 06/02/25 20:00 06/02/25 20:00 06/02/25 21:00 Temperature 36.6 C 36.5 C Pulse Rate 65 67 63 Respiratory Rate 17 21 H Blood Pressure 143/75 H 136/61 Pulse Oximetry 96 98 Oxygen Delivery Fraction of Inspired Oxygen 06/02/25 22:00 06/02/25 22:00 06/02/25 22:25 Temperature 36.6 C Pulse Rate 65 65 67 Respiratory Rate 20 Blood Pressure 133/69 Pulse Oximetry 96 100 Oxygen Delivery CPAP Fraction of Inspired Oxygen 06/02/25 23:00 06/03/25 00:00 06/03/25 00:00 Temperature 36.7 C 36.7 C Pulse Rate 63 62 Respiratory Rate 16 18 Blood Pressure 146/66 H 151/64 H Pulse Oximetry 97 93 95 Oxygen Delivery CPAP Fraction of Inspired Oxygen 06/03/25 00:00 06/03/25 01:43 06/03/25 02:00 Temperature Pulse Rate 60 65 60 Respiratory Rate Blood Pressure Pulse Oximetry 95 Oxygen Delivery CPAP Fraction of Inspired Oxygen 06/03/25 04:00 06/03/25 04:00 06/03/25 04:00 Temperature 36.7 C Pulse Rate 60 60 Respiratory Rate 20 Blood Pressure 139/63 Pulse Oximetry 96 95 Oxygen Delivery CPAP Fraction of Inspired Oxygen 06/03/25 04:07 06/03/25 06:00 06/03/25 07:50 Temperature 36.4 C L Pulse Rate 60 60 67 Respiratory Rate 16 Blood Pressure 137/62 Pulse Oximetry 95 97 Oxygen Delivery CPAP Fraction of Inspired Oxygen 06/03/25 08:00 06/03/25 08:00 06/03/25 10:00 Temperature Pulse Rate 63 85 85 Respiratory Rate 16 Blood Pressure Pulse Oximetry 97 Oxygen Delivery Room Air Fraction of Inspired Oxygen Intake/Output Intake/Output: Intake & Output 05/31/25 06/01/25 06/02/25 06/03/25 23:59 23:59 23:59 23:59 Intake Total 1260 2110 790 550 Output Total 1250 1950 1200 800 Balance 10 236 -410 -754 Meds/Results Medications: Active Medications Generic Name Dose Route Start Last Admin Trade Name Freq PRN Reason Stop Dose Admin Acetaminophen 650 mg 05/31/25 16:00 06/03/25 05:04 Acetaminophen 325 Mg Tablet PO 650 mg Q4H PRN Administration Mild Pain (1-3) or Fever Amlodipine Besylate 10 mg 06/01/25 09:00 06/03/25 08:24 Amlodipine Besylate 10 Mg Tablet PO 10 mg DAILY IVON Administration Cyclosporine 1 drop 05/30/25 21:00 06/03/25 08:24 Cyclosporine 0.4 Ml Ophth Solution EACH EYE 1 drop Q12H IVON Administration Estradiol 0 applic 06/02/25 21:00 06/02/25 20:53 Estradiol Vaginal Cream 42.5 Gm VAGINAL Not Given [email or web address] Hydralazine HCl 20 mg 05/30/25 18:29 06/01/25 08:05 Hydralazine Hcl 20 Mg/Ml Vial IV PUSH 20 mg Q4H PRN Administration Blood Pressure - High Losartan Potassium 50 mg 05/31/25 09:00 06/03/25 08:24 Losartan Potassium 50 Mg Tablet PO 50 mg DAILY IVON Administration Pantoprazole Sodium 40 mg 05/31/25 09:00 06/03/25 08:24 Pantoprazole 40 Mg Tablet PO 40 mg QAM IVON Administration Perflutren Lipid Microsphere 0 ml 06/02/25 13:56 Perflutren Lipid Microspheres 1.5 Ml Vial Diluted To 10 Ml Total Volume IV PUSH ONCE PRN adequate visualization Protocol Simvastatin 40 mg 05/31/25 09:00 06/03/25 08:24 Simvastatin 20 Mg Tablet PO 40 mg DAILY IVON Administration Radiology Results: ITS Impressions Chest X-Ray 06/03/25 10:31 IMPRESSION: No acute process. Labs Labs: Laboratory Results - last 24 hr 06/03/25 04:37 WBC 4.2 L RBC 4.07 L Hgb 12.7 Hct 40.2 MCV 98.8 MCH 31.2 MCHC 31.6 L RDW 13.2 Plt Count 193 MPV 10.6 H Sodium 135 L Potassium 4.9 Chloride 102 Carbon Dioxide 26 Anion Gap 7 BUN 27 H Creatinine 0.79 Estim Creat Clear Calc 50 Estimated GFR > 60 Glucose 97 Calcium 9.8 Phosphorus 4.0 Magnesium 2.0 Total Bilirubin 0.2 AST 43 H ALT 41 H Alkaline Phosphatase 76 Total Protein 6.6 Albumin 3.7
--- NOTE | 2025-06-03 13:59 | PM.DS ---
DS: Admitting Diagnosis Discharge Date 06/03/2025 Admitting Diagnosis Reason for consult: Multiple episodes of syncope, complete heart block status post temporary transvenous pacemaker placement DS: Discharge Diagnosis Discharge Diagnosis (1) Syncope: Qualifiers: Syncope type: unspecified Qualified Code(s): R55 - Syncope and collapse Code(s): R55 - Syncope and collapse Status: Acute Assessment and Plan: Syncope secondary to complete heart block and bradycardia. 06/02: Status post permanent pacemaker placed early this morning. With a [employer] person was here to program the pacemaker, felt that atrial leads were dislodged. Repeat chest x-ray confirmed the same. Agency Sales Director took the patient to the labor arbitrator hearing office again later in the evening on 06/02/2025 for repositioning of the atrial lead. -chest x-ray this morning showed atrial lead in appropriate position Electrolytes were in acceptable range Continue tele monitoring (2) Third degree heart block: Code(s): I44.2 - Atrioventricular block, complete Status: Acute Assessment and Plan: See above (3) Hypertension: Qualifiers: Hypertension type: essential hypertension Qualified Code(s): I10 - Essential (primary) hypertension Code(s): I10 - Essential (primary) hypertension Status: Chronic Assessment and Plan: Continue losartan and amlodipine (4) Severe obstructive sleep apnea: Code(s): G47.33 - Obstructive sleep apnea (adult) (pediatric) Status: Acute Assessment and Plan: Home CPAP ordered Plan DVT prophylaxis -SCD, Lovenox held for the procedure despite Stress ulcer prophylaxis -continue home PPI Nutrition -heart healthy diet Code Status - Full Code Patient discharged home on 06/03/2025 with follow-up with Dr. Sepulveda in 1 week Due to a high probability of clinically significant, life threatening deterioration, the patient required my highest level of preparedness to intervene emergently and I personally spent this critical care time directly and personally managing the patient. This critical care time included obtaining a history; examining the patient; pulse oximetry; ordering and review of studies; arranging urgent treatment with development of a management plan; evaluation of patient's response to treatment; frequent reassessment; and discussions with other providers. It was exclusive of separately billable procedures and treating other patients and teaching time. Please see Assessment and Plan section and the rest of the note for further information on patient assessment and treatment This dictation may have been done utilizing a voice recognition system. Attempts have been made to correct errors. However, there may be uncorrected grammatical, spelling, and recognitions errors present. DS: Summary Hospital Course Reason for hospitalization: Multiple episodes of syncope, complete heart block Hospital Course: Renetta Carrasco is a 80 year old female 8with PMH of anxiety, JAY, anemia, hypertension, hyperlipidemia, and migraines presented to ER with syncope. Patient was seen for the same complaint on 05/25 in the ER and was admitted. At that time patient was found to be having sinus bradycardia with first-degree AV block. Patient was evaluated by Cardiology and was recommended discontinue beta-genaro that she was on and symptoms appear to have resolved while she was in patient. Patient was discharged on 05/27. Patient presented again on 05/30/2025 with multiple episodes of syncope and was given atropine by EMS and when she was found to be having heart rate in 30. In the ER patient was given glucagon which led to improvement in the heart rate but she soon developed bradycardia again with third-degree AV block. Cardiology was consulted and patient was taken to labor arbitrator hearing office for placement of a temporary transvenous pacemaker placement. Patient was then admitted to the ICU for further management. 06/02: 06/02: Status post permanent pacemaker placed early this morning. With a [employer] person was here to program the pacemaker, felt that atrial leads were dislodged. Repeat chest x-ray confirmed the same. Agency Sales Director took the patient to the labor arbitrator hearing office again later in the evening on 06/02/2025 for repositioning of the atrial lead. Chest x-ray showed appropriate positioning of the atrial lead 06/03: Cardiology evaluated the patient, okay to discharge home on 06/03/2025 Status at Discharge Cognitive/behavioral status at discharge: Stable Time Spent with Patient Time attestation: Total time spent providing and/or coordinating discharge services: 31 minutes Exam Narrative: General: Pleasant female who is alert awake and in NAD Lungs/Chest: Trachea central Clear BS B/L, No crackles or wheezing. Cardiac: RRR. Normal S1 S2. No murmurs, permanent pacemaker in place, patient has intrinsic rhythm with intermittent paced rhythm. Abdomen: Normal bowel sounds. Obese. Soft. NT. ND. Extremities: No clubbing, cyanosis or edema. Palpable pedal pulses bilaterally : Purewik and place Neurologic: Follows commands. Moves all 4 extremities PERRL AO x3 Skin: No Rash DS: Data Data Completed and Pending Labs on day of discharge: Labs from last 24 hours 06/03/25 04:37 WBC 4.2 L RBC 4.07 L Hgb 12.7 Hct 40.2 MCV 98.8 MCH 31.2 MCHC 31.6 L RDW 13.2 Plt Count 193 MPV 10.6 H Sodium 135 L Potassium 4.9 Chloride 102 Carbon Dioxide 26 Anion Gap 7 BUN 27 H Creatinine 0.79 Estim Creat Clear Calc 50 Estimated GFR > 60 Glucose 97 Calcium 9.8 Phosphorus 4.0 Magnesium 2.0 Total Bilirubin 0.2 AST 43 H ALT 41 H Alkaline Phosphatase 76 Total Protein 6.6 Albumin 3.7 Discharge Plan Discharge Attending physician on discharge: Vannesa Mario Consulting providers: Silas Rodriguez; Poncho Fam Discharging Clinician: Vannesa Mario Anticipated Discharge Date/Time: 06/03/25 13:54 Patient Disposition: Home Activity: no shower and other - see discharge instructions Diet: heart healthy Wound Care Instructions: keep dressing dry Discharge Instructions: [facility] [address] [place] [address] DISCHARGE INSTRUCTIONS - POST PACEMAKER Activity 1. No driving until you are seen in the office for your incision check. 2. No lifting, pushing or pulling more than 5 pounds with affected arm for 1 MONTH 3. No lifting affected arm above shoulder height for 1 MONTH 4. Wear immobilizer/sling only if you are unable to remember the above activity restrictions. Recommend that it be worn at night. 5. You may shower AFTER you are seen for incision check on ____1 week____ but no tub baths, swimming pool or hot tub for 1MONTH Wound Care 1. Do not attempt to remove the Aquacel dressing. Leave dressing undisturbed until incision check at the office visit. Keep dressing dry. 2. When you are able to shower AFTER you are seen for your incision check in the office do not rub or scrub the incision. Pat dry after shower. NO lotions, powders, creams or ointments are to be applied to the incision 3. A small amount of tenderness, puffiness and bruising around the site is normal. Call if any significant pain, drainage, swelling, or redness around the site 4. Woman: Wear a bra to support the breast tissue and avoid pulling on the incision. Pad the bra strap if necessary with soft smooth cloth. *For any other questions please call the office at [phone]. Office hours are 8AM 4:30PM Sunday through Sunday. Patient Instructions: Antibiotic Form, Pacemaker (DC) Patient Language: [place] Stand Alone Forms: General Discharge Information Follow-up/Referrals: Turner Sepulveda MD [Physician] - Discharge Medications: New amlodipine 10 mg Tablet 10 mg PO DAILY 30 Days Qty: 30 0RF Continued lorazepam [Ativan] 0.5 mg tablet 0.5 mg PO TID PRN (Reason: anxiety) Qty: 10 0RF evening primrose oil 500 mg capsule 1,000 mg PO DAILY Rx Instructions: give with meal/snack Xhance 93 mcg/actuation aerosol breath activated 2 spray intranasal Q12H PRN (Reason: allergy symptoms) Rx Instructions: into each nostril cyclosporine [Restasis] 0.05 % dropperette 1 drp EACH EYE Q12H buspirone 10 mg tablet 10 mg PO BID Qty: 180 3RF duloxetine 60 mg capsule,delayed release(DR/EC) See Rx Instructions .ROUTE .COMPLEX Qty: 90 3RF Dose Instruction: TAKE 1 CAPSULE DAILY AT BEDTIME Rx Instructions: TAKE 1 CAPSULE DAILY AT BEDTIME ferrous sulfate [FeroSul] 325 mg (65 mg iron) tablet See Rx Instructions .ROUTE .COMPLEX Qty: 90 3RF Dose Instruction: TAKE 1 TABLET DAILY Rx Instructions: TAKE 1 TABLET DAILY losartan 50 mg tablet See Rx Instructions .ROUTE .COMPLEX Qty: 90 3RF Dose Instruction: TAKE 1 TABLET DAILY Rx Instructions: TAKE 1 TABLET DAILY omeprazole 20 mg capsule,delayed release(DR/EC) 20 mg PO DAILY Qty: 90 2RF acetaminophen [Arthritis Pain Reliever] 650 mg Tablet Extended Release 1,000 mg PO Q8H estradiol 0.01 % (0.1 mg/gram) cream 1 g VAGINAL .twice a week Rx Instructions: taken on s and mirabegron 50 mg tablet extended release 24 hr 50 mg PO Q24H cholecalciferol (vitamin D3) 125 mcg (5,000 unit) capsule 50,000 unit PO WEEKLY Rx Instructions: on Tuesdays simvastatin 40 mg tablet 40 mg PO DAILY Qty: 90 1RF meclizine 25 mg tablet 25 mg PO TID PRN (Reason: dizziness) Qty: 30 0RF Sunosi 150 mg tablet 150 mg PO DAILY Qty: 90 3RF Discontinued sulfamethoxazole-trimethoprim [Bactrim DS] 800-160 mg tablet 1 tablet PO Q12H Qty: 9 0RF Date of admission: 05/30/25 14:44 Primary Care Provider: Lokesh Albright Admitting Provider: Bryan Ga Attending physician on admission: Bryan Ga Condition: Stable Quality VTE Prophylaxis VTE prophylaxis: mechanical ordered
== END 2025-06-03 15:37 | disposition home or self-care (01) | DRG 243 ==
LOC: ANHED 13:34 → ANHICU 14:37
PROVIDERS: Internal Medicine; Internal Medicine Interventional Cardiology; Specialist; Admitting Provider Family Medicine; Emergency Provider Emergency Medicine; PCP Family Medicine; Visit Provider Internal Medicine
PROC: 5A1223Z Performance of Cardiac Pacing, Continuous (ICD-10-PCS; CPT 33210; principal; 2025-05-30 14:00)
PROC: 0JH606Z Insertion of Pacemaker, Dual Chamber into Chest Subcutaneous Tissue and Fascia, Open Approach (ICD-10-PCS; CPT 33208; principal; 2025-06-02 07:30)
DX: I44.2 Atrioventricular block, complete (principal); I24.89 Other forms of acute ischemic heart disease; T82.528A Displacement of other cardiac and vascular devices and implants, initial encounter; R00.1 Bradycardia, unspecified; R55 Syncope and collapse; G47.33 Obstructive sleep apnea (adult) (pediatric); I10 Essential (primary) hypertension; F41.1 Generalized anxiety disorder; E78.5 Hyperlipidemia, unspecified; D64.9 Anemia, unspecified; G62.9 Polyneuropathy, unspecified; Z96.642 Presence of left artificial hip joint; Z86.16 Personal history of COVID-19; Z90.710 Acquired absence of both cervix and uterus
CPT/HCPCS: 33208; 33210; 33215; 36415; 71045; 71046; 80053; 81003; 83735; 84100; 84484; 85025; 85027; 85610; 85730; 87641; 93005; 93308; 96374; 99285; A9270; C1779; C1785; C1894; C8924; G0378; J0360; J0690; J1610; J1644; J1650; J2003; J2250; J3010; J7030; J7040; Q9957

== ENCOUNTER 2025-09-30 14:33 | Outpatient (CLI) | payer BC, SELFPAY ==
[2025-09-30 14:51] LABS: Hematocrit 38.0 % (37.0-47.0); Hemoglobin 12.5 g/dL (12.0-15.0); Immature Granulocyte Percent A 0.2 % (0-0.5); Lymphocytes Absolute Auto 1.11 K/mm3 (0.9-3.2); Mean Corpuscular HGB Conc 32.9 g/dl (32-36); Mean Corpuscular Hemoglobin 31.3 pg (26-34); Mean Corpuscular Volume 95.2 fl (80-100); Nucleated Red Blood Cells Absolute Auto 0.000 K/mm3 (0.0-0.012); Nucleated Red Blood Cells Perc 0.0 % (0.0-0.2); Platelet Count Result 260 k/mm3 (150-375); Red Blood Count 3.99 M/mm3 (4.2-5.4); White Blood Count 4.1 K/mm3 (4.5-10.0)
[2025-09-30 15:24] LABS: Alanine Aminotransferase 23 U/L (6-35); Albumin Level 4.5 g/dL (3.5-5.1); Alkaline Phosphatase 85 U/L (38-126); Anion Gap 7 mmol/L (4-12); Aspartate Amino Transferase 32 U/L (14-36); Bilirubin,Total 0.6 mg/dL (0.2-1.3); Blood Urea Nitrogen 30 mg/dL (7-17); Calcium 9.9 mg/dL (8.4-10.2); Carbon Dioxide 26 mmol/L (22-30); Chloride 96 mmol/L (98-107); Cholesterol 183 mg/dL (0-200); Estimated Glomerular Filt Rate > 60; Glucose 75 mg/dL (65-110); HDL Direct 54 mg/dL; Potassium 3.9 mmol/L (3.4-5.0); Sodium 129 mmol/L (137-145); Total Protein 7.6 g/dL (6.3-8.2); Triglycerides 107 mg/dL (<150)
[2025-09-30 15:34] LABS: NT Pro B Type Natriuretic Pept 531 pg/mL (19.9-100)
[2025-09-30 15:55] LABS: Thyroid Stimulating Hormone 1.250 uIU/mL (0.465-4.680)
--- OUTSIDE RECORDS SUMMARY | 2025-10-01 14:12 | XMS_ITS | Clinical Summary ---
Author Organization [facility] Address [address] [place] [address] Care Team Providers Care Industrial Workers Name Role Phone Unavailable Primary Care Provider [...] 3) 10/28/2020 09/02/2020, 08/17/2015 Influenza Immunization (#1) 07/27/202506/2020, 11/03/2019, 12/03/2018, Additional history exists SARS-COV-2 Immunization ( - season) 2025 09/30/2021 Pneumococcal Immunization (50+ years) Completed 09/02/2020, [...]
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
--- OUTSIDE RECORDS SUMMARY | 2025-10-01 14:13 | XMS_ITS | Clinical Summary ---
Author Organization [facility] Address [address] [place] [address] Care Team Providers Care Vessel Traffic Officer Name Role Phone Lokesh Albright MD Primary Care Provider [phone] Allergies Active Allergy Reactions Criticality Noted Date [...] for diarrhea. 80 tablet 1 2 Active Additional Information Patient not taking.Reported on 06/22/2025 aspirin 81 mg enteric coated tabletIndications :Deep Vein Thrombosis Prevention Take 1 tablet (81 mg total) by mouth daily 30 tablet 2 Active Additional Information Patient not taking.Reported on 06/22/2025 traMADoL (ULTRAM) 50 mg tabletIndications :Postoperative pain Take 1 tablet (50 mg total) by mouth every 6 (six) hours as needed for pain for up to 7 days 28 tablet 2 Active Additional Information Patient not taking.Reported on 06/22/2025 hydrOXYzine (VISTARIL) 25 mg capsuleIndication s:Postoperative pain Take 1 capsule (25 mg total) by mouth 3 (three) times a day as needed for anxiety 40 capsule 2 Active HYDROmorphone (DILAUDID) 2 mg tabletIndications :Pain Take 1-2 tablets (2-4 mg total) by mouth every 4 (four) hours as needed for pain 42 tablet 2 Active Additional Information Patient not taking.Reported on 06/22/2025 cyclobenzaprine (FLEXERIL) 5 mg tablet Take 1 tablet (5 mg total) by mouth 3 (three) times a day as needed for muscle spasms 30 tablet 2 Active Additional Information Patient not taking.Reported on 06/22/2025 gabapentin (NEURONTIN) 300 mg capsule Take 1 [...] mouth once daily 30 tablet 4 Active busPIRone (BUSPAR) 10 mg tablet 5 Active Active Problems Problem Noted Date Diagnosed Date Complete heart block 06/22/2025 Cardiac pacemaker in situ 06/02/2025 Overview (06/02/2025): Biotronik Amvia Edge Dual Pacemaker. Dx; CHB, Syncope. DOI 06/02/2025-Coco. Biotronik Remote. Primary osteoarthritis of right knee 10/17/2022 Osteoarthritis of left knee, unspecified osteoarthritis type 06/01/2022 CAD (coronary artery disease) 05/30/2022 JAY on CPAP 05/30/2022 Rectal polyp 06/08/2020 Aftercare following left hip joint replacement s urgery 03/23/2017 Osteoarthritis of knee 01/11/2016 Rheumatoid arthritis(714.0) 03/17/2013 Systemic lupus erythematosus 03/17/2013 HTN (hypertension) HTN (hypertension) Encounters Date Type Department Care Team Description 09/21/[address] [facility] Medical Group Cardiology [address] [place] [address] Turner Sepulveda MD Shortness of Breath 09/01/2025 11:30 AM CDT Ancillary Procedure [facility] Cardiology [address] [facility] [address] [address] Cardiac pacemaker in situ; CHB (complete heart block) 08/31/2025 Telephone [facility] Cardiology [address] [place] [address] Turner Sepulveda MD 07/29/2025 10:30 AM CDT Ancillary Procedure [facility] Cardiology [address] [place] [address] Cardiac pacemaker in situ; CHB (complete heart block) from Last 3 Months Immunizations Immunization Administration Dates Next Due Influenza, Quadrivalent, Rec ombinant, Egg Free, Preservative Free, Intramuscular 09/02/2020 Influenza, Trivalent, High D ose, Split, Preservative Free, Intramuscular 11/03/2019,12/03/2018,08/17/2015 Influenza, Trivalent, Preser vative Free, Intramuscular 12/04/2017,12/30/2013,12/10/2012 Influenza, Unspecified 09/26/2022 SmartFleet SARS-CoV-2 Monovalent Vaccination (12+ Yrs) PURPLE 02/15/2022,01/25/2022 [...] on file Legal Sex Female 9:58 AM DIRECTOR OF PHARMACY Gender Identity Not on file Sexual Orientation Not on file Last Filed Vital Signs Vital Sign Reading Time Taken Comments Blood Pressure 144/82 06/22/2025 3:05 PM CDT Pulse 74 06/22/2025 3:05 PM CDT Temperature 36.8 C (98.2 F) 10/18/2022 7:40 AM DIRECTOR OF PHARMACY Respiratory Rate 18 10/18/2022 7:40 AM DIRECTOR OF PHARMACY Oxygen Saturation 94% 06/22/2025 3:05 PM CDT Inhaled Oxygen Concentration - - Weight 83.2 kg (183 lb 6.4 oz) 06/22/2025 3:05 P M CDT Height 158.8 cm (5' 2.5) 06/22/2025 3:05 PM CDT Body Mass Index 33.01 06/22/2025 3:05 PM CDT Plan of Treatment Health Maintenance Due Date Last Done Comments Depression Screening 1945 Osteoporosis Screening-Bone Density Scan 1945 DTaP/Tdap/Td Vaccine (1 - Tdap) 02/19/1955 Hepatitis B Screening 02/19/1962 Well Visit 65+ 02/19/2009 Zoster Vaccine (3 of 3) 10/28/2020 09/02/2020, 08/17 Fall Risk Assessment 10/18/2023 10/18/2022 Covid-19 Vaccine (2024-2 6 season) 2025 02/15/2022, 01/25/2022, 09/30/2021, Additional history exists Influenza Vaccine (#1) 2025 , 09/02/2020, 11/03/2019, Additional history exists Pneumococcal vaccine 65+ Completed 09/02/2020, 06/2019 Medical Devices Implanted Type Area Vending Machine Host/Hostess Device Identifier Shelf Expiration Date Model / Serial / Lot Thr Left: Hip [employer] Attune Cruciate Retain Cementless Knee Left 6 Narrow Component [id number] - [id number] Implanted:Qty: 1 on 06/01/2022 by Aroldo Odom MD at [facility] [employer] [id number] 06/25/2031 [id number] / / [id number] [employer] Insert Attune Left Medial Stabilized Size 6 5mm [id number] - [id number] - [id number] Implanted:Qty: 1 on 06/01/2022 by Aroldo Odom MD at [facility] Left: Knee [employer] 02/23/2023 [id number] / [id number] / [employer] Attune Fb Tib Base Sz 6 Por [id number] - [id number] Implanted:Qty: 1 on 06/01/2022 by Aroldo Odom MD at [facility] Left: Knee [employer] 01/24/2032 [id number] / / [employer] Attune Cruciate Retain Cementless Knee Right 5 Component Femoral [id number] - [id number] Implanted:Qty: 1 on 10/17/2022 by Aroldo Odom MD at [facility] Right: Knee [employer] [id number] 12/26/2031 [id number] / / [id number] [employer] Attune Fb Tib Base Sz 6 Por [id number] - [id number] Implanted:Qty: 1 on 10/17/2022 by Aroldo Odom MD at [facility] Right: Knee [employer] [id number] 06/25/2032 [id number] / / [id number] [employer] Insert Attune Right Medial Stabilized Size 5 5mm [id number] - [id number] Implanted:Qty: 1 on 10/17/2022 by Aroldo Odom MD at [facility] Right: Knee [employer] [id number] 06/25/2030 [id number] / / [id number] Procedures Procedure Name Priority Date/Time Associated Diagnosis Comments DEVICE CHECK - REMOTE Routine 09/01/2025 12:06 PM CDT Cardiac pacemaker in situ CHB (complete heart block) DEVICE CHECK - IN OFFICE Routine 07/29/2025 10:29 AM CDT Cardiac pacemaker in situ CHB (complete heart block) from Last 3 Months Results * DEVICE CHECK - REMOTE (09/01/2025 12:06 PM CDT) Anatomical Region Laterality Modality Other Narrative 09/03/2025 11:40 AM CDT Biotronik Amvia Edge Dual Pacemaker. Dx; CHB, Syncope. DOI 06/02/2025-Coco. Biotronik Remote. Unscheduled DDD Pacemaker Remote. Patient called office yesterday with c/o dizziness, tired, and heart racing. See telephone note. Transmission attached. Battery status: Ok , 100% remaining battery life to JESSICA. Stable lead impedances, pacing and sensing thresholds. Presenting rhythm: -VS/AP-VS. AP-79%, INTERIOR DESIGN CONSULTANT-42%. No AT/AF episodes noted. No Ventricular high rate episodes detected. Medications: ASA 81 mg, Toprol-XL. See scanned report. Office pacemaker follow up: 11/03/2026. Biotronik remote f/u 11/03/2025. Liza Hernandez, BRAVO Turner Sepulveda MD [facility] PROC EDURES Final Result * DEVICE CHECK - IN OFFICE (07/29/2025 10:29 AM CDT) Anatomical Region Laterality Modality Other Narrative 07/31/2025 12:42 PM CDT Biotronik Amvia Edge Dual Pacemaker. Dx; CHB, Syncope. DOI 06/02/2025-Coco. Biotronik Remote. Supervising MD: Dr Sepulveda. Left pectoral incision well approximated. No redness, drainage, or edema noted. Office DDD Pacemaker interrogation demonstrated appropriate device function. Appropriate lead measurements noted. Battery function: ZACK, 11.5 years remaining battery life to JESSICA. Presenting rhythm- AP-VS/-VS (SR) 60 bpm. AP- 52%, INTERIOR DESIGN CONSULTANT- 0%. No Atrial high rate episodes recorded. No Ventricular high rate episodes noted. Medications; ASA 81 mg, Toprol XL. CLS sensor turned on. See scanned report. Office pacemaker f/u scheduled 11/03/2026. Biotronik remote f/u 11/03/2025. Liza Hernandez RN Turner Sepulveda MD [facility] C[facility]IAC SERVICES PROC EDURES Final Result from Last 3 Months Insurance MEDICARE [employer] OOS BLUE ACC CHOICE OOS MEDICARE Advance Directives For more information, please contact: [phone] * Full Code (Latest Code Status on File) Date Activated Date Inactivated Comments 10/17/2022 12:53 PM 10/18/2022 7:37 PM * Full Code Date Activated Date Inactivated Comments 06/01/2022 9:57 AM 06/02/2022 4:46 PM * Full Code Date Activated Date Inactivated Comments 07/15/2020 11:11 AM 07/16/2020 7:20 PM Care Teams Vessel Traffic Officer Relationship Specialty Start Date End Date Lokesh Albright MD PCP - General Family Medicine 10/10/21
== END 2025-09-30 14:34 | disposition home or self-care (01) ==
PROVIDERS: PCP Family Medicine; Visit Provider Nurse Practitioner Adult Health
DX: E78.5 Hyperlipidemia, unspecified (principal); I10 Essential (primary) hypertension; D50.0 Iron deficiency anemia secondary to blood loss (chronic); R53.83 Other fatigue
CPT/HCPCS: 36415; 80053; 80061; 83880; 84443; 85025

== ENCOUNTER 2025-09-30 17:33 | Emergency (ER) | payer BC, MEDICARE, SELFPAY ==
--- OUTSIDE RECORDS SUMMARY | 2009-04-30 03:00 | XMS_ITS | Continuity of Care Document ---
Author Organization [facility] Address [address] [place] [address] [facility] [address] [place] [address] Phone Care Team Providers Care Chromium Plater Name Role Phone Clyde Kyle Unavailable Unavailable Procedures Procedure Date Office/outpatient Visit, [facility] Advance Directives Directive Yes / No Effective Date File Name No Information Encounters Encounter Description Practice Location Reason(s) For Visit Diagnoses Date Provider Providers Copied on Encounter Office/outpat ient Visit, [facility] [place], [id number] [place] [address] [address], [place], [place], [id number], tel:[phone] [facility] No Information 5-200 9 Saroj Tang. [address] [facility] [address], [place], [address], [place]. tel:[phone] Family History Family Member Type Diagnosis Age At Onset No Information Payers Payer name Insurance type Covered libertarian ID Authoriza tion(s) No Information Social History Type Description Quantity Date Captured Comments Sex Female Smoking Status No Information Chief Complaint And Reason For Visit No Information Reason For Referral Reason For Referral No Information History Of Present Illness Encounter Date Complaint History Of Prese nt Illness No Information Functional Status Date Functional Assessmen t No Information Instructions Date Instruction Additional Infor mation No Information Assessments Type Assessment Date No Information Patient Care Teams Name Effective Dates (start - stop) Status Members No Information
--- NOTE | ~2025-09-30 | CT_ITS ---
EXAMINATION: CTA chest PE protocol DATE: 09/30/2025 19:39 MISSION WORKER INDICATION: Shortness of breath. Dyspnea with exertion. TECHNIQUE: Computed tomographic angiography (CTA) of the chest was performed with 100 mL Omnipaque-350 intravenous contrast. The dose-length product was 396.80 mGy-cm. Maximum intensity projection 3D-reconstructions of the aorta and other arteries were constructed by the technologist on a separate workstation. COMPARISON: None. FINDINGS: Large pulmonary arteries consistent with pulmonary hypertension. No thoracic lymphadenopathy. Borderline heart size. No significant pleural or pericardial effusion. No endobronchial lesions. No focal airspace disease. No pneumothorax. Upper abdomen is unremarkable. IMPRESSION: 1. No evidence for pulmonary embolism. 2: Enlarged pulmonary arteries consistent with pulmonary hypertension. Reviewed, dictated and finalized at location O. ION WORKER
--- NOTE | ~2025-09-30 | XR_ITS ---
EXAM/PROCEDURE: XR chest 2V HISTORY: CP, SOB COMPARISON: June 03 TECHNIQUE: Two view(s) of the chest. FINDINGS: LUNGS: Clear of acute processes. PLEURAL SPACES: Clear. No evidence of fluid or pneumothorax. HEART/ MEDIASTINUM: There is mild cardiomegaly. SOFT TISSUES: No significant findings. BONES: No acute osseous abnormality. Pacing device enters from the left has leads in the right atrium and right ventricle. IMPRESSION: No acute findings. Reviewed, dictated and finalized at location A. ICE DELIVERY CONSULTANT IMPRESSION: No acute findings.
--- NOTE | 2025-09-30 17:34 | ECG_ITS ---
Test Date: 2025-09-30 17:42:16 Measurements Intervals [place] Rate: 67 P: 240 PA: 275 QRS: -57 QRSD: 170 T: 115 QT: 430 QTc: 455 Interpretive Statements ELECTRONIC ATRIAL PACEMAKER RIGHT BUNDLE BRANCH BLOCK LEFT ANTERIOR FASCICULAR BLOCK LEFT VENTRICULAR HYPERTROPHY AND ST-T CHANGE Electronically Signed On 10-01-2025 07:19:41 FLARING MACHINE OPERATOR by Ced Lawrence D.O
[2025-09-30 17:36] VITALS: BP 198/81; PULSE 77; RESP 20; TEMP 36.9; O2SAT 100
--- NOTE | 2025-09-30 17:55 | ED_ITS ---
HPI - SOB/Dyspnea General Chief Complaint: Shortness of Breath/Dyspnea <Debora Banerjee MD - Last Filed: 09/30/25 19:07> Stated Complaint: SOB, fatigue <Debora Banerjee MD - Last Filed: 09/30/25 19:07> Time Seen by Provider: 09/30/25 17:47 <Debora Banerjee MD - Last Filed: 09/30/25 19:07> Source: patient and family <Debora Banerjee MD - Last Filed: 09/30/25 19:07> Mode of arrival: ambulatory <Debora Banerjee MD - Last Filed: 09/30/25 19:07> Limitations: no limitations <Debora Banerjee MD - Last Filed: 09/30/25 19:07> History of Present Illness HPI Narrative: Patient presents with report of shortness of breath. Particularly, she notes dyspnea on exertion. She states normally she exercises but for several months she finds that she cannot walk long always and gives the example of becoming winded when she walks room to room or walking up 5 stairs in her house. She initially denies any cardiac history however she states she thought it would get better after her pacemaker was placed (done [address] Sepulveda). She states she was recently seen at a [facility] for SOB . She states she was told that her workup was fine nothing was wrong however she had a follow-up appointment with her PCP (saw the YOLANDA Ariana in Dr Faye's office) who told her she was in renal failure and had concerns she had had a mini/mild heart attack.Denies any edema although she and her partner both state that the other night it seemed like she had bilateral lower extremity edema. Denies any chest pain. No history PE/DVT. Not on anticoagulation. She is a lifelong nonsmoker. She uses CPAP for underlying JAY but otherwise denies any underlying respiratory conditions. No fevers or chills previously although feels chilled this evening in the ED. No cough but has had a dry mouth. <Debora Banerjee MD - Last Filed: 09/30/25 19:07> Related Data Home Medications: Home Medications ?Medication ?Instructions ?Recorded ?Confirmed ?Last Taken ?Type acetaminophen 650 mg 1,000 mg PO Q8H Pain 2 09/30/25 08/16/22 History tablet,extended release (Arthritis Pain Reliever) cyclosporine 0.05 % eye drops in a 1 drp EACH EYE Q12H 03/11/25 09/30/25 Unknown History dropperette (Restasis) evening primrose oil 500 mg capsule 1,000 mg PO DAILY 03/11/25 09/30/25 Unknown History fluticasone propionate 93 2 spray intranasal Q12H PRN 03/11/25 09/30/25 Unknown History mcg/actuation breath activated allergy symptoms aerosol (Xhance) cholecalciferol (vitamin D3) 125 50,000 unit PO WEEKLY 05/25/25 09/30/25 Unknown History mcg (5,000 unit) capsule estradiol 0.01% (0.1 mg/gram) 1 g vaginal .twice a wee k 05/25/25 09/30/25 Unknown History vaginal cream mirabegron 50 mg tablet,extended 50 mg PO Q24H 5 09/30/25 Unknown History release 24 hr <Debora Banerjee MD - Last Filed: 09/30/25 19:07> Allergies/Adverse Reactions: Allergies Allergy/AdvReac Type Severity Reaction Status Date / Time lisinopril Allergy Severe Angioedema Verified 09/30/25 10:25 SIOBHAN Inhibitors Allergy Unknown Angioedema Verified 09/30/25 10:25 aspirin AdvReac Mild Irritable Verified 09/30/25 10:25 pregabalin AdvReac dizziness, Verified 09/30/25 10:25 dry mouth <Debora Banerjee MD - Last Filed: 09/30/25 19:07> [facility] Past Medical History Medical History: Medical History Elevated troponin I measurement Left anterior fascicular block Abnormal EKG Bundle branch block, right Tinnitus chronic Sleep attack Raciel Robbins infection Leg length discrepancy Exudative tonsillitis Excessive daytime sleepiness JAY on CPAP COVID-19 BMI greater than 30 Neuropathy Colonoscopy planned Adenomatous colon polyp Anemia, unspecified Colonic mass Hx of hemorrhoids Had what sounds like hemorrhoidal banding about 5-7 years ago in [place]. Anxiety Hypertension Cerebrovascular disease Reports she saw ENT for tinnitus who told her she had atherosclerotic plaque in her head and prescribed Plavix 5 years ago. Has not followed up with that provider. Vitamin D deficiency Generalized anxiety disorder with panic attacks Hyperlipidemia Migraines Severe obstructive sleep apnea <Debora Banerjee MD - Last Filed: 09/30/25 19:07> Surgical History Surgical History: Surgical History History of left hip replacement Around 2016 History of arthroscopy of both knees History of hysterectomy for benign disease Vaginal hysterectomy in her 30's. Status post LASIK surgery History of bladder suspension procedure History of cataract surgery The patient denies history cataract surgery but it appears patient has artificial lenses on exam History of colonoscopy with polypectomy Colonoscopy by Dr. Lozano in June 2004. Patient reports having a more recent Colonoscopy in an Ambulatory surgery center in [place] about 5-6 years ago. History of benign polypectomy. <Debora Banerjee MD - Last Filed: 09/30/25 19:07> Family History Family History: Family History Mother Alcoholism Esophageal varices Stomach rupture Sibling Hypertension Psychiatric diagnosis The patient's sister tried to kill the patient at one time. Father , The patient reports her father froze to when his furnace when out when he was 88 years old. Over 80 years old Sibling TBI (traumatic brain injury) Seizures Other Family history of arthritis Family history of mental disorder <Debora Banerjee MD - Last Filed: 09/30/25 19:07> Social History Social History: Social History Social History: Primary care physician: Dr. Albright Code status: Full code Patient is with adult children. She lives at home with her . She is retired and was previously worked at a pre-school. 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 Gender identity (if verbalized by the patient): Female Spiritual care concerns: No <Debora Banerjee MD - Last Filed: 09/30/25 19:07> Exam 2 Narrative: GENERAL: Well-appearing, well-nourished, and in no acute distress. HEAD: Normocephalic, atraumatic. EYES: Non injected, non icteric ENT: Nares clear, no rhinorrhea or epistaxis. Gross auditory acuity intact. NECK: Supple. No meningismus. CHEST: Speaking in full sentences. No respiratory distress. Lungs clear to auscultation bilaterally without appreciable wheezes or crackles. HEART: Regular rate and rhythm. . ABDOMEN: Soft, nondistended. No rigidity or guarding. Not peritoneal EXTREMITIES: Normal range of motion. No lower extremity edema. SKIN: Warm, dry, no rash. NEURO: No focal deficits. Alert and oriented. Answering questions. Following commands. Normal speech without aphasia or dysarthria. PSYCH: Congruent mood and affect. <Debora Banerjee MD - Last Filed: 09/30/25 19:07> Course Course Emergency Course: ZYCH: patient signed out to me pending the PE. CT PE was negative for pulmonary embolism, PNA. this CT showed dilated pulmonary arteries which she be seen in pulmonary hypertension which could explain this patient's dyspnea on exertion. Patient was informed of the results. She is resting comfortably in bed with no respiratory distress. She was able to ambulate around the emergency department with a pulse ox and maintain her saturations although she did become slightly winded. Think further workup could safely be performed on an outpatient basis. She will call Dr. Diaz in his clinic tomorrow morning to arrange close follow-up. Given return precautions for worsening shortness of breath. <Jose Hernandez MD - Last Filed: 09/30/25 21:37> Vital Signs Vital signs: Vital Signs Temperature 98.5 F 09/30/25 17:36 Pulse Rate 77 09/30/25 17:36 Respiratory Rate 20 09/30/25 17:36 Blood Pressure 198/81 H 09/30/25 17:36 Pulse Oximetry 100 09/30/25 17:36 Oxygen Delivery Room Air 09/30/25 17:36 Temperature 97.6 F 09/30/25 19:18 Pulse Rate 72 09/30/25 19:18 Respiratory Rate 19 09/30/25 19:18 Blood Pressure 160/71 H 09/30/25 19:18 Pulse Oximetry 97 09/30/25 19:18 Oxygen Delivery Room Air 09/30/25 18:29 <Debora Banerjee MD - Last Filed: 09/30/25 19:07> Vital Signs Temperature 98.5 F 09/30/25 17:36 Pulse Rate 77 09/30/25 17:36 Respiratory Rate 20 09/30/25 17:36 Blood Pressure 198/81 H 09/30/25 17:36 Pulse Oximetry 100 09/30/25 17:36 Oxygen Delivery Room Air 09/30/25 17:36 Temperature 97.6 F 09/30/25 19:18 Pulse Rate 72 09/30/25 19:18 Respiratory Rate 19 09/30/25 19:18 Blood Pressure 160/71 H 09/30/25 19:18 Pulse Oximetry 97 09/30/25 19:18 Oxygen Delivery Room Air 09/30/25 18:29 <Jose Hernandez MD - Last Filed: 09/30/25 21:37> MDM - SOB/Dyspnea MDM Narrative Medical decision making narrative: Patient presents with shortness of breath and fatigue. In particular she reports dyspnea on exertion. Reports that she becomes short of breath when she goes from room to room in her house or climbs up 5 stairs. She initially denies any cardiac history but then reports that she had a pacemaker placed 3 months ago, sees Dr Sepulveda, and her symptoms were before this and she thought they would get better after the pacemaker. In the emergency department she is afebrile with vital signs notable for hypertension. Based on EKG, I did request patient be brought back to a room so I can obtain more thorough history. There is a small delay in this and once patient is roomed I was with another patient initially and when I attempted to assess her, she did note she needed to urinate so obtained partial history and patient was taken to the restroom before I could return and complete history. Hyponatremia, stable and in fact improved from most recent. Leukopenia, seen previously; stable. Normal renal function. Troponin within normal limits. Given the possible ST elevations on EKG today (although no reciprocal changes) and changes from previous (EKG 06/02/25 had diffuse T wave inversions), although that was before pacemaker placement, I did discuss patient with on site wastewater systems technician process owner Dr Jones who says not STEMI criteria after reviewing EKG today and previous. Patient still without chest pain. BNP mildly elevated but not to a degree to suggest acute heart failure especially for the reference range of the assay for patient's age. Dimer was only mildly elevated; plan was to initially obtain CT with contrast and while I have low suspicion that PE is the patient's diagnosis, will proceed with CTA imaging to fully rule out and which will given additional insight into lung parenchyma. Patient has UA with leukocyte esterase and some WBC but no bacteria; will defer giving antibiotics. REflex urine culture pending. Patient signed out to oncoming ED physician pending CTA PE and viral swab. Has otherwise been stable. <Debora Banerjee MD - Last Filed: 09/30/25 19:07> Differential Diagnosis Differential diagnosis: Likely congestive heart failure (considered flash pulmonary edema/SCAPE), community acquired pneumonia, pulmonary embolism and other (Acute viral syndrome; ACS) <Debora Banerjee MD - Last Filed: 09/30/25 19:07> Lab Data Result diagrams: 09/30/25 17:54 09/30/25 17:54 <Debora Banerjee MD - Last Filed: 09/30/25 19:07> Labs: Lab Results 09/30/25 09/30/25 09/30/25 Range/Units 17:54 18:30 21:09 WBC 4.2 L (4.5-10.0) K/mm3 RBC 4.23 (4.2-5.4) M/mm3 Hgb 13.1 (12.0-15.0) g/dL Hct 40.2 (37.0-47.0) % MCV 95.0 (80-100) fl MCH 31.0 (26-34) pg MCHC 32.6 (32-36) g/dl RDW 12.3 (11.5-14.5) % Plt Count 268 (150-375) k/mm3 MPV 10.3 (7.4-10.4) fl Immature Gran % (Auto) 0.2 (0-0.5) % Neut % (Auto) 58.8 (45.5-73.1) % Lymph % (Auto) 26.7 (18.3-44.2) % [place] % (Auto) 13.3 H (2.6-8.5) % Eos % (Auto) 0.0 (0-4.4) % Baso % (Auto) 1.0 (0.2-1.2) % Lymph # (Auto) 1.11 (0.9-3.2) K/mm3 [place] # (Auto) 0.6 (0.1-0.6) K/mm3 Eos # (Auto) 0.0 (0-0.3) K/mm3 Baso # (Auto) 0.0 (0.0-0.1) K/mm3 Abs Immat Gran (auto) 0.01 (0.00-0.031) K/mm3 Absolute Neuts (auto) 2.4 (1.3-6.7) K/mm3 Absolute Nucleated RBC 0.000 (0.0-0.012) K/mm3 Nucleated RBC % 0.0 (0.0-0.2) % PT 12.4 (11.1-14.7) Seconds INR 0.9 APTT 29.6 (22.3-36.8) Seconds D-Dimer 0.52 H (<0.48) ug/mL Sodium 133 L (137-145) mmol/L Potassium 4.2 (3.4-5.0) mmol/L Chloride 97 L (98-107) mmol/L Carbon Dioxide 28 (22-30) mmol/L Anion Gap 8 (4-12) mmol/L BUN 28 H (7-17) mg/dL Creatinine 0.70 (0.7-1.0) mg/dL Estim Creat Clear Calc 56 ml/min Estimated GFR > 60 (59 - ) Glucose 113 H (65-110) mg/dL Calcium 10.0 (8.4-10.2) mg/dL Total Bilirubin 0.6 (0.2-1.3) mg/dL AST 32 (14-36) U/L ALT 26 (6-35) U/L Alkaline Phosphatase 83 (38-126) U/L Troponin I 0.028 Pending (0.000-0.034) ng/mL NT-Pro-B Natriuret Pep 629 H (19.9-100) pg/mL Total Protein 7.9 (6.3-8.2) g/dL Albumin 4.7 (3.5-5.1) g/dL Lipase 31 (23-300) U/L Urine Color Yellow (Yellow) Urine Appearance Clear (Clear) Urine pH 7.0 (5.0-9.0) Ur Specific [place] 1.007 (1.001-1.035) Urine Protein Negative (Negative) mg/dL Urine Glucose (UA) Negative (Negative) mg/dL Urine Ketones Negative (Negative) mg/dL Ur Blood (Man) Negative (Negative) Urine Nitrate Negative (Negative) Urine Bilirubin Negative (Negative) Urine Urobilinogen 0.2 (<2.0) mg/dL Leukocyte Esterase Rfl 3+ H (Negative) VINNY/UL Urine RBC 0-2 (0-2) /hpf Urine WBC 11-20 H (0-3) /hpf Ur Squamous Epith Cells None seen (Few) /hpf Urine Bacteria None seen /hpf Urine Casts 0-2 Influenza A (RT-PCR) Negative (Negative) Influenza B (RT-PCR) Negative (Negative) RSV (RT-PCR) Negative (Negative) SARS-CoV-2 RNA (RT-PCR) Negative (Negative) <Debora Banerjee MD - Last Filed: 09/30/25 19:07> Lab Results 09/30/25 09/30/25 09/30/25 Range/Units 17:54 18:30 21:09 WBC 4.2 L (4.5-10.0) K/mm3 RBC 4.23 (4.2-5.4) M/mm3 Hgb 13.1 (12.0-15.0) g/dL Hct 40.2 (37.0-47.0) % MCV 95.0 (80-100) fl MCH 31.0 (26-34) pg MCHC 32.6 (32-36) g/dl RDW 12.3 (11.5-14.5) % Plt Count 268 (150-375) k/mm3 MPV 10.3 (7.4-10.4) fl Immature Gran % (Auto) 0.2 (0-0.5) % Neut % (Auto) 58.8 (45.5-73.1) % Lymph % (Auto) 26.7 (18.3-44.2) % [place] % (Auto) 13.3 H (2.6-8.5) % Eos % (Auto) 0.0 (0-4.4) % Baso % (Auto) 1.0 (0.2-1.2) % Lymph # (Auto) 1.11 (0.9-3.2) K/mm3 [place] # (Auto) 0.6 (0.1-0.6) K/mm3 Eos # (Auto) 0.0 (0-0.3) K/mm3 Baso # (Auto) 0.0 (0.0-0.1) K/mm3 Abs Immat Gran (auto) 0.01 (0.00-0.031) K/mm3 Absolute Neuts (auto) 2.4 (1.3-6.7) K/mm3 Absolute Nucleated RBC 0.000 (0.0-0.012) K/mm3 Nucleated RBC % 0.0 (0.0-0.2) % PT 12.4 (11.1-14.7) Seconds INR 0.9 APTT 29.6 (22.3-36.8) Seconds D-Dimer 0.52 H (<0.48) ug/mL Sodium 133 L (137-145) mmol/L Potassium 4.2 (3.4-5.0) mmol/L Chloride 97 L (98-107) mmol/L Carbon Dioxide 28 (22-30) mmol/L Anion Gap 8 (4-12) mmol/L BUN 28 H (7-17) mg/dL Creatinine 0.70 (0.7-1.0) mg/dL Estim Creat Clear Calc 56 ml/min Estimated GFR > 60 (59 - ) Glucose 113 H (65-110) mg/dL Calcium 10.0 (8.4-10.2) mg/dL Total Bilirubin 0.6 (0.2-1.3) mg/dL AST 32 (14-36) U/L ALT 26 (6-35) U/L Alkaline Phosphatase 83 (38-126) U/L Troponin I 0.028 Pending (0.000-0.034) ng/mL NT-Pro-B Natriuret Pep 629 H (19.9-100) pg/mL Total Protein 7.9 (6.3-8.2) g/dL Albumin 4.7 (3.5-5.1) g/dL Lipase 31 (23-300) U/L Urine Color Yellow (Yellow) Urine Appearance Clear (Clear) Urine pH 7.0 (5.0-9.0) Ur Specific [place] 1.007 (1.001-1.035) Urine Protein Negative (Negative) mg/dL Urine Glucose (UA) Negative (Negative) mg/dL Urine Ketones Negative (Negative) mg/dL Ur Blood (Man) Negative (Negative) Urine Nitrate Negative (Negative) Urine Bilirubin Negative (Negative) Urine Urobilinogen 0.2 (<2.0) mg/dL Leukocyte Esterase Rfl 3+ H (Negative) VINNY/UL Urine RBC 0-2 (0-2) /hpf Urine WBC 11-20 H (0-3) /hpf Ur Squamous Epith Cells None seen (Few) /hpf Urine Bacteria None seen /hpf Urine Casts 0-2 Influenza A (RT-PCR) Negative (Negative) Influenza B (RT-PCR) Negative (Negative) RSV (RT-PCR) Negative (Negative) SARS-CoV-2 RNA (RT-PCR) Negative (Negative) <Jose Hernandez MD - Last Filed: 09/30/25 21:37> Imaging Data Attestation: I personally reviewed and interpreted this imaging study as follows: < Debora Banerjee MD - Last Filed: 09/30/25 19:07> My impression: Pacemaker in place. Cardiomegaly but otherwise no acute intrathoracic process on my independent interpretation <Debora Banerjee MD - Last Filed: 09/30/25 19:07> ECG Data EKG #1: Attestation: I personally reviewed and interpreted this ECG as follows: < Debora Banerjee MD - Last Filed: 09/30/25 19:07> ECG completion date: 09/30/25 <Debora Banerjee MD - Last Filed: 09/30/25 19:07> ECG completion time: 17:42 <Debora Banerjee MD - Last Filed: 09/30/25 19:07> Prior ECG tracings: available for review (06/02/2025; T wave inversions throughout inferior leads and V4-V5) <Debora Banerjee MD - Last Filed: 09/30/25 19:07> Interpretation: Electronic atrial pacemaker at a rate of 67 beats per minute. ID interval is prolonged at 275 milliseconds consistent with a first-degree AV block. QRS 170 which is prolonged. QT/QTC 430/445. RBBB given QRS greater [id number]; RSR' M-shaped pattern in V1-V3; wide, slurred S wave in lateral leads (I, aVL, V5-6). Left anterior fascicular block with rS complexes in leads II, III, aVF (small R waves, deep S waves), qR complexes in lead I , avL (small Q waves and tall R waves) and left axis deviation with Leads II, III and aVF negative and leads I and aVL positive. <Debora Banerjee MD - Last Filed: 09/30/25 19:07> Discharge Plan Discharge Clinical Impression: Chronic hyponatremia, Leukopenia, Dyspnea on exertion <Debora Banerjee MD - Last Filed: 09/30/25 19:07> Patient Disposition: Still a Patient <Debora Banerjee MD - Last Filed: 09/30/25 19:07> Condition: Stable <Debora Banerjee MD - Last Filed: 09/30/25 19:07> Instructions: Dyspnea (ED) <Debora Banerjee MD - Last Filed: 09/30/25 19:07> Additional Instructions: Follow up with your PCP and clinical massage therapist for further managment. <Debora Banerjee MD - Last Filed: 09/30/25 19:07> Patient Language: Liberian <Debora Banerjee MD - Last Filed: 09/30/25 19:07> Prescriptions: No Action amlodipine 10 mg tablet 5 mg PO DAILY 30 Days Qty: 15 0RF Sunosi 150 mg tablet 150 mg PO DAILY Qty: 90 3RF buspirone 30 mg tablet 30 mg PO BID Qty: 60 2RF lorazepam [Ativan] 0.5 mg tablet 0.5 mg PO TID PRN (Reason: anxiety) Qty: 30 0RF evening primrose oil 500 mg capsule 1,000 mg PO DAILY Rx Instructions: give with meal/snack Xhance 93 mcg/actuation aerosol breath activated 2 spray intranasal Q12H PRN (Reason: allergy symptoms) Rx Instructions: into each nostril cyclosporine [Restasis] 0.05 % dropperette 1 drp EACH EYE Q12H ferrous sulfate [FeroSul] 325 mg (65 mg iron) tablet See Rx Instructions .ROUTE .COMPLEX Qty: 90 3RF Dose Instruction: TAKE 1 TABLET DAILY Rx Instructions: TAKE 1 TABLET DAILY losartan 50 mg tablet See Rx Instructions .ROUTE .COMPLEX Qty: 90 3RF Dose Instruction: TAKE 1 TABLET DAILY Rx Instructions: TAKE 1 TABLET DAILY omeprazole 20 mg capsule,delayed release(DR/EC) 20 mg PO DAILY Qty: 90 2RF acetaminophen [Arthritis Pain Reliever] 650 mg Tablet Extended Release 1,000 mg PO Q8H estradiol 0.01 % (0.1 mg/gram) cream 1 g VAGINAL .twice a week Rx Instructions: taken on and mirabegron 50 mg tablet extended release 24 hr 50 mg PO Q24H cholecalciferol (vitamin D3) 125 mcg (5,000 unit) capsule 50,000 unit PO WEEKLY Rx Instructions: on Tuesdays simvastatin 40 mg tablet 40 mg PO DAILY Qty: 90 1RF duloxetine 60 mg capsule,delayed release(DR/EC) See Rx Instructions .ROUTE .COMPLEX Qty: 90 3RF Dose Instruction: TAKE 1 CAPSULE DAILY AT BEDTIME Rx Instructions: TAKE 1 CAPSULE DAILY AT BEDTIME meclizine 25 mg tablet 25 mg PO TID PRN (Reason: dizziness) Qty: 30 0RF <Debora Banerjee MD - Last Filed: 09/30/25 19:07> Follow-up/Referrals: Turner Sepulveda MD [Physician, Cardiology] - 1 Day Referral Note: Dyspnea on exertion. Possible pulmonary htn Clinical Impression: Dyspnea on exertion Ariana Burnette APRN [Advanced Practice Nurse, Family Practice] Lokesh Albright MD [Primary Care Provider, [facility]] <Debora Banerjee MD - Last Filed: 09/30/25 19:07>
[2025-09-30 18:01] LABS: Hematocrit 40.2 % (37.0-47.0); Hemoglobin 13.1 g/dL (12.0-15.0); Immature Granulocyte Percent A 0.2 % (0-0.5); Lymphocytes Absolute Auto 1.11 K/mm3 (0.9-3.2); Mean Corpuscular HGB Conc 32.6 g/dl (32-36); Mean Corpuscular Hemoglobin 31.0 pg (26-34); Mean Corpuscular Volume 95.0 fl (80-100); Nucleated Red Blood Cells Absolute Auto 0.000 K/mm3 (0.0-0.012); Nucleated Red Blood Cells Perc 0.0 % (0.0-0.2); Platelet Count Result 268 k/mm3 (150-375); Red Blood Count 4.23 M/mm3 (4.2-5.4); White Blood Count 4.2 K/mm3 (4.5-10.0)
[2025-09-30 18:14] LABS: Alanine Aminotransferase 26 U/L (6-35); Albumin Level 4.7 g/dL (3.5-5.1); Alkaline Phosphatase 83 U/L (38-126); Anion Gap 8 mmol/L (4-12); Aspartate Amino Transferase 32 U/L (14-36); Bilirubin,Total 0.6 mg/dL (0.2-1.3); Blood Urea Nitrogen 28 mg/dL (7-17); Calcium 10.0 mg/dL (8.4-10.2); Carbon Dioxide 28 mmol/L (22-30); Chloride 97 mmol/L (98-107); Estimated CRCL calculation 56 ml/min; Estimated Glomerular Filt Rate > 60; Glucose 113 mg/dL (65-110); Lipase 31 U/L (23-300); Potassium 4.2 mmol/L (3.4-5.0); Sodium 133 mmol/L (137-145); Total Protein 7.9 g/dL (6.3-8.2)
[2025-09-30 18:17] LABS: INR 0.9; Partial Thromboplastin Time 29.6 Seconds (22.3-36.8); Prothrombin Time 12.4 Seconds (11.1-14.7)
[2025-09-30 18:26] LABS: Troponin I 0.028 ng/mL (0.000-0.034)
[2025-09-30 18:40] LABS: NT Pro B Type Natriuretic Pept 629 pg/mL (19.9-100)
[2025-09-30 18:45] LABS: Add Urine Microscopic? YES; Appearance Urine Clear (Clear); Glucose Urine UA Negative (Negative); Leukocyte Esterase Ur 3+ LEU/UL (Negative); Nitrate Urine Negative (Negative); Non Pathogenic Casts 0-2; Specific Grav Ur 1.007 (1.001-1.035)
[2025-09-30 19:10] LABS: Influenza A QL RT-PCR Negative (Negative); Influenza B QL RT-PCR Negative (Negative); RSV RNA, RT-PCR Negative (Negative); SARS-CoV-2 RNA PCR Negative (Negative)
[2025-09-30 19:18] VITALS: BP 160/71; PULSE 72; RESP 19; TEMP 36.4; O2SAT 97
--- NOTE | 2025-09-30 19:30 | PC.NURSE ---
Received report from BRAVO Titus for cont. of care. Pt AOX4 lying on stretcher on cont. cardiac monitoring and cont. pulse oximeter 97% RA. Pt states she has periods of intermitted SOB, denies chest pain at this time.
--- NOTE | 2025-09-30 20:54 | ECG_ITS ---
Test Date: 2025-09-30 21:07:12 Measurements Intervals [place] Rate: 69 P: -65 MO: 260 QRS: -62 QRSD: 166 T: 114 QT: 451 QTc: 484 Interpretive Statements ELECTRONIC ATRIAL PACEMAKER LEFT ANTERIOR FASCICULAR BLOCK RIGHT BUNDLE BRANCH BLOCK [120+ ms QRS DURATION, UPRIGHT V1, 40+ ms S IN I/aVL/V4/V5/V6] LEFT VENTRICULAR HYPERTROPHY [VOLTAGE CRITERIA PLUS LAE OR QRS WIDENING] AND ST-T CHANGES Compared to ECG 09/30/2025 17:42:16 WITH NO SIGNIFICANT CHANGES Electronically Signed On 10-01-2025 08:54:13 FINE HAIRER by Michael Meyer M.D.
--- NOTE | 2025-09-30 21:23 | PC.NURSE ---
pt ambulatory to bathroom with steady gait, per pt feels winded.
[2025-09-30 21:37] LABS: Troponin I 0.031 ng/mL (0.000-0.034)
[2025-09-30 21:56] VITALS: BP 166/71; PULSE 70; RESP 20; O2SAT 98
--- OUTSIDE RECORDS SUMMARY | 2025-10-01 15:00 | XMS_ITS | Encounter Summary ---
Author Organization [facility] Healthcare Address [address] [place] [address] Care Team Providers Care Shellfish Bed Worker Name Role Phone Lokesh Albright MD Primary Care Provider [phone] Reason for Visit * Reason Comments Hospital Follow Up Shortness of Breath Elevated BNP Encounter Details Date Type Department Care Team (Late st Contact Info) Description 10/01/2025 3:00 PM MARKETING FORECASTER Office Visit [facility] Medical Group Cardiology [address] [facility] [address] [place] [address] Vee Oneal NP [address] [place] [address] Arrived Social History Tobacco Use Types Packs/Day Years [...] on file Legal Sex Female 9:58 AM MARKETING FORECASTER Gender Identity Not on file Sexual Orientation Not on file documented as of this encounter Last Filed Vital Signs Vital Sign Reading Time Taken Comments Blood Pressure 164/74 10/01/2025 3:05 PM MARKETING FORECASTER Pulse 80 10/01/2025 3:05 PM MARKETING FORECASTER Temperature - - Respiratory Rate - - Oxygen Saturation 98% 10/01/2025 3:05 PM MARKETING FORECASTER Inhaled Oxygen Concentration - - Weight 84.4 kg (186 lb) 10/01/2025 3:05 PM MARKETING FORECASTER Height 158.8 cm (5' 2.5) 10/01/2025 3:05 PM MARKETING FORECASTER Body Mass Index 33.48 10/01/2025 3:05 PM MARKETING FORECASTER documented in this encounter Functional Status * BP Location Answer Date of Assessment Author Left arm 10/01/2025 3:05 PM MARKETING FORECASTER Natividad Fischer MA * BP Location Answer Date of Assessment Author Left arm 10/01/2025 3:05 PM MARKETING FORECASTER Natividad Fischer MA documented as of this encounter Plan of Treatment Not on file documented as of this encounter Visit Diagnoses Not on filedocumented in this encounter Care Teams Shellfish Bed Worker Relationship Specialty Start Date End Date Lokesh Albright MD PCP - General Family Medicine 10/10/21 documented as of this encounter
--- OUTSIDE RECORDS SUMMARY | 2025-10-01 15:26 | XMS_ITS | Encounter Summary ---
Author Organization [facility] Healthcare Address [address] [place] [address] Care Team Providers Care Brazing Furnace Feeder Name Role Phone Lokesh Albright MD Primary Care Provider [phone] Reason for Visit * Reason Onset Date Comments Shortness of Breath 09/21/2025 Encounter Details Date Type Department Care Team (Late st Contact Info) Description 09/21/2025 Telephone [facility] Medical Group Cardiology [address] [facility] [address] [facility] [address] [place] [address] Turner Sepulveda MD [address] [facility] [address] [place] [address] Shortness of Breath Social History [...] on file Legal Sex Female 9:58 AM FIGURINE MAKER Gender Identity Not on file Sexual Orientation Not on file documented as of this encounter Miscellaneous Notes * Telephone Encounter - Tara Kennedy RN - 10/01/2025 10:39 AM FIGURINE MAKER Pt scheduled to see CT at 3:00 this afternoon. Pt aware of location and advised to arrive at 2:45. Pt verbalizes understanding. RINE MAKER * Telephone Encounter - Tara Kennedy RN - 10/01/2025 10:04 AM FIGURINE MAKER Spoke with pt, pt c/o continued CYR. [...] add pt to CT's schedule this afternoon. RINE MAKER * Telephone Encounter - Allison Guerra - [...] help me. Please advise. Thank you. Contact [phone] RINE MAKER * Telephone Encounter - Tara Kennedy RN - 09/21/2025 1:13 PM CDT Spoke with pt, pt states that she has been having CYR over the past couple days. Pt not in any distress when speaking on the phone. Pt states that she is in [facility] for a reunion and was seen in the ER and admitted to [facility] in [place]. Pt states that she was discharged home and was advised to follow up with Cardiology. Pt denies any SOB at rest and only with light exertion. No pain, no lower extremity swelling. Pt requesting an appt to be seen in the office. Pt scheduled to see CT tomorrow morning. STAT medical records request faxed to [facility] to get records for appt tomorrow. Pt states they are currently traveling home. Advised pt to go to the ER for any new or wo rsening symptoms. * Telephone Encounter - Allison Guerra - 09/21/2025 12:37 PM CDT Pt currently experiencing SOB at rest. Pt was extremely out of breath while on the phone. States that she is currently in [place], [place] and went to the ED. States that an ECG and several other test were ran and came back normal and advised pt to call cardio. Please advise. Thank you. Contact [phone] documented in this encounter Plan of Treatment Not on file documented as of this encounter Visit Diagnoses Not on filedocumented in this encounter Care Teams Brazing Furnace Feeder Relationship Specialty Start Date End Date Lokesh Albright MD PCP - General Family Medicine 10/10/21 documented as of this encounter
--- OUTSIDE RECORDS SUMMARY | 2025-10-01 15:26 | XMS_ITS | Clinical Summary ---
Author Organization [facility] Address [address] [place] [address] Care Team Providers Care Boner Meat Name Role Phone Unavailable Primary Care Provider [...]
--- OUTSIDE RECORDS SUMMARY | 2025-10-01 15:26 | XMS_ITS | Clinical Summary ---
Author Organization [facility] Address [address] [place] [address] Care Team Providers Care Special Service Officer Name Role Phone Lokesh Albright MD Primary Care Provider [phone] Allergies Active Allergy Reactions Criticality Noted Date [...] Encounters Date Type Department Care Team Description 10/01/2025 3:00 PM BLOCK PRESS OPERATOR Office Visit [facility] Cardiology [address] [address] [place], [place] [phone] Vee Oneal, ALEX Arrived 09/21/2025 Telephone [facility]iology [address] [place] [phone] Turner Sepulveda MD Shortness of Breath 09/01/2025 11:30 AM CDT Ancillary Procedure [facility] [address] [address] Cardiac pacemaker in situ; CHB (complete heart block) 08/31/2025 Telephone [facility] [address] [place] [phone] Turner Sepulveda MD 07/29/2025 10:30 AM CDT Ancillary Procedure [facility]iology [address] [place] [phone] Cardiac pacemaker in situ; CHB (complete heart [...] on file Legal Sex Female 9:58 AM BLOCK PRESS OPERATOR Gender Identity Not on file Sexual Orientation Not on file Last Filed Vital Signs Vital Sign Reading Time Taken Comments Blood Pressure 164/74 10/01/2025 3:05 PM BLOCK PRESS OPERATOR Pulse 80 10/01/2025 3:05 PM BLOCK PRESS OPERATOR Temperature 36.8 C (98.2 F) 10/18/2022 7:40 AM BLOCK PRESS OPERATOR Respiratory Rate 18 10/18/2022 7:40 AM BLOCK PRESS OPERATOR Oxygen Saturation 98% 10/01/2025 3:05 PM BLOCK PRESS OPERATOR Inhaled Oxygen Concentration - - Weight 84.4 kg (186 lb) 10/01/2025 3:05 PM BLOCK PRESS OPERATOR Height 158.8 cm (5' 2.5) 10/01/2025 3:05 PM BLOCK PRESS OPERATOR Body Mass Index 33.48 10/01/2025 3:05 PM BLOCK PRESS OPERATOR Plan of Treatment Health Maintenance Due Date Last Done Comments Depression Screening 1945 Osteoporosis Screening-Bone Density Scan 1945 DTaP/Tdap/Td Vaccine (1 - Tdap) 02/19/1955 Hepatitis B Screening 02/19/1962 Well Visit 65+ 02/19/2009 Zoster Vaccine (3 of 3) 10/28/2020 09/02/2020, 08/17 Fall Risk Assessment 10/18/2023 10/18/2022 Covid-19 Vaccine (6 - 2024-2 6 season) 2025 02/15/2022, 01/25/2022, 09/30/2021, Additional history exists Influenza Vaccine (#1) 2025 , 09/02/2020, 11/03/2019, Additional history exists Pneumococcal vaccine 65+ Completed 09/02/2020, 06/2019 Medical Devices Implanted Type Area Foundation Digger Device Identifier Shelf Expiration Date Model / Serial / Lot Thr Left: Hip [employer] Attune Cruciate Retain Cementless Knee Left 6 Narrow Component [id number] - [id number] Implanted:Qty: 1 on 06/01/2022 by Aroldo Odom MD at [facility] [employer] [id number] 06/25/2031 [id number] / / [id number] [employer] Insert Attune Left Medial Stabilized Size 6 5mm [id number] - [id number] - [id number] Implanted:Qty: 1 on 06/01/2022 by Aroldo Odom MD at [facility] Left: Knee [employer] 02/23/2023 [id number] / [id number] / [employer] Attune Fb Tib Base Sz 6 Por [id number] - [id number] Implanted:Qty: 1 on 06/01/2022 by Aroldo Odom MD at [facility] Left: Knee [employer] 01/24/2032 [id number] / / [employer] Attune Cruciate Retain Cementless Knee Right 5 Component Femoral [id number] - [id number] Implanted:Qty: 1 on 10/17/2022 by Aroldo Odom MD at [facility] Right: Knee [employer] [id number] 12/26/2031 [id number] / / [id number] [employer] Attune Fb Tib Base Sz 6 Por [id number] - [id number] Implanted:Qty: 1 on 10/17/2022 by Aroldo Odom MD at [facility] Right: Knee [employer] [id number] 06/25/2032 [id number] / / [id number] [employer] Insert Attune Right Medial Stabilized Size 5 5mm [id number] - [id number] Implanted:Qty: 1 on 10/17/2022 by Aroldo Odom MD at [facility] Right: Knee [employer] [id number] 06/25/2030 [id number] / / [id number] Procedures Procedure Name Priority [...] and sensing thresholds. Presenting rhythm: -VS/AP-VS. AP-79%, ELECTRONICS TECHNICIAN-42%. No AT/AF episodes noted. No Ventricular high rate episodes detected. Medications: ASA 81 mg, Toprol-XL. See scanned report. Office pacemaker follow up: 11/03/2026. Biotronik remote f/u 11/03/2025. Liza Hernandez [...] rhythm- AP-VS/-VS (SR) 60 bpm. AP- 52%, ELECTRONICS TECHNICIAN- 0%. No Atrial high rate episodes recorded. No Ventricular high rate episodes noted. Medications; ASA 81 mg, Toprol XL. CLS sensor turned on. See scanned report. Office pacemaker f/u scheduled 11/03/2026. Biotronik remote f/u 11/03/2025. Liza Hernandez RN Turner Sepulveda MD CV CARDIAC SERVICES PROC EDURES Final Result from Last 3 Months Insurance MEDICARE [facility] BLUE ACC CHOICE OOS MEDICARE Advance Directives For more information, please contact: [phone] * Full Code (Latest Code Status on File) Date Activated Date Inactivated Comments 10/17/2022 12:53 PM 10/18/2022 7:37 PM * Full Code Date Activated Date Inactivated Comments 06/01/2022 9:57 AM 06/02/2022 4:46 PM * Full Code Date Activated Date Inactivated Comments 07/15/2020 11:11 AM 07/16/2020 7:20 PM Care Teams Special Service Officer Relationship Specialty Start Date End Date Lokesh Albright MD PCP - General Family Medicine 10/10/21
== END 2025-09-30 21:58 | disposition home or self-care (01) ==
PROVIDERS: Student in an Organized Health Care Education/Training Program; Emergency Provider Student in an Organized Health Care Education/Training Program; PCP Family Medicine
DX: R06.00 Dyspnea, unspecified (principal); D72.819 Decreased white blood cell count, unspecified; E87.1 Hypo-osmolality and hyponatremia; Z20.822 Contact with and (suspected) exposure to COVID-19; I10 Essential (primary) hypertension; I67.9 Cerebrovascular disease, unspecified; G47.33 Obstructive sleep apnea (adult) (pediatric); E55.9 Vitamin D deficiency, unspecified; F41.1 Generalized anxiety disorder; Z86.0101 Personal history of adenomatous and serrated colon polyps; Z86.16 Personal history of COVID-19; Z96.642 Presence of left artificial hip joint; Z90.710 Acquired absence of both cervix and uterus; Z79.899 Other long term (current) drug therapy; Z95.0 Presence of cardiac pacemaker; I45.2 Bifascicular block; I51.7 Cardiomegaly
CPT/HCPCS: 36415; 71046; 71275; 80053; 81001; 83690; 83880; 84484; 85025; 85380; 85610; 85730; 87086; 87637; 93005; 99284; Q9967

== ENCOUNTER 2025-10-07 15:48 | Emergency (ER) | payer BC, SELFPAY ==
--- OUTSIDE RECORDS SUMMARY | 2009-04-30 03:00 | XMS_ITS | Continuity of Care Document ---
Author Organization [facility] Address [address] [place] [address] [facility] [address] [place] [address] Phone Care Team Providers Care Policy Issue Clerk Name Role Phone Clyde Kyle Unavailable Unavailable Procedures Procedure Date Office/outpatient Visit, [facility] Advance Directives Directive Yes / No Effective Date File Name No Information Encounters Encounter Description Practice Location Reason(s) For Visit Diagnoses Date Provider Providers Copied on Encounter [place] [facility] [place] [id number] [place] [address] [address], [place], [place], [id number], tel:[phone] [facility] No Information 5-200 9 Saroj Tang. [address] [facility] [address], [place], [address], [place]. tel:[phone] Family History Family Member Type Diagnosis Age [...]
--- OUTSIDE RECORDS SUMMARY | 2009-04-30 03:00 | XMS_ITS | Continuity of Care Document ---
Author Organization [facility] Address [address] [place] [address] [facility] [address] [place] [address] Phone Care Team Providers Care Pharmacist Assistant Name Role Phone Clyde Kyle Unavailable Unavailable Procedures Procedure Date Office/outpatient Visit, [facility] Advance Directives Directive Yes / No Effective Date File Name No Information Encounters Encounter Description Practice Location Reason(s) For Visit Diagnoses Date Provider Providers Copied on Encounter Office/[place]pat ient Visit, [facility] [place] [address] [place] [address] [address], [place], [place], [id number], tel:[phone] [facility] No Information 5-200 9 Saroj Tang. [address] [facility] [address], [place], [address], [place]. tel:[phone] Family History Family Member Type Diagnosis Age At Onset No Information Payers Payer name Insurance type Covered republican ID Authoriza tion(s) No Information Social History [...]
--- NOTE | ~2025-10-07 | XR_ITS ---
EXAM/PROCEDURE: XR chest 1V portable HISTORY: SOB. Rapid heartrate COMPARISON: None available. TECHNIQUE: AP view(s) of the chest. FINDINGS: LUNGS: Clear of acute processes. PLEURAL SPACES: Clear. No evidence of fluid or pneumothorax. HEART/ MEDIASTINUM: Cardiomegaly, unchanged. SOFT TISSUES: No significant findings. BONES: No acute osseous abnormality. Pacing device unchanged. IMPRESSION: No acute findings. Reviewed, dictated and finalized at location A. AWYER IMPRESSION: No acute findings.
--- OUTSIDE RECORDS SUMMARY | 2025-10-07 14:00 | XMS_ITS | Encounter Summary ---
Author Organization [facility] Address [address] [place] [address] Care Team Providers Care Manager It Security Name Role Phone Lokesh Albright MD Primary Care Provider [phone] Reason for Visit * Cardiology (Routine) - Closed Specialty Diagnoses / Procedures Referred By Contac t Referred To Contact Cardiology Diagnoses Elevated brain natriuretic peptide (BNP) level Procedures Transthoracic Echo (TTE) Complete W Doppler/CF Vee Oneal NP [address] [facility] [address] [place] [address] Phone: tel: fax: Referral ID Status Reason Start Date Expiration Date Visits Re quested Visits Authorized [id number] Closed 10/01/2025 10/31/2026 1 1 Encounter Details Date Type Department Care Team (Latest Contact Info) Description 10/07/2025 2:00 PM MEDICAL CHARGE ENTRY SPECIALIST Ancillary Procedure [facility] Cardiology at [address] [place] [address] Elevated brain natriuretic peptide (BNP) level Social History Tobacco Use Types Packs/Day Years [...] on file Legal Sex Female 9:58 AM MEDICAL CHARGE ENTRY SPECIALIST Gender Identity Not on file Sexual Orientation Not on file documented as of this encounter Plan of Treatment Pending Results Name Type Priority Associated Diagnoses Date /Time Transthoracic Echo (TTE) Complete W Doppler/CF Echocardiography Routine Elevated brain natriuretic peptide (BNP) level 10/07/2025 3:01 PM MEDICAL CHARGE ENTRY SPECIALIST documented as of this encounter Visit Diagnoses Diagnosis Elevated brain natriuretic peptide (BNP) level documented in this encounter Care Teams Manager It Security Relationship Specialty Start Date End Date Lokesh Albright MD PCP - General Family Medicine 10/10/21 documented as of this encounter
[2025-10-07 15:50] VITALS: BP 151/96; PULSE 121; RESP 22; TEMP 36.5; O2SAT 100
--- NOTE | 2025-10-07 15:54 | ECG_ITS ---
Test Date: 2025-10-07 16:01:58 Measurements Intervals Mcgrath Rate: 120 P: -22 NH: 238 QRS: -75 QRSD: 182 T: 83 QT: 375 QTc: 531 Interpretive Statements V PACED RHYTHM Electronically Signed On 10-07-2025 22:30:17 SPECIAL EDUCATION PARAPROFESSIONAL by Ced Lawrence D.O
--- OUTSIDE RECORDS SUMMARY | 2025-10-07 16:18 | XMS_ITS | Clinical Summary ---
Author Organization [facility] Address [address] [place] [address] Care Team Providers Care Roofer Gypsum Name Role Phone Lokesh Albright MD Primary Care Provider [phone] Allergies Active Allergy Reactions Criticality Noted Date Comments Aspirin Other (See comments) Low 03/17/2013 Ringing in ears Lisinopril Other (See comments) Low 09/04/2019 Mouth swelling, mouth sores Medications simvastatin (ZOCOR) 40 mg tabletIndications :hyperlipidemia Take 1 tablet (40 mg total) by mouth nightly 01/07/[address] (CYMBALTA) 60 mg capsuleIndication s:Anxiety with Depression Take 1 capsule (60 mg total) by mouth nightly 03/01/20 19 Active RESTASIS 0.05 % ophthalmic emulsionIndicatio ns:Keratoconjunct ivitis Sicca Administer 1 drop into both eyes every 12 (twelve) hours 04/01/20 19 Active ergocalciferol (VITAMIN D) 50,000 unit capsuleIndication s:Vitamin D Deficiency Take 1 capsule (50,000 Units total) by mouth once a week Sunday Active omeprazole (PriLOSEC) 20 mg capsule Take 1 capsule (20 mg total) by mouth every morning 03/16/20 21 Active metoprolol XL (TOPROL-XL) 50 mg extended release tabletIndications :hypertension Take 1 tablet (50 mg total) by mouth nightly 05/16/20 21 Active modafiniL (PROVIGIL) 100 mg tabletIndications :sleepiness Take 2 tablets (200 mg total) by mouth every morning 09/25/20 Active losartan (COZAAR) 50 mg tabletIndications :hypertension Take 1 tablet (50 mg total) by mouth every morning 04/12/20 Active estradioL (ESTRACE) 0.01 % (0.1 mg/gram) vaginal cream 42.5 g 10/17/20 Active estrogens-methylT ESTOSTERone (EEMT,COVARYX) 1.25-2.5 mg per tablet Take 1 tablet by mouth every morning PLEASE HOLD X 6 WEEKS AFTER SURGERY. 10/17/20 Active acetaminophen 500 mg capsuleIndication s:Pain Take 2 capsules (1,000 mg total) by mouth every 8 (eight) hours 90 tablet 10/17/20 Active aspirin 81 mg enteric coated tabletIndications :Deep Vein Thrombosis Prevention Take 1 tablet (81 mg total) by mouth daily 30 tablet 10/17/20 Active Additional Information Patient not taking.Reported on 06/22/2025 hydrOXYzine (VISTARIL) 25 mg capsuleIndication s:Postoperative pain Take 1 capsule (25 mg total) by mouth 3 (three) times a day as needed for anxiety 40 capsule 10/23/20 Active cyclobenzaprine (FLEXERIL) 5 mg tablet Take 1 tablet (5 mg total) by mouth 3 (three) times a day as needed for muscle spasms 30 tablet 10/31/20 Active Additional Information Patient not taking.Reported on 06/22/2025 gabapentin (NEURONTIN) 300 mg capsule Take 1 capsule (300 mg total) by mouth 3 (three) times a day 90 capsule 10/31/20 Active armodafiniL (NUVIGIL) 200 mg tablet Take 1 tablet (200 mg total) by mouth daily 03/22/20 23 Active FeroSuL 325 mg (65 mg iron) tablet 03/21/20 23 Active Myrbetriq 25 mg tablet extended release 24 hr Take 1 tablet (25 mg total) by mouth daily 03/16/20 24 Active meloxicam (MOBIC) 15 mg tablet Take 1 tablet by mouth once daily 30 tablet 06/24/20 24 Active busPIRone (BUSPAR) 10 mg tablet 05/19/20 25 Active furosemide (LASIX) 20 mg tabletIndications :Elevated brain natriuretic peptide (BNP) level Take 1 tablet (20 mg total) by mouth daily 30 tablet 1 10/01/20 25 Active tolterodine LA (DETROL LA) 4 mg 24 hr capsuleIndication s:Bladder Hyperactivity Take 1 capsule (4 mg total) by mouth nightly 09/10/20 21 Discontinu ed(No longer taking - Do not display on AVS) solifenacin (VESIcare) 10 mg tablet as needed 06/13/20 22 Discontinu ed(No longer taking - Do not display on AVS) senna-docusate (PERICOLACE) 8.6-50 mgIndications:con stipation Take 2 tablets by mouth 2 (two) times a day May increase to 4 tablets twice daily if needed. HOLD medication for diarrhea. 80 tablet 1 10/17/20 22 Discontinu ed(No longer taking - Do not display on AVS) traMADoL (ULTRAM) 50 mg tabletIndications :Postoperative pain Take 1 tablet (50 mg total) by mouth every 6 (six) hours as needed for pain for up to 7 days 28 tablet 10/23/20 22 Discontinu ed(No longer taking - Do not display on AVS) HYDROmorphone (DILAUDID) 2 mg tabletIndications :Pain Take 1-2 tablets (2-4 mg total) by mouth every 4 (four) hours as needed for pain 42 tablet 10/26/20 22 Discontinu ed(No longer taking - Do not display on AVS) meclizine (ANTIVERT) 25 mg tablet TAKE 1 TABLET BY MOUTH THREE TIMES DAILY NEEDED FOR DIZZINESS 01/31/20 24 Discontinu ed(No longer taking - Do not display on AVS) Sunosi 150 mg tablet Take 1 tablet (150 mg total) by mouth daily 03/16/20 24 Discontinu ed(No longer taking - Do not display on AVS) Active Problems Problem Noted Date Diagnosed Date Complete heart block 06/22/2025 Cardiac pacemaker in situ 06/02/2025 Overview (06/02/2025): Biotronik Amvia Edge Dual Pacemaker. Dx; CHB, Syncope. DOI 06/02/2025-Coco. Biotronik Remote. Primary osteoarthritis of right knee 10/17/2022 Osteoarthritis of left knee, unspecified osteoarthritis type 06/01/2022 CAD (coronary artery disease) 05/30/2022 JAY on CPAP 05/30/2022 Rectal polyp 06/08/2020 Aftercare following left hip joint replacement s marlee 03/23/2017 Osteoarthritis of knee 01/11/2016 Rheumatoid arthritis(714.0) 03/17/2013 Systemic lupus erythematosus 03/17/2013 HTN (hypertension) HTN (hypertension) Encounters Date Type Department Care Team Description 10/07/2025 2:00 PM MANAGER OF COMMUNITY RELATIONS Ancillary Procedure [facility] Cardiology at [address] [place] [address] Elevated brain natriuretic peptide (BNP) level 10/07/2025 Telephone [facility] Cardiology at [address] [place] [phone] Paramjit Wheeler MD 10/06/2025 Orders Only [facility] Cardiology [address] [place] [address] [place] [phone] ProviderFrandy MD 10/01/2025 3:00 PM MANAGER OF COMMUNITY RELATIONS Office Visit [facility] Cardiology [address] [place] [address] [place] [phone] Vee Oneal NP Elevated brain natriuretic peptide (BNP) level (Primary Dx); Dyspnea on exertion 09/21/2025 Telephone [facility] Cardiology [address] [place] [address] [place] [phone] Turner Sepulveda MD Shortness of Breath 09/01/2025 11:30 AM CDT Ancillary Procedure [facility] Cardiology [address] [place] [phone] Cardiac pacemaker in situ; CHB (complete heart block) 08/31/2025 Telephone [facility] Cardiology [address] [place] [address] [place] [phone] Turner Sepulveda MD 07/29/2025 10:30 AM CDT Ancillary Procedure [facility] Cardiology [address] [place] [address] [place] [phone] Cardiac pacemaker in situ; CHB (complete heart block) from Last 3 Months Immunizations Immunization Administration Dates Next Due Influenza, Quadrivalent, Rec ombinant, Egg Free, Preservative Free, Intramuscular 09/02/2020 Influenza, Trivalent, High D ose, Split, Preservative Free, Intramuscular 11/03/2019,12/03/2018,08/17/2015 Influenza, Trivalent, Preser vative Free, Intramuscular 12/04/2017,12/30/2013,12/10/2012 Influenza, Unspecified 09/26/2022 SplashMaps SARS-CoV-2 Monovalent Vaccination (12+ Yrs) PURPLE 02/15/2022,01/25/2022 [...] on file Legal Sex Female 9:58 AM MANAGER OF COMMUNITY RELATIONS Gender Identity Not on file Sexual Orientation Not on file Last Filed Vital Signs Vital Sign Reading Time Taken Comments Blood Pressure 164/74 10/01/2025 3:05 PM MANAGER OF COMMUNITY RELATIONS Pulse 80 10/01/2025 3:05 PM MANAGER OF COMMUNITY RELATIONS Temperature 36.8 C (98.2 F) 10/18/2022 7:40 AM MANAGER OF COMMUNITY RELATIONS Respiratory Rate 18 10/18/2022 7:40 AM MANAGER OF COMMUNITY RELATIONS Oxygen Saturation 98% 10/01/2025 3:05 PM MANAGER OF COMMUNITY RELATIONS Inhaled Oxygen Concentration - - Weight 84.4 kg (186 lb) 10/01/2025 3:05 PM MANAGER OF COMMUNITY RELATIONS Height 158.8 cm (5' 2.5) 10/01/2025 3:05 PM MANAGER OF COMMUNITY RELATIONS Body Mass Index 33.48 10/01/2025 3:05 PM MANAGER OF COMMUNITY RELATIONS Plan of Treatment Health Maintenance Due Date [...] 09/02/2020, 06/2019 Medical Devices Implanted Type Area Cert Occupational Therapy Asst Device Identifier Shelf Expiration Date Model / Serial / Lot Thr Left: Hip [employer] Attune Cruciate Retain Cementless Knee Left 6 Narrow Component [id number] - [id number] Implanted:Qty: 1 on 06/01/2022 by Aroldo Odom MD at [facility] [employer] [id number] 06/25/2031 [id number] / / [id number] [employer] Insert Attune Left Medial Stabilized Size 6 5mm [id number] Implanted:Qty: 1 on 06/01/2022 by Aroldo Odom MD at [facility] Left: Knee [employer] 02/23/2023 [id number] / [employer] Attune Fb Tib Base Sz 6 Por [id number] - [id number] Implanted:Qty: 1 on 06/01/2022 by Aroldo Odom MD at [facility] Left: Knee [employer] 01/24/2032 [id number] / / [employer] Attune Cruciate Retain Cementless Knee Right 5 Component Femoral [id number] - [id number] Implanted:Qty: 1 on 10/17/2022 by Aroldo Odom MD at [facility] Right: Knee [employer] [id number] 12/26/2031 [id number] / / [id number] [employer] Attune Fb Tib Base Sz 6 Por [id number] - [id number] Implanted:Qty: 1 on 10/17/2022 by Aroldo Odom MD at [facility] Right: Knee [employer] [id number] 06/25/2032 [id number] / / [id number] [employer] Insert Attune Right Medial Stabilized Size 5 5mm [id number] - [id number] Implanted:Qty: 1 on 10/17/2022 by Aroldo Odom MD at [facility] Right: Knee [employer] [id number] 06/25/2030 [id number] / / [id number] Procedures Procedure Name Priority Date/Time Associated Diagnosis Comments LIPID PANEL Routine 09/30/2025 10:20 AM MANAGER OF COMMUNITY RELATIONS DEVICE CHECK - REMOTE Routine 09/01/2025 12:06 PM CDT Cardiac pacemaker in situ CHB (complete heart block) DEVICE CHECK - IN OFFICE Routine 07/29/2025 10:29 AM CDT Cardiac pacemaker in situ CHB (complete heart block) from Last 3 Months Results * Lipid panel (09/30/2025 10:20 AM MANAGER OF COMMUNITY RELATIONS) SCRIBED Cholesterol, Total 183 30 - 199 mg/dL EXTERNAL LAB SCRIBED Triglycerides 107 <=149 mg/dL EXTERNAL LAB SCRIBED HDL 54 >=40 mg/dL EXTERNAL LAB SCRIBED LDL 81 <=129 mg/dL EXTERNAL LAB Scribed Non-HDL Cholesterol EXTERNAL LAB Comment:Not performed by lab . SCRIBED Total Cholesterol/HDL Ratio 183 NONE EXTERNAL LAB Blood Historical Provider LAB BLOOD ORDERABLES Edit ed Result - Final EXTERNAL LAB * DEVICE CHECK - REMOTE (09/01/2025 12:06 [...] and sensing thresholds. Presenting rhythm: -VS/AP-VS. AP-79%, MICROFILMER-42%. No AT/AF episodes noted. No Ventricular high [...] rhythm- AP-VS/-VS (SR) 60 bpm. AP- 52%, MICROFILMER- 0%. No Atrial high rate episodes recorded. No Ventricular high rate episodes noted. Medications; ASA 81 mg, Toprol XL. CLS sensor turned on. See scanned report. Office pacemaker f/u scheduled 11/03/2026. Biotronik remote f/u 11/03/2025. Liza Hernandez RN Turner Sepulveda MD CV CARDIAC SERVICES PROC EDURES Final Result from Last 3 Months Insurance MEDICARE [facility]ICE O [facility] Address: [address] [place] [address] BLUE ACC CHOICE OOS [facility] Address: [address] [id number] MEDICARE Advance Directives For more information, please contact: [phone] * Full Code (Latest Code Status on File) Date Activated Date Inactivated Comments 10/17/2022 12:53 PM 10/18/2022 7:37 PM * Full Code Date Activated Date Inactivated Comments 06/01/2022 9:57 AM 06/02/2022 4:46 PM * Full Code Date Activated Date Inactivated Comments 07/15/2020 11:11 AM 07/16/2020 7:20 PM Care Teams Roofer Gypsum Relationship Specialty Start Date End Date Lokesh Albright MD PCP - General Family Medicine 10/10/21
--- OUTSIDE RECORDS SUMMARY | 2025-10-07 16:18 | XMS_ITS | Encounter Summary ---
Author Organization [facility] Address [address] [place] [address] Care Team Providers Care Email Operations Manager Name Role Phone Lokesh Albright MD Primary Care Provider [phone] Encounter Details Date Type Department Care Team (Late st Contact Info) Description 10/06/2025 Orders Only [facility] Cardiology [address] [place] [phone] ProviderFrandy MD [address] [place], [place] [phone] Social History Tobacco Use Types Packs/Day Years [...] on file Legal Sex Female 9:58 AM INLAYER Gender Identity Not on file Sexual Orientation Not on file documented as of this encounter Plan of Treatment Not on file documented as of this encounter Procedures Procedure Name Priority Date/Time Associated Diagnosis Comments LIPID PANEL Routine 09/30/2025 10:20 AM INLAYER documented in this encounter Results * Lipid panel (09/30/2025 10:20 AM INLAYER) SCRIBED Cholesterol, Total 183 30 - 199 mg/dL EXTERNAL LAB SCRIBED Triglycerides 107 <=149 mg/dL EXTERNAL LAB SCRIBED HDL 54 >=40 mg/dL EXTERNAL LAB SCRIBED LDL 81 <=129 mg/dL EXTERNAL LAB Scribed Non-HDL Cholesterol EXTERNAL LAB Comment:Not performed by lab . SCRIBED Total Cholesterol/HDL Ratio 183 NONE EXTERNAL LAB Blood us Historical Provider LAB BLOOD ORDERABLES Edit ed Result - Final EXTERNAL LAB documented in this encounter Visit Diagnoses Not on filedocumented in this encounter Care Teams Email Operations Manager Relationship Specialty Start Date End Date Lokesh Albright MD PCP - General Family Medicine 10/10/21 documented as of this encounter
--- OUTSIDE RECORDS SUMMARY | 2025-10-07 16:18 | XMS_ITS | Encounter Summary ---
Author Organization [facility] Healthcare Address [address] [place] [address] Care Team Providers Care Cold Storage Superintendent Name Role Phone Lokesh Albright MD Primary Care Provider [phone] Encounter Details Date Type Department Care Team (Late st Contact Info) Description 10/07/2025 Telephone [facility] Cardiology at [address] [place] [address] Paramjit Wheeler MD [address] [facility] [address] [place], [place] [id number] Social History Tobacco Use Types Packs/Day Years [...] on file Legal Sex Female 9:58 AM HVAC OPERATIONS TECHNICIAN Gender Identity Not on file Sexual Orientation Not on file documented as of this encounter Plan of Treatment Not on file documented as of this encounter Visit Diagnoses Not on filedocumented in this encounter Care Teams Cold Storage Superintendent Relationship Specialty Start Date End Date Lokesh Albright MD PCP - General Family Medicine 10/10/21 documented as of this encounter
--- OUTSIDE RECORDS SUMMARY | 2025-10-07 16:18 | XMS_ITS | Clinical Summary ---
Author Organization [facility] Address [address] [place] [address] Care Team Providers Care Vessel Manager Name Role Phone Unavailable Primary Care [...]
[2025-10-07] MEDS: diazePAM INJ (*CRX) 10 MG/2 ML SYRINGE 5 MG IV PUSH (16:35)
[2025-10-07] MEDS: SODIUM CHLORIDE 0.9% IV 500 ML 999 ML IV CONT (16:36)
[2025-10-07 16:47] VITALS: BP 136/93; PULSE 121; RESP 15; O2SAT 90
--- NOTE | 2025-10-07 16:56 | ED_ITS ---
HPI - Arrhythmia/Palpitations General Chief Complaint: Arrhythmia/Palpitations Stated Complaint: fast hr Time Seen by Provider: 10/07/25 16:12 History of Present Illness HPI narrative: Pt presents from echocardiogram appointment with tachycardia. Pt says her heart has been beating fast since around noon and she is SOB. Pt has been evaluated both here on 09/30 and at er in [place] recently. Pt denies CP or fever or cough. Pt had neg CTA chest for PE 09/30. Related Data Home Medications ?Medication ?Instructions ?Recorded ?Confirmed ?Last Taken ?Type acetaminophen 650 mg 1,000 mg PO Q8H Pain 2 09/30/25 08/16/22 History tablet,extended release (Arthritis Pain Reliever) cyclosporine 0.05 % eye drops in a 1 drp EACH EYE Q12H 03/11/25 09/30/25 Unknown History dropperette (Restasis) evening primrose oil 500 mg capsule 1,000 mg PO DAILY 03/11/25 09/30/25 Unknown History fluticasone propionate 93 2 spray intranasal Q12H PRN 03/11/25 09/30/25 Unknown History mcg/actuation breath activated allergy symptoms aerosol (Xhance) cholecalciferol (vitamin D3) 125 50,000 unit PO WEEKLY 05/25/25 09/30/25 Unknown History mcg (5,000 unit) capsule estradiol 0.01% (0.1 mg/gram) 1 g vaginal .twice a wee k 05/25/25 09/30/25 Unknown History vaginal cream mirabegron 50 mg tablet,extended 50 mg PO Q24H 5 09/30/25 Unknown History release 24 hr Allergies Allergy/AdvReac Type Severity Reaction Status Date / Time lisinopril Allergy Severe Angioedema Verified 09/30/25 10:25 SIOBHAN Inhibitors Allergy Unknown Angioedema Verified 09/30/25 10:25 aspirin AdvReac Mild Irritable Verified 09/30/25 10:25 pregabalin AdvReac dizziness, Verified 09/30/25 10:25 dry mouth Review of Systems 2 Review of Systems: All systems reviewed & are unremarkable except as noted in HPI and below PMFSH Past Medical History Medical History (Updated 10/07/25 @ 18:07 by Ashley Mai III, DO) Pacemaker pt has biotronik pacemaker Elevated troponin I measurement Left anterior fascicular block Abnormal EKG Bundle branch block, right Tinnitus chronic Sleep attack Raciel Robbins infection Leg length discrepancy Exudative tonsillitis Excessive daytime sleepiness JAY on CPAP COVID-19 BMI greater than 30 Neuropathy Colonoscopy planned Adenomatous colon polyp Anemia, unspecified Colonic mass Hx of hemorrhoids Had what sounds like hemorrhoidal banding about 5-7 years ago in [place]. Anxiety Hypertension Cerebrovascular disease Reports she saw ENT for tinnitus who told her she had atherosclerotic plaque in her head and prescribed Plavix 5 years ago. Has not followed up with that provider. Vitamin D deficiency Generalized anxiety disorder with panic attacks Hyperlipidemia Migraines Severe obstructive sleep apnea Surgical History Surgical History History of left hip replacement Around 2015 History of arthroscopy of both knees History of hysterectomy for benign disease Vaginal hysterectomy in her 30's. Status post LASIK surgery History of bladder suspension procedure History of cataract surgery The patient denies history cataract surgery but it appears patient has artificial lenses on exam History of colonoscopy with polypectomy Colonoscopy by Dr. Lozano in June 2004. Patient reports having a more recent Colonoscopy in an Ambulatory surgery center in [place] about 5-6 years ago. History of benign polypectomy. Family History Family History Mother Alcoholism Esophageal varices Stomach rupture Sibling Hypertension Psychiatric diagnosis The patient's sister tried to kill the patient at one time. Father , The patient reports her father froze to when his furnace when out when he was 89 years old. Over 80 years old Sibling TBI (traumatic brain injury) Seizures Other Family history of arthritis Family history of mental disorder Social History Social History Social History: Primary care physician: Dr. Albright Code status: Full code Patient is with adult children. She lives at home with her . She is retired and was previously worked at a pre-school. 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 Gender identity (if verbalized by the patient): Female Spiritual care concerns: No Exam 2 Const: General: healthy appearing and no acute distress Nutritional Appearance: well nourished Orientation/consciousness: patient oriented x3 Limitations: no limitations Chest: Chest palpation & inspection: normal inspection of the chest Resp: Effort & Inspection: normal respiratory effort Auscultation: clear to auscultation bilaterally Cardio: Rate: tachycardic Rhythm: regular rhythm GI: Auscultation: normal bowel sounds Skin: General skin exam: normal color Rashes: no rashes Wounds: no wounds Neuro: General: patient oriented x3, moves all extremities, no meningeal signs and no focal motor deficits Speech: normal speech Extrem: General: normal to inspection and no clubbing, cyanosis or edema Psych: Mental Status: mental status grossly normal Affect: normal affect Attitude: cooperative Course Vital Signs Vital signs: Vital Signs Temperature 97.7 F 10/07/25 15:50 Pulse Rate 121 H 10/07/25 15:50 Respiratory Rate 22 H 10/07/25 15:50 Blood Pressure 151/96 H 10/07/25 15:50 Pulse Oximetry 100 10/07/25 15:50 Oxygen Delivery Room Air 10/07/25 15:50 Temperature 97.7 F 10/07/25 15:50 Pulse Rate 84 10/07/25 17:30 Respiratory Rate 20 10/07/25 17:30 Blood Pressure 140/80 10/07/25 17:16 Pulse Oximetry 98 10/07/25 17:30 Oxygen Delivery Room Air 10/07/25 15:50 MDM - Arrhythmia/Palpitations MDM Narrative Medical decision making narrative: Pt presents with persistent tachycardia and SOB. Pt is somewhat anxious. Denies CP. Will give some fluids and valium and get routine cardiac work up. Trop neg, lytes similar to prior so not acute. sprinkling system installer nad. HR now in 70's. Pt feels much better. Pcemaker interogation reveals nothing to be concerned about. Pt will call her PCP office tomorrow about med adjustments. Differential Diagnosis Differential diagnosis: Likely palpitations, anxiety, sinus tachycardia, supraventricular tachycardia and ventricular tachycardia Lab Data 10/07/25 16:30 10/07/25 16:30 Labs: Lab Results 10/07/25 Range/Units 16:30 WBC 6.2 (4.5-10.0) K/mm3 RBC 4.34 (4.2-5.4) M/mm3 Hgb 13.6 (12.0-15.0) g/dL Hct 40.8 (37.0-47.0) % MCV 94.0 (80-100) fl MCH 31.3 (26-34) pg MCHC 33.3 (32-36) g/dl RDW 12.1 (11.5-14.5) % Plt Count 289 (150-375) k/mm3 MPV 10.6 H (7.4-10.4) fl Immature Gran % (Auto) 0.2 (0-0.5) % Neut % (Auto) 66.4 (45.5-73.1) % Lymph % (Auto) 21.0 (18.3-44.2) % [place] % (Auto) 11.7 H (2.6-8.5) % Eos % (Auto) 0.2 (0-4.4) % Baso % (Auto) 0.5 (0.2-1.2) % Lymph # (Auto) 1.31 (0.9-3.2) K/mm3 [place] # (Auto) 0.7 H (0.1-0.6) K/mm3 Eos # (Auto) 0.0 (0-0.3) K/mm3 Baso # (Auto) 0.0 (0.0-0.1) K/mm3 Abs Immat Gran (auto) 0.01 (0.00-0.031) K/mm3 Absolute Neuts (auto) 4.1 (1.3-6.7) K/mm3 Absolute Nucleated RBC 0.000 (0.0-0.012) K/mm3 Nucleated RBC % 0.0 (0.0-0.2) % PT 12.6 (11.1-14.7) Seconds INR 0.9 APTT 28.7 (22.3-36.8) Seconds Sodium 131 L (137-145) mmol/L Potassium 3.9 (3.4-5.0) mmol/L Chloride 95 L (98-107) mmol/L Carbon Dioxide 25 (22-30) mmol/L Anion Gap 11 (4-12) mmol/L BUN 26 H (7-17) mg/dL Creatinine 0.90 (0.7-1.0) mg/dL Estim Creat Clear Calc 43 ml/min Estimated GFR 60 (59 - ) Glucose 94 (65-110) mg/dL Calcium 10.4 H (8.4-10.2) mg/dL Total Bilirubin 0.5 (0.2-1.3) mg/dL AST 34 (14-36) U/L ALT 28 (6-35) U/L Alkaline Phosphatase 100 (38-126) U/L Troponin I 0.025 (0.000-0.034) ng/mL NT-Pro-B Natriuret Pep 238 H (19.9-100) pg/mL Total Protein 8.3 H (6.3-8.2) g/dL Albumin 4.8 (3.5-5.1) g/dL Imaging Data Attestation: I personally reviewed and interpreted this imaging study as follows: My impression: miguel Radiologist's impression: [place] [address] [place] [address] XRay Report Signed Patient: Renetta Carrasco : 1945 MR#: [id number] Age: 80 Acct:[id number] Loc: [facility] ADM Date: 10/07/[address]: Ordering Physician: Ashley Mai III, DO Date of Service: 10/07/25 Procedure(s): XR chest 1V portable Accession Number(s): [id number] cc: Ashley Mai III, ; Lokesh Albright EXAM/PROCEDURE: XR chest 1V portable HISTORY: SOB. Rapid heartrate COMPARISON: None available. TECHNIQUE: AP view(s) of the chest. FINDINGS: LUNGS: Clear of acute processes. PLEURAL SPACES: Clear. No evidence of fluid or pneumothorax. HEART/ MEDIASTINUM: Cardiomegaly, unchanged. SOFT TISSUES: No significant findings. BONES: No acute osseous abnormality. Pacing device unchanged. IMPRESSION: No acute findings. Reviewed, dictated and finalized at location A. AL CIRCUIT DESIGNER Please be advised this is a medical document. It is intended for [id number] communication. It is written in medical language and may contain unfamiliar abbreviations or verbiage. Medical documents are intended to carry relevant information, facts as evident, and the clinical opinion of the practitioner at the time of the encounter. This report may have been done utilizing a voice recognition system. Attempts have been made to correct errors. However, there may be uncorrected grammatical, spelling, and recognition errors present. The file time of this note does not necessarily represent the time of service. Dictated By: Muna Quinteros MD 10/07/25 1630 Signed By: <Electronically signed by Muna Quinteros MD in OV> 10/07/25 1632 ECG Data EKG #1: Interpretation: pacer rate 120, EKG #2 nsr with 1st degree block, rbbb, lafb lateral t wave changes Discharge Plan Discharge Clinical Impression: Tachycardia, Anxiety Patient Disposition: Home Condition: Improved Instructions: Antibiotic Form, Anxiety (ED), Tachycardia (ED), Pacemaker (DC) Patient Language: Tajik Prescriptions: No Action amlodipine 10 mg tablet 5 mg PO DAILY 30 Days Qty: 15 0RF [place] 150 mg tablet 150 mg PO DAILY Qty: 90 3RF buspirone 30 mg tablet 30 mg PO BID Qty: 60 2RF lorazepam [Ativan] 0.5 mg tablet 0.5 mg PO TID PRN (Reason: anxiety) Qty: 30 0RF evening primrose oil 500 mg capsule 1,000 mg PO DAILY Rx Instructions: give with meal/snack Xhance 93 mcg/actuation aerosol breath activated 2 spray intranasal Q12H PRN (Reason: allergy symptoms) Rx Instructions: into each nostril cyclosporine [Restasis] 0.05 % dropperette 1 drp EACH EYE Q12H ferrous sulfate [FeroSul] 325 mg (65 mg iron) tablet See Rx Instructions .ROUTE .COMPLEX Qty: 90 3RF Dose Instruction: TAKE 1 TABLET DAILY Rx Instructions: TAKE 1 TABLET DAILY losartan 50 mg tablet See Rx Instructions .ROUTE .COMPLEX Qty: 90 3RF Dose Instruction: TAKE 1 TABLET DAILY Rx Instructions: TAKE 1 TABLET DAILY omeprazole 20 mg capsule,delayed release(DR/EC) 20 mg PO DAILY Qty: 90 2RF acetaminophen [Arthritis Pain Reliever] 650 mg Tablet Extended Release 1,000 mg PO Q8H estradiol 0.01 % (0.1 mg/gram) cream 1 g VAGINAL .twice a week Rx Instructions: taken on and mirabegron 50 mg tablet extended release 24 hr 50 mg PO Q24H cholecalciferol (vitamin D3) 125 mcg (5,000 unit) capsule 50,000 unit PO WEEKLY Rx Instructions: on Tuesdays simvastatin 40 mg tablet 40 mg PO DAILY Qty: 90 1RF duloxetine 60 mg capsule,delayed release(DR/EC) See Rx Instructions .ROUTE .COMPLEX Qty: 90 3RF Dose Instruction: TAKE 1 CAPSULE DAILY AT BEDTIME Rx Instructions: TAKE 1 CAPSULE DAILY AT BEDTIME meclizine 25 mg tablet 25 mg PO TID PRN (Reason: dizziness) Qty: 30 0RF Follow-up/Referrals: Lokesh Albright MD [Primary Care Provider, Family Practice]
[2025-10-07 16:57] LABS: Hematocrit 40.8 % (37.0-47.0); Hemoglobin 13.6 g/dL (12.0-15.0); Immature Granulocyte Percent A 0.2 % (0-0.5); Lymphocytes Absolute Auto 1.31 K/mm3 (0.9-3.2); Mean Corpuscular HGB Conc 33.3 g/dl (32-36); Mean Corpuscular Hemoglobin 31.3 pg (26-34); Mean Corpuscular Volume 94.0 fl (80-100); Nucleated Red Blood Cells Absolute Auto 0.000 K/mm3 (0.0-0.012); Nucleated Red Blood Cells Perc 0.0 % (0.0-0.2); Platelet Count Result 289 k/mm3 (150-375); Red Blood Count 4.34 M/mm3 (4.2-5.4); White Blood Count 6.2 K/mm3 (4.5-10.0)
[2025-10-07 17:05] LABS: Alanine Aminotransferase 28 U/L (6-35); Albumin Level 4.8 g/dL (3.5-5.1); Alkaline Phosphatase 100 U/L (38-126); Anion Gap 11 mmol/L (4-12); Aspartate Amino Transferase 34 U/L (14-36); Bilirubin,Total 0.5 mg/dL (0.2-1.3); Blood Urea Nitrogen 26 mg/dL (7-17); Calcium 10.4 mg/dL (8.4-10.2); Carbon Dioxide 25 mmol/L (22-30); Chloride 95 mmol/L (98-107); Estimated CRCL calculation 43 ml/min; Estimated Glomerular Filt Rate 60; Glucose 94 mg/dL (65-110); Potassium 3.9 mmol/L (3.4-5.0); Sodium 131 mmol/L (137-145); Total Protein 8.3 g/dL (6.3-8.2)
[2025-10-07 17:06] VITALS: PULSE 74; RESP 18; O2SAT 95
[2025-10-07 17:09] LABS: INR 0.9; Prothrombin Time 12.6 Seconds (11.1-14.7)
[2025-10-07 17:10] LABS: Partial Thromboplastin Time 28.7 Seconds (22.3-36.8)
[2025-10-07 17:11] LABS: NT Pro B Type Natriuretic Pept 238 pg/mL (19.9-100); Troponin I 0.025 ng/mL (0.000-0.034)
[2025-10-07 17:15] VITALS: PULSE 76; RESP 16; O2SAT 95
[2025-10-07 17:16] VITALS: BP 140/80; PULSE 82; RESP 19; O2SAT 94
--- NOTE | 2025-10-07 17:26 | ECG_ITS ---
Test Date: 2025-10-07 17:32:02 Measurements Intervals [place] Rate: 73 P: 76 OR: 270 QRS: -52 QRSD: 162 T: 134 QT: 405 QTc: 449 Interpretive Statements AV PACED RHYTHM RIGHT BUNDLE BRANCH BLOCK LEFT ANTERIOR FASCICULAR BLOCK ST DEVIATION AND T-WAVE ABNORMALITY, CONSIDER ISCHEMIA Electronically Signed On 10-07-2025 22:32:32 DATA PROCESSING MECHANIC by Ced Lawrence D.O
[2025-10-07 17:30] VITALS: PULSE 84; RESP 20; O2SAT 98
== END 2025-10-07 18:37 | disposition home or self-care (01) ==
PROVIDERS: Emergency Provider Emergency Medicine; PCP Family Medicine
DX: R00.0 Tachycardia, unspecified (principal); F41.9 Anxiety disorder, unspecified; Z95.0 Presence of cardiac pacemaker; G47.33 Obstructive sleep apnea (adult) (pediatric); Z99.89 Dependence on other enabling machines and devices; I10 Essential (primary) hypertension; E55.9 Vitamin D deficiency, unspecified; E78.5 Hyperlipidemia, unspecified
CPT/HCPCS: 36415; 71045; 80053; 83880; 84484; 85025; 85610; 85730; 93005; 96361; 96374; 99284; J3360; J7040